=== PATIENT | female | born 1945 | race Caucasian/White ===

== ENCOUNTER → 2017-01-11 | Outpatient (CLI) | payer BC ==
[~2017-01-11] MED LIST: ACET-1138 PO; ALBUAER2 INH; ASCO500C43 PO; ASPEC81 PO; ATOR-54 PO; ATV/1 PO; CALCTAB5 PO; CHOL1000 PO; CINN1CAP2 PO; CLB200 PO; COEN50CA PO; DTRSR4 PO; FLV400 PO; FRS/40 PO; GARLIC PARSLEY PO; GLUCTAB7 PO; LANS30CA12 PO; MISCCAP80 PO; MULT-506 PO; OXYSR10 PO; POTACAP PO; PRM625 PO; PROP20TA67 PO; RXC5 PO; VENL1CAP92 PO; VITAFUSION GUMMY PO
[2017-01-11 13:30] LABS: ALT/SGPT 26 U/L (12-78); AST/SGOT 16 U/L (15-37); BLOOD UREA NITROGEN 19 mg/dl (7-18); CALCIUM 9.2 mg/dl (8.5-10.1); CARBON DIOXIDE 31 mmol/L (21-32); CHLORIDE 104 mmol/L (98-107); CREATININE 0.91 mg/dl (0.60-1.20); GLUCOSE 177 mg/dl (70-99); POTASSIUM 3.8 mmol/L (3.5-5.1); SODIUM 143 mmol/L (136-145)
[2017-01-11 13:41] LABS: ALB/GLOB RATIO 0.8 (0.9-2); ALKALINE PHOSPHATASE 91 U/L (45-117); CHOLESTEROL 136 mg/dl (0-200); CHOLESTEROL/HDL RATIO 2.2; HDL CHOLESTEROL 61 mg/dl; LDL CHOLESTEROL CALCULATED 49 mg/dl; TRIGLYCERIDES 128 mg/dl (0-150); VERY LOW DENSITY LIPOPROT CALC 26 mg/dl
[2017-01-11 13:52] LABS: ESTIMATED AVERAGE GLUCOSE 128 mg/dl; HA1C FLAG Normal (Normal)
== END | disposition home or self-care (01) ==
LOC: C.LAB1850 11:39
PROVIDERS: ATTEND Internal Medicine
DX: E78.5 Hyperlipidemia, unspecified (principal); R73.01 Impaired fasting glucose

== ENCOUNTER → 2017-03-12 | Outpatient (CLI) | payer BC ==
[2017-03-12 15:40] LABS: BASO % 0.4 %; BASO ABS # 0.02 K/uL (0-0.2); COMPLETE YES; EOS % 2.7 %; HEMATOCRIT 40.7 % (37-47); IG% 0.2 %; LYMPH % 29.8 %; LYMPH ABS # 1.66 K/uL (1.2-3.4); MEAN CELL VOLUME 89.1 fL (80-100); MEAN CORPUSCULAR HEMOGLOBIN 28.9 pg (25-34); MEAN CORPUSCULAR HGB CONC 32.4 g/dl (32-36); MEAN PLATELET VOLUME 9.6 fL (7.4-10.4); MONO % 7.4 %; NEUT % 59.5 %; PLATELET COUNT 197 K/uL (130-400); RED BLOOD COUNT 4.57 M/uL (4.2-5.4); WHITE BLOOD COUNT 5.57 K/uL (4.8-10.8)
== END | disposition home or self-care (01) ==
LOC: C.LAB 14:58
DX: Z96.652 Presence of left artificial knee joint (principal)

== ENCOUNTER → 2017-03-25 | Outpatient (CLI) | payer BC | END | disposition home or self-care (01) | LOC: C.CPL 13:55 | DX: Z01.810 Encounter for preprocedural cardiovascular examination (principal); L91.0 Hypertrophic scar ==

== ENCOUNTER → 2017-07-09 | Outpatient (CLI) | payer BC ==
--- NOTE | 2017-07-09 14:54 | MAMMOGRAPHY REPORT ---
BILATERAL DIGITAL SCREENING MAMMOGRAM WITH CAD: 07/09/2017 CLINICAL HISTORY: Routine screening. Patient has no complaints. TECHNIQUE: Current study was also evaluated with a Computer Aided Detection (CAD) system. Bilateral CC and MLO views were obtained. COMPARISON: Comparison is made to exams dated: 07/08/2016 mammogram, 05/01/2015 mammogram, 01/24/2014 m ammogram, 09/13/2012 mammogram, 03/21/2012 mammogram, and 09/17/2011 mammogram - [facility] enter. BREAST COMPOSITION: There are scattered areas of fibroglandular density in both breasts. FINDINGS: No suspicious masses, calcifications, or areas of architectural distortion are noted in ei ther breast. There has been no significant interval change compared to prior exams. IMPRESSION: ACR BI-RADS CATEGORY 1: NEGATIVE There is no mammographic evidence of malignancy. A 1 year screening mammogram is recommended. The pa tient will receive written notification of the results. Approximately 10% of breast cancers are not detected with mammography. A negative mammographic report should not delay biopsy if a clinically suggestive mass is present. Nyla Yin M.D. /:07/09/2017 13:57:00 Physical Optics Teacher: Stephania FONTANEZ(Andrew)(Home)([place]), [facility] letter sent: Normal 1/2 BI-RADS Code: ACR BI-RADS Category 1: Negative
== END | disposition home or self-care (01) ==
LOC: C.MAMM 13:03
PROVIDERS: ATTEND Internal Medicine
DX: Z12.31 Encounter for screening mammogram for malignant neoplasm of breast (principal)

== ENCOUNTER → 2017-07-21 | Outpatient (CLI) | payer BC ==
[2017-07-21 17:26] LABS: HEMATOCRIT 41.1 % (37-47); MEAN CELL VOLUME 92.2 fL (80-100); MEAN CORPUSCULAR HEMOGLOBIN 29.8 pg (25-34); MEAN CORPUSCULAR HGB CONC 32.4 g/dl (32-36); MEAN PLATELET VOLUME 10.4 fL (7.4-10.4); PLATELET COUNT 201 K/uL (130-400); RED BLOOD COUNT 4.46 M/uL (4.2-5.4); WHITE BLOOD COUNT 5.66 K/uL (4.8-10.8)
[2017-07-21 17:54] LABS: ALT/SGPT 31 U/L (12-78); AST/SGOT 22 U/L (15-37); BLOOD UREA NITROGEN 26 mg/dl (7-18); BUN/CREATININE RATIO 25.7 (10-20); CALCIUM 9.4 mg/dl (8.5-10.1); CARBON DIOXIDE 31 mmol/L (21-32); CHLORIDE 103 mmol/L (98-107); GLUCOSE 109 mg/dl (70-99); POTASSIUM 3.9 mmol/L (3.5-5.1); SODIUM 141 mmol/L (136-145)
[2017-07-21 17:55] LABS: ALKALINE PHOSPHATASE 80 U/L (45-117); CHOLESTEROL 146 mg/dl (0-200); CHOLESTEROL/HDL RATIO 2.3; HDL CHOLESTEROL 64 mg/dl; LDL CHOLESTEROL CALCULATED 53 mg/dl; TRIGLYCERIDES 145 mg/dl (0-150); VERY LOW DENSITY LIPOPROT CALC 29 mg/dl
[2017-07-22 13:09] LABS: ESTIMATED AVERAGE GLUCOSE 117 mg/dl; HA1C FLAG Normal (Normal)
== END | disposition home or self-care (01) ==
LOC: C.LABBFT 11:23
PROVIDERS: ATTEND Internal Medicine
DX: E78.5 Hyperlipidemia, unspecified (principal); R73.01 Impaired fasting glucose

== ENCOUNTER 2017-11-02 14:21 | Inpatient (IN) | payer BC, OTHER ==
[~2017-11-02] VITALS: Ht 154.9 cm; Wt 87.2 kg
[2017-11-02] VITALS (7 sets, daily range): BP systolic 145–181; BP diastolic 95–125; PULSE 96–131; TEMP 36.9–37.1; O2SAT 93–97; BMI 41.9
[2017-11-02] MEDS ORDERED: ONDANSETRON INJ 2 MG/ML 2 ML VIAL ONE (14:27)
[2017-11-02] MEDS ORDERED: MoRPHine SULFATE 10 MG/ML CARP/VIAL ONE (14:27)
[2017-11-02] MEDS ORDERED: MoRPHine SULFATE 4 MG/ML 1 ML CARP\\VIAL IV STA (14:36)
[2017-11-02] MEDS ORDERED: ONDANSETRON INJ 2 MG/ML 2 ML VIAL IV STA (14:36)
[2017-11-02] MEDS ORDERED: OPTIRAY 320 IV PRN (14:45)
--- NOTE | 2017-11-02 14:59 | EMERGENCY ROOM VISIT NOTE ---
History Report prepared by Juan: Nila Sadler Under the Supervision of: Dr. Colin Bryant M.D. 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 The patient has been constipated for the past 3 days which she states is unusual for her. She has not had a BM for 3 days. She has used stool softeners and suppositories without any relief. She has not been passing gas. She rates her pain as a 5/10 in severity. Positive nausea and vomiting. Negative chest pain, shortness of breath, recent travel, and recent trauma or injury. She was recently taking an antibiotic for "chest congestion." Pt takes daily aspirin. 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 Review of Systems See HPI for pertinent positives and negatives. A total of ten systems were reviewed and were otherwise negative. Past Medical & Surgical Medical Problems: (1) Arthritis of left knee Family History Non-pertinent due to advanced age. Social History Smoking Status: Never Smoker Marital Status: Housing Status: lives with significant other Occupation Status: unemployed Current/Historical Medications Scheduled Ascorbic Acid (Vitamin C 500 mg), 500 MG PO BID Aspirin (Aspirin EC Low Dose), 81 MG PO BID Atorvastatin (Lipitor), 20 MG PO QPM Calcium Carbonate-Vitamin D W/ (Caltrate 600 Plus), 600 MG PO DAILY Cholecalciferol (Vitamin D3), 1,000 UNITS PO QAM Cinnamon (Cinnamon), 1,000 MG PO QAM Flurbiprofen (Ansaid), 100 MG PO BIDM Furosemide (Lasix), 40 MG PO QAM Cudalpnhbuh-Hkpcuogzcoa-Pzd C- (Glucosamine Chondroitin), 1 TAB PO BID Levofloxacin (Levaquin), 500 MG PO DAILY Multiple Vitamins W/ Minerals (Womens Daily Formula), 1 TAB PO DAILY Potassium Gluconate (K-99), 595 MG PO QAM Propranolol Hcl (Propranolol Hcl), 40 MG PO BID Tolterodine Tartrate (Detrol LA), 4 MG PO QPM Venlafaxine Hcl (Effexor Xr), 37.5 MG PO BID Scheduled PRN Albuterol Sulfate (Proventil Hfa), 2 PUFFS INH QID PRN for SOB/Wheezing Lorazepam (Ativan), 1 MG PO BID PRN for Anxiety Ondansetron Hcl (Zofran), 4 MG PO Q6 PRN for Nausea Tramadol (Ultram), 50 MG PO Q8H PRN for Pain Allergies Coded Allergies: No Known Allergies (Verified , 11/02/17) Physical Exam Vital Signs Date Time Temp Pulse Resp B/P (MAP) Pulse Ox O2 Delivery O2 Flow Rate FiO2 11/02/17 17:30 97 Room Air 11/02/17 16:12 164/82 11/02/17 16:08 37.4 108 18 183/106 97 Room Air 11/02/17 15:14 113 11/02/17 14:39 36.6 110 24 132/101 93 Room Air 11/02/17 14:31 36.9 20 132/101 94 Room Air Physical Exam GENERAL: Awake, alert, well-appearing, NAD HENT: Normocephalic, atraumatic. Edentulous. EYES: Normal conjunctiva. Sclera non-icteric. NECK: Supple. No nuchal rigidity. FROM. Horizontal incisional scar over anterior neck. RESPIRATORY: CTAB, no rhonchi, wheezing, crackles CARDIAC: RRR, no MRG ABDOMEN: Soft, diffuse abdominal TTP the least in the RUQ, BS+ MSK: No chest wall TTP, no LE edema NEURO: GCS 15, CN 2-12 intact, moves all 4s on command SKIN: No rash or jaundice noted. Medical Decision & Procedures ER Provider Diagnostic Interpretation: Radiology results as stated below per my review and radiologist interpretation: CHEST ONE VIEW PORTABLE CLINICAL HISTORY: ABDOMINAL PAIN/GI pain COMPARISON STUDY: 03/03/2016 FINDINGS: Lungs are considered clear. Minimal interstitial change left base possibly atelectatic. No well-defined focal or consolidative infiltrative change. Stable postoperative changes of the cervical and low thoracic region. IMPRESSION: Chronic and postoperative change. Slight nonspecific interstitial prominence left lung base. The above report was generated using voice recognition software. It may contain grammatical, syntax or spelling errors. Electronically signed by: Champ Oswald M.D. 11/02/2017 3:02 PM Dictated Date/Time: 11/02/2017 3:01 PM ABD/PELVIS IV CONTRAST ONLY CT DOSE: 953.87 mGycm HISTORY: Pain severe ab TTP, almost peritonitic, no BM x 3 days, ?obstipation TECHNIQUE: Multiaxial CT images of the abdomen and pelvis were performed following the use of intravenous contrast. A dose lowering technique was utilized adhering to the principles of ALARA. COMPARISON STUDY: None. FINDINGS: Lung bases are clear. Liver is uniform throughout. Mild gallbladder distention. Trace perihepatic ascites. Mild atrophy of the kidneys. No evidence for renal hydronephrosis. Normal small bowel pattern. Distention of the cecum a sending and proximal to mid transverse colon. Decompressed descending colon. Mobile cecum which is located in the left lateral abdominal region. Normal appendix. IMPRESSION: 1. Generalized colonic distention specifically related to the cecum, a sending colon, as well as transverse colon. 2. No evidence for well-defined obstructing lesion with the descending colon unremarkable in overall caliber. 3. Mobile cecum with the cecum identified in the left lateral abdomen. The appendix is normal. 3. Trace ascites within the right and to a lesser extent left paracolic gutter regions. 4. The appearance suggests a general colonic ileus versus adynamic ileus rather than a true obstructive process. 5. No evidence for pneumatosis. The above report was generated using voice recognition software. It may contain grammatical, syntax or spelling errors. Electronically signed by: Champ Oswald M.D. 11/02/2017 4:09 PM Dictated Date/Time: 11/02/2017 4:03 PM Laboratory Results 11/02/17 15:03 Red Blood Count 4.58, Mean Corpuscular Volume 88.6, Mean Corpuscular Hemoglobin 30.1, Mean Corpuscular Hemoglobin Concent 34.0, Mean Platelet Volume 9.2, Neutrophils (%) (Auto) 90.7, Lymphocytes (%) (Auto) 3.8, Monocytes (%) (Auto) 5.0, Eosinophils (%) (Auto) 0.2, Basophils (%) (Auto) 0.0, Neutrophils # (Auto) 11.54, Lymphocytes # (Auto) 0.49, Monocytes # (Auto) 0.64, Eosinophils # (Auto) 0.02, Basophils # (Auto) 0.00 11/02/17 15:03 Test 11/02/17 15:03 11/02/17 15:07 11/02/17 15:08 11/02/17 15:11 White Blood Count 12.73 K/uL (4.8-10.8) Red Blood Count 4.58 M/uL (4.2-5.4) Hemoglobin 13.8 g/dL (12.0-16.0) Hematocrit 40.6 % (37-47) Mean Corpuscular Volume 88.6 fL (80-100) Mean Corpuscular Hemoglobin 30.1 pg (25-34) Mean Corpuscular Hemoglobin Concent 34.0 g/dl (32-36) Platelet Count 178 K/uL (130-400) Mean Platelet Volume 9.2 fL (7.4-10.4) Neutrophils (%) (Auto) 90.7 % Lymphocytes (%) (Auto) 3.8 % Monocytes (%) (Auto) 5.0 % Eosinophils (%) (Auto) 0.2 % Basophils (%) (Auto) 0.0 % Neutrophils # (Auto) 11.54 K/uL (1.4-6.5) Lymphocytes # (Auto) 0.49 K/uL (1.2-3.4) Monocytes # (Auto) 0.64 K/uL (0.11-0.59) Eosinophils # (Auto) 0.02 K/uL (0-0.5) Basophils # (Auto) 0.00 K/uL (0-0.2) RDW Standard Deviation 48.2 fL (36.4-46.3) RDW Coefficient of Variation 15.1 % (11.5-14.5) Immature Granulocyte % (Auto) 0.3 % Immature Granulocyte # (Auto) 0.04 K/uL (0.00-0.02) Activated Partial Thromboplast Time 23.1 SECONDS (21.0-31.0) Partial Thromboplastin Ratio 0.9 Est Creatinine Clear Calc Drug Dose 55.6 ml/min Estimated GFR () 66.3 Estimated GFR (Non- 57.2 BUN/Creatinine Ratio 25.4 (10-20) Calcium Level 10.6 mg/dl (8.5-10.1) Total Bilirubin 1.2 mg/dl (0.2-1) Direct Bilirubin 0.2 mg/dl (0-0.2) Aspartate Amino Transf (AST/SGOT) 21 U/L (15-37) Alanine Aminotransferase (ALT/SGPT) 25 U/L (12-78) Alkaline Phosphatase 91 U/L (45-117) Total Protein 7.3 gm/dl (6.4-8.2) Albumin 3.6 gm/dl (3.4-5.0) Lipase 88 U/L (73-393) Bedside Lactic Acid Venous 1.46 mmol/L (0.90-1.70) Venous Blood pH 7.39 (7.36-7.41) Venous Blood Partial Pressure CO2 54 mmHg (38.0-50.0) Venous Blood Partial Pressure O2 26 mmHg Venous Blood HCO3 31 mmol/L Venous Blood Oxygen Saturation < 60.0 % Venous Blood Base Excess 5.1 mEq/L Bedside Hemoglobin 13.9 g/dl (12.0-16.0) Bedside Hematocrit 41 % (37-47) Bedside Sodium 138 mEq/L (135-144) Bedside Potassium 3.4 mEq/L (3.3-5.0) Bedside Chloride 96 mEq/L (101-112) Bedside Total CO2 30 mEq/l (24-31) Anion Gap 16.0 mmol/L (16-25) Bedside Blood Urea Nitrogen 25 mg/dl (7-18) Bedside Creatinine 1.0 mg/dl (0.6-1.3) Bedside Glucose (other) 184 mg/dl (70-99) Bedside Ionized Calcium ([place]) 1.26 mmol/l (1.12-1.32) Laboratory results reviewed by me. Medications Administered Medications (Trade) Dose Ordered Sig/Rachel Route Start Time Stop Time Status Last Admin Dose Admin Ondansetron HCl (Zofran Inj) 4 mg NOW STAT IV 11/02/17 14:36 11/02/17 14:40 DC 11/02/17 15:08 4 MG Morphine Sulfate (MoRPHine SULFATE INJ) 4 mg NOW STAT IV 11/02/17 14:36 11/02/17 14:40 DC 11/02/17 15:09 4 MG Hydromorphone HCl (Dilaudid Inj) 0.5 mg NOW STAT IV 11/02/17 16:39 11/02/17 16:40 DC 11/02/17 17:26 0.5 MG Hydromorphone HCl (Dilaudid Inj) 1 mg Q4H PRN IV 11/02/17 18:00 11/16/17 17:59 11/02/17 19:48 1 MG Morphine Sulfate (MoRPHine SULFATE INJ) 2 mg Q4H PRN IV 11/02/17 18:00 2 17:59 11/02/17 21:30 2 MG ECG Indication: abdominal pain Rate (beats per minute): 110 Rhythm: sinus tachycardia Findings: T-wave inversion (Lateral), other (normal intervals; normal axis; motion artifact) Change: ECG interpreted by myself. ED Course 1421: The patient was evaluated in room A9A. A complete history and physical exam was performed. 1636: I reassessed the patient at this time. She is still having symptoms. I discussed the results and treatment plan with the patient. I answered all pertaining questions that she had. She expressed understanding and verbalized agreement. 1642: I spoke with Dr. Mackey. We discussed the patient's case. The patient will be evaluated by the [facility] for further management. Medical Decision Differential diagnosis: Etiologies such as appendicitis, diverticulitis, PUD, biliary pathology, UTI, pancreatitis, obstruction, mesenteric ischemia, aortic pathology, infections, inflammatory bowel disease, renal colic, as well as others were entertained. 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 Patient was seen and evaluated the bedside. Patient was complaining of some diffuse abdominal pain beginning around 7:30 this morning. Patient states that developed after waking up. Patient has had some nausea with some vomiting as well. On exam the patient per and complains just of a dominant pain. Per review the EMR the patient has had a prior hysterectomy. No other abdominal surgeries noted. Patient did have blood work completed along with EKG, troponin , chest x-ray and CT the abdomen pelvis. A VBG and lactic acid were also drawn. Patient's VBG did show mild hypercarbia but pH is normal. Lactic acid is normal. Patient's white blood cell count of 12,000. Patient did have mild hyperglycemia. Patient's CT the head and pelvis did show an ileus without obvious transition point. I did reassess the patient the patient still fairly symptomatic. Given the patient's diffuse pain she was given additional pain medication I did admit the patient to the medicine service. Medication Reconcilliation Current Medication List: was personally reviewed by me Blood Pressure Screening Patient's blood pressure: Elevated blood pressure Blood pressure disposition: Elevated BP felt to be situational Consults Time Called: 1639 Consulting Physician: Dr. Makcey Returned Call: [address] Mackey. We discussed the patient's case. The patient will be evaluated by the [facility] for further management. Impression Primary Impression: Ileus Additional Impressions: Abdominal pain, diffuse Nausea & vomiting Scribe Attestation The scribe's documentation has been prepared under my direction and personally reviewed by me in its entirety. I confirm that the note above accurately reflects all work, treatment, procedures, and medical decision making performed by me. Departure Information Dispostion Being Evaluated By Hospitalist Referrals Aryan Jack M.D. (PCP) Patient Instructions My [facility] Health Problem Qualifiers Additional Impressions: Nausea & vomiting Vomiting type: unspecified Vomiting Intractability: non-intractable Qualified Codes: R11.2 - Nausea with vomiting, unspecified
--- NOTE | 2017-11-02 15:03 | DIAGNOSTIC IMAGING REPORT ---
CHEST ONE VIEW PORTABLE CLINICAL HISTORY: ABDOMINAL PAIN/GI pain COMPARISON STUDY: 03/03/2016 FINDINGS: Lungs are considered clear. Minimal interstitial change left base possibly atelectatic. No well-defined focal or consolidative infiltrative change. Stable postoperative changes of the cervical and low thoracic region. IMPRESSION: Chronic and postoperative change. Slight nonspecific interstitial prominence left lung base. The above report was generated using voice recognition software. It may contain grammatical, syntax or spelling errors. Electronically signed by: Champ Oswald M.D. 11/02/2017 3:02 PM Dictated Date/Time: 11/02/2017 3:01 PM
[2017-11-02 15:15] LABS: EOS % 0.2 %; EOS ABS # 0.02 K/uL (0-0.5); HEMATOCRIT 40.6 % (37-47); HEMOGLOBIN 13.8 g/dL (12.0-16.0); IG# 0.04 K/uL (0.00-0.02); LYMPH % 3.8 %; LYMPH ABS # 0.49 K/uL (1.2-3.4); MEAN CELL VOLUME 88.6 fL (80-100); MEAN CORPUSCULAR HEMOGLOBIN 30.1 pg (25-34); MEAN PLATELET VOLUME 9.2 fL (7.4-10.4); MONO ABS # 0.64 K/uL (0.11-0.59); NEUT % 90.7 %; NEUT ABS # 11.54 K/uL (1.4-6.5); PLATELET COUNT 178 K/uL (130-400); RED CELL DISTRIBUTION WIDTH CV 15.1 % (11.5-14.5); RED CELL DISTRIBUTION WIDTH SD 48.2 fL (36.4-46.3); WHITE BLOOD COUNT 12.73 K/uL (4.8-10.8)
[2017-11-02] MEDS: PROPRANOLOL HCL 80 MG TAB PO SCH (15:15)
[2017-11-02] MEDS: VENLAFAXINE HCL XR 37.5 MG CAPXR PO SCH (15:15)
[2017-11-02 15:24] LABS: ISTAT IONIZED CALCIUM 1.26 mmol/l (1.12-1.32); ISTAT POTASSIUM 3.4 mEq/L (3.3-5.0)
[2017-11-02 15:25] LABS: PTT PATIENT 23.1 SECONDS (21.0-31.0)
[2017-11-02 15:31] LABS: ALBUMIN 3.6 gm/dl (3.4-5.0); CALCIUM 10.6 mg/dl (8.5-10.1); CREATININE 0.98 mg/dl (0.60-1.20); POTASSIUM 3.5 mmol/L (3.5-5.1)
[2017-11-02 15:34] LABS: TOTAL PROTEIN 7.3 gm/dl (6.4-8.2)
--- NOTE | 2017-11-02 16:10 | DIAGNOSTIC IMAGING REPORT ---
ABD/PELVIS IV CONTRAST ONLY CT DOSE: 953.87 mGycm HISTORY: Pain severe ab TTP, almost peritonitic, no BM x 3 days, ?obstipation TECHNIQUE: Multiaxial CT images of the abdomen and pelvis were performed following the use of intravenous contrast. A dose lowering technique was utilized adhering to the principles of ALARA. COMPARISON STUDY: None. FINDINGS: Lung bases are clear. Liver is uniform throughout. Mild gallbladder distention. Trace perihepatic ascites. Mild atrophy of the kidneys. No evidence for renal hydronephrosis. Normal small bowel pattern. Distention of the cecum a sending and proximal to mid transverse colon. Decompressed descending colon. Mobile cecum which is located in the left lateral abdominal region. Normal appendix. IMPRESSION: 1. Generalized colonic distention specifically related to the cecum, a sending colon, as well as transverse colon. 2. No evidence for well-defined obstructing lesion with the descending colon unremarkable in overall caliber. 3. Mobile cecum with the cecum identified in the left lateral abdomen. The appendix is normal. 3. Trace ascites within the right and to a lesser extent left paracolic gutter regions. 4. The appearance suggests a general colonic ileus versus adynamic ileus rather than a true obstructive process. 5. No evidence for pneumatosis. The above report was generated using voice recognition software. It may contain grammatical, syntax or spelling errors. Electronically signed by: Champ Oswald M.D. 11/02/2017 4:09 PM Dictated Date/Time: 11/02/2017 4:03 PM
[2017-11-02] MEDS ORDERED: HYDROmorphone INJ 0.5 MG/0.5 ML SYR IV STA (16:39)
[2017-11-02] MEDS ORDERED: TRAM-10 PO (16:52)
[2017-11-02] MEDS ORDERED: MULT1TAB79 PO (16:52)
[2017-11-02] MEDS ORDERED: ALBUAER INH (16:52)
[2017-11-02] MEDS ORDERED: LEVO500T19 PO (16:52)
[2017-11-02] MEDS ORDERED: ONDA4TAB46 PO (16:52)
[2017-11-02] MEDS ORDERED: FLUR100T PO (16:52)
[2017-11-02] MEDS ORDERED: CALCTAB7 PO (16:52)
[2017-11-02] MEDS ORDERED: PROP40TA5 PO (16:54)
[2017-11-02] MEDS ORDERED: ACETAMINOPHEN 325 MG TAB PO PRN (18:00)
[2017-11-02] MEDS ORDERED: LORAZEPAM 1 MG TAB PO PRN (18:00)
[2017-11-02] MEDS ORDERED: ALBUTEROL HFA 8 GM INHALER INH PRN (18:00)
[2017-11-02] MEDS ORDERED: ONDANSETRON 4 MG TAB PO PRN (18:00)
[2017-11-02] MEDS ORDERED: SODIUM CHLORIDE 0.9% 1000ML 1,000 ML IV SCH (18:15)
--- NOTE | 2017-11-02 18:25 | History and Physical ---
History & Physical Date & Time of Service: Nov 02, 2017 at 17:41 Chief Complaint: Abdominal Pain Primary Care Physician: Aryan Jack M.D. History of Present Illness Source: patient Ms. Kaminski presented to the ED today for belly pain is currently experiencing a pain level of 10/10 with little relief from pain medications given, pain started at 7:30 this morning. She has been nauseas and vomiting. She has never had a bowel blockage before. She has a history of hysterectomy but no other abdominal surgeries. She has not had a bowel movement for 3 days which is unusual for her. She had no relief from mineral oil or suppositories. She has had some gas and burping. No fever, some chills this morning. She has been sick since the middle of September with sinus infection and cough. She started on abx a week ago. She was unable to take her last dose today. ROS Constitutional: no chills, aches, sweats or fever Respiratory: no sob,cough, sputum, or wheezing Cardiac: no chest pain, palpitations, edema, orthopnea or lightheadedness GI: see HPI : no dysuria or hesitancy Extremities: no joint pain or weakness Skin: no rash All other systems reviewed and negative Pmhx: htn, anxiety, knee, back, shoulder, neck surgeries as well as partial thyroidectomy. Social History Smoking Status: Never Smoker Alcohol Use: none Marital Status: Housing status: lives with significant other Occupational Status: unemployed Immunizations History of Influenza Vaccine: No History of Tetanus Vaccine?: Yes History of Pneumococcal: No History of Hepatitis B Vaccine: No Multi-Drug Resistant Organisms History of MDRO: No Allergies Coded Allergies: No Known Allergies (Verified , 11/02/17) Home Medications Scheduled Ascorbic Acid (Vitamin C 500 mg), 500 MG PO BID Aspirin (Aspirin EC Low Dose), 81 MG PO BID Atorvastatin (Lipitor), 20 MG PO QPM Calcium Carbonate-Vitamin D W/ (Caltrate 600 Plus), 600 MG PO DAILY Cholecalciferol (Vitamin D3), 1,000 UNITS PO QAM Cinnamon (Cinnamon), 1,000 MG PO QAM Flurbiprofen (Ansaid), 100 MG PO BIDM Furosemide (Lasix), 40 MG PO QAM Tgrcjngbweq-Wfmwnxijcuw-Lxu C- (Glucosamine Chondroitin), 1 TAB PO BID Levofloxacin (Levaquin), 500 MG PO DAILY Multiple Vitamins W/ Minerals (Womens Daily Formula), 1 TAB PO DAILY Potassium Gluconate (K-99), 595 MG PO QAM Propranolol Hcl (Propranolol Hcl), 40 MG PO BID Tolterodine Tartrate (Detrol LA), 4 MG PO QPM Venlafaxine Hcl (Effexor Xr), 37.5 MG PO BID Scheduled PRN Albuterol Sulfate (Proventil Hfa), 2 PUFFS INH QID PRN for SOB/Wheezing Lorazepam (Ativan), 1 MG PO BID PRN for Anxiety Ondansetron Hcl (Zofran), 4 MG PO Q6 PRN for Nausea Tramadol (Ultram), 50 MG PO Q8H PRN for Pain Physical Exam Vital Signs Date Time Temp Pulse Resp B/P (MAP) Pulse Ox O2 Delivery O2 Flow Rate FiO2 11/02/17 17:30 97 Room Air 11/02/17 16:12 164/82 11/02/17 16:08 37.4 108 18 183/106 97 Room Air 11/02/17 15:14 113 11/02/17 14:39 36.6 110 24 132/101 93 Room Air 11/02/17 14:31 36.9 20 132/101 94 Room Air General: no distress Eyes: normal inspection, PERLL Respiratory: chest non tender, clear to auscultation, normal breath sounds, no respiratory distress, no accessory muscle use Cardiac: regular rate and rhythm, no rub or gallop, no murmur, no edema, no jvd GI/: active bowel sounds, abdomen firm and distended, diffusely tender to palpatient Extremities: normal range of motion, normal strength, non tender Neuro/Psych: alert and oriented x 3, normal mood and affect Skin: normal color, dry Diagnostics Laboratory Results Results Past 24 Hours Test 11/02/17 15:03 11/02/17 15:07 11/02/17 15:08 11/02/17 15:11 Range/Units White Blood Count 12.73 4.8-10.8 K/uL Red Blood Count 4.58 4.2-5.4 M/uL Hemoglobin 13.8 12.0-16.0 g/dL Hematocrit 40.6 37-47 % Mean Corpuscular Volume 88.6 80-100 fL Mean Corpuscular Hemoglobin 30.1 25-34 pg Mean Corpuscular Hemoglobin Concent 34.0 32-36 g/dl Platelet Count 178 130-400 K/uL Mean Platelet Volume 9.2 7.4-10.4 fL Neutrophils (%) (Auto) 90.7 % Lymphocytes (%) (Auto) 3.8 % Monocytes (%) (Auto) 5.0 % Eosinophils (%) (Auto) 0.2 % Basophils (%) (Auto) 0.0 % Neutrophils # (Auto) 11.54 1.4-6.5 K/uL Lymphocytes # (Auto) 0.49 1.2-3.4 K/uL Monocytes # (Auto) 0.64 0.11-0.59 K/uL Eosinophils # (Auto) 0.02 0-0.5 K/uL Basophils # (Auto) 0.00 0-0.2 K/uL RDW Standard Deviation 48.2 36.4-46.3 fL RDW Coefficient of Variation 15.1 11.5-14.5 % Immature Granulocyte % (Auto) 0.3 % Immature Granulocyte # (Auto) 0.04 0.00-0.02 K/uL Prothrombin Time 10.7 9.0-12.0 SECONDS Prothromb Time International Ratio 1.0 0.9-1.1 Activated Partial Thromboplast Time 23.1 21.0-31.0 SECONDS Partial Thromboplastin Ratio 0.9 Sodium Level 136 136-145 mmol/L Potassium Level 3.5 3.5-5.1 mmol/L Chloride Level 98 98-107 mmol/L Carbon Dioxide Level 29 21-32 mmol/L Anion Gap 9.0 16.0 16-25 mmol/L Blood Urea Nitrogen 25 7-18 mg/dl Creatinine 0.98 0.60-1.20 mg/dl Est Creatinine Clear Calc Drug Dose 55.6 ml/min Estimated GFR () 66.3 Estimated GFR (Non- 57.2 BUN/Creatinine Ratio 25.4 10-20 Random Glucose 181 70-99 mg/dl Calcium Level 10.6 8.5-10.1 mg/dl Total Bilirubin 1.2 0.2-1 mg/dl Direct Bilirubin 0.2 0-0.2 mg/dl Aspartate Amino Transf (AST/SGOT) 21 15-37 U/L Alanine Aminotransferase (ALT/SGPT) 25 12-78 U/L Alkaline Phosphatase 91 45-117 U/L Total Protein 7.3 6.4-8.2 gm/dl Albumin 3.6 3.4-5.0 gm/dl Lipase 88 73-393 U/L Bedside Lactic Acid Venous 1.46 0.90-1.70 mmol/L Venous Blood pH 7.39 7.36-7.41 Venous Blood Partial Pressure CO2 54 38.0-50.0 mmHg Venous Blood Partial Pressure O2 26 mmHg Venous Blood HCO3 31 mmol/L Venous Blood Oxygen Saturation < 60.0 % Venous Blood Base Excess 5.1 mEq/L Bedside Hemoglobin 13.9 12.0-16.0 g/dl Bedside Hematocrit 41 37-47 % Bedside Sodium 138 135-144 mEq/L Bedside Potassium 3.4 3.3-5.0 mEq/L Bedside Chloride 96 101-112 mEq/L Bedside Total CO2 30 24-31 mEq/l Bedside Blood Urea Nitrogen 25 7-18 mg/dl Bedside Creatinine 1.0 0.6-1.3 mg/dl Bedside Glucose (other) 184 70-99 mg/dl Bedside Ionized Calcium (Dayami) 1.26 1.12-1.32 mmol/l Diagnostic Radiology ABD/PELVIS IV CONTRAST ONLY CT DOSE: 953.87 mGycm HISTORY: Pain severe ab TTP, almost peritonitic, no BM x 3 days, ?obstipation TECHNIQUE: Multiaxial CT images of the abdomen and pelvis were performed following the use of intravenous contrast. A dose lowering technique was utilized adhering to the principles of ALARA. COMPARISON STUDY: None. FINDINGS: Lung bases are clear. Liver is uniform throughout. Mild gallbladder distention. Trace perihepatic ascites. Mild atrophy of the kidneys. No evidence for renal hydronephrosis. Normal small bowel pattern. Distention of the cecum a sending and proximal to mid transverse colon. Decompressed descending colon. Mobile cecum which is located in the left lateral abdominal region. Normal appendix. IMPRESSION: 1. Generalized colonic distention specifically related to the cecum, a sending colon, as well as transverse colon. 2. No evidence for well-defined obstructing lesion with the descending colon unremarkable in overall caliber. 3. Mobile cecum with the cecum identified in the left lateral abdomen. The appendix is normal. 3. Trace ascites within the right and to a lesser extent left paracolic gutter regions. 4. The appearance suggests a general colonic ileus versus adynamic ileus rather than a true obstructive process. 5. No evidence for pneumatosis. CHEST ONE VIEW PORTABLE CLINICAL HISTORY: ABDOMINAL PAIN/GI pain COMPARISON STUDY: 03/03/2016 FINDINGS: Lungs are considered clear. Minimal interstitial change left base possibly atelectatic. No well-defined focal or consolidative infiltrative change. Stable postoperative changes of the cervical and low thoracic region. IMPRESSION: Chronic and postoperative change. Slight nonspecific interstitial prominence left lung base. EKG Poor data quality, interpretation may be adversely affected Sinus tachycardia Nonspecific T wave abnormality Abnormal ECG When compared with ECG of 25-MAR-2017 14:11, Vent. rate has increased BY 41 BPM Nonspecific T wave abnormality now evident in Inferior leads Impression Assessment and Plan Ms. Kaminski is a 72 year old woman here for colonic ileus Colonic ileus - admit med surg - may need NG tube, pain control, IVF, NPO - CT showed colonic ileus without evidence for obstructing lesion - consult gen surg Hypokalemia - NSS 20K @ 100 ml/hr HTN - bp elevated - likely due to pain - continue home lasix, propranolol when taking po. Asthma - continue home inhalers HLD - continue statin when taking po Anxiety - continue lorazepam bid Depression - continue effexor DVT proph - heparin subq - hold until seen by surgery DNR Resident Physician Supervision Note: Pt evaluated independently. I discussed the case with the [employer] and agree with the findings and plan as documented in the note. Any exceptions or clarifications are listed here: 72 y/o F Hx HTN, HPL, asthma - history of hysterectomy - presenting with abd pain/distention, N/V. OE AAO x 3 S1,2 +M CTAB distended abdomen - pain to palpation - hypoactive BS No CCE No deficits P: CT read as ileus - no history of or Hx of DM - distant abd surgery Due to clinical exam we will request a surgery consult She may need an NGT IVF - NPO - hold daily lasix due to dehydration and hypoK Documented By: Yinka Mackey Advanced Directives Existing Living Will: No Existing Power of Foreign Language Professor: No Resuscitation Status DO NOT RESUSCITATE
[2017-11-02] MEDS: ONDANSETRON INJ 2 MG/ML 2 ML VIAL IV PRN (19:47)
[2017-11-02] MEDS: HYDROmorphone INJ 1 MG/ML SYR IV PRN (19:48)
[2017-11-02] MEDS ORDERED: ASPIRIN 81 MG ECTAB PO SCH (21:00)
--- NOTE | 2017-11-02 21:12 | Surgery Consultation ---
Consultation Date of Consultation: Nov 02, 2017. Attending Physician: Yinka Mackey M.D. Reason for Consultation: Ileus History of Present Illness Patient is a 72F who presented to the ED this evening due to generalized abdominal pain, nausea and vomiting which started around 0730 this morning. Described her pain as a 10/10 in the ED. Denies hematemesis. She has continued to have bouts of nausea and vomiting in the ED and during her transfer up to med /surg floor. Reports she last ate yogurt the night before without issues. Last BM 3 days ago. Denies blood in stool. She has been urinating without trouble and it sounds like she has had some urinary incontinence during this visit as well. She also states she had some chills today but denies fever. She was recent put on antibiotics about a week ago for a sinus infection and cough that she has had since September. She was not able to take her last dose of the antibiotics today due to her pain. PSHx significant for hysterectomy and states they left her ovaries. Denies any other abdominal surgeries in the past. She has never had symptoms or episodes like this in the past. She does currently take aspirin 81mg BID but denies use of other blood thinning or anticoagulant medications. At this time she rates her pain 7/10. She received a dose of 1 mg dilaudid at 1948. She was having a NGT placed when I stepped into the room. WBC 12.73, T bili 1.[address] abd/pelvis shows findings suggesting a generalized colonic ileus versus adynamic ileus. Of note, her cecum was also found to be mobile and in her left lateral abdomen. Past Medical/Surgical History Medical Problems: (1) Abdominal pain, diffuse Status: Acute (2) Ileus Status: Acute (3) Nausea & vomiting Status: Acute Social History Smoking Status: Never Smoker Alcohol Use: none Marital Status: Housing Status: lives with significant other Occupation Status: unemployed Allergies Coded Allergies: No Known Allergies (Verified , 11/02/17) Home Medications Scheduled Ascorbic Acid (Vitamin C 500 mg), 500 MG PO BID Aspirin (Aspirin EC Low Dose), 81 MG PO BID Atorvastatin (Lipitor), 20 MG PO QPM Calcium Carbonate-Vitamin D W/ (Caltrate 600 Plus), 600 MG PO DAILY Cholecalciferol (Vitamin D3), 1,000 UNITS PO QAM Cinnamon (Cinnamon), 1,000 MG PO QAM Flurbiprofen (Ansaid), 100 MG PO BIDM Furosemide (Lasix), 40 MG PO QAM Wofbulvjfgm-Jphinxcdmdr-Dfg C- (Glucosamine Chondroitin), 1 TAB PO BID Levofloxacin (Levaquin), 500 MG PO DAILY Multiple Vitamins W/ Minerals (Womens Daily Formula), 1 TAB PO DAILY Potassium Gluconate (K-99), 595 MG PO QAM Propranolol Hcl (Propranolol Hcl), 40 MG PO BID Tolterodine Tartrate (Detrol LA), 4 MG PO QPM Venlafaxine Hcl (Effexor Xr), 37.5 MG PO BID Scheduled PRN Albuterol Sulfate (Proventil Hfa), 2 PUFFS INH QID PRN for SOB/Wheezing Lorazepam (Ativan), 1 MG PO BID PRN for Anxiety Ondansetron Hcl (Zofran), 4 MG PO Q6 PRN for Nausea Tramadol (Ultram), 50 MG PO Q8H PRN for Pain Current Inpatient Medications Current Inpatient Medications Medications (Trade) Dose Ordered Sig/Rachel Route Start Time Stop Time Status Last Admin Dose Admin Ioversol (Optiray 320) 100 ml UD PRN IV 11/02/17 14:45 11/06/17 14:44 Acetaminophen (Tylenol Tab) 650 mg Q4H PRN PO 11/02/17 18:00 12/02/17 17:59 Hydromorphone HCl (Dilaudid Inj) 1 mg Q4H PRN IV 11/02/17 18:00 11/16/17 17:59 11/02/17 19:48 1 MG Morphine Sulfate (MoRPHine SULFATE INJ) 2 mg Q4H PRN IV 11/02/17 18:00 11/16/17 17:59 Albuterol (Ventolin Hfa Inhaler) 2 puffs QID PRN INH 11/02/17 18:00 12/02/17 17:59 Aspirin (Ecotrin Tab) 81 mg BID PO 11/02/17 21:00 12/02/17 20:59 UNV Atorvastatin Calcium (Lipitor Tab) 20 mg QPM PO 11/02/17 21:00 12/02/17 20:59 UNV Calcium/Vitamin D (Caltrate Plus Tab) 1 tab DAILY PO 11/03/17 09:00 12/03/17 08:59 UNV Cholecalciferol (Vitamin D Tab) 1,000 inter.unit QAM PO 11/03/17 09:00 12/03/17 08:59 UNV Lorazepam (Ativan Tab) 1 mg BID PRN PO 11/02/17 18:00 12/02/17 17:59 Multivitamins/ Minerals (Multivitamin W/ Minerals Tab) 1 tab DAILY PO 11/03/17 09:00 12/03/17 08:59 UNV Ondansetron HCl (Zofran Tab) 4 mg Q6H PRN PO 11/02/17 18:00 12/02/17 17:59 Tolterodine Tartrate (Detrol LA Cap) 4 mg QPM PO 11/02/17 21:00 12/02/17 20:59 UNV Tramadol HCl (Ultram Tab) 50 mg Q8H PRN PO 11/02/17 18:00 12/02/17 17:59 Venlafaxine HCl (effeXOR EXTENDED REL CAP) 37.5 mg BID PO 11/02/17 21:00 12/02/17 20:59 UNV Propranolol HCl (Inderal Tab) 40 mg BID PO 11/02/17 21:00 12/02/17 20:59 Ondansetron HCl (Zofran Inj) 4 mg Q4H PRN IV 11/02/17 18:15 12/02/17 18:14 11/02/17 19:47 4 MG Potassium Chloride/Sodium Chloride 1,000 ml @ 100 mls/hr Q10H IV 11/02/17 18:45 12/02/17 18:44 UNV Review of Systems Constitutional: + chills, No fever Respiratory: No cough, No sputum Abdomen: + pain (generalized), + nausea, + vomiting, + constipation, No diarrhea Genitourinary - Female: + urinary incontinence, No dysuria, No hematuria Hematologic / Lymphatic: No abnormal bleeding/bruising, No clotting problems Integumentary: No color change Physical Exam Date Time Temp Pulse Resp B/P (MAP) Pulse Ox O2 Delivery O2 Flow Rate FiO2 11/02/17 17:30 97 Room Air 11/02/17 16:12 164/82 11/02/17 16:08 37.4 108 18 183/106 97 Room Air 11/02/17 15:14 113 11/02/17 14:39 36.6 110 24 132/101 93 Room Air 11/02/17 14:31 36.9 20 132/101 94 Room Air Patient laying in bed, nursing staff in progress of inserting NGT when I entered the room. NGT was successfully placed. General Appearance: WD/WN, no apparent distress Head: normocephalic, atraumatic ENT: hearing grossly normal Neck: trachea midline Respiratory/Chest: no respiratory distress, no accessory muscle use Abdomen/GI: normal bowel sounds (mildly hypoactive), no organomegaly, no pulsatile mass, + tenderness (generalized, moderate), + distended (moderate) Neurologic/Psych: alert, normal mood/affect, oriented x 3 Laboratory Results Last 24 Hours Test 11/02/17 15:03 11/02/17 15:07 11/02/17 15:08 11/02/17 15:11 White Blood Count 12.73 K/uL Red Blood Count 4.58 M/uL Hemoglobin 13.8 g/dL Hematocrit 40.6 % Mean Corpuscular Volume 88.6 fL Mean Corpuscular Hemoglobin 30.1 pg Mean Corpuscular Hemoglobin Concent 34.0 g/dl Platelet Count 178 K/uL Mean Platelet Volume 9.2 fL Neutrophils (%) (Auto) 90.7 % Lymphocytes (%) (Auto) 3.8 % Monocytes (%) (Auto) 5.0 % Eosinophils (%) (Auto) 0.2 % Basophils (%) (Auto) 0.0 % Neutrophils # (Auto) 11.54 K/uL Lymphocytes # (Auto) 0.49 K/uL Monocytes # (Auto) 0.64 K/uL Eosinophils # (Auto) 0.02 K/uL Basophils # (Auto) 0.00 K/uL RDW Standard Deviation 48.2 fL RDW Coefficient of Variation 15.1 % Immature Granulocyte % (Auto) 0.3 % Immature Granulocyte # (Auto) 0.04 K/uL Prothrombin Time 10.7 SECONDS Prothromb Time International Ratio 1.0 Activated Partial Thromboplast Time 23.1 SECONDS Partial Thromboplastin Ratio 0.9 Sodium Level 136 mmol/L Potassium Level 3.5 mmol/L Chloride Level 98 mmol/L Carbon Dioxide Level 29 mmol/L Anion Gap 9.0 mmol/L 16.0 mmol/L Blood Urea Nitrogen 25 mg/dl Creatinine 0.98 mg/dl Est Creatinine Clear Calc Drug Dose 55.6 ml/min Estimated GFR () 66.3 Estimated GFR (Non- 57.2 BUN/Creatinine Ratio 25.4 Random Glucose 181 mg/dl Calcium Level 10.6 mg/dl Total Bilirubin 1.2 mg/dl Direct Bilirubin 0.2 mg/dl Aspartate Amino Transf (AST/SGOT) 21 U/L Alanine Aminotransferase (ALT/SGPT) 25 U/L Alkaline Phosphatase 91 U/L Total Protein 7.3 gm/dl Albumin 3.6 gm/dl Lipase 88 U/L Bedside Lactic Acid Venous 1.46 mmol/L Venous Blood pH 7.39 Venous Blood Partial Pressure CO2 54 mmHg Venous Blood Partial Pressure O2 26 mmHg Venous Blood HCO3 31 mmol/L Venous Blood Oxygen Saturation < 60.0 % Venous Blood Base Excess 5.1 mEq/L Bedside Hemoglobin 13.9 g/dl Bedside Hematocrit 41 % Bedside Sodium 138 mEq/L Bedside Potassium 3.4 mEq/L Bedside Chloride 96 mEq/L Bedside Total CO2 30 mEq/l Bedside Blood Urea Nitrogen 25 mg/dl Bedside Creatinine 1.0 mg/dl Bedside Glucose (other) 184 mg/dl Bedside Ionized Calcium (Dayami) 1.26 mmol/l Assessment & Plan Abdominal pain, nausea, vomiting and CT findings suggesting generalized colonic ileus vs. adynamic ileus. Pain level decreased, abdomen still mild-mod distended, patient is resting at this time. NGT placed - no N/V since then however minimal output. D/C NGT Continue conservative management - NPO, IV Fluids, IV pain medication PRN, IV Zofran PRN for nausea, SCDs. Repeat labs in AM, Continue medical management, GI consult in AM for evaluation and possible colonoscopic decompression Dr. Coles in to see and examine patient. Please contact with questions/concerns.
[2017-11-02] MEDS: MoRPHine SULFATE 2 MG/ML CARP IV PRN (21:30)
[2017-11-02] MEDS ORDERED: HEPARIN SOD 5000 UNIT/0.5 ML CARP SQ SCH (22:00)
[2017-11-02] MEDS: NSS + 20MEQ KCL 1000ML 1,000 ML IV SCH (22:05)
[2017-11-02 22:22] LABS: INR 1.1 (0.9-1.1)
--- NOTE | 2017-11-02 22:56 | DIAGNOSTIC IMAGING REPORT ---
[facility] CLINICAL HISTORY: Ileus. Nasogastric tube placement. COMPARISON STUDY: CT of the abdomen and pelvis November 02, 2017 at 4:00 PM. FINDINGS: Tip of nasogastric tube projects over the gastric fundus. Contrast within the bladder and collecting systems is from recent contrast-enhanced CT. There are postoperative findings within the spine as well as the right hip arthroplasty. A moderate to large amount of stool within the colon is noted. There is persistent moderate colonic distention. No small bowel dilatation is present. IMPRESSION: 1. Tip of nasogastric tube projects over the gastric fundus. 2. Persistent moderate colonic dilatation which could reflect an ileus or colonic obstruction. 3. Moderate to large amount of stool within the colon. Electronically signed by: Mikael Lord M.D. 11/02/2017 10:55 PM Dictated Date/Time: 11/02/2017 10:48 PM
[2017-11-03 00:17] VITALS: BP 170/90; PULSE 133; TEMP 38.2; O2SAT 91
[2017-11-03] MEDS: ONDANSETRON INJ 2 MG/ML 2 ML VIAL IV PRN ×4 (00:19→22:07)
[2017-11-03] MEDS: HYDROmorphone INJ 1 MG/ML SYR IV PRN ×5 (00:19→22:07)
[2017-11-03] MEDS: ACETAMINOPHEN IV 650 MG in EMPTY BAG 0 ML IV PRN ×2 (01:09→19:42)
--- NOTE | 2017-11-03 02:22 | Progress Note ---
Progress Note Date of Service Nov 03, 2017. Progress Note maintained HR> 130, sinus tach; repeat ekg now reveals T wave inversions in the inf leads - transferred to tele and troponin negative - on reassess fever noted and was given IV tylenol, started on Zosyn; lactate, repeat troponin, NSS with 20 KCL@ 100cc/h cont'd with 500 cc bolus of NSS additional
[2017-11-03] MEDS ORDERED: SODIUM CHLORIDE 0.9% 1000ML 1,000 ML IV SCH (02:30)
[2017-11-03] MEDS ORDERED: PIPERACILL/TAZOBAC CONSULT ACTIVE PRN (02:30)
[2017-11-03] MEDS ORDERED: SODIUM CHLORIDE 0.9% 500ML 500 ML IV ONE (02:30)
[2017-11-03] MEDS ORDERED: PIPERACILL/TAZOBAC IV 4.5 GM in DEXTROSE 5% 100ML IV ONE (02:30)
[2017-11-03 02:40] LABS: HEMATOCRIT 40.7 % (37-47); HEMOGLOBIN 14.2 g/dL (12.0-16.0); MEAN CELL VOLUME 87.9 fL (80-100); MEAN CORPUSCULAR HEMOGLOBIN 30.7 pg (25-34); MEAN CORPUSCULAR HGB CONC 34.9 g/dl (32-36); MEAN PLATELET VOLUME 9.5 fL (7.4-10.4); PLATELET COUNT 231 K/uL (130-400); RED CELL DISTRIBUTION WIDTH CV 15.6 % (11.5-14.5); RED CELL DISTRIBUTION WIDTH SD 49.9 fL (36.4-46.3); WHITE BLOOD COUNT 18.24 K/uL (4.8-10.8)
[2017-11-03 03:05] LABS: CALCIUM 8.9 mg/dl (8.5-10.1); CREATININE 1.05 mg/dl (0.60-1.20); POTASSIUM 3.4 mmol/L (3.5-5.1)
[2017-11-03 03:10] LABS: TOTAL PROTEIN 6.5 gm/dl (6.4-8.2)
[2017-11-03 03:31] VITALS: BP 133/79; PULSE 123; TEMP 37; O2SAT 91
[2017-11-03] MEDS ORDERED: PIPERACILL/TAZOBAC IV 3.375 GM in DEXTROSE 5% 100ML 100 ML IV SCH (06:00)
[2017-11-03 07:24] VITALS: BP 136/83; PULSE 120; TEMP 36.9; O2SAT 91
--- NOTE | 2017-11-03 07:38 | SURGERY PROGRESS NOTE ---
DATE: 11/03/2017 The patient was transferred to telemetry due to her sinus tachycardia. She had a slight temperature elevation last night at 38.2 this morning. Her last vitals showed a temperature of 36.9, pulse 120, respirations 19, blood pressure 136/83, O2 sats 91 on room air. Subjectively, she feels better. The belly according to her is a little bit better than it was. On examination, is still moderately distended, may be a bit less tender than it was. We did give her a small enema last night and she said she had some relief. I would obtain an acute abdominal series to follow up on ileus and I spoke personally to Dr. Marcio Escobar regarding her case and he will see her as soon as he finishes another case.
--- NOTE | 2017-11-03 08:10 | DIAGNOSTIC IMAGING REPORT ---
ABDOMEN 2VIEW W/PA CHEST RTN CLINICAL HISTORY: follow up ileus COMPARISON STUDY: 11/02/2017 FINDINGS: Mild increase in distention of several loops of small bowel. Air and/or fecal filled colon is present. Postoperative changes involving the spine as well as right hip Noted. IMPRESSION: Findings of increasing components of a partial small bowel obstruction. The above report was generated using voice recognition software. It may contain grammatical, syntax or spelling errors. Electronically signed by: Champ Oswald M.D. 11/03/2017 8:09 AM Dictated Date/Time: 11/03/2017 8:03 AM
[2017-11-03] MEDS ORDERED: SOD PHOSPHATE/SOD BIPHOSPHATE ENEMA 132 ML BTL PR STA (08:21)
[2017-11-03] MEDS: FLUTICASONE PROPIONATE NA SPR 16 GM BTL SCH ×2 (09:00→20:48)
[2017-11-03] MEDS ORDERED: MULTIVITAMINS W/MINERALS LIQUID NG SCH (09:00)
[2017-11-03] MEDS: CALCIUM 600MG + VIT D 400 IU TAB PO SCH (09:00)
[2017-11-03] MEDS: CHOLECALCIFEROL 1000 INTER.UNIT TAB PO SCH (09:00)
[2017-11-03] MEDS ORDERED: FUROSEMIDE 40 MG TAB PO SCH (09:00)
[2017-11-03] MEDS ORDERED: CEROVITE ADV FORMULA TAB PO SCH (09:00)
[2017-11-03] MEDS ORDERED: SOAP SUDS ENEMA PR PRN (09:00)
--- NOTE | 2017-11-03 09:06 | Gastrointestinal Consultation ---
Gastrointestinal Consultation Date of Consultation: Nov 03, 2017 Attending Physician: Yinka Consulting Physician: Gordy Reason for Consultation: ileus History of Present Illness Patient is a 72 year old female w/ history of anxiety who presented through the ED for evaluation of abrupt onset abdominal pain associated w/ nausea and inability to pass a BM. Pt was seen and evaluated, chart reviewed. Pt is very uncomfortable in bed. She notes constant, severe abd pain that started yesterday. She has never had pain like this before. She notes her last BM was 4 days ago, which is not common. She has been using stool softeners and suppositories without any relief. She notes she has not been able to pass and gas or stool. She continues to be nauseated w/ dry heaves. No fever, chills, CP , SOB. She is normotensive, tachycardic. KUB 11/03/17: Findings of increasing components of a partial small bowel obstruction. KUB 11/02/17: Tip of nasogastric tube projects over the gastric fundus. . Persistent moderate colonic dilatation which could reflect an ileus or colonic obstruction. Moderate to large amount of stool within the colon. CT ABD/Pelvis 11/02/17: Generalized colonic distention specifically related to the cecum, a sending colon, as well as transverse colon. No evidence for well- defined obstructing lesion with the descending colon unremarkable in overall caliber. Mobile cecum with the cecum identified in the left lateral abdomen. The appendix is normal. Trace ascites within the right and to a lesser extent left paracolic gutterregions.The appearance suggests a general colonic ileus versus adynamic ileus rather than a true obstructive process. No evidence for pneumatosis. Past Medical/Surgical History Medical Problems: (1) Abdominal pain, diffuse Status: Acute (2) Ileus Status: Acute (3) Nausea & vomiting Status: Acute Past Medical History: HTN, anxiety Past Surgical History: partial thyroidectomy, back surgery shoulder surgery neck surgery Social History Smoking Status: Never Smoker Marital Status: Housing Status: lives with significant other Occupation Status: unemployed Allergies Coded Allergies: No Known Allergies (Verified , 11/02/17) Current Medications Home Meds and Scripts Medications Dose Route/Sig Max Daily Dose Days Date Category Dose Instructions Propranolol Hcl 40 Mg Tab 40 Mg PO BID 11/02/17 Reported Womens Daily Formula (Multiple Vitamins W/ Minerals) 1 Tab Tab 1 Tab PO DAILY 11/02/17 Reported Ultram (Tramadol HCl) 50 Mg Tab 50 Mg PO Q8H PRN 11/02/17 Reported Proventil Hfa (Albuterol Sulfate) 108 Mcg/Act Aer 2 Puffs INH QID PRN 11/02/17 Reported Zofran (Ondansetron HCl) 4 Mg Tab 4 Mg PO Q6 PRN 11/02/17 Reported Levaquin (Levofloxacin) 500 Mg Tab 500 Mg PO DAILY 11/02/17 Reported 7 DAY COURSE- STARTED 10/27/17 Ansaid (Flurbiprofen) 100 Mg Tab 100 Mg PO BIDM 11/02/17 Reported Caltrate 600 Plus (Calcium Carbonate-Vitamin D W/) 1 Tab Tab 600 Mg PO DAILY 11/02/17 Reported Aspirin EC Low Dose (Aspirin) 81 Mg Ectab 81 Mg PO BID 30 03/28/16 Rx Vitamin D3 (Cholecalciferol) 1,000 Unit Tab 1,000 Units PO QAM 90 03/03/16 Reported Ativan (Lorazepam) 1 Mg Tab 1 Mg PO BID PRN 03/03/16 Reported Detrol LA (Tolterodine Tartrate) 4 Mg Capcr 4 Mg PO QPM 03/03/16 Reported Cinnamon 500 Mg Cap 1,000 Mg PO QAM 05/29/15 Reported Glucosamine Chondroitin (Gczsbpuuoua-Ljvdudvmpvi-Fbr C-) 1 Tab Tab 1 Tab PO BID 05/23/15 Reported Vitamin C 500 mg (Ascorbic Acid) 1 Chw Chw 500 Mg PO BID 05/23/15 Reported Lipitor (Atorvastatin) 20 Mg Tab 20 Mg PO QPM 05/23/15 Reported Effexor Xr (Venlafaxine Hcl) 37.5 Mg Cap 37.5 Mg PO BID 30 05/23/15 Reported K-99 (Potassium Gluconate) 595 Mg Cap 595 Mg PO QAM 07/04/13 Reported Lasix (Furosemide) 40 Mg Tab 40 Mg PO QAM 05/13/09 Reported Review of Systems Constitutional: No fever Respiratory: No cough, No shortness of breath Cardiac: No chest pain Abdomen: + pain, + nausea, + vomiting, + constipation, No diarrhea Physical Exam Date Time Temp Pulse Resp B/P (MAP) Pulse Ox O2 Delivery O2 Flow Rate FiO2 11/03/17 07:24 36.9 120 19 136/83 (100) 91 Room Air 11/03/17 04:00 Nasal Cannula 2.0 11/03/17 03:31 37.0 123 20 133/79 (97) 91 Room Air 11/03/17 00:17 38.2 133 23 170/90 (116) 91 Room Air 11/02/17 22:51 36.9 130 145/97 (113) 11/02/17 22:45 130 20 145/97 (113) 96 Nasal Cannula 2.0 11/02/17 21:42 36.9 11/02/17 21:27 131 20 167/111 (129) 97 Nasal Cannula 2.0 11/02/17 21:27 131 20 167/111 (129) 97 Nasal Cannula 2.0 11/02/17 20:16 36.9 96 20 158/95 (116) 93 Nasal Cannula 2.0 11/02/17 19:45 37.1 130 20 181/125 (143) 94 Nasal Cannula 2.0 11/02/17 19:30 Nasal Cannula 2.0 11/02/17 17:30 97 Room Air 11/02/17 16:12 164/82 11/02/17 16:08 37.4 108 18 183/106 97 Room Air 11/02/17 15:14 113 11/02/17 14:39 36.6 110 24 132/101 93 Room Air 11/02/17 14:31 36.9 20 132/101 94 Room Air General Appearance: + mild distress Eyes: PERRL Cardiovascular: no JVD, no murmur, + tachycardia Abdomen: no pulsatile mass, + distended, + tenderness Neurologic/Psych: alert Skin: normal color Laboratory Results Last 24 Hours Test 11/02/17 15:03 11/02/17 15:07 11/02/17 15:08 11/02/17 15:11 White Blood Count 12.73 K/uL Red Blood Count 4.58 M/uL Hemoglobin 13.8 g/dL Hematocrit 40.6 % Mean Corpuscular Volume 88.6 fL Mean Corpuscular Hemoglobin 30.1 pg Mean Corpuscular Hemoglobin Concent 34.0 g/dl Platelet Count 178 K/uL Mean Platelet Volume 9.2 fL Neutrophils (%) (Auto) 90.7 % Lymphocytes (%) (Auto) 3.8 % Monocytes (%) (Auto) 5.0 % Eosinophils (%) (Auto) 0.2 % Basophils (%) (Auto) 0.0 % Neutrophils # (Auto) 11.54 K/uL Lymphocytes # (Auto) 0.49 K/uL Monocytes # (Auto) 0.64 K/uL Eosinophils # (Auto) 0.02 K/uL Basophils # (Auto) 0.00 K/uL RDW Standard Deviation 48.2 fL RDW Coefficient of Variation 15.1 % Immature Granulocyte % (Auto) 0.3 % Immature Granulocyte # (Auto) 0.04 K/uL Prothrombin Time 10.7 SECONDS Prothromb Time International Ratio 1.0 Activated Partial Thromboplast Time 23.1 SECONDS Partial Thromboplastin Ratio 0.9 Sodium Level 136 mmol/L Potassium Level 3.5 mmol/L Chloride Level 98 mmol/L Carbon Dioxide Level 29 mmol/L Anion Gap 9.0 mmol/L 16.0 mmol/L Blood Urea Nitrogen 25 mg/dl Creatinine 0.98 mg/dl Est Creatinine Clear Calc Drug Dose 55.6 ml/min Estimated GFR () 66.3 Estimated GFR (Non- 57.2 BUN/Creatinine Ratio 25.4 Random Glucose 181 mg/dl Calcium Level 10.6 mg/dl Total Bilirubin 1.2 mg/dl Direct Bilirubin 0.2 mg/dl Aspartate Amino Transf (AST/SGOT) 21 U/L Alanine Aminotransferase (ALT/SGPT) 25 U/L Alkaline Phosphatase 91 U/L Total Protein 7.3 gm/dl Albumin 3.6 gm/dl Lipase 88 U/L Bedside Lactic Acid Venous 1.46 mmol/L Venous Blood pH 7.39 Venous Blood Partial Pressure CO2 54 mmHg Venous Blood Partial Pressure O2 26 mmHg Venous Blood HCO3 31 mmol/L Venous Blood Oxygen Saturation < 60.0 % Venous Blood Base Excess 5.1 mEq/L Bedside Hemoglobin 13.9 g/dl Bedside Hematocrit 41 % Bedside Sodium 138 mEq/L Bedside Potassium 3.4 mEq/L Bedside Chloride 96 mEq/L Bedside Total CO2 30 mEq/l Bedside Blood Urea Nitrogen 25 mg/dl Bedside Creatinine 1.0 mg/dl Bedside Glucose (other) 184 mg/dl Bedside Ionized Calcium ([place]) 1.26 mmol/l Test 11/02/17 21:52 11/02/17 23:14 11/03/17 02:33 11/03/17 06:32 Prothrombin Time 11.1 SECONDS Prothromb Time International Ratio 1.1 Troponin I < 0.015 ng/ml 0.031 ng/ml White Blood Count 18.24 K/uL Red Blood Count 4.63 M/uL Hemoglobin 14.2 g/dL Hematocrit 40.7 % Mean Corpuscular Volume 87.9 fL Mean Corpuscular Hemoglobin 30.7 pg Mean Corpuscular Hemoglobin Concent 34.9 g/dl RDW Standard Deviation 49.9 fL RDW Coefficient of Variation 15.6 % Platelet Count 231 K/uL Mean Platelet Volume 9.5 fL Sodium Level 137 mmol/L Potassium Level 3.4 mmol/L Chloride Level 101 mmol/L Carbon Dioxide Level 29 mmol/L Anion Gap 7.0 mmol/L Blood Urea Nitrogen 28 mg/dl Creatinine 1.05 mg/dl Est Creatinine Clear Calc Drug Dose 51.9 ml/min Estimated GFR () 61.0 Estimated GFR (Non- 52.6 BUN/Creatinine Ratio 26.3 Random Glucose 189 mg/dl Lactic Acid Level 1.6 mmol/L Calcium Level 8.9 mg/dl Magnesium Level 2.4 mg/dl Total Bilirubin 1.2 mg/dl Aspartate Amino Transf (AST/SGOT) 19 U/L Alanine Aminotransferase (ALT/SGPT) 25 U/L Alkaline Phosphatase 78 U/L Total Protein 6.5 gm/dl Albumin 3.0 gm/dl Globulin 3.5 gm/dl Albumin/Globulin Ratio 0.9 Test 11/03/17 06:49 11/03/17 08:41 Impression Patient is a 72 year old female w/ abrupt onset abdominal pain, nausea, vomiting who presented through the ED w/ CT findings suggesting generalized colonic ileus. She was evaluated by surgery who is following as well. She is quite uncomfortable on exam w/ abd distention, nausea, dry heaving and generalized abdominal pain. Will plan for colonic decompression. Plan NPO for colonic decompression Additional recommendations to follow. Please call with any questions, concerns or acute changes. I saw and evaluated the patient. She presented last evening with abdominal discomfort nausea and vomiting. CT shows marketed distention of the colon with a large amount of stool and air. We are consulted for evaluation and potential colonic decompression. Physical examination Mild distress noted Marked abdominal distention noted discomfort to palpation no rebound or peritoneal signs Impression: Patient presenting with significant dilation of her colon likely related to either ileus or perhaps colonic pseudoobstruction. Given her discomfort we will proceed with urgent colonic decompression this morning after she is been given several fleets enemas the patient will then need a decompression tube for several days in addition to a bowel regimen which will be started afterwards. I discussed the risks of the procedure at length with the patient to include bleeding, infection, perforation, pain and need for follow-up studies. Recommendations Nothing by mouth Avoid narcotics Test for C. difficile Colonic decompression today Daily KUB
[2017-11-03] MEDS: PIPERACILL/TAZOBAC IV 4.5 GM in DEXTROSE 5% 100ML IV SCH ×2 (09:16→17:04)
[2017-11-03] MEDS: MoRPHine SULFATE 2 MG/ML CARP IV PRN ×2 (09:23→17:04)
[2017-11-03 09:53] LABS: CALCIUM 8.9 mg/dl (8.5-10.1); CREATININE 0.98 mg/dl (0.60-1.20); POTASSIUM 3.2 mmol/L (3.5-5.1)
[2017-11-03] MEDS ORDERED: MINERAL OIL 30 ML UDC ONE (10:59)
[2017-11-03] MEDS ORDERED: LIDOCAINE HCL 2% 2 ML VIAL (20MG/ML) ONE (12:13)
[2017-11-03] MEDS ORDERED: PROPOFOL IV EMULSION 10 MG/ML 20 ML VIAL IV ONE (12:13)
[2017-11-03] MEDS ORDERED: ONDANSETRON INJ 2 MG/ML 2 ML VIAL ONE (12:14)
--- NOTE | 2017-11-03 12:18 | GI REPORT ---
Procedure Date: 11/03/2017 11:31 AM Procedure: Colonoscopy Indications: For therapy of colonic obstruction Medicines: Monitored Anesthesia Care Complications: No immediate complications. Estimated blood loss: Minimal. Estimated Blood Loss: Estimated blood loss was minimal. Procedure: Pre-Anesthesia Assessment: - Prior to the procedure, a History and Physical was performed, and patient medications, allergies and sensitivities were reviewed. The patient's tolerance of previous anesthesia was reviewed. - The risks and benefits of the procedure and the sedation options and risks were discussed with the patient. All questions were answered and informed consent was obtained. - Patient identification and proposed procedure were verified prior to the procedure by the physician, the nurse and the design supervisor. The procedure was verified in the procedure room. - Pre-procedure physical examination revealed no contraindications to sedation. - ASA Grade Assessment: III - A patient with severe systemic disease. - After reviewing the risks and benefits, the patient was deemed in satisfactory condition to undergo the procedure. - The anesthesia plan was to use monitored anesthesia care (MAC). - Immediately prior to administration of medications, the patient was re-assessed for adequacy to receive sedatives. - The heart rate, respiratory rate, oxygen saturations, blood pressure, adequacy of pulmonary ventilation, and response to care were monitored throughout the procedure. - The physical status of the patient was re-assessed after the procedure. After I obtained informed consent, the scope was passed under direct vision. Throughout the procedure, the patient's blood pressure, pulse, and oxygen saturations were monitored continuously. The scope was introduced through the anus and advanced to the sigmoid colon for evaluation. This was the intended extent. The On-site loaner was introduced through the anus and advanced to the sigmoid colon for evaluation. This was the intended extent. The colonoscopy was performed with moderate difficulty. Successful completion of the procedure was aided by performing the maneuvers documented (below) in this report. Findings: The perianal and digital rectal examinations were normal. Pertinent negatives include normal sphincter tone. A large amount of solid stool was found in the sigmoid colon at the junction of the descending colon (30 to 35 cm), precluding visualization or passage of the endoscope. The stool appeared to be impacted and we could not pass an endoscope beyond this despite transition to an upper endoscope. The area was irrigated with a large amount of water. A specimen was collected to screen for C diff infection. We also attempted to break up the stool impaction with a snare and a rat-tooth forceps (40 minutes spent attempting to disimpact the patient). A colonic decompression tube was placed at the fecal impaction.. Impression: - Stool impaction in the sigmoid colon causing obstruction. - specimen collected for C diff Recommendation: - [facility]. - NPO. - Perform a flat plate abdominal x-ray today. - Irrigated rectal tube with fleets every 6 hours alternating with 200 mL of Colyte - If no improvement patient may require surgical intervention Marcio Escobar D.O. Marcio Escobar, 11/03/2017 12:18:14 PM This report has been signed electronically. Note Initiated On: 11/03/2017 11:31 AM I attest to the content of the Intraoperative Record and orders documented therein, exceptions below
--- NOTE | 2017-11-03 12:23 | Progress Note ---
Progress Note Date of Service Nov 03, 2017. Progress Note The patient underwent an attempt at colonic decompression this afternoon. She was found to have a large impacted stool at approximately 30 cm. Despite multiple attempts and alteration of endoscope we could not pass beyond the impaction. We did try to break up the stool impaction with both a snare and a rat-tooth forceps without much success. A rectal tube was placed into the area at the level of the fecal impaction. Recommendations KUB this afternoon and then every morning 1 fleets enema through the rectal tube alternating with 200 mL of Colyte every 6 hours If no improvement the patient will likely need surgical intervention for this impaction (I'm not certain that there is another endoscopic intervention to offer this patient)
--- NOTE | 2017-11-03 12:44 | Anesthesiology Progress Note ---
Anesthesia Post Op Note Date & Time Nov 03, 2017 at 12:43 Vital Signs Pain Intensity: 9.0 Vital Signs Past 12 Hours Date Time Temp Pulse Resp B/P (MAP) Pulse Ox O2 Delivery O2 Flow Rate FiO2 11/03/17 12:21 98 16 145/53 (83) 99 Room Air 11/03/17 10:57 37.5 115 20 125/70 (88) 92 Room Air 11/03/17 08:00 Nasal Cannula 2.0 11/03/17 07:24 36.9 120 19 136/83 (100) 91 Room Air 11/03/17 04:00 Nasal Cannula 2.0 11/03/17 03:31 37.0 123 20 133/79 (97) 91 Room Air Notes Mental Status: alert / awake / arousable, participated in evaluation Pt Amnestic to Procedure: Yes Nausea / Vomiting: adequately controlled Pain: adequately controlled Airway Patency, RR, SpO2: stable & adequate BP & HR: stable & adequate Hydration State: stable & adequate Anesthetic Complications: no major complications apparent
--- NOTE | 2017-11-03 13:38 | Progress Note ---
Subjective Date of Service: Nov 03, 2017. Subjective Pt evaluation today including: conversation w/ patient, physical exam, review of studies, review of inpatient medication list 72 y/o F Hx HTN, HPPL, anxiety - presented 11/02 with severe abdominal pain and distention. This was initially attributed to ileus. She was evaluated by surgery and then GI was consulted on suggestion of colonoscopic decompression. She underwent a coonoscopy 11/03 AM which revealed fecal impaction in the sigmoid colon. Mechanical disimpaction was not possible. A rectal tube was left in place. Q6H fleet enemas were ordered. Per review of GI note, she may require surgery if this is ineffective. Repeat labs on 10/24 show a marginal troponin elevation. Problem List Medical Problems: (1) Abdominal pain, diffuse Status: Acute (2) Ileus Status: Acute (3) Nausea & vomiting Status: Acute Review of Systems Constitutional: No fever, No chills Eyes: No eye pain ENT: No unusual epistaxis Respiratory: No sputum, No wheezing, No shortness of breath, No dyspnea on exertion Cardiac: No chest pain, No orthopnea Breast: No breast lump Abdomen: + pain, + nausea, + constipation, No vomiting, No diarrhea, No GI bleeding Musculoskeletal: No joint pain Female : No dysuria Neurologic: No memory loss, No paralysis Psychiatric: No depression symptoms, No anhedonism Heme: No abnormal bleeding/bruising Endo: No fatigue Skin: No rash Objective Vital Signs Date Time Temp Pulse Resp B/P (MAP) Pulse Ox O2 Delivery O2 Flow Rate FiO2 11/03/17 12:35 87 18 149/76 (100) 93 Room Air 11/03/17 12:21 98 16 145/53 (83) 99 Room Air 11/03/17 10:57 37.5 115 20 125/70 (88) 92 Room Air 11/03/17 08:00 Nasal Cannula 2.0 11/03/17 07:24 36.9 120 19 136/83 (100) 91 Room Air 11/03/17 04:00 Nasal Cannula 2.0 11/03/17 03:31 37.0 123 20 133/79 (97) 91 Room Air 11/03/17 00:17 38.2 133 23 170/90 (116) 91 Room Air 11/02/17 22:51 36.9 130 145/97 (113) 11/02/17 22:45 130 20 145/97 (113) 96 Nasal Cannula 2.0 11/02/17 21:42 36.9 11/02/17 21:27 131 20 167/111 (129) 97 Nasal Cannula 2.0 11/02/17 21:27 131 20 167/111 (129) 97 Nasal Cannula 2.0 11/02/17 20:16 36.9 96 20 158/95 (116) 93 Nasal Cannula 2.0 11/02/17 19:45 37.1 130 20 181/125 (143) 94 Nasal Cannula 2.0 11/02/17 19:30 Nasal Cannula 2.0 11/02/17 17:30 97 Room Air 11/02/17 16:12 164/82 11/02/17 16:08 37.4 108 18 183/106 97 Room Air 11/02/17 15:14 113 11/02/17 14:39 36.6 110 24 132/101 93 Room Air 11/02/17 14:31 36.9 20 132/101 94 Room Air Physical Exam General Appearance: WD/WN, + pertinent finding (UNcomfortable eldelry female - no distress) Eyes: normal inspection, EOMI ENT: normal ENT inspection, pharynx normal Neck: supple, no JVD Respiratory/Chest: chest non-tender, lungs clear, normal breath sounds Cardiovascular: regular rate, rhythm, no edema, no gallop Abdomen: + pertinent finding (Distended, genrally tender abd - hypoactive BS) Extremities: normal range of motion Neurologic/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: 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, no motor/sensory deficits, alert, oriented x 3 Skin: normal color Laboratory Results Last 24 Hours Test 11/02/17 15:03 11/02/17 15:07 11/02/17 15:08 11/02/17 15:11 White Blood Count 12.73 K/uL Red Blood Count 4.58 M/uL Hemoglobin 13.8 g/dL Hematocrit 40.6 % Mean Corpuscular Volume 88.6 fL Mean Corpuscular Hemoglobin 30.1 pg Mean Corpuscular Hemoglobin Concent 34.0 g/dl Platelet Count 178 K/uL Mean Platelet Volume 9.2 fL Neutrophils (%) (Auto) 90.7 % Lymphocytes (%) (Auto) 3.8 % Monocytes (%) (Auto) 5.0 % Eosinophils (%) (Auto) 0.2 % Basophils (%) (Auto) 0.0 % Neutrophils # (Auto) 11.54 K/uL Lymphocytes # (Auto) 0.49 K/uL Monocytes # (Auto) 0.64 K/uL Eosinophils # (Auto) 0.02 K/uL Basophils # (Auto) 0.00 K/uL RDW Standard Deviation 48.2 fL RDW Coefficient of Variation 15.1 % Immature Granulocyte % (Auto) 0.3 % Immature Granulocyte # (Auto) 0.04 K/uL Prothrombin Time 10.7 SECONDS Prothromb Time International Ratio 1.0 Activated Partial Thromboplast Time 23.1 SECONDS Partial Thromboplastin Ratio 0.9 Sodium Level 136 mmol/L Potassium Level 3.5 mmol/L Chloride Level 98 mmol/L Carbon Dioxide Level 29 mmol/L Anion Gap 9.0 mmol/L 16.0 mmol/L Blood Urea Nitrogen 25 mg/dl Creatinine 0.98 mg/dl Est Creatinine Clear Calc Drug Dose 55.6 ml/min Estimated GFR () 66.3 Estimated GFR (Non- 57.2 BUN/Creatinine Ratio 25.4 Random Glucose 181 mg/dl Calcium Level 10.6 mg/dl Total Bilirubin 1.2 mg/dl Direct Bilirubin 0.2 mg/dl Aspartate Amino Transf (AST/SGOT) 21 U/L Alanine Aminotransferase (ALT/SGPT) 25 U/L Alkaline Phosphatase 91 U/L Total Protein 7.3 gm/dl Albumin 3.6 gm/dl Lipase 88 U/L Bedside Lactic Acid Venous 1.46 mmol/L Venous Blood pH 7.39 Venous Blood Partial Pressure CO2 54 mmHg Venous Blood Partial Pressure O2 26 mmHg Venous Blood HCO3 31 mmol/L Venous Blood Oxygen Saturation < 60.0 % Venous Blood Base Excess 5.1 mEq/L Bedside Hemoglobin 13.9 g/dl Bedside Hematocrit 41 % Bedside Sodium 138 mEq/L Bedside Potassium 3.4 mEq/L Bedside Chloride 96 mEq/L Bedside Total CO2 30 mEq/l Bedside Blood Urea Nitrogen 25 mg/dl Bedside Creatinine 1.0 mg/dl Bedside Glucose (other) 184 mg/dl Bedside Ionized Calcium ([place]) 1.26 mmol/l Test 11/02/17 21:52 11/02/17 23:14 11/03/17 02:33 11/03/17 06:32 Prothrombin Time 11.1 SECONDS Prothromb Time International Ratio 1.1 Troponin I < 0.015 ng/ml 0.031 ng/ml White Blood Count 18.24 K/uL Red Blood Count 4.63 M/uL Hemoglobin 14.2 g/dL Hematocrit 40.7 % Mean Corpuscular Volume 87.9 fL Mean Corpuscular Hemoglobin 30.7 pg Mean Corpuscular Hemoglobin Concent 34.9 g/dl RDW Standard Deviation 49.9 fL RDW Coefficient of Variation 15.6 % Platelet Count 231 K/uL Mean Platelet Volume 9.5 fL Sodium Level 137 mmol/L Potassium Level 3.4 mmol/L Chloride Level 101 mmol/L Carbon Dioxide Level 29 mmol/L Anion Gap 7.0 mmol/L Blood Urea Nitrogen 28 mg/dl Creatinine 1.05 mg/dl Est Creatinine Clear Calc Drug Dose 51.9 ml/min Estimated GFR () 61.0 Estimated GFR (Non- 52.6 BUN/Creatinine Ratio 26.3 Random Glucose 189 mg/dl Lactic Acid Level 1.6 mmol/L Calcium Level 8.9 mg/dl Magnesium Level 2.4 mg/dl Total Bilirubin 1.2 mg/dl Aspartate Amino Transf (AST/SGOT) 19 U/L Alanine Aminotransferase (ALT/SGPT) 25 U/L Alkaline Phosphatase 78 U/L Total Protein 6.5 gm/dl Albumin 3.0 gm/dl Globulin 3.5 gm/dl Albumin/Globulin Ratio 0.9 Test 11/03/17 06:49 11/03/17 09:16 Sodium Level 137 mmol/L Potassium Level 3.2 mmol/L Chloride Level 102 mmol/L Carbon Dioxide Level 28 mmol/L Anion Gap 7.0 mmol/L Blood Urea Nitrogen 29 mg/dl Creatinine 0.98 mg/dl Est Creatinine Clear Calc Drug Dose 52.6 ml/min Estimated GFR () 66.3 Estimated GFR (Non- 57.2 BUN/Creatinine Ratio 29.2 Random Glucose 201 mg/dl Calcium Level 8.9 mg/dl Troponin I 0.072 ng/ml Assessment and Plan 72 y/o F Hx HPL, HTN, anxiety - presented 11/02 with severe abdominal pain and distention. This was initially attributed to ileus. She was evaluated by surgery and then GI was consulted on suggestion of colonoscopic decompression. She underwent a colonoscopy 11/03 AM which revealed fecal impaction in the sigmoid colon. Repeat labs on 10/24 show a marginal troponin elevation. 1) Fecal impaction in the sigmoid colon. Mechanical disimpaction was not possible. A rectal tube was left in place. Q6H fleet enemas were ordered. Per review of GI note, she may require surgery if this is ineffective. 2) Hypokalemia Will replace and provide Mg 3) HTN Lasix , propranolol held - IV Bblocker can be provided PRN 4) Asthma Continue home inhalers 5) HLD Continue statin when taking po 6) Anxiety Continue lorazepam bid - IV 7) Trop elevation - cause not clear - will obtain repeat EKG, repeat trop and ordered echo as part of potential pre-op eval - will move to telemetry overnight DVT proph - heparin subq on hold as she may require surgery
--- NOTE | 2017-11-03 13:39 | DIAGNOSTIC IMAGING REPORT ---
KUB CLINICAL HISTORY: rectal tube placed COMPARISON STUDY: Abdominal series November 03 2017. FINDINGS: Incidental note is made of a spinal fusion, right hip arthroplasty and interval placement of a rectal tube. The rectal tube is coiled back upon itself with the tip projecting over the distal rectum. Mild small bowel dilatation and moderate colonic distention has improved since exam of November 03, 2017. IMPRESSION: 1. Interval placement of a rectal tube which is coiled back upon itself with tip projecting over the distal rectum. 2. Moderate colonic distention and mild small bowel distention slightly improved since prior exam. Electronically signed by: Mikael Lord M.D. 11/03/2017 1:37 PM Dictated Date/Time: 11/03/2017 1:33 PM
[2017-11-03] MEDS: POTASSIUM CHLR 10 MEQ / WTR 10 MEQ in PREMIXED WATER 100 ML IV SCH ×3 (13:57→17:52)
[2017-11-03] MEDS ORDERED: POTASSIUM CHLR 10 MEQ / WTR 10 MEQ in PREMIXED WATER 100 ML IV SCH (14:00)
[2017-11-03 15:12] VITALS: BP 145/71; PULSE 121; TEMP 36.8; O2SAT 92
[2017-11-03] MEDS: TOLTERODINE TARTRATE LA 4 MG CAPCR PO SCH ×2 (15:14→20:48)
[2017-11-03] MEDS: ATORVASTATIN 20 MG TAB PO SCH ×2 (15:16→20:48)
[2017-11-03] MEDS: D5NSS + 20MEQ KCL 1,000 ML IV SCH (15:46)
[2017-11-03] MEDS: NSS + 20MEQ KCL 1000ML 1,000 ML IV SCH ×2 (16:14→16:45)
[2017-11-03] MEDS: PROPRANOLOL HCL 80 MG TAB PO SCH ×2 (16:15→20:48)
[2017-11-03] MEDS: VENLAFAXINE HCL XR 37.5 MG CAPXR PO SCH ×2 (16:15→20:48)
--- NOTE | 2017-11-03 17:20 | ECHOCARDIOGRAM REPORT ---
*NOTICE TO RECEIVING DEMOCRAT AGENCY This information is strictly Confidential and protected under [place] law. [place] law prohibits you from making any further disclosure of this information unless further disclosure is expressly permitted by the written consent of the person to whom it pertains or is authorized by law. A general authorization for the release of medical or other information is not sufficient for this purpose. Hospital accepts no responsibility if the information is made available to any other person, INCLUDING THE PATIENT. Interpretation Summary * Name: CHARLI DUMONT Study Date: 11/03/2017 08:43 AM BP: 136/83 mmHg * Patient Location: C.2T\S\S240\S\1 HR: 120 * : 1945 (M/d/yy) Gender: Female Height: 61 in * Age: 72 yrs Ethnicity: [place] Weight: 221 lb * Ordering Physician: Sangita Barker * Referring Physician: Self, Referred * Performed By: Yasmin Rhodes RDCS * * Reason For Study: Abnormal EKG * BSA: 2.0 m2 * -- Conclusions -- * 1. Normal left ventricular size with hyperdynamic systolic function. EF 65-70%. No regional wall motion abnormalities. No left ventricular hypertrophy. Type 1 diastolic dysfunction. * 2. Aortic valve sclerosis mild, without significant aortic valvular stenosis. Trace aortic regurgitation. * 3. Minimally dilated ascending aorta. * 4. IVC is small in diameter. * 5. Technically difficult study, enhanced with IV Definity. * 6. Normal estimated right ventricular systolic pressure; 31mmHg. * 7. Compared to prior study on 09/21/2011, LV systolic function is now hyperdynamic and there is now tachycardia. Procedure Details * A complete two-dimensional transthoracic echocardiogram was performed (2D, M-mode, Doppler and color flow Doppler). * A contrast injection of Definity was performed to improve assessment of LV function. * Contrast was injected into an intravenous site in the left arm. * One vial of Definity ultrasound contrast was diluted in normal saline to a total volume of 10 ml. A total of '2' ml of solution was administered during imaging. * Lot # [id number] of Definity utilized for procedure. * Expiration date OCT 29. * The attending nurse who injected the contrast agent was Edenilson Perez RN. Left Ventricle * Normal left ventricular size with hyperdynamic systolic function. EF 65-70%. No regional wall motion abnormalities. No left ventricular hypertrophy. Type 1 diastolic dysfunction. Right Ventricle * The right ventricle is normal in size and function. * The right ventricular systolic function is normal as assessed by tricuspid annular plane systolic excursion (TAPSE) (normal >1.5 cm). Atria * The left atrium is borderline dilated. * Right atrial size is normal. * There is no evidence of atrial septal defect, but resolution does not allow assessment for a patent foramen ovale. Mitral Valve * The mitral valve is grossly normal. * There is no mitral valve stenosis. * There is trace mitral regurgitation. Tricuspid Valve * The tricuspid valve is not well visualized, but is grossly normal. * There is no tricuspid stenosis. * There is mild tricuspid regurgitation. Aortic Valve * Aortic valve sclerosis mild, without significant aortic valvular stenosis. * No hemodynamically significant valvular aortic stenosis. * Trace aortic regurgitation. Pulmonic Valve * The pulmonary valve is inadequately visualized, but the Doppler data is adequate for interpretation. * There is no pulmonic valvular stenosis. * There is no significant pulmonary regurgitation. Great Vessels * The aortic root is normal size. * Minimally dilated ascending aorta. * Normal pulmonary venous flow pattern. Pericardium/Pleural * There is no pericardial effusion. Great Vessels * IVC is small in diameter. MMode 2D Measurements and Calculations IVSd 0.69 cm LVIDd 4.5 cm LVIDs 2.7 cm LVPWd 0.76 cm IVS/LVPW 0.91 FS 38.6 % EDV(Teich) 91.2 ml ESV(Teich) 28.2 ml EF(Teich) 69.1 % EDV(cubed) 89.6 ml ESV(cubed) 20.7 ml EF(cubed) 76.9 % LV mass(C)d 98.6 grams LV mass(C)dI 50.0 grams/m\S\2 SV(Teich) 63.0 ml SI(Teich) 32.0 ml/m\S\2 SV(cubed) 68.8 ml SI(cubed) 34.9 ml/m\S\2 Ao root diam 3.3 cm Ao root area 8.6 cm\S\2 ACS 1.4 cm LA dimension 3.0 cm asc Aorta Diam 3.7 cm LA/Ao 0.90 LVOT diam 2.0 cm LVOT area 3.2 cm\S\2 LVAd ap4 26.5 cm\S\2 LVLd ap4 7.3 cm EDV(MOD-sp4) 76.6 ml EDV(sp4-el) 81.3 ml LVAs ap4 14.3 cm\S\2 LVLs ap4 5.9 cm ESV(MOD-sp4) 28.1 ml ESV(sp4-el) 29.1 ml EF(MOD-sp4) 63.2 % EF(sp4-el) 64.3 % SV(MOD-sp4) 48.4 ml SI(MOD-sp4) 24.6 ml/m\S\2 SV(sp4-el) 52.3 ml SI(sp4-el) 26.5 ml/m\S\2 Doppler Measurements and Calculations MV E max lisa 56.3 cm/sec MV A max lisa 92.6 cm/sec MV E/A 0.61 Ao V2 max 162.9 cm/sec Ao max PG 10.6 mmHg Ao max PG (full) 6.2 mmHg CAROLE(V,A) 2.1 cm\S\2 CAROLE(V,D) 2.1 cm\S\2 LV V1 max PG 4.4 mmHg LV V1 max 104.8 cm/sec PA acc slope 821.6 cm/sec\S\2 PA acc time 0.10 sec TR max lisa 264.3 cm/sec RVSP(TR) 31.0 mmHg RAP systole 3.0 mmHg PA pr(Accel) 34.6 mmHg
[2017-11-03] MEDS: SOD PHOSPHATE/SOD BIPHOSPHATE ENEMA 132 ML BTL PR SCH (17:51)
[2017-11-03 18:02] LABS: INFLUENZA B ANTIGEN Neg for Influ B (NEG)
[2017-11-03 19:07] VITALS: BP 122/67; PULSE 120; TEMP 38.4; O2SAT 90
[2017-11-03] MEDS ORDERED: LAVAGE SOLN 240ML BOTTLE PO SCH (21:00)
[2017-11-03] MEDS: LAVAGE SOLUTION 4000ML PR SCH (21:31)
[2017-11-03] MEDS ORDERED: METOPROLOL TARTRATE 1 MG/ML VIAL IV STA (21:44)
[2017-11-03 23:59] VITALS: BP 134/73; PULSE 105; TEMP 37.5; O2SAT 93
[2017-11-04] VITALS (7 sets, daily range): BP systolic 136–187; BP diastolic 69–96; PULSE 71–121; TEMP 36.7–37.7; O2SAT 92–97
[2017-11-04] MEDS: MoRPHine SULFATE 2 MG/ML CARP IV PRN (00:33)
[2017-11-04] MEDS: PIPERACILL/TAZOBAC IV 4.5 GM in DEXTROSE 5% 100ML IV SCH ×3 (00:33→16:02)
[2017-11-04 00:46] LABS: CALCIUM 7.9 mg/dl (8.5-10.1); CREATININE 0.87 mg/dl (0.60-1.20); POTASSIUM 3.4 mmol/L (3.5-5.1)
[2017-11-04] MEDS: HYDROmorphone INJ 1 MG/ML SYR IV PRN ×2 (03:54→16:01)
[2017-11-04] MEDS: D5NSS + 20MEQ KCL 1,000 ML IV SCH (04:54)
[2017-11-04] MEDS: SOD PHOSPHATE/SOD BIPHOSPHATE ENEMA 132 ML BTL PR SCH ×2 (06:00→18:00)
[2017-11-04 07:12] LABS: HEMATOCRIT 36.5 % (37-47); HEMOGLOBIN 11.8 g/dL (12.0-16.0); MEAN CELL VOLUME 91.5 fL (80-100); MEAN CORPUSCULAR HEMOGLOBIN 29.6 pg (25-34); MEAN CORPUSCULAR HGB CONC 32.3 g/dl (32-36); MEAN PLATELET VOLUME 9.2 fL (7.4-10.4); PLATELET COUNT 210 K/uL (130-400); RED CELL DISTRIBUTION WIDTH CV 16.6 % (11.5-14.5)
[2017-11-04 07:44] LABS: CALCIUM 8.3 mg/dl (8.5-10.1); CREATININE 0.94 mg/dl (0.60-1.20); POTASSIUM 3.8 mmol/L (3.5-5.1)
--- NOTE | 2017-11-04 07:47 | DIAGNOSTIC IMAGING REPORT ---
[facility] CLINICAL HISTORY: f/u colonic dilatation distention COMPARISON STUDY: 11/03/2017 FINDINGS: Interval removal of the rectal tube. The colonic distention previous described is somewhat variable in appearance. There is a moderate generalized small bowel ileus. There is increased fecal load within the a sending colon. There is no fecal impaction within the rectosigmoid. IMPRESSION: Mixed findings with the current study remarkable for a mild generalized nonobstructive ileus as well as increased fecal load within the a sending colon. Interval removal of the rectal tube. The above report was generated using voice recognition software. It may contain grammatical, syntax or spelling errors. Electronically signed by: Champ Oswald M.D. 11/04/2017 7:46 AM Dictated Date/Time: 11/04/2017 7:44 AM
[2017-11-04] MEDS: CHOLECALCIFEROL 1000 INTER.UNIT TAB PO SCH (09:00)
[2017-11-04] MEDS: FLUTICASONE PROPIONATE NA SPR 16 GM BTL SCH ×2 (09:00→20:12)
[2017-11-04] MEDS: LAVAGE SOLUTION 4000ML PR SCH (09:00)
[2017-11-04] MEDS: PROPRANOLOL HCL 80 MG TAB PO SCH ×2 (09:00→20:14)
[2017-11-04] MEDS: VENLAFAXINE HCL XR 37.5 MG CAPXR PO SCH ×2 (09:00→20:13)
[2017-11-04] MEDS: CALCIUM 600MG + VIT D 400 IU TAB PO SCH (09:00)
--- NOTE | 2017-11-04 09:39 | Gastroenterology Progress Note ---
Progress Note Date of Service: Nov 04, 2017 Subjective Pt evaluation today including: conversation w/ patient, physical exam, chart review, lab review Pt was seen and evaluated, chart reviewed. Colonoscopy yesterday as an attempt for decompression, rectal tube in place. Per nursing staff, pt passed a large amount of stool and tube last evening. Notes she is no longer having constant abdominal pain, but is present in waves. Can be both upper and lower. Pressure and cramping. Continues to be nauseated w/ dry heaves. No CP, SOB KUB 11/04/17: Mixed findings with the current study remarkable for a mild generalized nonobstructive ileus as well as increased fecal load within the a sending colon. Interval removal of the rectal tube. Stool for c.diff 11/03/17: Negative Colonoscopy 11/03/17: Stool impaction in the sigmoid colon causing obstruction. specimen collected for C diff Review of Systems Constitutional: No fever, No chills Respiratory: No cough, No shortness of breath Cardiac: No chest pain, No edema Abdomen: + pain, + nausea, No vomiting, No diarrhea, No constipation Medications Current Inpatient Medications Medications (Trade) Dose Ordered Sig/Rachel Route Start Time Stop Time Status Last Admin Dose Admin Ioversol (Optiray 320) 100 ml UD PRN IV 11/02/17 14:45 11/06/17 14:44 Hydromorphone HCl (Dilaudid Inj) 1 mg Q4H PRN IV 11/02/17 18:00 11/16/17 17:59 11/04/17 03:54 1 MG Morphine Sulfate (MoRPHine SULFATE INJ) 2 mg Q4H PRN IV 11/02/17 18:00 11/16/17 17:59 11/04/17 00:33 2 MG Albuterol (Ventolin Hfa Inhaler) 2 puffs QID PRN INH 11/02/17 18:00 12/02/17 17:59 Aspirin (Ecotrin Tab) 81 mg BID PO 11/02/17 21:00 12/02/17 20:59 Future Hold Atorvastatin Calcium (Lipitor Tab) 20 mg QPM PO 11/02/17 21:00 12/02/17 20:59 Calcium/Vitamin D (Caltrate Plus Tab) 1 tab DAILY PO 11/03/17 09:00 12/03/17 08:59 Cholecalciferol (Vitamin D Tab) 1,000 inter.unit QAM PO 11/03/17 09:00 12/03/17 08:59 Lorazepam (Ativan Tab) 1 mg BID PRN PO 11/02/17 18:00 12/02/17 17:59 Ondansetron HCl (Zofran Tab) 4 mg Q6H PRN PO 11/02/17 18:00 12/02/17 17:59 Tolterodine Tartrate (Detrol LA Cap) 4 mg QPM PO 11/02/17 21:00 12/02/17 20:59 Tramadol HCl (Ultram Tab) 50 mg Q8H PRN PO 11/02/17 18:00 12/02/17 17:59 Venlafaxine HCl (effeXOR EXTENDED REL CAP) 37.5 mg BID PO 11/02/17 21:00 12/02/17 20:59 Propranolol HCl (Inderal Tab) 40 mg BID PO 11/02/17 21:00 12/02/17 20:59 Ondansetron HCl (Zofran Inj) 4 mg Q4H PRN IV 11/02/17 18:15 12/02/17 18:14 11/03/17 22:07 4 MG Potassium Chloride/Sodium Chloride 1,000 ml @ 100 mls/hr Q10H IV 11/02/17 20:45 12/02/17 20:44 11/02/17 22:05 100 MLS/HR Acetaminophen 650 mg/Empty Bag 65 ml @ 260 mls/hr Q6H PRN IV 11/02/17 21:15 12/02/17 21:14 11/03/17 19:42 260 MLS/HR Fluticasone Propionate (Flonase Nasal [place]) 2 sprays BID NA 11/03/17 09:00 12/03/17 08:59 Miscellaneous Information (Consult) 1 ea UD PRN N/A 11/03/17 02:30 12/03/17 02:29 Piperacillin Sod/ Tazobactam Sod 4.5 gm/Dextrose 120 ml @ 30 mls/hr Q8H IV 11/03/17 08:00 11/05/17 07:59 11/04/17 08:22 30 MLS/HR Miscellaneous (Soap Suds Enema) 1 ea NOW PRN MI 11/03/17 09:00 12/03/17 08:59 Sodium Biphosphate/ Sodium Phosphate (Fleet Enema) 132 ml BID@0600,1800 MI 11/03/17 18:00 12/03/17 17:59 11/03/17 17:51 132 ML Potassium Chloride/Dextrose/ Sod Cl 1,000 ml @ 80 mls/hr [id number] IV 11/03/17 16:00 11/04/17 10:44 11/04/17 04:54 80 MLS/HR Polyethylene Glycol/ Electrolytes (Golytely Soln) 0.8 dose BID MI 11/03/17 21:00 12/03/17 20:59 Objective Vital Signs Date Time Temp Pulse Resp B/P (MAP) Pulse Ox O2 Delivery O2 Flow Rate FiO2 11/04/17 08:07 36.9 76 18 187/75 (112) 92 11/04/17 08:00 Nasal Cannula 2.0 11/04/17 04:00 Nasal Cannula 2.0 11/04/17 03:50 37.2 113 16 136/79 (98) 93 Room Air 11/03/17 23:59 Nasal Cannula 2.0 11/03/17 23:59 37.5 105 18 134/73 (93) 93 Room Air 11/03/17 22:07 120 122/67 11/03/17 20:00 Room Air 11/03/17 19:07 38.4 120 20 122/67 (85) 90 Room Air 11/03/17 16:00 Room Air 11/03/17 15:12 36.8 121 20 145/71 (95) 92 Room Air 11/03/17 14:00 Nasal Cannula 2.0 11/03/17 12:35 87 18 149/76 (100) 93 Room Air 11/03/17 12:21 98 16 145/53 (83) 99 Room Air 11/03/17 10:57 37.5 115 20 125/70 (88) 92 Room Air Physical Exam General Appearance: + mild distress Eyes: PERRL ENT: hearing grossly normal Neck: supple Respiratory/Chest: lungs clear Cardiovascular: regular rate, rhythm Abdomen: normal bowel sounds, soft, no organomegaly, + tenderness Neurologic/Psych: alert, normal mood/affect, oriented x 3 Skin: normal color Laboratory Results Last 24 Hours Test 11/03/17 14:45 11/03/17 23:51 11/04/17 06:50 11/04/17 06:52 Troponin I 0.090 ng/ml 0.069 ng/ml Sodium Level 140 mmol/L 141 mmol/L Potassium Level 3.4 mmol/L 3.8 mmol/L Chloride Level 106 mmol/L 107 mmol/L Carbon Dioxide Level 34 mmol/L 33 mmol/L Anion Gap 0.0 mmol/L 1.0 mmol/L Blood Urea Nitrogen 21 mg/dl 19 mg/dl Creatinine 0.87 mg/dl 0.94 mg/dl Est Creatinine Clear Calc Drug Dose 59.2 ml/min 54.9 ml/min Estimated GFR () 76.6 69.8 Estimated GFR (Non- 66.1 60.2 BUN/Creatinine Ratio 24.6 20.1 Random Glucose 160 mg/dl 170 mg/dl Calcium Level 7.9 mg/dl 8.3 mg/dl Urine Color DK YELLOW Urine Appearance CLEAR Urine pH 5.5 Urine Specific [place] 1.038 Urine Protein TRACE Urine Glucose (UA) NEG Urine Ketones TRACE Urine Occult Blood NEG Urine Nitrite NEG Urine Bilirubin NEG Urine Urobilinogen NEG Urine Leukocyte Esterase NEG Urine WBC (Auto) 1-5 /hpf Urine RBC (Auto) 0-4 /hpf Urine Hyaline Casts (Auto) 0 /lpf Urine Epithelial Cells (Auto) >30 /lpf Urine Bacteria (Auto) NEG White Blood Count 14.80 K/uL Red Blood Count 3.99 M/uL Hemoglobin 11.8 g/dL Hematocrit 36.5 % Mean Corpuscular Volume 91.5 fL Mean Corpuscular Hemoglobin 29.6 pg Mean Corpuscular Hemoglobin Concent 32.3 g/dl RDW Standard Deviation 55.0 fL RDW Coefficient of Variation 16.6 % Platelet Count 210 K/uL Mean Platelet Volume 9.2 fL Magnesium Level 2.6 mg/dl Assessment and Plan Patient is a 72 year old female w/ abrupt onset abdominal pain, nausea, vomiting who presented through the ED w/ CT findings suggesting generalized colonic ileus. She was evaluated by surgery who is following as well. She is quite uncomfortable on exam w/ abd distention, nausea, dry heaving and generalized abdominal pain. She is s/p colonoscopy w/ decompression w/ rectal tube placed. Was getting co-lytely and fleets via tube w/ relief of large BM. Will defer to surgery for additional interventions as needed Daily KUB Continue Fleets enema q6h Can have golytely from above if tolerated PO GI will follow. Please call with any questions or concerns. I saw and evaluated the patient. She notes that she does feel improved today although she does continue to have nausea. She has had several large bowel movements over the last 24 hours. Recommendations Continue Fleet Enema every 12 hours for another day We'll likely start on MiraLAX tomorrow Please consider discontinuing narcotics as these are likely contributing to her present symptoms and problems Dr. Marcio Escobar
--- NOTE | 2017-11-04 10:18 | Clinical Documentation Query ---
CLINICAL DOCUMENTATION QUERY 72 yo female admitted with acute abdominal pain, nausea and vomiting. She was found to have a fecal impaction and became tachycardic. SIRS is defined as 2 or more of the following variables: * Fever of more than 38*C (100.4*F) or less than 36*C (96.8*F) * Heart rate of more than 90 beats per minute * Respiratory rate of more than 20 breaths per minute or arterial carbon dioxide tension (PaCO2) of less than 32mm Hg * Abnormal white blood cell count (>12,000/uL or < 4,000/uL or >10% immature [band] forms) In your clinical opinion is this patient being managed for: ( x ) Sepsis ( ) Not Agree ( ) Other explanation of clinical findings (Please Explain) ( ) Unable to determine (Please Define) ( ) Need to Discuss The medical record reflects the following clinical findings, treatment, and risk factors. Clinical Indicators: Temp spikes to 38.2 and 38.4, HR 120s to 130s, WBC 12.73 trending up to 14.80 Treatment: Piperacillin IV, IV hydration, telemetry, blood cultures Risk Factors: Age, bowel obstruction Please clarify and document your clinical opinion in the progress notes and discharge summary. Terms such as "probable", "suspected", "likely", "questionable", "possible", or "still to be ruled out" are acceptable. IF IN AGREEMENT, YOU MUST DOCUMENT ABOVE DIAGNOSTIC STATEMENT IN DAILY PROGRESS NOTES AND DISCHARGE SUMMARY. This document is not part of the patient's record. Thank You, Cindy Metzger RN [phone]
[2017-11-04] MEDS ORDERED: POLYETHYLENE (MIRALAX) 17 GM PACK PO ONE (12:30)
--- NOTE | 2017-11-04 12:42 | Hospitalist Progress Note ---
Hospitalist Progress Note Date of Service Nov 04, 2017. Subjective Pt evaluation today including: conversation w/ patient Had multiple BMs last night and another one this AM, abd pain is improved, belching a lot. Rectal tube came out last night with BM. KUB improved today but still with evidence of fecal load in ascending colon with sm bowel distention. Denies CP or SOB Constitutional: + fever All Other Systems: Reviewed and Negative Objective Vital Signs Date Time Temp Pulse Resp B/P (MAP) Pulse Ox O2 Delivery O2 Flow Rate FiO2 11/04/17 12:00 Nasal Cannula 2.0 11/04/17 11:44 36.7 71 16 168/69 (102) 95 11/04/17 08:07 36.9 76 18 187/75 (112) 92 11/04/17 08:00 Nasal Cannula 2.0 11/04/17 04:00 Nasal Cannula 2.0 11/04/17 03:50 37.2 113 16 136/79 (98) 93 Room Air 11/03/17 23:59 Nasal Cannula 2.0 11/03/17 23:59 37.5 105 18 134/73 (93) 93 Room Air 11/03/17 22:07 120 122/67 11/03/17 20:00 Room Air 11/03/17 19:07 38.4 120 20 122/67 (85) 90 Room Air 11/03/17 16:00 Room Air 11/03/17 15:12 36.8 121 20 145/71 (95) 92 Room Air 11/03/17 14:00 Nasal Cannula 2.0 11/03/17 12:35 87 18 149/76 (100) 93 Room Air Physical Exam General Appearance: WD/WN, no apparent distress, + obese Eyes: normal inspection, sclerae normal ENT: hearing grossly normal Neck: trachea midline Respiratory/Chest: lungs clear, normal breath sounds, no respiratory distress, no accessory muscle use Cardiovascular: no edema, no gallop, no murmur, + tachycardia (regular) Abdomen: normal bowel sounds, soft, + tenderness (mild, in mid abdomen, without guarding or rebound tenderness) Extremities: non-tender, normal inspection, no pedal edema, no calf tenderness Neurologic/Psychiatric: alert, normal mood/affect, oriented x 3 Skin: normal color, warm/dry, no rash Laboratory Results Last 24 Hours Test 11/03/17 14:45 11/03/17 23:51 11/04/17 06:50 11/04/17 06:52 Troponin I 0.090 ng/ml 0.069 ng/ml Sodium Level 140 mmol/L 141 mmol/L Potassium Level 3.4 mmol/L 3.8 mmol/L Chloride Level 106 mmol/L 107 mmol/L Carbon Dioxide Level 34 mmol/L 33 mmol/L Anion Gap 0.0 mmol/L 1.0 mmol/L Blood Urea Nitrogen 21 mg/dl 19 mg/dl Creatinine 0.87 mg/dl 0.94 mg/dl Est Creatinine Clear Calc Drug Dose 59.2 ml/min 54.9 ml/min Estimated GFR () 76.6 69.8 Estimated GFR (Non- 66.1 60.2 BUN/Creatinine Ratio 24.6 20.1 Random Glucose 160 mg/dl 170 mg/dl Calcium Level 7.9 mg/dl 8.3 mg/dl Urine Color DK YELLOW Urine Appearance CLEAR Urine pH 5.5 Urine Specific [place] 1.038 Urine Protein TRACE Urine Glucose (UA) NEG Urine Ketones TRACE Urine Occult Blood NEG Urine Nitrite NEG Urine Bilirubin NEG Urine Urobilinogen NEG Urine Leukocyte Esterase NEG Urine WBC (Auto) 1-5 /hpf Urine RBC (Auto) 0-4 /hpf Urine Hyaline Casts (Auto) 0 /lpf Urine Epithelial Cells (Auto) >30 /lpf Urine Bacteria (Auto) NEG White Blood Count 14.80 K/uL Red Blood Count 3.99 M/uL Hemoglobin 11.8 g/dL Hematocrit 36.5 % Mean Corpuscular Volume 91.5 fL Mean Corpuscular Hemoglobin 29.6 pg Mean Corpuscular Hemoglobin Concent 32.3 g/dl RDW Standard Deviation 55.0 fL RDW Coefficient of Variation 16.6 % Platelet Count 210 K/uL Mean Platelet Volume 9.2 fL Magnesium Level 2.6 mg/dl Assessment and Plan Pt is a 72 y/o F h/o HPL, HTN, anxiety - presented 11/02 with severe abdominal pain and distention. This was initially attributed to ileus. She was evaluated by surgery and then GI was consulted on suggestion of colonoscopic decompression. She underwent a colonoscopy 11/03 AM which revealed fecal impaction in the sigmoid colon which could not be removed. Rectal tube placed for administration of Colytely and enemas,decompression. Repeat labs on 11/03 show a marginal troponin elevation. 1) Fecal impaction in the sigmoid colon/ascending colon-colonic ileus-GI thinks this occurred over long period of time. Mechanical disimpaction was not possible. A rectal tube was left in place but then came out with large BMs. KUB improving today. Pain is less. -adv diet to clears as tolerated -continue FLeets enemas bid -add po Miralax daily if can fabian -Appreciate GI and Gen Surgery consultations 2) Hypokalemia-resolved after replacement -follow PRP and continue IVFs with KCl until taking adequate po 3) HTN/Sinus tachycardia/Elevated troponin/Chronic diastolic CHF-BPs elevated and with ST secondary to pain and inability to take home propranolol. Elevated trop likely demand ischemia due to abd pain, ST. ECHO with grade 1 diastolic CHF , normal EF, no WMAs. Lasix , propranolol held for NPO status -now that is tolerating po, can take propranolol -IV lopressor ordered if cannot tolerate propranolol later 4) Asthma-stable Continue home inhalers 5) HLD-stable Continue statin when taking po 6) Anxiety-stable Continue lorazepam bid - IV and then change to po when fabian po DVT proph - heparin subq on hold as she may require surgery Dispo- remain on tele
--- NOTE | 2017-11-04 12:46 | Surgery Progress Note ---
Surgery Progress Note Date of Service Nov 04, 2017. Subjective has had several BM, little nausea but hungry, no pain Objective Vital Signs: Date Time Temp Pulse Resp B/P (MAP) Pulse Ox O2 Delivery O2 Flow Rate FiO2 11/04/17 12:00 Nasal Cannula 2.0 11/04/17 11:44 36.7 71 16 168/69 (102) 95 11/04/17 08:07 36.9 76 18 187/75 (112) 92 11/04/17 08:00 Nasal Cannula 2.0 11/04/17 04:00 Nasal Cannula 2.0 11/04/17 03:50 37.2 113 16 136/79 (98) 93 Room Air 11/03/17 23:59 Nasal Cannula 2.0 11/03/17 23:59 37.5 105 18 134/73 (93) 93 Room Air 11/03/17 22:07 120 122/67 11/03/17 20:00 Room Air 11/03/17 19:07 38.4 120 20 122/67 (85) 90 Room Air 11/03/17 16:00 Room Air 11/03/17 15:12 36.8 121 20 145/71 (95) 92 Room Air 11/03/17 14:00 Nasal Cannula 2.0 Abdomen: soft, + distended (slightly), + tenderness (minimal lower midline) Laboratory Results: Results Past 24 Hours Test 11/03/17 14:45 11/03/17 23:51 11/04/17 06:50 11/04/17 06:52 Range/Units Troponin I 0.090 0.069 0-0.045 ng/ml Sodium Level 140 141 136-145 mmol/L Potassium Level 3.4 3.8 3.5-5.1 mmol/L Chloride Level 106 107 98-107 mmol/L Carbon Dioxide Level 34 33 21-32 mmol/L Anion Gap 0.0 1.0 3-11 mmol/L Blood Urea Nitrogen 21 19 7-18 mg/dl Creatinine 0.87 0.94 0.60-1.20 mg/dl Est Creatinine Clear Calc Drug Dose 59.2 54.9 ml/min Estimated GFR () 76.6 69.8 Estimated GFR (Non- 66.1 60.2 BUN/Creatinine Ratio 24.6 20.1 10-20 Random Glucose 160 170 70-99 mg/dl Calcium Level 7.9 8.3 8.5-10.1 mg/dl Urine Color DK YELLOW Urine Appearance CLEAR CLEAR Urine pH 5.5 4.5-7.5 Urine Specific [place] 1.038 1.000-1.030 Urine Protein TRACE NEG Urine Glucose (UA) NEG NEG Urine Ketones TRACE NEG Urine Occult Blood NEG NEG Urine Nitrite NEG NEG Urine Bilirubin NEG NEG Urine Urobilinogen NEG NEG Urine Leukocyte Esterase NEG NEG Urine WBC (Auto) 1-5 0-5 /hpf Urine RBC (Auto) 0-4 0-4 /hpf Urine Hyaline Casts (Auto) 0 0-5 /lpf Urine Epithelial Cells (Auto) >30 0-5 /lpf Urine Bacteria (Auto) NEG NEG White Blood Count 14.80 4.8-10.8 K/uL Red Blood Count 3.99 4.2-5.4 M/uL Hemoglobin 11.8 12.0-16.0 g/dL Hematocrit 36.5 37-47 % Mean Corpuscular Volume 91.5 80-100 fL Mean Corpuscular Hemoglobin 29.6 25-34 pg Mean Corpuscular Hemoglobin Concent 32.3 32-36 g/dl RDW Standard Deviation 55.0 36.4-46.3 fL RDW Coefficient of Variation 16.6 11.5-14.5 % Platelet Count 210 130-400 K/uL Mean Platelet Volume 9.2 7.4-10.4 fL Magnesium Level 2.6 1.8-2.4 mg/dl Microbiology Results 11/04/17 Urine Culture, Received Pending Assessment & Plan obstipation s/p colonoscopy bowels are moving continue enemas, started on miralax can have clears
[2017-11-04] MEDS: ONDANSETRON INJ 2 MG/ML 2 ML VIAL IV PRN ×2 (16:01→21:14)
[2017-11-04] MEDS: NSS + 20MEQ KCL 1000ML 1,000 ML IV SCH (16:01)
[2017-11-04] MEDS: ATORVASTATIN 20 MG TAB PO SCH (20:13)
[2017-11-04] MEDS: TOLTERODINE TARTRATE LA 4 MG CAPCR PO SCH (20:13)
[2017-11-04] MEDS: ACETAMINOPHEN IV 650 MG in EMPTY BAG 0 ML IV PRN (22:43)
[2017-11-05] VITALS (9 sets, daily range): BP systolic 120–181; BP diastolic 68–108; PULSE 66–118; TEMP 36.4–37.2; O2SAT 93–96
[2017-11-05] MEDS: PIPERACILL/TAZOBAC IV 4.5 GM in DEXTROSE 5% 100ML IV SCH ×3 (00:20→16:06)
[2017-11-05] MEDS: NSS + 20MEQ KCL 1000ML 1,000 ML IV SCH ×3 (02:47→23:50)
[2017-11-05] MEDS: METOPROLOL TARTRATE 1 MG/ML VIAL IV PRN ×2 (04:53→20:31)
[2017-11-05] MEDS: ONDANSETRON INJ 2 MG/ML 2 ML VIAL IV PRN (04:56)
[2017-11-05 06:02] LABS: BASO % 0.1 %; BASO ABS # 0.01 K/uL (0-0.2); EOS % 1.2 %; EOS ABS # 0.12 K/uL (0-0.5); HEMATOCRIT 34.3 % (37-47); HEMOGLOBIN 11.1 g/dL (12.0-16.0); IG# 0.02 K/uL (0.00-0.02); LYMPH % 10.6 %; LYMPH ABS # 1.03 K/uL (1.2-3.4); MEAN CORPUSCULAR HEMOGLOBIN 29.4 pg (25-34); MEAN CORPUSCULAR HGB CONC 32.4 g/dl (32-36); MEAN PLATELET VOLUME 9.1 fL (7.4-10.4); MONO % 8.9 %; MONO ABS # 0.86 K/uL (0.11-0.59); NEUT ABS # 7.64 K/uL (1.4-6.5); PLATELET COUNT 210 K/uL (130-400); RED CELL DISTRIBUTION WIDTH CV 16.1 % (11.5-14.5); RED CELL DISTRIBUTION WIDTH SD 53.3 fL (36.4-46.3); WHITE BLOOD COUNT 9.68 K/uL (4.8-10.8)
[2017-11-05] MEDS: SOD PHOSPHATE/SOD BIPHOSPHATE ENEMA 132 ML BTL PR SCH ×2 (06:23→18:07)
--- NOTE | 2017-11-05 06:40 | SURGERY PROGRESS NOTE ---
DATE: 11/05/2017 Armand is complaining of some abdominal discomfort. She said last evening she basically had explosive diarrhea. She ate well last night with no vomiting though she is nauseated this morning. Her last vitals showed a temperature of 37.2, pulse 108, blood pressure 166/108. The abdomen is softly distended. She has some positive guarding in the upper quadrants. Laboratory studies this morning is pending. At this point we will repeat a KUB of the abdomen today to see if there is any bowel distention yesterday's radiographically she had some stool in the colon and she had some small bowel distention, but not significant. She was checked for C. diff on the and was negative. Hopefully, we can continue managing nonoperatively at this time, but I suspect the problem that she came in with generalized ileus, had a partial small-bowel obstruction secondary to a significant fecal load.
[2017-11-05 06:52] LABS: ALBUMIN 2.3 gm/dl (3.4-5.0); CALCIUM 8.4 mg/dl (8.5-10.1); CREATININE 0.63 mg/dl (0.60-1.20); POTASSIUM 3.4 mmol/L (3.5-5.1)
[2017-11-05 07:06] LABS: PHOSPHORUS 1.4 mg/dl (2.5-4.9); TOTAL PROTEIN 5.9 gm/dl (6.4-8.2)
[2017-11-05] MEDS ORDERED: NURSING VERBAL MED ORDER ONE (07:30)
[2017-11-05] MEDS ORDERED: POTASSIUM PHOS 3 MMOL/1 ML INFUSION IV STA (07:46)
[2017-11-05] MEDS ORDERED: POTASSIUM PHOSPHATE INJ 21 MMOL in SODIUM CHLORIDE 0.9% 500ML 500 ML IV ONE (08:00)
[2017-11-05] MEDS: CHOLECALCIFEROL 1000 INTER.UNIT TAB PO SCH (08:46)
[2017-11-05] MEDS: CALCIUM 600MG + VIT D 400 IU TAB PO SCH (08:46)
[2017-11-05] MEDS: FLUTICASONE PROPIONATE NA SPR 16 GM BTL SCH ×2 (08:46→20:27)
--- NOTE | 2017-11-05 08:52 | DIAGNOSTIC IMAGING REPORT ---
ABDOMEN 2 VIEWS CLINICAL HISTORY: follow up bowel obstruction COMPARISON STUDY: 11/04/2017 FINDINGS: mildly progressive small bowel distention compared to the prior study. Unchanging moderate fecal material within the a sending colon. No significant colonic distention. Stable postoperative changes to the lumbar spine and right hip. IMPRESSION: Mildly progressive small bowel distention compared to the prior study. 2. Maximum small bowel diameter is 4.6 cm currently. 3. The appearance suggests developing/or mildly progressive small bowel obstructive change. The above report was generated using voice recognition software. It may contain grammatical, syntax or spelling errors. Electronically signed by: Champ Oswald M.D. 11/05/2017 8:50 AM Dictated Date/Time: 11/05/2017 8:49 AM
[2017-11-05] MEDS: POLYETHYLENE (MIRALAX) 17 GM PACK PO SCH (09:34)
[2017-11-05] MEDS: PROPRANOLOL HCL 80 MG TAB PO SCH ×2 (09:34→21:00)
[2017-11-05] MEDS: VENLAFAXINE HCL XR 37.5 MG CAPXR PO SCH ×2 (09:35→21:00)
--- NOTE | 2017-11-05 09:43 | SURGERY PROGRESS NOTE ---
DATE: 11/05/2017 SUBJECTIVE: I reviewed the most recent abdominal x-ray that she had approximately an hour ago when it showed significant small bowel distention. She does have colonic gas also. At this point, we will go ahead and insert an NG tube and keep her n.p.o. Hopefully, this will all resolve once she continues to have more bowel movements. She basically had an incomplete colonoscopy yesterday due to significant colonic fecal load. Therefore, she still requires a complete colonoscopy in the future. Hopefully, we will be able to avoid surgery at this time.
--- NOTE | 2017-11-05 09:45 | Gastroenterology Progress Note ---
Progress Note Date of Service: Nov 05, 2017 Subjective Pt evaluation today including: conversation w/ patient, physical exam, chart review, lab review Pt was seen and examined, chart reviewed. Just returned from XRAY. She continues to pass large amount of stool. No black or bloody stool. Imaging this AM was actually concerning for progressing SBO w/ dilation up to 4.6 CM. General surgery is following and aware as they have ordered NG. Pt has mild nausea, no vomiting or dry heaving. Was on clear liquids yesterday. No fever, chills, CP, SOB KUB 11/05/17: Mildly progressive small bowel distention compared to the prior study. Maximum small bowel diameter is 4.6 cm currently. The appearance suggests developing/or mildly progressive small bowel obstructive change. KUB 11/04/17: Mixed findings with the current study remarkable for a mild generalized nonobstructive ileus as well as increased fecal load within the a sending colon. Interval removal of the rectal tube. Stool for c.diff 11/03/17: Negative Colonoscopy 11/03/17: Stool impaction in the sigmoid colon causing obstruction. specimen collected for C diff KUB 11/03/17: Findings of increasing components of a partial small bowel obstruction. KUB 11/02/17: Tip of nasogastric tube projects over the gastric fundus. . Persistent moderate colonic dilatation which could reflect an ileus or colonic obstruction. Moderate to large amount of stool within the colon. CT ABD/Pelvis 11/02/17: Generalized colonic distention specifically related to the cecum, a sending colon, as well as transverse colon. No evidence for well- defined obstructing lesion with the descending colon unremarkable in overall caliber. Mobile cecum with the cecum identified in the left lateral abdomen. The appendix is normal. Trace ascites within the right and to a lesser extent left paracolic gutterregions.The appearance suggests a general colonic ileus versus adynamic ileus rather than a true obstructive process. No evidence for pneumatosis. Review of Systems Constitutional: No fever, No chills Respiratory: No cough Cardiac: No chest pain Abdomen: + nausea, No pain, No vomiting, No diarrhea Medications Current Inpatient Medications Medications (Trade) Dose Ordered Sig/Rachel Route Start Time Stop Time Status Last Admin Dose Admin Ioversol (Optiray 320) 100 ml UD PRN IV 11/02/17 14:45 11/06/17 14:44 Hydromorphone HCl (Dilaudid Inj) 1 mg Q4H PRN IV 11/02/17 18:00 11/16/17 17:59 11/04/17 16:01 1 MG Morphine Sulfate (MoRPHine SULFATE INJ) 2 mg Q4H PRN IV 11/02/17 18:00 11/16/17 17:59 11/04/17 00:33 2 MG Albuterol (Ventolin Hfa Inhaler) 2 puffs QID PRN INH 11/02/17 18:00 12/02/17 17:59 Aspirin (Ecotrin Tab) 81 mg BID PO 11/02/17 21:00 12/02/17 20:59 Future Hold Atorvastatin Calcium (Lipitor Tab) 20 mg QPM PO 11/02/17 21:00 12/02/17 20:59 11/04/17 20:13 20 MG Calcium/Vitamin D (Caltrate Plus Tab) 1 tab DAILY PO 11/03/17 09:00 12/03/17 08:59 Cholecalciferol (Vitamin D Tab) 1,000 inter.unit QAM PO 11/03/17 09:00 12/03/17 08:59 Lorazepam (Ativan Tab) 1 mg BID PRN PO 11/02/17 18:00 12/02/17 17:59 Ondansetron HCl (Zofran Tab) 4 mg Q6H PRN PO 11/02/17 18:00 12/02/17 17:59 Tolterodine Tartrate (Detrol LA Cap) 4 mg QPM PO 11/02/17 21:00 12/02/17 20:59 11/04/17 20:13 4 MG Tramadol HCl (Ultram Tab) 50 mg Q8H PRN PO 11/02/17 18:00 12/02/17 17:59 Venlafaxine HCl (effeXOR EXTENDED REL CAP) 37.5 mg BID PO 11/02/17 21:00 12/02/17 20:59 11/04/17 20:13 37.5 MG Propranolol HCl (Inderal Tab) 40 mg BID PO 11/02/17 21:00 12/02/17 20:59 11/04/17 20:14 40 MG Ondansetron HCl (Zofran Inj) 4 mg Q4H PRN IV 11/02/17 18:15 12/02/17 18:14 11/05/17 04:56 4 MG Potassium Chloride/Sodium Chloride 1,000 ml @ 100 mls/hr Q10H IV 11/02/17 20:45 12/02/17 20:44 11/05/17 02:47 75 MLS/HR Acetaminophen 650 mg/Empty Bag 65 ml @ 260 mls/hr Q6H PRN IV 11/02/17 21:15 12/02/17 21:14 11/04/17 22:43 260 MLS/HR Fluticasone Propionate (Flonase Nasal [place]) 2 sprays BID NA 11/03/17 09:00 12/03/17 08:59 Miscellaneous Information (Consult) 1 ea UD PRN N/A 11/03/17 02:30 12/03/17 02:29 Piperacillin Sod/ Tazobactam Sod 4.5 gm/Dextrose 120 ml @ 30 mls/hr Q8H IV 11/03/17 08:00 11/05/17 23:59 11/05/17 08:46 30 MLS/HR Miscellaneous (Soap Suds Enema) 1 ea NOW PRN [place] 11/03/17 09:00 12/03/17 08:59 Sodium Biphosphate/ Sodium Phosphate (Fleet Enema) 132 ml BID@0600,1800 [place] 11/03/17 18:00 12/03/17 17:59 11/05/17 06:23 132 ML Polyethylene (Miralax Powder Packet) 17 gm DAILY PO 11/05/17 09:00 12/05/17 08:59 Metoprolol Tartrate (Lopressor Iv) 5 mg Q6 PRN IV 11/04/17 12:45 12/04/17 12:44 11/05/17 04:53 5 MG Potassium Phosphate 21 mmol/ Sodium Chloride 507 ml @ 134.602 mls/hr 0800 ONCE IV 11/05/17 08:00 11/05/17 11:45 11/05/17 08:01 134.602 MLS/HR Objective Vital Signs Date Time Temp Pulse Resp B/P (MAP) Pulse Ox O2 Delivery O2 Flow Rate FiO2 11/05/17 08:00 Room Air 11/05/17 07:52 36.5 102 18 120/79 (93) 96 11/05/17 06:05 90 177/87 (117) 11/05/17 04:53 Room Air 11/05/17 04:53 108 11/05/17 04:27 118 166/108 (127) 11/05/17 04:25 37.2 114 16 167/101 (123) 94 Room Air 11/05/17 00:26 Room Air 11/04/17 23:30 37.1 88 20 156/81 (106) 95 Room Air 11/04/17 20:13 Room Air 11/04/17 19:27 155/78 (103) 11/04/17 19:26 37.7 121 20 162/80 (107) 93 Room Air 11/04/17 16:00 Nasal Cannula 2.0 11/04/17 15:14 36.7 116 18 168/96 (120) 97 Room Air 11/04/17 12:00 Nasal Cannula 2.0 11/04/17 11:44 36.7 71 16 168/69 (102) 95 Physical Exam General Appearance: no apparent distress Eyes: PERRL ENT: hearing grossly normal Neck: supple Respiratory/Chest: lungs clear Cardiovascular: regular rate, rhythm Abdomen: normal bowel sounds, non tender, soft, no pulsatile mass, + distended (mild distention) Neurologic/Psych: alert, normal mood/affect, oriented x 3 Skin: normal color Laboratory Results Last 24 Hours Test 11/05/17 05:40 11/05/17 06:49 White Blood Count 9.68 K/uL Red Blood Count 3.77 M/uL Hemoglobin 11.1 g/dL Hematocrit 34.3 % Mean Corpuscular Volume 91.0 fL Mean Corpuscular Hemoglobin 29.4 pg Mean Corpuscular Hemoglobin Concent 32.4 g/dl Platelet Count 210 K/uL Mean Platelet Volume 9.1 fL Neutrophils (%) (Auto) 79.0 % Lymphocytes (%) (Auto) 10.6 % Monocytes (%) (Auto) 8.9 % Eosinophils (%) (Auto) 1.2 % Basophils (%) (Auto) 0.1 % Neutrophils # (Auto) 7.64 K/uL Lymphocytes # (Auto) 1.03 K/uL Monocytes # (Auto) 0.86 K/uL Eosinophils # (Auto) 0.12 K/uL Basophils # (Auto) 0.01 K/uL RDW Standard Deviation 53.3 fL RDW Coefficient of Variation 16.1 % Immature Granulocyte % (Auto) 0.2 % Immature Granulocyte # (Auto) 0.02 K/uL Sodium Level 142 mmol/L Potassium Level 3.4 mmol/L Chloride Level 110 mmol/L Carbon Dioxide Level 29 mmol/L Anion Gap 3.0 mmol/L Blood Urea Nitrogen 15 mg/dl Creatinine 0.63 mg/dl Est Creatinine Clear Calc Drug Dose 82.1 ml/min Estimated GFR () 103.1 Estimated GFR (Non- 89.0 BUN/Creatinine Ratio 23.0 Random Glucose 144 mg/dl Calcium Level 8.4 mg/dl Phosphorus Level 1.4 mg/dl Magnesium Level 2.6 mg/dl Total Bilirubin 1.0 mg/dl Direct Bilirubin 0.2 mg/dl Aspartate Amino Transf (AST/SGOT) 30 U/L Alanine Aminotransferase (ALT/SGPT) 20 U/L Alkaline Phosphatase 55 U/L Total Protein 5.9 gm/dl Albumin 2.3 gm/dl Bedside Glucose 155 mg/dl Assessment and Plan Patient is a 72 year old female w/ abrupt onset abdominal pain, nausea, vomiting who presented through the ED w/ CT findings suggesting generalized colonic ileus. She was evaluated by surgery who is following as well. She is quite uncomfortable on exam w/ abd distention, nausea, dry heaving and generalized abdominal pain. She is s/p colonoscopy w/ decompression w/ rectal tube placed. Was getting co-lytely and fleets via tube w/ relief of large BM. Will defer to surgery for additional interventions as needed - NPO - Daily KUB - IVF hydration - Antiemetics PRN - Avoid narcotic analgesia Continue Fleets enema BID today Can have golytely from above if tolerated PO and cleared by general surgery Will need outpatient colonoscopy GI to sign off. Will defer to general surgery for management of SBO. Please call with any acute changes, questions or concerns. I saw and evaluated the patient with Ms. Valdovinos. The patient had an NG tube placed again due to recurrent small bowel obstruction. It appears that she is having small bowel movements based on nursing notes. Recommendations: once taking by mouth would allow MiraLAX 17 g twice daily Avoid narcotics if possible Outpatient colonoscopy to be arranged Dr. Marcio Escobar
--- NOTE | 2017-11-05 12:19 | Hospitalist Progress Note ---
Hospitalist Progress Note Date of Service Nov 05, 2017. Subjective Pt evaluation today including: conversation w/ patient, conversation w/ family , physical exam, chart review, lab review, review of studies PO Intake: NPO Voiding: no voiding problems The patient was seen and examined this morning. Pt reports feeling like the tubing in her throat is curled up, and is making her gag. She notes that this initially was making it very difficult for her to talk. Repeat KUB portable at this point in time. He ordered the patient Chloraseptic spray to help with posterior throat irritation. Patient notes her abdomen feeling much better, she is not as distended/bloated, however she is not passing gas and has not had a bowel movement. She denies any fevers, sweats, chills. ROS: Constitutional: No fever, sweats or chills Eyes: No diplopia, no worsening or blurred vision ENT: normal hearing, + difficulty swallowing, due to NG tube placement Respiratory: No cough, sputum, dyspnea at rest or on exertion Cardiovascular: No chest pain, tightness or palpitations Abdomen: No pain, nausea, vomiting, patient is not passing gas nor had bowel movement yet Musculoskeletal: No joint pain, calf pain, swelling Neurologic: No weakness, numbness/tingling, or balance problems Psychiatric: No anxiety or depression Skin: No rash or itch Objective Vital Signs Date Time Temp Pulse Resp B/P (MAP) Pulse Ox O2 Delivery O2 Flow Rate FiO2 11/05/17 12:00 Room Air 11/05/17 11:44 36.4 66 16 122/68 (86) 95 11/05/17 08:00 Room Air 11/05/17 07:52 36.5 102 18 120/79 (93) 96 11/05/17 06:05 90 177/87 (117) 11/05/17 04:53 Room Air 11/05/17 04:53 108 11/05/17 04:27 118 166/108 (127) 11/05/17 04:25 37.2 114 16 167/101 (123) 94 Room Air 11/05/17 00:26 Room Air 11/04/17 23:30 37.1 88 20 156/81 (106) 95 Room Air 11/04/17 20:13 Room Air 11/04/17 19:27 155/78 (103) 11/04/17 19:26 37.7 121 20 162/80 (107) 93 Room Air 11/04/17 16:00 Nasal Cannula 2.0 11/04/17 15:14 36.7 116 18 168/96 (120) 97 Room Air Physical Exam Notes: General: awake, alert, no apparent distress, obese Head: Normocephalic, atraumatic ENT: PERRL, EOMI, no pharyngeal exudate, mucous membranes dry, + NGT visualized in posterior pharynx and appears to be straight Chest: Clear to auscultation, on room air, no adventitious breath sounds Cardiac: Tachycardic HR= 90, no murmur, no JVD, normal peripheral pulses, good capillary refill Abdominal: NABS x 4 quadrants, soft, nontender to palpation, nondistended, no rebound, guarding or tenderness Extremities: Normal inspection, no peripheral edema or erythema, calfs nontender to palpation Psych: Normal mood and affect Neuro: AAO x 3, speech is clear, no peripheral sensory deficits Laboratory Results Last 24 Hours Test 11/05/17 05:40 11/05/17 06:49 White Blood Count 9.68 K/uL Red Blood Count 3.77 M/uL Hemoglobin 11.1 g/dL Hematocrit 34.3 % Mean Corpuscular Volume 91.0 fL Mean Corpuscular Hemoglobin 29.4 pg Mean Corpuscular Hemoglobin Concent 32.4 g/dl Platelet Count 210 K/uL Mean Platelet Volume 9.1 fL Neutrophils (%) (Auto) 79.0 % Lymphocytes (%) (Auto) 10.6 % Monocytes (%) (Auto) 8.9 % Eosinophils (%) (Auto) 1.2 % Basophils (%) (Auto) 0.1 % Neutrophils # (Auto) 7.64 K/uL Lymphocytes # (Auto) 1.03 K/uL Monocytes # (Auto) 0.86 K/uL Eosinophils # (Auto) 0.12 K/uL Basophils # (Auto) 0.01 K/uL RDW Standard Deviation 53.3 fL RDW Coefficient of Variation 16.1 % Immature Granulocyte % (Auto) 0.2 % Immature Granulocyte # (Auto) 0.02 K/uL Sodium Level 142 mmol/L Potassium Level 3.4 mmol/L Chloride Level 110 mmol/L Carbon Dioxide Level 29 mmol/L Anion Gap 3.0 mmol/L Blood Urea Nitrogen 15 mg/dl Creatinine 0.63 mg/dl Est Creatinine Clear Calc Drug Dose 82.1 ml/min Estimated GFR () 103.1 Estimated GFR (Non- 89.0 BUN/Creatinine Ratio 23.0 Random Glucose 144 mg/dl Calcium Level 8.4 mg/dl Phosphorus Level 1.4 mg/dl Magnesium Level 2.6 mg/dl Total Bilirubin 1.0 mg/dl Direct Bilirubin 0.2 mg/dl Aspartate Amino Transf (AST/SGOT) 30 U/L Alanine Aminotransferase (ALT/SGPT) 20 U/L Alkaline Phosphatase 55 U/L Total Protein 5.9 gm/dl Albumin 2.3 gm/dl Bedside Glucose 155 mg/dl Assessment and Plan Pt is a 72 y/o F h/o HPL, HTN, anxiety - presented 11/02 with severe abdominal pain and distention. This was initially attributed to ileus. She was evaluated by surgery and then GI was consulted on suggestion of colonoscopic decompression. She underwent a colonoscopy 11/03 AM which revealed fecal impaction in the sigmoid colon which could not be removed. Rectal tube placed for administration of Colytely and enemas,decompression. Repeat labs on 11/03 show a marginal troponin elevation. Fecal impaction in the sigmoid colon/ascending colon-colonic ileus-GI thinks this occurred over long period of time. Mechanical disimpaction was not possible. A rectal tube was left in place but then came out with large BMs. KUB improving today. Pain resolved. -Patient made nothing by mouth for NG tube placement this morning as developing ileus on imaging. -continue FLeets enemas bid -add po Miralax daily if can tolerate - resume later today and can be administered via NG tube, holding intermittent suction for at least 30 minutes. - GI and Gen Surgery on board-appreciate recs Hypophosphatemia Hypomagnesemia - Replaced this morning, follow PRP Hypokalemia-resolved after replacement -follow PRP and continue IVFs with KCl until taking adequate po HTN Sinus tachycardia Elevated troponin Chronic diastolic CHF -BPs elevated and with ST secondary to pain and inability to take home propranolol. Elevated trop likely demand ischemia due to abd pain, ST. ECHO with grade 1 diastolic CHF, normal EF, no WMAs. - Lasix , propranolol as can tolerate meds, use IV Lopressor in the meantime Asthma-stable -Continue home inhalers HLD -stable-Continue statin when taking po Anxiety-stable - Continue lorazepam bid - IV and then change to po when fabian po DVT proph - heparin subq on hold as she may require surgery Dispo- remain on tele Discussion was held with her at bedside, all his questions and concerns were addressed.
--- NOTE | 2017-11-05 13:16 | DIAGNOSTIC IMAGING REPORT ---
KUB HISTORY: Status post enteric tube placement. assess ngt placement COMPARISON: Abdominal radiographs 11/05/2017 FINDINGS: There is persistent gas-filled dilation of the small bowel measuring up to approximately 4.2 cm, previously measuring 4.6 cm. No definite pneumatosis or pneumoperitoneum identified. Status post placement of an enteric tube with distal tip in the central upper abdomen within the region of the mid gastric lumen. Surgical clips overlie the lower mid abdomen. Posterior fusion lonny and screw hardware involves the thoracolumbar spine. Right hip arthroplasty partially imaged. No definite urolith or organomegaly. No fracture. IMPRESSION: 1. Status post placement of an enteric tube with distal tip overlying the central abdomen within the region of the mid gastric lumen. 2. Persistent dilated air-filled loops of small bowel suggest ongoing small bowel obstruction. Electronically signed by: Victor Hugo Rothman M.D. 11/05/2017 1:15 PM Dictated Date/Time: 11/05/2017 1:11 PM
[2017-11-05] MEDS: CHLORASEPTIC 1.4% SOLN 180 ML BTL MT PRN ×2 (13:17→20:28)
[2017-11-05] MEDS: TOLTERODINE TARTRATE LA 4 MG CAPCR PO SCH (21:00)
[2017-11-05] MEDS: ATORVASTATIN 20 MG TAB PO SCH (21:00)
[2017-11-06] VITALS (10 sets, daily range): BP systolic 113–194; BP diastolic 75–122; PULSE 77–108; TEMP 36.8–37; O2SAT 93–96; Ht 154.9 cm; Wt 87.2 kg
[2017-11-06] MEDS: SOD PHOSPHATE/SOD BIPHOSPHATE ENEMA 132 ML BTL PR SCH ×2 (06:00→18:18)
[2017-11-06] MEDS: CALCIUM 600MG + VIT D 400 IU TAB PO SCH (07:40)
[2017-11-06] MEDS: FLUTICASONE PROPIONATE NA SPR 16 GM BTL SCH ×2 (07:40→20:50)
[2017-11-06] MEDS: POLYETHYLENE (MIRALAX) 17 GM PACK PO SCH (07:41)
[2017-11-06] MEDS: CHOLECALCIFEROL 1000 INTER.UNIT TAB PO SCH (07:41)
[2017-11-06] MEDS: VENLAFAXINE HCL XR 37.5 MG CAPXR PO SCH ×2 (07:41→20:52)
[2017-11-06] MEDS: PROPRANOLOL HCL 80 MG TAB PO SCH ×2 (07:42→20:56)
--- NOTE | 2017-11-06 07:51 | DIAGNOSTIC IMAGING REPORT ---
KUB CLINICAL HISTORY: f/u colonic dilatation COMPARISON STUDY: KUB November 05, 2017 at 12:48 PM. FINDINGS: Incidental note is made of a right hip arthroplasty and a spinal fusion. Tip of nasogastric tube projects over the proximal body of the stomach. Small bowel dilatation has significantly improved. There is mild residual small bowel dilatation. The colon and rectum are relatively gasless. IMPRESSION: Significant interval improvement in small bowel dilatation. Single loop of mildly dilated small bowel. Nasogastric tube in place. Electronically signed by: Mikael Lord M.D. 11/06/2017 7:49 AM Dictated Date/Time: 11/06/2017 7:48 AM
[2017-11-06] MEDS: NSS + 20MEQ KCL 1000ML 1,000 ML IV SCH ×2 (08:08→18:25)
[2017-11-06] MEDS: CHLORASEPTIC 1.4% SOLN 180 ML BTL MT PRN (08:50)
--- NOTE | 2017-11-06 11:52 | Surgery Progress Note ---
Surgery Progress Note Date of Service Nov 06, 2017. Subjective + feeling well, + bowel movement (multiple), + flatus, No nausea, No vomiting Hungry Objective Vital Signs: Date Time Temp Pulse Resp B/P (MAP) Pulse Ox O2 Delivery O2 Flow Rate FiO2 11/06/17 11:48 36.9 79 20 180/96 (124) 95 Room Air 11/06/17 08:51 160/90 (113) 11/06/17 08:00 Room Air 11/06/17 07:46 37.0 108 18 194/122 (146) 94 Room Air 181/105 (130) 11/06/17 04:02 36.8 94 19 173/89 (117) 95 Room Air 11/06/17 04:00 Room Air 11/05/17 23:59 Room Air 11/05/17 23:45 94 172/89 (116) 11/05/17 23:09 36.8 93 20 175/85 (115) 93 Room Air 11/05/17 20:31 103 11/05/17 20:00 Room Air 11/05/17 19:04 36.8 99 18 174/90 (118) 95 Room Air 11/05/17 16:19 Room Air 11/05/17 15:11 36.8 99 19 181/99 (126) 94 Room Air 11/05/17 12:00 Room Air Physical Exam: nasogastric drainage (300 cc last shift) Abdomen: normal bowel sounds, non distended, soft, + tenderness (mild diffuse) Diagnostic Interpretation: KUB CLINICAL HISTORY: f/u colonic dilatation COMPARISON STUDY: KUB November 05, 2017 at 12:48 PM. FINDINGS: Incidental note is made of a right hip arthroplasty and a spinal fusion. Tip of nasogastric tube projects over the proximal body of the stomach. Small bowel dilatation has significantly improved. There is mild residual small bowel dilatation. The colon and rectum are relatively gasless. IMPRESSION: Significant interval improvement in small bowel dilatation. Single loop of mildly dilated small bowel. Nasogastric tube in place. Assessment & Plan Chronic constipation with impaction Now moving bowels well No peritonitis Would continue NGT for now
[2017-11-06] MEDS ORDERED: METOPROLOL TARTRATE 1 MG/ML VIAL ONE (12:39)
[2017-11-06] MEDS: METOPROLOL TARTRATE 1 MG/ML VIAL IV. SCH ×2 (12:43→18:20)
[2017-11-06] MEDS ORDERED: HydrALAZINE HCL 20 MG/ML VIAL ONE (14:11)
[2017-11-06] MEDS ORDERED: NURSING VERBAL MED ORDER ONE (14:15)
--- NOTE | 2017-11-06 15:05 | Progress Note ---
Subjective Date of Service: Nov 06, 2017. Subjective Pt evaluation today including: conversation w/ patient, conversation w/ family , physical exam, lab review, review of studies, conversation w/ advisor consultant, review of inpatient medication list Pain: no pain PO Intake: NPO Voiding: no voiding problems no new issues, patient denies chest pain, dyspnea still with NGT, 300cc out a shift, dark colored appreciate surgery recommendations labs reviewed from yesterday, will repeat tomorrow Problem List Medical Problems: (1) Abdominal pain, diffuse Status: Acute (2) Ileus Status: Acute (3) Nausea & vomiting Status: Acute Review of Systems Abdomen: + constipation All Other Systems: Reviewed and Negative Medications Current Inpatient Medications Medications (Trade) Dose Ordered Sig/Rachel Route Start Time Stop Time Status Last Admin Dose Admin Hydromorphone HCl (Dilaudid Inj) 1 mg Q4H PRN IV 11/02/17 18:00 11/16/17 17:59 11/04/17 16:01 1 MG Morphine Sulfate (MoRPHine SULFATE INJ) 2 mg Q4H PRN IV 11/02/17 18:00 11/16/17 17:59 11/04/17 00:33 2 MG Albuterol (Ventolin Hfa Inhaler) 2 puffs QID PRN INH 11/02/17 18:00 12/02/17 17:59 Aspirin (Ecotrin Tab) 81 mg BID PO 11/02/17 21:00 12/02/17 20:59 Future Hold Atorvastatin Calcium (Lipitor Tab) 20 mg QPM PO 11/02/17 21:00 12/02/17 20:59 11/04/17 20:13 20 MG Calcium/Vitamin D (Caltrate Plus Tab) 1 tab DAILY PO 11/03/17 09:00 12/03/17 08:59 Cholecalciferol (Vitamin D Tab) 1,000 inter.unit QAM PO 11/03/17 09:00 12/03/17 08:59 Lorazepam (Ativan Tab) 1 mg BID PRN PO 11/02/17 18:00 12/02/17 17:59 Ondansetron HCl (Zofran Tab) 4 mg Q6H PRN PO 11/02/17 18:00 12/02/17 17:59 Tolterodine Tartrate (Detrol LA Cap) 4 mg QPM PO 11/02/17 21:00 12/02/17 20:59 11/04/17 20:13 4 MG Tramadol HCl (Ultram Tab) 50 mg Q8H PRN PO 11/02/17 18:00 12/02/17 17:59 Venlafaxine HCl (effeXOR EXTENDED REL CAP) 37.5 mg BID PO 11/02/17 21:00 12/02/17 20:59 11/04/17 20:13 37.5 MG Propranolol HCl (Inderal Tab) 40 mg BID PO 11/02/17 21:00 12/02/17 20:59 11/06/17 07:42 40 MG Ondansetron HCl (Zofran Inj) 4 mg Q4H PRN IV 11/02/17 18:15 12/02/17 18:14 11/05/17 04:56 4 MG Potassium Chloride/Sodium Chloride 1,000 ml @ 100 mls/hr Q10H IV 11/02/17 20:45 12/02/17 20:44 11/06/17 08:08 100 MLS/HR Acetaminophen 650 mg/Empty Bag 65 ml @ 260 mls/hr Q6H PRN IV 11/02/17 21:15 12/02/17 21:14 11/04/17 22:43 260 MLS/HR Fluticasone Propionate (Flonase Nasal [place]) 2 sprays BID NA 11/03/17 09:00 12/03/17 08:59 11/05/17 20:27 2 SPRAYS Miscellaneous (Soap Suds Enema) 1 ea NOW PRN [place] 11/03/17 09:00 12/03/17 08:59 Sodium Biphosphate/ Sodium Phosphate (Fleet Enema) 132 ml BID@0600,1800 [place] 11/03/17 18:00 12/03/17 17:59 11/06/17 06:00 132 ML Polyethylene (Miralax Powder Packet) 17 gm DAILY PO 11/05/17 09:00 12/05/17 08:59 Phenol (Chloraseptic 1.4% [place]) 2 sprays Q1HWA PRN [place] 11/05/17 12:30 12/05/17 12:29 11/06/17 08:50 2 SPRAYS Metoprolol Tartrate (Lopressor Iv) 5 mg Q6 IV. 11/06/17 12:30 12/04/17 12:44 11/06/17 12:43 5 MG Hydralazine HCl (HydrALAZINE INJ) 10 mg Q6H PRN IV. 11/06/17 14:15 12/06/17 14:14 Objective Vital Signs Date Time Temp Pulse Resp B/P (MAP) Pulse Ox O2 Delivery O2 Flow Rate FiO2 11/06/17 13:36 79 178/93 (121) 11/06/17 13:36 80 189/101 (130) 11/06/17 12:43 82 183/91 11/06/17 12:00 Room Air 11/06/17 11:48 36.9 79 20 180/96 (124) 95 Room Air 11/06/17 08:51 160/90 (113) 11/06/17 08:00 Room Air 11/06/17 07:46 37.0 108 18 194/122 (146) 94 Room Air 181/105 (130) 11/06/17 04:02 36.8 94 19 173/89 (117) 95 Room Air 11/06/17 04:00 Room Air 11/05/17 23:59 Room Air 11/05/17 23:45 94 172/89 (116) 11/05/17 23:09 36.8 93 20 175/85 (115) 93 Room Air 11/05/17 20:31 103 11/05/17 20:00 Room Air 11/05/17 19:04 36.8 99 18 174/90 (118) 95 Room Air 11/05/17 16:19 Room Air 11/05/17 15:11 36.8 99 19 181/99 (126) 94 Room Air Physical Exam General Appearance: WD/WN, no apparent distress Eyes: normal inspection, EOMI, sclerae normal ENT: normal ENT inspection, hearing grossly normal, pharynx normal Neck: supple, no adenopathy, no JVD, trachea midline Respiratory/Chest: chest non-tender, lungs clear, normal breath sounds, no respiratory distress, no accessory muscle use Cardiovascular: regular rate, rhythm, no edema, no gallop, no JVD, no murmur Abdomen: non tender, soft, no organomegaly, + abnormal bowel sounds Extremities: normal range of motion, non-tender, normal inspection, no pedal edema, no calf tenderness Neurologic/Psychiatric: 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 This was initially attributed to ileus. She was evaluated by surgery and then GI was consulted on suggestion of colonoscopic decompression. She underwent a colonoscopy 11/03 AM which revealed fecal impaction in the sigmoid colon which could not be removed. Rectal tube placed for administration of Colytely and enemas,decompression. Repeat labs on 11/03 show a marginal troponin elevation. Fecal impaction in the sigmoid colon/ascending colon-colonic ileus-GI thinks this occurred over long period of time. Mechanical disimpaction was not possible. A rectal tube was left in place but then came out with large BMs -Patient made nothing by mouth for NG tube placement this morning as developing ileus on imaging on 11/05 -continue FLeets enemas bid -add po Miralax daily if can tolerate - resume later today and can be administered via NG tube, holding intermittent suction for at least 30 minutes. - GI and Gen Surgery on board-appreciate recs - no BM today, plan to d/c the NGT tomorrow per surgery Hypophosphatemia Hypomagnesemia - Replaced 11/05, repeat labs tomorrow Hypokalemia-resolved after replacement -follow PRP and continue IVFs with KCl until taking adequate po HTN Sinus tachycardia Elevated troponin Chronic diastolic CHF -BP still elevated, add Lopressor 5mg IV q6 scheduled with Hydralazine PRN for BP > 170 systolic Asthma-stable -Continue home inhalers HLD -stable-Continue statin when taking po Anxiety-stable - Continue lorazepam bid - IV and then change to po when fabian po DVT proph - heparin subq on hold as she may require surgery Dispo- remain on tele due to need for IV lopressor and blood pressure control
[2017-11-06] MEDS: ACETAMINOPHEN IV 650 MG in EMPTY BAG 0 ML IV PRN (20:44)
[2017-11-06] MEDS: TOLTERODINE TARTRATE LA 4 MG CAPCR PO SCH (20:51)
[2017-11-06] MEDS: ATORVASTATIN 20 MG TAB PO SCH (20:56)
[2017-11-07] VITALS (13 sets, daily range): BP systolic 152–182; BP diastolic 79–104; PULSE 79–107; TEMP 36.9–37.2; O2SAT 93–99
[2017-11-07] MEDS: METOPROLOL TARTRATE 1 MG/ML VIAL IV. SCH ×2 (00:26→06:09)
[2017-11-07] MEDS: HydrALAZINE HCL 20 MG/ML VIAL IV. PRN ×3 (02:11→23:49)
[2017-11-07] MEDS: MoRPHine SULFATE 2 MG/ML CARP IV PRN (04:39)
[2017-11-07] MEDS: NSS + 20MEQ KCL 1000ML 1,000 ML IV SCH ×2 (05:18→16:25)
[2017-11-07] MEDS: SOD PHOSPHATE/SOD BIPHOSPHATE ENEMA 132 ML BTL PR SCH ×2 (06:00→17:30)
[2017-11-07 06:31] LABS: BASO % 0.2 %; BASO ABS # 0.02 K/uL (0-0.2); EOS % 2.1 %; EOS ABS # 0.21 K/uL (0-0.5); HEMATOCRIT 36.5 % (37-47); HEMOGLOBIN 12.1 g/dL (12.0-16.0); IG# 0.06 K/uL (0.00-0.02); LYMPH % 11.2 %; MEAN CELL VOLUME 90.6 fL (80-100); MEAN CORPUSCULAR HGB CONC 33.2 g/dl (32-36); MEAN PLATELET VOLUME 9.2 fL (7.4-10.4); MONO % 12.1 %; MONO ABS # 1.19 K/uL (0.11-0.59); NEUT % 73.8 %; NEUT ABS # 7.23 K/uL (1.4-6.5); PLATELET COUNT 245 K/uL (130-400); RED CELL DISTRIBUTION WIDTH CV 16.3 % (11.5-14.5); WHITE BLOOD COUNT 9.81 K/uL (4.8-10.8)
[2017-11-07 07:00] LABS: CALCIUM 8.5 mg/dl (8.5-10.1); CREATININE 0.55 mg/dl (0.60-1.20); POTASSIUM 3.4 mmol/L (3.5-5.1)
[2017-11-07 07:24] LABS: PHOSPHORUS 2.4 mg/dl (2.5-4.9)
[2017-11-07] MEDS: CHOLECALCIFEROL 1000 INTER.UNIT TAB PO SCH (08:20)
[2017-11-07] MEDS: CALCIUM 600MG + VIT D 400 IU TAB PO SCH (08:20)
[2017-11-07] MEDS: VENLAFAXINE HCL XR 37.5 MG CAPXR PO SCH ×2 (08:21→21:51)
[2017-11-07] MEDS: PROPRANOLOL HCL 80 MG TAB PO SCH ×2 (08:21→21:50)
[2017-11-07] MEDS: POLYETHYLENE (MIRALAX) 17 GM PACK PO SCH (08:21)
[2017-11-07] MEDS: FLUTICASONE PROPIONATE NA SPR 16 GM BTL SCH ×2 (08:22→21:50)
[2017-11-07] MEDS ORDERED: POTASSIUM PHOS 3 MMOL/1 ML INFUSION IV STA (08:46)
[2017-11-07] MEDS ORDERED: POTASSIUM PHOSPHATE INJ 21 MMOL in SODIUM CHLORIDE 0.9% 500ML 500 ML IV ONE (09:15)
[2017-11-07] MEDS: HYDROmorphone INJ 1 MG/ML SYR IV PRN (10:15)
--- NOTE | 2017-11-07 14:16 | Surgery Progress Note ---
Surgery Progress Note Date of Service Nov 07, 2017. Subjective + bowel movement (Had large movement this AM), + diet (tolerated diet), No nausea, No vomiting Objective Vital Signs: Date Time Temp Pulse Resp B/P (MAP) Pulse Ox O2 Delivery O2 Flow Rate FiO2 11/07/17 12:00 Room Air 11/07/17 08:00 99 Room Air 11/07/17 07:17 37.1 93 18 166/92 (116) 95 Room Air 11/07/17 06:09 96 186/101 11/07/17 04:00 95 Room Air 11/07/17 03:09 36.9 107 20 152/81 (104) 95 Room Air 11/07/17 02:30 168/93 (118) 11/07/17 02:08 173/96 (121) 11/07/17 00:26 83 170/85 11/07/17 00:01 93 Room Air 11/06/17 23:31 36.8 87 21 171/81 (111) 93 Room Air 11/06/17 20:00 96 Room Air 11/06/17 19:15 36.8 94 22 143/86 (105) 96 Room Air 11/06/17 18:20 97 163/93 11/06/17 16:00 94 Room Air 11/06/17 15:07 37.0 107 20 137/85 (102) 94 Room Air Abdomen: normal bowel sounds, non tender, non distended, soft Laboratory Results: Results Past 24 Hours Test 11/07/17 06:07 Range/Units White Blood Count 9.81 4.8-10.8 K/uL Red Blood Count 4.03 4.2-5.4 M/uL Hemoglobin 12.1 12.0-16.0 g/dL Hematocrit 36.5 37-47 % Mean Corpuscular Volume 90.6 80-100 fL Mean Corpuscular Hemoglobin 30.0 25-34 pg Mean Corpuscular Hemoglobin Concent 33.2 32-36 g/dl Platelet Count 245 130-400 K/uL Mean Platelet Volume 9.2 7.4-10.4 fL Neutrophils (%) (Auto) 73.8 % Lymphocytes (%) (Auto) 11.2 % Monocytes (%) (Auto) 12.1 % Eosinophils (%) (Auto) 2.1 % Basophils (%) (Auto) 0.2 % Neutrophils # (Auto) 7.23 1.4-6.5 K/uL Lymphocytes # (Auto) 1.10 1.2-3.4 K/uL Monocytes # (Auto) 1.19 0.11-0.59 K/uL Eosinophils # (Auto) 0.21 0-0.5 K/uL Basophils # (Auto) 0.02 0-0.2 K/uL RDW Standard Deviation 53.0 36.4-46.3 fL RDW Coefficient of Variation 16.3 11.5-14.5 % Immature Granulocyte % (Auto) 0.6 % Immature Granulocyte # (Auto) 0.06 0.00-0.02 K/uL Sodium Level 142 136-145 mmol/L Potassium Level 3.4 3.5-5.1 mmol/L Chloride Level 107 98-107 mmol/L Carbon Dioxide Level 27 21-32 mmol/L Anion Gap 8.0 3-11 mmol/L Blood Urea Nitrogen 12 7-18 mg/dl Creatinine 0.55 0.60-1.20 mg/dl Est Creatinine Clear Calc Drug Dose 91.4 ml/min Estimated GFR () 107.8 Estimated GFR (Non- 93.1 BUN/Creatinine Ratio 21.9 10-20 Random Glucose 98 70-99 mg/dl Calcium Level 8.5 8.5-10.1 mg/dl Phosphorus Level 2.4 2.5-4.9 mg/dl Magnesium Level 2.5 1.8-2.4 mg/dl Assessment & Plan Chronic constipation with impaction Now moving bowels well No peritonitis Remove NGT
--- NOTE | 2017-11-07 14:51 | Progress Note ---
Subjective Date of Service: Nov 07, 2017. Subjective Pt evaluation today including: conversation w/ patient, conversation w/ family , physical exam, lab review, conversation w/ data governance consultant, review of inpatient medication list Pain: no pain PO Intake: advance to clears Voiding: no voiding problems patient had a large BM today NGT removed per surgery no pain in abdomen breathing well reviewed labs, K is 3.4 and Phos is 2.4 Problem List Medical Problems: (1) Abdominal pain, diffuse Status: Acute (2) Ileus Status: Acute (3) Nausea & vomiting Status: Acute Review of Systems Constitutional: + weakness, + fatigue All Other Systems: Reviewed and Negative Medications Current Inpatient Medications Medications (Trade) Dose Ordered Sig/Rachel Route Start Time Stop Time Status Last Admin Dose Admin Hydromorphone HCl (Dilaudid Inj) 1 mg Q4H PRN IV 11/02/17 18:00 11/16/17 17:59 11/07/17 10:15 1 MG Morphine Sulfate (MoRPHine SULFATE INJ) 2 mg Q4H PRN IV 11/02/17 18:00 11/16/17 17:59 11/07/17 04:39 2 MG Albuterol (Ventolin Hfa Inhaler) 2 puffs QID PRN INH 11/02/17 18:00 12/02/17 17:59 Aspirin (Ecotrin Tab) 81 mg BID PO 11/02/17 21:00 12/02/17 20:59 Future Hold Atorvastatin Calcium (Lipitor Tab) 20 mg QPM PO 11/02/17 21:00 12/02/17 20:59 11/06/17 20:56 20 MG Calcium/Vitamin D (Caltrate Plus Tab) 1 tab DAILY PO 11/03/17 09:00 12/03/17 08:59 11/07/17 08:20 1 TAB Cholecalciferol (Vitamin D Tab) 1,000 inter.unit QAM PO 11/03/17 09:00 12/03/17 08:59 11/07/17 08:20 1,000 INTER.UNIT Lorazepam (Ativan Tab) 1 mg BID PRN PO 11/02/17 18:00 12/02/17 17:59 Ondansetron HCl (Zofran Tab) 4 mg Q6H PRN PO 11/02/17 18:00 12/02/17 17:59 Tolterodine Tartrate (Detrol LA Cap) 4 mg QPM PO 11/02/17 21:00 12/02/17 20:59 11/04/17 20:13 4 MG Tramadol HCl (Ultram Tab) 50 mg Q8H PRN PO 11/02/17 18:00 12/02/17 17:59 Venlafaxine HCl (effeXOR EXTENDED REL CAP) 37.5 mg BID PO 11/02/17 21:00 12/02/17 20:59 11/07/17 08:21 37.5 MG Propranolol HCl (Inderal Tab) 40 mg BID PO 11/02/17 21:00 12/02/17 20:59 11/07/17 08:21 40 MG Ondansetron HCl (Zofran Inj) 4 mg Q4H PRN IV 11/02/17 18:15 12/02/17 18:14 11/05/17 04:56 4 MG Potassium Chloride/Sodium Chloride 1,000 ml @ 75 mls/hr [id number] IV 11/02/17 20:45 12/02/17 20:44 11/07/17 05:18 100 MLS/HR Acetaminophen 650 mg/Empty Bag 65 ml @ 260 mls/hr Q6H PRN IV 11/02/17 21:15 12/02/17 21:14 11/06/17 20:44 260 MLS/HR Fluticasone Propionate (Flonase Nasal [place]) 2 sprays BID NA 11/03/17 09:00 12/03/17 08:59 11/07/17 08:22 2 SPRAYS Miscellaneous (Soap Suds Enema) 1 ea NOW PRN [place] 11/03/17 09:00 12/03/17 08:59 Sodium Biphosphate/ Sodium Phosphate (Fleet Enema) 132 ml BID@0600,1800 [place] 11/03/17 18:00 12/03/17 17:59 11/06/17 18:18 132 ML Polyethylene (Miralax Powder Packet) 17 gm DAILY PO 11/05/17 09:00 12/05/17 08:59 11/07/17 08:21 17 GM Phenol (Chloraseptic 1.4% [place]) 2 sprays Q1HWA PRN [place] 11/05/17 12:30 12/05/17 12:29 11/06/17 08:50 2 SPRAYS Hydralazine HCl (HydrALAZINE INJ) 10 mg Q6H PRN IV. 11/06/17 14:15 12/06/17 14:14 11/07/17 02:11 10 MG Objective Vital Signs Date Time Temp Pulse Resp B/P (MAP) Pulse Ox O2 Delivery O2 Flow Rate FiO2 11/07/17 14:40 179/94 (122) 11/07/17 12:00 Room Air 11/07/17 11:00 37.0 79 18 177/92 (120) 94 Room Air 11/07/17 08:00 99 Room Air 11/07/17 07:17 37.1 93 18 166/92 (116) 95 Room Air 11/07/17 06:09 96 186/101 11/07/17 04:00 95 Room Air 11/07/17 03:09 36.9 107 20 152/81 (104) 95 Room Air 11/07/17 02:30 168/93 (118) 11/07/17 02:08 173/96 (121) 11/07/17 00:26 83 170/85 11/07/17 00:01 93 Room Air 11/06/17 23:31 36.8 87 21 171/81 (111) 93 Room Air 11/06/17 20:00 96 Room Air 11/06/17 19:15 36.8 94 22 143/86 (105) 96 Room Air 11/06/17 18:20 97 163/93 11/06/17 16:00 94 Room Air 11/06/17 15:07 37.0 107 20 137/85 (102) 94 Room Air Physical Exam General Appearance: WD/WN, no apparent distress Eyes: normal inspection, EOMI, sclerae normal ENT: normal ENT inspection, hearing grossly normal, pharynx normal Neck: supple, no adenopathy, no JVD, trachea midline Respiratory/Chest: chest non-tender, lungs clear, normal breath sounds, no respiratory distress, no accessory muscle use Cardiovascular: regular rate, rhythm, no edema, no gallop, no JVD, no murmur Abdomen: normal bowel sounds (more bowel sounds than yesterday), non tender, soft, no organomegaly Extremities: normal range of motion, non-tender, normal inspection, no pedal edema, no calf tenderness, pelvis stable Neurologic/Psychiatric: 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, no motor/sensory deficits, alert, normal mood/affect, oriented x 3 Skin: normal color, warm/dry, no rash Laboratory Results Last 24 Hours Test 11/07/17 06:07 White Blood Count 9.81 K/uL Red Blood Count 4.03 M/uL Hemoglobin 12.1 g/dL Hematocrit 36.5 % Mean Corpuscular Volume 90.6 fL Mean Corpuscular Hemoglobin 30.0 pg Mean Corpuscular Hemoglobin Concent 33.2 g/dl Platelet Count 245 K/uL Mean Platelet Volume 9.2 fL Neutrophils (%) (Auto) 73.8 % Lymphocytes (%) (Auto) 11.2 % Monocytes (%) (Auto) 12.1 % Eosinophils (%) (Auto) 2.1 % Basophils (%) (Auto) 0.2 % Neutrophils # (Auto) 7.23 K/uL Lymphocytes # (Auto) 1.10 K/uL Monocytes # (Auto) 1.19 K/uL Eosinophils # (Auto) 0.21 K/uL Basophils # (Auto) 0.02 K/uL RDW Standard Deviation 53.0 fL RDW Coefficient of Variation 16.3 % Immature Granulocyte % (Auto) 0.6 % Immature Granulocyte # (Auto) 0.06 K/uL Sodium Level 142 mmol/L Potassium Level 3.4 mmol/L Chloride Level 107 mmol/L Carbon Dioxide Level 27 mmol/L Anion Gap 8.0 mmol/L Blood Urea Nitrogen 12 mg/dl Creatinine 0.55 mg/dl Est Creatinine Clear Calc Drug Dose 91.4 ml/min Estimated GFR () 107.8 Estimated GFR (Non- 93.1 BUN/Creatinine Ratio 21.9 Random Glucose 98 mg/dl Calcium Level 8.5 mg/dl Phosphorus Level 2.4 mg/dl Magnesium Level 2.5 mg/dl Assessment and Plan Pt is a 72 y/o F h/o HPL, HTN, anxiety - presented 11/02 with severe abdominal pain and distention. This was initially attributed to ileus. She was evaluated by surgery and then GI was consulted on suggestion of colonoscopic decompression. She underwent a colonoscopy 11/03 AM which revealed fecal impaction in the sigmoid colon which could not be removed. Rectal tube placed for administration of Colytely and enemas,decompression. Repeat labs on 11/03 show a marginal troponin elevation. Fecal impaction in the sigmoid colon/ascending colon-colonic ileus-GI thinks this occurred over long period of time. Mechanical disimpaction was not possible. A rectal tube was left in place but then came out with large BMs - patient had recurrence of the small bowel obstruction, NGT placed on 11/05, draining 300cc a shift of bilious fluid - clamped tube intermittently for Miralax - BM on 11/07, surgery ordered NGT removed, will advance diet to clears - encouraged to ambulate Hypophosphatemia: 2.4 today, will give K Phos 21mmol Hypokalemia: 3.4 today, will be replaced in the K Phos HTN: better controlled today, resume the Propranolol 40mg BID, Hydralazine PRN IV Asthma-stable -Continue home inhalers - lungs clear, no wheezing HLD -stable-Continue statin when taking po Anxiety-stable - Continue lorazepam bid - IV and then change to po when fabian po DVT proph - heparin subq on hold as she may require surgery Dispo- transfer to surgical floor, repeat labs tomorrow
[2017-11-07] MEDS: ACETAMINOPHEN IV 650 MG in EMPTY BAG 0 ML IV PRN (16:40)
[2017-11-07] MEDS: TOLTERODINE TARTRATE LA 4 MG CAPCR PO SCH (21:50)
[2017-11-07] MEDS: ATORVASTATIN 20 MG TAB PO SCH (22:25)
[2017-11-08] MEDS: ACETAMINOPHEN IV 650 MG in EMPTY BAG 0 ML IV PRN ×2 (00:23→08:21)
[2017-11-08 00:57] VITALS: BP 151/84
[2017-11-08] MEDS: ONDANSETRON INJ 2 MG/ML 2 ML VIAL IV PRN (03:05)
[2017-11-08] MEDS: TRAMADOL HCL 50 MG TAB PO PRN ×2 (04:03→12:39)
[2017-11-08] MEDS: NSS + 20MEQ KCL 1000ML 1,000 ML IV SCH ×2 (05:59→20:15)
[2017-11-08] MEDS: SOD PHOSPHATE/SOD BIPHOSPHATE ENEMA 132 ML BTL PR SCH ×2 (06:00→17:00)
[2017-11-08 06:31] LABS: BASO % 0.1 %; BASO ABS # 0.01 K/uL (0-0.2); EOS % 2.8 %; EOS ABS # 0.28 K/uL (0-0.5); HEMATOCRIT 34.5 % (37-47); HEMOGLOBIN 11.2 g/dL (12.0-16.0); IG# 0.06 K/uL (0.00-0.02); LYMPH % 12.5 %; LYMPH ABS # 1.25 K/uL (1.2-3.4); MEAN CELL VOLUME 90.3 fL (80-100); MEAN CORPUSCULAR HEMOGLOBIN 29.3 pg (25-34); MEAN CORPUSCULAR HGB CONC 32.5 g/dl (32-36); MEAN PLATELET VOLUME 9.2 fL (7.4-10.4); NEUT ABS # 7.48 K/uL (1.4-6.5); PLATELET COUNT 283 K/uL (130-400); RED CELL DISTRIBUTION WIDTH CV 16.4 % (11.5-14.5); RED CELL DISTRIBUTION WIDTH SD 53.9 fL (36.4-46.3); WHITE BLOOD COUNT 9.98 K/uL (4.8-10.8)
--- NOTE | 2017-11-08 06:48 | Clinical Documentation Query ---
CLINICAL DOCUMENTATION QUERY 72 yo female admitted with acute abdominal pain, nausea and vomiting. She was found to have a fecal impaction and became tachycardic. SIRS is defined as 2 or more of the following variables: * Fever of more than 38*C (100.4*F) or less than 36*C (96.8*F) * Heart rate of more than 90 beats per minute * Respiratory rate of more than 20 breaths per minute or arterial carbon dioxide tension (PaCO2) of less than 32mm Hg * Abnormal white blood cell count (>12,000/uL or < 4,000/uL or >10% immature [band] forms) In your clinical opinion is this patient being managed for: (x ) Sepsis, resolved ( ) Not Agree ( ) Other explanation of clinical findings (Please Explain) ( ) Unable to determine (Please Define) ( ) Need to Discuss The medical record reflects the following clinical findings, treatment, and risk factors. Clinical Indicators: Temp spikes to 38.2 and 38.4, HR 120s to 130s, WBC 12.73 trending up to 14.80 Treatment: Piperacillin IV, IV hydration, telemetry, blood cultures Risk Factors: Age, bowel obstruction Please clarify and document your clinical opinion in the progress notes and discharge summary. Terms such as "probable", "suspected", "likely", "questionable", "possible", or "still to be ruled out" are acceptable. IF IN AGREEMENT, YOU MUST DOCUMENT ABOVE DIAGNOSTIC STATEMENT IN DAILY PROGRESS NOTES AND DISCHARGE SUMMARY. This document is not part of the patient's record. Thank You, Cindy Metzger RN [phone]
[2017-11-08 06:59] LABS: CALCIUM 8.4 mg/dl (8.5-10.1); CREATININE 0.53 mg/dl (0.60-1.20); POTASSIUM 3.2 mmol/L (3.5-5.1)
[2017-11-08 07:00] LABS: PHOSPHORUS 2.1 mg/dl (2.5-4.9)
[2017-11-08 07:10] VITALS: BP 172/98; PULSE 90; TEMP 36.9; O2SAT 96
[2017-11-08] MEDS: HydrALAZINE HCL 20 MG/ML VIAL IV. PRN (08:18)
[2017-11-08] MEDS: FLUTICASONE PROPIONATE NA SPR 16 GM BTL SCH ×2 (08:21→20:16)
[2017-11-08] MEDS: VENLAFAXINE HCL XR 37.5 MG CAPXR PO SCH ×2 (08:21→20:16)
[2017-11-08] MEDS: POLYETHYLENE (MIRALAX) 17 GM PACK PO SCH (08:22)
--- NOTE | 2017-11-08 08:27 | Surgery Progress Note ---
Surgery Progress Note Date of Service Nov 08, 2017. Subjective + feeling well, + complaints (neck pain, chronic), + bowel movement (multiple after given Miralax yesterday), + diet (clears), No nausea Objective Vital Signs: Date Time Temp Pulse Resp B/P (MAP) Pulse Ox O2 Delivery O2 Flow Rate FiO2 11/08/17 07:45 Room Air 11/08/17 07:10 36.9 90 18 172/98 (122) 96 Room Air 11/08/17 00:57 151/84 (106) 11/07/17 23:49 81 177/99 (125) 11/07/17 23:45 Room Air 11/07/17 23:28 36.9 81 16 182/104 (130) 96 Room Air 11/07/17 15:15 Room Air 11/07/17 15:09 37.2 92 18 172/79 (110) 96 Room Air 11/07/17 14:46 36.9 84 18 93 Room Air 11/07/17 14:40 179/94 (122) 11/07/17 12:00 Room Air 11/07/17 11:00 37.0 79 18 177/92 (120) 94 Room Air Abdomen: non tender, non distended, soft Laboratory Results: Results Past 24 Hours Test 11/08/17 05:32 Range/Units White Blood Count 9.98 4.8-10.8 K/uL Red Blood Count 3.82 4.2-5.4 M/uL Hemoglobin 11.2 12.0-16.0 g/dL Hematocrit 34.5 37-47 % Mean Corpuscular Volume 90.3 80-100 fL Mean Corpuscular Hemoglobin 29.3 25-34 pg Mean Corpuscular Hemoglobin Concent 32.5 32-36 g/dl Platelet Count 283 130-400 K/uL Mean Platelet Volume 9.2 7.4-10.4 fL Neutrophils (%) (Auto) 75.0 % Lymphocytes (%) (Auto) 12.5 % Monocytes (%) (Auto) 9.0 % Eosinophils (%) (Auto) 2.8 % Basophils (%) (Auto) 0.1 % Neutrophils # (Auto) 7.48 1.4-6.5 K/uL Lymphocytes # (Auto) 1.25 1.2-3.4 K/uL Monocytes # (Auto) 0.90 0.11-0.59 K/uL Eosinophils # (Auto) 0.28 0-0.5 K/uL Basophils # (Auto) 0.01 0-0.2 K/uL RDW Standard Deviation 53.9 36.4-46.3 fL RDW Coefficient of Variation 16.4 11.5-14.5 % Immature Granulocyte % (Auto) 0.6 % Immature Granulocyte # (Auto) 0.06 0.00-0.02 K/uL Sodium Level 138 136-145 mmol/L Potassium Level 3.2 3.5-5.1 mmol/L Chloride Level 104 98-107 mmol/L Carbon Dioxide Level 26 21-32 mmol/L Anion Gap 8.0 3-11 mmol/L Blood Urea Nitrogen 11 7-18 mg/dl Creatinine 0.53 0.60-1.20 mg/dl Est Creatinine Clear Calc Drug Dose 94.8 ml/min Estimated GFR () 109.2 Estimated GFR (Non- 94.2 BUN/Creatinine Ratio 19.8 10-20 Random Glucose 123 70-99 mg/dl Calcium Level 8.4 8.5-10.1 mg/dl Phosphorus Level 2.1 2.5-4.9 mg/dl Magnesium Level 2.3 1.8-2.4 mg/dl Microbiology Results 11/08/17 C.difficile Toxin B Gene (PCR) - Final, Complete No C. difficile toxin B gene detected Assessment & Plan obstipation, improving continue bowel regimen advance to full liquids
[2017-11-08] MEDS ORDERED: POTASSIUM CHLORIDE 10 MEQ TABCR PO ONE (09:00)
[2017-11-08] MEDS: POT PHOSPHATE MONOBASIC W/ SOD TAB PO SCH ×4 (09:33→20:18)
[2017-11-08] MEDS: CALCIUM 600MG + VIT D 400 IU TAB PO SCH (09:34)
[2017-11-08] MEDS: CHOLECALCIFEROL 1000 INTER.UNIT TAB PO SCH (09:34)
[2017-11-08] MEDS: PROPRANOLOL HCL 80 MG TAB PO SCH ×2 (09:35→20:15)
[2017-11-08] MEDS: LISINOPRIL 10 MG TAB PO SCH (09:39)
[2017-11-08 11:09] VITALS: BP 155/81; PULSE 85; TEMP 36.5; O2SAT 95
--- NOTE | 2017-11-08 12:38 | Hospitalist Progress Note ---
Hospitalist Progress Note Date of Service Nov 08, 2017. Subjective Pt evaluation today including: conversation w/ patient, physical exam, chart review, lab review, review of inpatient medication list Voiding: no voiding problems Ms. Kaminski denies further abdominal pain. She is feeling much better. ROS Constitutional: no chills, aches, sweats or fever Respiratory: no sob,cough, sputum, or wheezing Cardiac: no chest pain, palpitations, edema, orthopnea or lightheadedness GI: no abdominal pain, nausea, vomiting, diarrhea or constipation : no dysuria or hesitancy Extremities: no joint pain or weakness Skin: no rash All other systems reviewed and negative Medications Medications (Trade) Dose Ordered Sig/Rachel Route Start Time Stop Time Status Last Admin Dose Admin Potassium/ Phosphorus/Sodium (Phospha 250 Neutral [id number] Mg) 1 tab QID PO 11/08/17 09:00 12/08/17 08:59 11/08/17 09:33 1 TAB Potassium Chloride (Klor-Con M10) 40 meq NOW ONCE PO 11/08/17 09:00 11/08/17 09:01 DC 11/08/17 09:34 40 MEQ Lisinopril (Zestril Tab) 10 mg QAM PO 11/08/17 09:00 12/08/17 08:59 11/08/17 09:39 10 MG Objective Vital Signs Date Time Temp Pulse Resp B/P (MAP) Pulse Ox O2 Delivery O2 Flow Rate FiO2 11/08/17 11:09 36.5 85 18 155/81 (105) 95 Room Air 11/08/17 07:45 Room Air 11/08/17 07:10 36.9 90 18 172/98 (122) 96 Room Air 11/08/17 00:57 151/84 (106) 11/07/17 23:49 81 177/99 (125) 11/07/17 23:45 Room Air 11/07/17 23:28 36.9 81 16 182/104 (130) 96 Room Air 11/07/17 15:15 Room Air 11/07/17 15:09 37.2 92 18 172/79 (110) 96 Room Air 11/07/17 14:46 36.9 84 18 93 Room Air 11/07/17 14:40 179/94 (122) Physical Exam Notes: General: no distress Eyes: normal inspection, PERLL Respiratory: chest non tender, clear to auscultation, normal breath sounds, no respiratory distress, no accessory muscle use Cardiac: regular rate and rhythm, no rub or gallop, no murmur, no edema, no jvd GI/: active bowel sounds, no abd pain or tenderness, soft, non distended Extremities: normal range of motion, normal strength, non tender Neuro/Psych: alert and oriented x 3, normal mood and affect Skin: normal color, dry Laboratory Results Last 24 Hours Test 11/08/17 05:32 White Blood Count 9.98 K/uL Red Blood Count 3.82 M/uL Hemoglobin 11.2 g/dL Hematocrit 34.5 % Mean Corpuscular Volume 90.3 fL Mean Corpuscular Hemoglobin 29.3 pg Mean Corpuscular Hemoglobin Concent 32.5 g/dl Platelet Count 283 K/uL Mean Platelet Volume 9.2 fL Neutrophils (%) (Auto) 75.0 % Lymphocytes (%) (Auto) 12.5 % Monocytes (%) (Auto) 9.0 % Eosinophils (%) (Auto) 2.8 % Basophils (%) (Auto) 0.1 % Neutrophils # (Auto) 7.48 K/uL Lymphocytes # (Auto) 1.25 K/uL Monocytes # (Auto) 0.90 K/uL Eosinophils # (Auto) 0.28 K/uL Basophils # (Auto) 0.01 K/uL RDW Standard Deviation 53.9 fL RDW Coefficient of Variation 16.4 % Immature Granulocyte % (Auto) 0.6 % Immature Granulocyte # (Auto) 0.06 K/uL Sodium Level 138 mmol/L Potassium Level 3.2 mmol/L Chloride Level 104 mmol/L Carbon Dioxide Level 26 mmol/L Anion Gap 8.0 mmol/L Blood Urea Nitrogen 11 mg/dl Creatinine 0.53 mg/dl Est Creatinine Clear Calc Drug Dose 94.8 ml/min Estimated GFR () 109.2 Estimated GFR (Non- 94.2 BUN/Creatinine Ratio 19.8 Random Glucose 123 mg/dl Calcium Level 8.4 mg/dl Phosphorus Level 2.1 mg/dl Magnesium Level 2.3 mg/dl Assessment and Plan Ms. Kaminski is a 72 year old woman here for fecal impaction Pt is a 72 y/o F h/o HPL, HTN, anxiety - presented 11/02 with severe abdominal pain and distention. This was initially attributed to ileus. She was evaluated by surgery and then GI was consulted on suggestion of colonoscopic decompression. She underwent a colonoscopy 11/03 AM which revealed fecal impaction in the sigmoid colon which could not be removed. Rectal tube placed for administration of Golytely and enemas, decompression. Repeat labs on 11/03 show a marginal troponin elevation. Fecal impaction in the sigmoid colon/ascending colon-colonic ileus-GI thinks this occurred over long period of time. Mechanical disimpaction was not possible. A rectal tube was left in place but then came out with large BMs - patient had recurrence of the small bowel obstruction, NGT placed on 11/05, draining 300cc a shift of bilious fluid - clamped tube intermittently for Miralax - BM on 11/07, surgery ordered NGT removed and patient was advanced to clears - encouraged to ambulate - PT/OT ordered as patient has not been ambulating Hypokalemia - persistent, replaced today for K 3.2 - continue to hold lasix Hypophosphatemia - K phos po QID HTN - bp elevated - propranolol restarted over the weekend and pressures are persistently elevated, prn hydralazine given a number of times even though pain is now well controlled - initiate lisinopril today - patient is pre-diabetic and it is probably a good idea for her to have an HARMONY on board anyway for renal health - continue to hold lasix for now Hyperglycemia - A1c in July was 5.7 - follow up outpatient Asthma - continue home inhalers HLD - continue statin Anxiety - continue lorazepam bid Depression - continue effexor DVT proph - scds DNR Dispo: if tolerating po and PT/OT feel she is safe, likely can dc to home tomorrow.
[2017-11-08] MEDS: CHLORASEPTIC 1.4% SOLN 180 ML BTL MT PRN (15:21)
[2017-11-08 15:25] VITALS: BP 155/82; PULSE 92; TEMP 37.1; O2SAT 93
[2017-11-08] MEDS: TOLTERODINE TARTRATE LA 4 MG CAPCR PO SCH (20:15)
[2017-11-08] MEDS: ATORVASTATIN 20 MG TAB PO SCH (20:15)
[2017-11-08] MEDS: DOCUSATE SODIUM 100 MG CAP PO SCH (20:16)
[2017-11-08 22:50] VITALS: BP 161/85; PULSE 80; TEMP 37.2; O2SAT 94
[2017-11-09 00:35] VITALS: O2SAT 94
[2017-11-09] MEDS: TRAMADOL HCL 50 MG TAB PO PRN (02:53)
[2017-11-09] MEDS ORDERED: NURSING DECISION MEDICATION ORDER SCH (04:45)
[2017-11-09] MEDS: SOD PHOSPHATE/SOD BIPHOSPHATE ENEMA 132 ML BTL PR SCH (05:41)
--- NOTE | 2017-11-09 05:41 | Clinical Documentation Query ---
CLINICAL DOCUMENTATION QUERY 72 yo female admitted with acute abdominal pain, nausea and vomiting. She was found to have a fecal impaction and became tachycardic. SIRS is defined as 2 or more of the following variables: * Fever of more than 38*C (100.4*F) or less than 36*C (96.8*F) * Heart rate of more than 90 beats per minute * Respiratory rate of more than 20 breaths per minute or arterial carbon dioxide tension (PaCO2) of less than 32mm Hg * Abnormal white blood cell count (>12,000/uL or < 4,000/uL or >10% immature [band] forms) In your clinical opinion is this patient being managed for: (x ) possible mild Sepsis with SIRS >2 , resolved ( ) Not Agree ( ) Other explanation of clinical findings (Please Explain) ( ) Unable to determine (Please Define) ( ) Need to Discuss The medical record reflects the following clinical findings, treatment, and risk factors. Clinical Indicators: Temp spikes to 38.2 and 38.4, HR 120s to 130s, WBC 12.73 trending up to 14.80 Treatment: Piperacillin IV, IV hydration, telemetry, blood cultures Risk Factors: Age, bowel obstruction Please clarify and document your clinical opinion in the progress notes and discharge summary. Terms such as "probable", "suspected", "likely", "questionable", "possible", or "still to be ruled out" are acceptable. IF IN AGREEMENT, YOU MUST DOCUMENT ABOVE DIAGNOSTIC STATEMENT IN DAILY PROGRESS NOTES AND DISCHARGE SUMMARY. This document is not part of the patient's record. Thank You, Cindy Metzger RN [phone]
[2017-11-09] MEDS ORDERED: COUGH DROP (SUGAR FREE) LOZ 24 LOZ/1 BOX LOZ PRN (05:45)
--- NOTE | 2017-11-09 07:59 | Surgery Progress Note ---
Surgery Progress Note Date of Service Nov 09, 2017. Subjective + feeling well, + bowel movement, + diet (full liquids), No nausea Objective Vital Signs: Date Time Temp Pulse Resp B/P (MAP) Pulse Ox O2 Delivery O2 Flow Rate FiO2 11/09/17 00:35 94 Room Air 11/08/17 22:50 37.2 80 18 161/85 (110) 94 Room Air 11/08/17 15:25 37.1 92 18 155/82 (106) 93 Room Air 11/08/17 15:10 Room Air 11/08/17 11:09 36.5 85 18 155/81 (105) 95 Room Air Abdomen: non tender, non distended, soft Assessment & Plan obstipation, resolving advance to regular diet would increase home bowel regimen (was taking one Colace) will sign off
[2017-11-09 08:05] VITALS: BP 158/78; PULSE 103; TEMP 36.8; O2SAT 96
[2017-11-09] MEDS: DOCUSATE SODIUM 100 MG CAP PO SCH (09:00)
[2017-11-09] MEDS: POLYETHYLENE (MIRALAX) 17 GM PACK PO SCH (09:00)
[2017-11-09] MEDS: FLUTICASONE PROPIONATE NA SPR 16 GM BTL SCH (09:30)
[2017-11-09] MEDS: CALCIUM 600MG + VIT D 400 IU TAB PO SCH (09:30)
[2017-11-09] MEDS: POT PHOSPHATE MONOBASIC W/ SOD TAB PO SCH ×2 (09:30→13:42)
[2017-11-09] MEDS: PROPRANOLOL HCL 80 MG TAB PO SCH (09:30)
[2017-11-09] MEDS: CHOLECALCIFEROL 1000 INTER.UNIT TAB PO SCH (09:30)
[2017-11-09] MEDS: VENLAFAXINE HCL XR 37.5 MG CAPXR PO SCH (09:30)
[2017-11-09] MEDS: LISINOPRIL 10 MG TAB PO SCH (09:31)
[2017-11-09 10:23] LABS: BASO % 0.2 %; BASO ABS # 0.02 K/uL (0-0.2); EOS % 2.7 %; EOS ABS # 0.23 K/uL (0-0.5); HEMATOCRIT 36.9 % (37-47); HEMOGLOBIN 12.2 g/dL (12.0-16.0); IG# 0.06 K/uL (0.00-0.02); LYMPH % 13.8 %; LYMPH ABS # 1.18 K/uL (1.2-3.4); MEAN CELL VOLUME 90.9 fL (80-100); MEAN PLATELET VOLUME 9.1 fL (7.4-10.4); MONO % 7.4 %; MONO ABS # 0.63 K/uL (0.11-0.59); NEUT % 75.2 %; NEUT ABS # 6.44 K/uL (1.4-6.5); PLATELET COUNT 346 K/uL (130-400); RED CELL DISTRIBUTION WIDTH CV 16.3 % (11.5-14.5); RED CELL DISTRIBUTION WIDTH SD 54.1 fL (36.4-46.3); WHITE BLOOD COUNT 8.56 K/uL (4.8-10.8)
[2017-11-09 10:34] LABS: MEAN CORPUSCULAR HGB CONC 33.1 g/dl (32-36)
[2017-11-09 10:49] LABS: CALCIUM 8.7 mg/dl (8.5-10.1); CREATININE 0.82 mg/dl (0.60-1.20); POTASSIUM 3.7 mmol/L (3.5-5.1)
[2017-11-09] MEDS ORDERED: CLC100 PO (10:54)
[2017-11-09] MEDS ORDERED: MRLP17 PO (10:54)
[2017-11-09] MEDS ORDERED: POTTAB2 PO (10:54)
[2017-11-09] MEDS ORDERED: LSN5 PO (10:54)
--- NOTE | 2017-11-09 11:02 | Discharge Instructions ---
Discharge Instructions Date of Service Nov 09, 2017. Admission Reason for Admission: ILEUS Discharge Discharge Diagnosis / Problem: Fecal impaction Discharge Goals Goal(s): Improve disease control Activity Recommendations Activity Limitations: resume your previous activity . Instructions / Follow-Up Instructions / Follow-Up Please follow up with Dr. Cristobal Escobar's office (Gastroenterology) in 1-2 weeks. Please follow up with your primary care provider in about a week. Please have your blood work drawn tomorrow or the next day, results will go to your primary care provider I have given you a prescription for daily Miralax and stool softeners. I would continue these at least until you see GI for follow up. You should take these medications with the aim of 1 bowel movement a day. If you are having more than this, or you are experiencing diarrhea, you can cut the miralax in half . I have also started you on a new hypertension medication called lisinopril at a low dose. Please take your blood pressure at home daily and keep a log to bring with you to your primary care provider's office at your next appointment. Please call your primary care provider if you are getting lightheaded or dizzy or your blood pressure is consistently running below 100/60. If you do not own a blood pressure cuff, you can purchase one at most drug stores. Current Hospital Diet Patient's current hospital diet: Regular Diet Discharge Diet Recommended Diet: Regular Diet Procedures Procedures Performed: COLON WITH DECOMPRESSION Pending Studies Studies pending at discharge: no List of pending studies: Abdominal Xrays x7 Chest Xray Abd/Pelvis CT Medical Emergencies . Who to Call and When: Medical Emergencies: If at any time you feel your situation is an emergency, please call 911 immediately. . Non-Emergent Contact Non-Emergency issues call your: Primary Care Provider Call Non-Emergent contact if: you have a fever, your pain is not controlled . . "Provider Documentation" section prepared by Alla Krishnan. . VTE Core Measure Inpt VTE Proph given/why not?: SCD's
--- NOTE | 2017-11-09 11:06 | Discharge Summary ---
Discharge Summary Date of Service Nov 09, 2017. Discharge Summary Admission Date: Nov 02, 2017 at 18:03 Discharge Date: Nov 09, 2017 Discharge Disposition: Home with services Principal Diagnosis: Fecal impaction Problems/Secondary Diagnoses: Hypokalemia, Hypophosphatemia, HTN, Hyperglycemia, Asthma, HLD, Anxiety, Depression Immunizations: Have You Had Influenza Vaccine: No History of Tetanus Vaccine?: Yes History of Pneumococcal: No History of Hepatitis B Vaccine: No Procedures: CHEST ONE VIEW PORTABLE CLINICAL HISTORY: ABDOMINAL PAIN/GI pain COMPARISON STUDY: 03/03/2016 FINDINGS: Lungs are considered clear. Minimal interstitial change left base possibly atelectatic. No well-defined focal or consolidative infiltrative change. Stable postoperative changes of the cervical and low thoracic region. IMPRESSION: Chronic and postoperative change. Slight nonspecific interstitial prominence left lung base. ABD/PELVIS IV CONTRAST ONLY CT DOSE: 953.87 mGycm HISTORY: Pain severe ab TTP, almost peritonitic, no BM x 3 days, ?obstipation TECHNIQUE: Multiaxial CT images of the abdomen and pelvis were performed following the use of intravenous contrast. A dose lowering technique was utilized adhering to the principles of ALARA. COMPARISON STUDY: None. FINDINGS: Lung bases are clear. Liver is uniform throughout. Mild gallbladder distention. Trace perihepatic ascites. Mild atrophy of the kidneys. No evidence for renal hydronephrosis. Normal small bowel pattern. Distention of the cecum a sending and proximal to mid transverse colon. Decompressed descending colon. Mobile cecum which is located in the left lateral abdominal region. Normal appendix. IMPRESSION: 1. Generalized colonic distention specifically related to the cecum, a sending colon, as well as transverse colon. 2. No evidence for well-defined obstructing lesion with the descending colon unremarkable in overall caliber. 3. Mobile cecum with the cecum identified in the left lateral abdomen. The appendix is normal. 3. Trace ascites within the right and to a lesser extent left paracolic gutter regions. 4. The appearance suggests a general colonic ileus versus adynamic ileus rather than a true obstructive process. 5. No evidence for pneumatosis. KUB CLINICAL HISTORY: Ileus. Nasogastric tube placement. COMPARISON STUDY: CT of the abdomen and pelvis November 02, 2017 at 4:00 PM. FINDINGS: Tip of nasogastric tube projects over the gastric fundus. Contrast within the bladder and collecting systems is from recent contrast-enhanced CT. There are postoperative findings within the spine as well as the right hip arthroplasty. A moderate to large amount of stool within the colon is noted. There is persistent moderate colonic distention. No small bowel dilatation is present. IMPRESSION: 1. Tip of nasogastric tube projects over the gastric fundus. 2. Persistent moderate colonic dilatation which could reflect an ileus or colonic obstruction. 3. Moderate to large amount of stool within the colon. Colonoscopy 11/03/17 KUB CLINICAL HISTORY: f/u colonic dilatation COMPARISON STUDY: KUB November 05, 2017 at 12:48 PM. FINDINGS: Incidental note is made of a right hip arthroplasty and a spinal fusion. Tip of nasogastric tube projects over the proximal body of the stomach. Small bowel dilatation has significantly improved. There is mild residual small bowel dilatation. The colon and rectum are relatively gasless. IMPRESSION: Significant interval improvement in small bowel dilatation. Single loop of mildly dilated small bowel. Nasogastric tube in place. Consultations: Dr. Woods and Dr. Coles from general surgery Dr. Escobar from GI Medication Reconciliation New Medications: Docusate Sodium (Docusate Sodium) 100 Mg Cap 100 MG PO BID for 60 Days, #120 CAP Lisinopril (Lisinopril) 5 Mg Tab 5 MG PO DAILY for 30 Days, #30 DOSE Polyethylene (Miralax) 17 Gm Pow 17 GM PO DAILY for 30 Days, #30 DOSE Pot Phosphate Monobasic W/ Sod (Phospha 250 Neutral) 1 Tab Tab 1 TAB PO QID for 14 Days, #56 TAB Continued Medications: Albuterol Sulfate (Proventil Hfa) 108 Mcg/Act Aer 2 PUFFS INH QID PRN for SOB/Wheezing Ascorbic Acid (Vitamin C 500 mg) 1 Chw Chw 500 MG PO BID Aspirin (Aspirin EC Low Dose) 81 Mg Ectab 81 MG PO BID for 30 Days Atorvastatin (Lipitor) 20 Mg Tab 20 MG PO QPM, TAB Calcium Carbonate-Vitamin D W/ (Caltrate 600 Plus) 1 Tab Tab 600 MG PO DAILY, TAB Cholecalciferol (Vitamin D3) 1,000 Unit Tab 1000 UNITS PO QAM for 90 Days, TAB 3 Refills Cinnamon (Cinnamon) 500 Mg Cap 1000 MG PO QAM Furosemide (Lasix) 40 Mg Tab 40 MG PO QAM, 0 Refills Ywnmpgezdkt-Bhkwmrrotfa-Qdr C- (Glucosamine Chondroitin) 1 Tab Tab 1 TAB PO BID Lorazepam (Ativan) 1 Mg Tab 1 MG PO BID PRN for Anxiety, TAB Multiple Vitamins W/ Minerals (Womens Daily Formula) 1 Tab Tab 1 TAB PO DAILY Ondansetron Hcl (Zofran) 4 Mg Tab 4 MG PO Q6 PRN for Nausea, TAB Potassium Gluconate (K-99) 595 Mg Cap 595 MG PO QAM Propranolol Hcl (Propranolol Hcl) 40 Mg Tab 40 MG PO BID, TAB Tolterodine Tartrate (Detrol LA) 4 Mg Capcr 4 MG PO QPM, CAP 3 Refills Tramadol (Ultram) 50 Mg Tab 50 MG PO Q8H PRN for Pain, TAB Venlafaxine Hcl (Effexor Xr) 37.5 Mg Cap 37.5 MG PO BID for 30 Days, #30 CAP Discontinued Medications: Flurbiprofen (Ansaid) 100 Mg Tab 100 MG PO BIDM, TAB Levofloxacin (Levaquin) 500 Mg Tab 500 MG PO DAILY, TAB 7 DAY COURSE- STARTED 10/27/17 Discharge Exam ROS Constitutional: no chills, aches, sweats or fever Respiratory: no sob,cough, sputum, or wheezing Cardiac: no chest pain, palpitations, edema, orthopnea or lightheadedness GI: no abdominal pain, nausea, vomiting, diarrhea or constipation : no dysuria or hesitancy Extremities: no joint pain or weakness Skin: no rash All other systems reviewed and negative PE General: no distress Eyes: normal inspection, PERLL Respiratory: chest non tender, clear to auscultation, normal breath sounds, no respiratory distress, no accessory muscle use Cardiac: regular rate and rhythm, no rub or gallop, no murmur, no edema, no jvd GI/: active bowel sounds, no abd pain or tenderness, soft, non distended Extremities: normal range of motion, normal strength, non tender Neuro/Psych: alert and oriented x 3, normal mood and affect Skin: normal color, dry Hospital Course Ms. Kaminski is a 72 year old woman here for fecal impaction Pt is a 72 y/o F h/o HPL, HTN, anxiety - presented 11/02 with severe abdominal pain and distention. This was initially attributed to ileus. She was evaluated by surgery and then GI was consulted on suggestion of colonoscopic decompression. She underwent a colonoscopy 11/03 AM which revealed fecal impaction in the sigmoid colon which could not be removed. Rectal tube placed for administration of Golytely and enemas, decompression. Repeat labs on 11/03 show a marginal troponin elevation. Fecal impaction in the sigmoid colon/ascending colon-colonic ileus-GI thinks this occurred over long period of time. Mechanical disimpaction was not possible. A rectal tube was left in place but then came out with large BMs - patient had recurrence of the small bowel obstruction, NGT placed on 11/05, draining 300cc a shift of bilious fluid - clamped tube intermittently for Miralax - BM on 11/07, surgery ordered NGT removed and patient was advanced to clears - encouraged to ambulate - PT/OT ordered as patient has not been ambulating - OT felt she was at baseline and plan is for home with home health Hypokalemia - persistent, 3.7 today - lasix held while here but restarted for home Hypophosphatemia - K phos po QID - continue for two weeks outpatient HTN - bp elevated - propranolol restarted over the weekend and pressures are persistently elevated, prn hydralazine given a number of times even though pain was well controlled - initiated lisinopril 11/08 - patient is diabetic and it is probably a good idea for her to have an HARMONY on board anyway for renal health - lasix restarted for home - patient given discharge instructions to check and record bp until seen by pcp Hyperglycemia - A1c in July was 5.7 - blood sugars running 120s-170s but as high as 200 - follow up outpatient Asthma - continue home inhalers HLD - continue statin Anxiety - continue lorazepam bid Depression - continue effexor Total Time Spent: Greater than 30 minutes This includes examination of the patient, discharge planning, medication reconciliation, and communication with other providers. Discharge Instructions Please refer to the electronic Patient Visit Report (Discharge Instructions) for additional information. Follow-Up GI in 1-2 weeks PCP in 1 week PRP tomorrow or the next day Additional Copies To Marcio Escobar DO; Aryan Jack M.D.
[2017-11-09] MEDS ORDERED: MCRK20 PO (11:22)
[2017-11-09 12:21] VITALS: BP 158/78; PULSE 103; TEMP 36.8; O2SAT 96
--- NOTE | 2017-11-12 07:12 | EDITING REQUIRED CODING QUERY ---
PRESENT ON ADMISSION QUERY To promote full compliance with coding requirements relating to pateint care, physician participation is requested in all cases of physicians and surgeons uncertainty. Please assist us with the question(s) below: Please place an X within the parenthesis (x). The following diagnosis(es) listed in this patient's medical record require physician assistance to determine if they were present on admission (POA) or not. Please advise for each diagnosis whether it was present on admission, not present on admission, or if it was clinically undetermined. 1. Possible mild Sepsis - documented on the Addendum on the 11/08/17 Progress Note. (x ) Present On Admission ( ) Not Present On Admission - this occurred after admission ( ) Clinically Undetermined if present on admission or occurring after admission ( ) No Sepsis at any time during this visit - it was ruled out Thank you Minoo Ackerman *Definition of the present on admission (POA)-Present on admission is defined as present at the time the order for inpatient admission occurs. Conditions that develop during an outpatient encounter prior to a written order for inpatient admission (including emergency department, observation, or outpatient surgery) are considered present on admission.
--- NOTE | 2017-11-12 09:54 | EDITING REQUIRED CODING QUERY ---
CODING QUERY To promote full compliance with coding requirements relating to patient care, provider participation is requested in all cases of collection analyst uncertainty. Please assist us with the question(s) below: Coding Question(s): This query is to clarify between documentation from the previous query and an addendum that was added onto the Discharge Summary regarding possible Sepsis. The previous query showed possible Sepsis present on admission and the addendum on the Discharge Summary shows possible Sepsis present on admission, which was rule out. Please clarify below, in your clinical opinion. (x ) No Sepsis during this admission ( ) Possible Sepsis present on admission that later resolved Physician's Response(s): Thank you Minoo Ackerman Principal Diagnosis: "_that condition established after study, to be chiefly responsible for occasioning the admission of the patient to the hospital for care." Co-Existing Principal Diagnosis: "_when two or more diagnoses equally meet the criteria for principal diagnosis as determined by the circumstances of admission, diagnostic work up, and/or therapy provided, and the Alphabetic Index, Tabular List, or another coding guideline does not provide sequencing direction, any one of the diagnoses may be sequenced first." "When the physician has documented what appears to be a current diagnosis in the body of the record, but has not included the diagnosis in the final diagnostic statement, the physician should be asked whether the diagnosis should be added." (Source Coding [facility] 2 QTR90. p3-4)
== END 2017-11-09 14:00 | disposition home health service (06) | DRG 389 ==
LOC: EDBD 14:21 → C.EDA 14:24 → C.MSN 18:03 → ENRESERV 18:33 → C.2T 11-03 00:14 → ENRESERV 11-07 12:11 → CANRESERV 11-07 12:11 → ENRESERV 11-07 13:39 → C.MSN 11-07 14:44
PROVIDERS: ADMIT Internal Medicine; ATTEND Hospitalist
PROC: 0DCN8ZZ Extirpation of Matter from Sigmoid Colon, Via Natural or Artificial Opening Endoscopic (ICD-10-PCS; principal; 2017-11-03 10:41)
PROC: 0DNN8ZZ Release Sigmoid Colon, Via Natural or Artificial Opening Endoscopic (ICD-10-PCS; principal; 2017-11-03 10:41)
PROC: 3E0H8GC Introduction of Other Therapeutic Substance into Lower GI, Via Natural or Artificial Opening Endoscopic (ICD-10-PCS; principal; 2017-11-03 10:41)
PROC: 0D9N80Z Drainage of Sigmoid Colon with Drainage Device, Via Natural or Artificial Opening Endoscopic (ICD-10-PCS; principal; 2017-11-03 10:41)
DX: K56.41 Fecal impaction (principal); K56.7 Ileus, unspecified; I50.32 Chronic diastolic (congestive) heart failure; E87.6 Hypokalemia; E83.39 Other disorders of phosphorus metabolism; E83.42 Hypomagnesemia; R73.9 Hyperglycemia, unspecified; R78.89 Finding of other specified substances, not normally found in blood; I11.0 Hypertensive heart disease with heart failure; J45.909 Unspecified asthma, uncomplicated; F32.9 Major depressive disorder, single episode, unspecified; F41.9 Anxiety disorder, unspecified; E78.5 Hyperlipidemia, unspecified; Z79.899 Other long term (current) drug therapy; Z79.82 Long term (current) use of aspirin; Z79.1 Long term (current) use of non-steroidal anti-inflammatories (NSAID); Z66 Do not resuscitate

== ENCOUNTER → 2017-11-16 | Outpatient (CLI) | payer BC, OTHER ==
[~2017-11-16] MED LIST changes: -ACET-1138 PO; +ALBUAER INH; -ALBUAER2 INH; -CALCTAB5 PO; +CALCTAB7 PO; -CLB200 PO; +CLC100 PO; -COEN50CA PO; -FLV400 PO; -GARLIC PARSLEY PO; -LANS30CA12 PO; +LSN5 PO; +MCRK20 PO; -MISCCAP80 PO; +MRLP17 PO; -MULT-506 PO; +MULT1TAB79 PO; +ONDA4TAB46 PO; -OXYSR10 PO; -POTACAP PO; +POTTAB2 PO; -PRM625 PO; -PROP20TA67 PO; +PROP40TA5 PO; -RXC5 PO; +TRAM-10 PO; -VITAFUSION GUMMY PO
[2017-11-16 18:29] LABS: BLOOD UREA NITROGEN 16 mg/dl (7-18); CALCIUM 9.7 mg/dl (8.5-10.1); CARBON DIOXIDE 34 mmol/L (21-32); CREATININE 1.05 mg/dl (0.60-1.20); GLUCOSE 106 mg/dl (70-99); PHOSPHORUS 3.8 mg/dl (2.5-4.9); POTASSIUM 3.8 mmol/L (3.5-5.1); SODIUM 137 mmol/L (136-145)
== END | disposition home or self-care (01) ==
LOC: C.LABBFT 15:46
PROVIDERS: ATTEND Physician Assistant Medical
DX: K56.600 Partial intestinal obstruction, unspecified as to cause (principal)

== ENCOUNTER → 2017-12-21 | Day surgery (SDC) | payer BC ==
[2017-12-14 13:09] VITALS: BMI 36.0
[~2017-12-21] VITALS: Ht 154.9 cm; Wt 87.3 kg
[~2017-12-21] MED LIST changes: -ASPEC81 PO; +ASPI81TA28 PO; -CHOL1000 PO; +CHOL1TAB76 PO; -CINN1CAP2 PO; -CLC100 PO; +DOCU1TAB6 PO; +FOLI800T PO; +LIDOCAINE HCL 2% 2 ML VIAL (20MG/ML) ONE; +LISI-729 PO; -LSN5 PO; -MCRK20 PO; +MIDAZOLAM HCL 1 MG/ML 2ML VIAL ONE; -MRLP17 PO; -ONDA4TAB46 PO; +ONDANSETRON INJ 2 MG/ML 2 ML VIAL IV PRN; -POTTAB2 PO; +PROPOFOL IV EMULSION 10 MG/ML 20 ML VIAL IV ONE
[2017-12-21 11:27] VITALS: Ht 154.9 cm; Wt 87.3 kg
--- NOTE | 2017-12-21 11:36 | Endo History and Physical ---
History & Physical Date of Service: Dec 21, 2017. Chief Complaint: screening Referring Physician: Mishel Mcdonald History of Present Illness Patient presenting for colorectal cancer screening after recent admission for abdominal pain related to fecal impaction. She reports doing well since on a bowel regimen. Past Medical History Arthritis, Anxiety, Reflux, High Cholesterol, Heart Disease, Depression Past Surgical History Hx Cardiac Surgery: No Hx Internal Defibrillator: No Hx Pacemaker: No Hx Abdominal Surgery: Yes (PARTIAL HYSTER, REMOVAL FALLOPIAN TUBES) Hx of Implantable Prosthesis: No Hx Post-Op Nausea and Vomiting: No Hx Cancer Surgery: No Hx Thoracic Surgery: No Hx Orthopedic: Yes (BACK SURGERY X3, JOELLE KNEE REPAIRS,JOELLE CTR,RT SHOULDER REPAIR) Hx Urinary Tract Surgery: Yes (BLADDER TACKING (AP REPAIR)) Family History None Social History Smoking Status: Never Smoker Hx Substance Use: No Hx Alcohol Use: No Allergies Coded Allergies: Homatropine (Verified Adverse Reaction, Unknown, HYDROCODONE/HOMATROPINE COUGH SYRP-INSOMNIA/NAUSEA, 12/21/17) Current Medications Reported Home Medications Medications Dose Route/Sig Max Daily Dose Days Date Category Docusate Sodium 100 Mg Tab 100 Mg PO HS 12/14/17 Reported Aspirin Ec (Aspirin) 81 Mg Tab 81 Mg PO QAM 12/14/17 Reported Folic Acid 800 Mcg Tab 800 Mcg PO QAM 12/14/17 Reported Prinivil (Lisinopril) 5 Mg Tab 5 Mg PO QAM 12/14/17 Reported D 2000 (Cholecalciferol) 2,000 Unit Tab 2,000 Units PO QAM 12/14/17 Reported Propranolol Hcl 40 Mg Tab 40 Mg PO BID 11/02/17 Reported Womens Daily Formula (Multiple Vitamins W/ Minerals) 1 Tab Tab 1 Tab PO NOON 11/02/17 Reported Ultram (Tramadol HCl) 50 Mg Tab 50 Mg PO Q8H PRN 11/02/17 Reported Proventil Hfa (Albuterol Sulfate) 108 Mcg/Act Aer 2 Puffs INH QID PRN 11/02/17 Reported Caltrate 600 Plus (Calcium Carbonate-Vitamin D W/) 1 Tab Tab 600 Mg PO BID 11/02/17 Reported Ativan (Lorazepam) 1 Mg Tab 1 Mg PO BID PRN 03/03/16 Reported Detrol LA (Tolterodine Tartrate) 4 Mg Capcr 4 Mg PO QPM 03/03/16 Reported Glucosamine Chondroitin (Amolpckscsj-Ztndunncney-Zxj C-) 1 Tab Tab 1 Tab PO BID 05/23/15 Reported Vitamin C 500 mg (Ascorbic Acid) 1 Chw Chw 500 Mg PO BID 05/23/15 Reported Lipitor (Atorvastatin) 20 Mg Tab 20 Mg PO HS 05/23/15 Reported Effexor Xr (Venlafaxine Hcl) 37.5 Mg Cap 37.5 Mg PO BID 05/23/15 Reported Lasix (Furosemide) 40 Mg Tab 40 Mg PO QAM 05/13/09 Reported Vital Signs Weight (Kilograms): 87.27 Height (Feet): 5 Height (Inches): 1 Physical Exam General Appearance: no apparent distress Respiratory/Chest: Auscultation: breath sounds normal Cardiovascular: Heart Auscultation: RRR Assessment and Plan Patient for colonoscopy today to evaluate for colorectal polyps. We have discussed the risks to include bleeding, infection, perforation and missed colonic polyps.
--- NOTE | 2017-12-21 12:26 | Discharge Instructions ---
Endoscopy Patient Instructions Date / Procedure(s) Performed Dec 21, 2017. Colonoscopy Allergy Information Coded Allergies: Homatropine (Verified Adverse Reaction, Unknown, HYDROCODONE/HOMATROPINE COUGH SYRP-INSOMNIA/NAUSEA, 12/21/17) Discharge Date / Findings Dec 21, 2017. Hemorrhoids Medication Instructions Reported Home Medications Medications Dose Route/Sig Max Daily Dose Days Date Category Docusate Sodium 100 Mg Tab 100 Mg PO HS 12/14/17 Reported Aspirin Ec (Aspirin) 81 Mg Tab 81 Mg PO QAM 12/14/17 Reported Folic Acid 800 Mcg Tab 800 Mcg PO QAM 12/14/17 Reported Prinivil (Lisinopril) 5 Mg Tab 5 Mg PO QAM 12/14/17 Reported D 2000 (Cholecalciferol) 2,000 Unit Tab 2,000 Units PO QAM 12/14/17 Reported Propranolol Hcl 40 Mg Tab 40 Mg PO BID 11/02/17 Reported Womens Daily Formula (Multiple Vitamins W/ Minerals) 1 Tab Tab 1 Tab PO NOON 11/02/17 Reported Ultram (Tramadol HCl) 50 Mg Tab 50 Mg PO Q8H PRN 11/02/17 Reported Proventil Hfa (Albuterol Sulfate) 108 Mcg/Act Aer 2 Puffs INH QID PRN 11/02/17 Reported Caltrate 600 Plus (Calcium Carbonate-Vitamin D W/) 1 Tab Tab 600 Mg PO BID 11/02/17 Reported Ativan (Lorazepam) 1 Mg Tab 1 Mg PO BID PRN 03/03/16 Reported Detrol LA (Tolterodine Tartrate) 4 Mg Capcr 4 Mg PO QPM 03/03/16 Reported Glucosamine Chondroitin (Iozceebvtmx-Sfiffibsrml-Moe C-) 1 Tab Tab 1 Tab PO BID 05/23/15 Reported Vitamin C 500 mg (Ascorbic Acid) 1 Chw Chw 500 Mg PO BID 05/23/15 Reported Lipitor (Atorvastatin) 20 Mg Tab 20 Mg PO HS 05/23/15 Reported Effexor Xr (Venlafaxine Hcl) 37.5 Mg Cap 37.5 Mg PO BID 05/23/15 Reported Lasix (Furosemide) 40 Mg Tab 40 Mg PO QAM 05/13/09 Reported Provider Instructions Activity Restrictions - No exercising or heavy lifting for 24 hours. - Do not drink alcohol the day of the procedure. - Do not drive a car or operate machinery until the day after the procedure. - Do not make any important decisions or sign important papers in 24 hours after the procedure. Following Day: - Return to full activity which may include returning to work/school. Diet Start your diet with liquids and light foods (jello, soup, juice, toast). Then eat your usual diet if not nauseated. Treatment For Common After Affects For mild abdominal pain, bloating, or excessive gas: - Rest - Eat lightly - Lie on right side Follow-Up Information Follow-up with Ms. Mcdonald Continue Colace daily Follow-up with Gastroenterology as needed No need for a follow-up colonoscopy at this time. Anesthesia Information What You Should Know You have had a procedure that required some medicine to reduce anxiety and discomfort. This treatment is called moderate sedation. After receiving the treatment, you may be sleepy, but you will be able to breathe on your own. The effects of the treatment may last for several hours. Follow these instructions along with Activity/Diet recommendations noted above: * Do NOT do anything where dizziness or clumsiness would be dangerous. * Rest quietly at home today, then you can be up and about tomorrow. * Have a responsible person stay with you the rest of today. * You may have had an I.V. today. If so, you may take the dressing off later today. Recommendations Call your doctor if: * Trouble breathing * Continuous vomiting for more than 24 hours * Temperature above 101 degrees * Severe abdominal pain or bloating * Pain not relieved by pain medicine ordered * There is increased drainage or redness from any incision * A large amount of rectal bleeding greater than 2-3 tablespoons. (If you had a polyp/s removed or have hemorrhoids, a small amount of blood - from the rectum is to be expected.) * You have any unanswered questions or concerns. IN THE EVENT OF A SERIOUS EMERGENCY, GO TO THE NEAREST EMERGENCY ROOM Your discharge instructions were prepared by provider Marcio Escobar. Patient Instructions Signature Page Armand Kaminski Patient (or Guardian) Signature/Date: I have read and understand the instructions given to me by my caregivers. Caregiver/RN/Doctor Signature/Date: The above-named patient and/or guardian has received patient instructions on this date. + Original Patient Signature Page (only) stays with chart. Please make copy for patient.
--- NOTE | 2017-12-21 12:31 | GI REPORT ---
Procedure Date: 12/21/2017 11:39 AM Procedure: Colonoscopy Indications: Screening for colorectal malignant neoplasm Medicines: Monitored Anesthesia Care Complications: No immediate complications. Estimated blood loss: Minimal. Estimated Blood Loss: Estimated blood loss was minimal. Procedure: Pre-Anesthesia Assessment: - Prior to the procedure, a History and Physical was performed, and patient medications, allergies and sensitivities were reviewed. The patient's tolerance of previous anesthesia was reviewed. - The risks and benefits of the procedure and the sedation options and risks were discussed with the patient. All questions were answered and informed consent was obtained. - Patient identification and proposed procedure were verified prior to the procedure by the physician, the nurse and the cylinder press feeder. The procedure was verified in the procedure room. - Pre-procedure physical examination revealed no contraindications to sedation. - ASA Grade Assessment: III - A patient with severe systemic disease. - After reviewing the risks and benefits, the patient was deemed in satisfactory condition to undergo the procedure. - The anesthesia plan was to use monitored anesthesia care (MAC). - Immediately prior to administration of medications, the patient was re-assessed for adequacy to receive sedatives. - The heart rate, respiratory rate, oxygen saturations, blood pressure, adequacy of pulmonary ventilation, and response to care were monitored throughout the procedure. - The physical status of the patient was re-assessed after the procedure. After I obtained informed consent, the scope was passed under direct vision. Throughout the procedure, the patient's blood pressure, pulse, and oxygen saturations were monitored continuously. The scope was introduced through the anus and advanced to the sigmoid colon. The scope was introduced through the anus and advanced to the terminal ileum. The colonoscopy was performed without difficulty. The quality of the bowel preparation was good. The colonoscopy was somewhat difficult due to restricted mobility of the colon. Successful completion of the procedure was aided by withdrawing the scope and replacing with the pediatric colonoscope and applying abdominal pressure. Findings: The digital rectal exam findings include non-thrombosed external hemorrhoids. Pertinent negatives include normal sphincter tone. The terminal ileum appeared normal. Internal hemorrhoids were found during retroflexion. The hemorrhoids were moderate. The exam was otherwise without abnormality. Impression: - Non-thrombosed external hemorrhoids found on digital rectal exam. - The examined portion of the ileum was normal. - Internal hemorrhoids. - The examination was otherwise normal. - No specimens collected. Recommendation: - Discharge patient to home (ambulatory). - Advance diet as tolerated today. - Repeat colonoscopy is not recommended for screening purposes. - Use fiber, for example Citrucel, Fibercon, Konsyl or Metamucil. - Colace capsule(s) orally 200 mg daily. - Return to GI office PRN. Marcio Escobar D.O. Marcio Escobar, 12/21/2017 12:30:38 PM This report has been signed electronically. Note Initiated On: 12/21/2017 11:39 AM I attest to the content of the Intraoperative Record and orders documented therein, exceptions below
[2017-12-21 13:02] VITALS: BP 157/98; PULSE 69; O2SAT 98
--- NOTE | 2017-12-21 13:03 | Anesthesiology Progress Note ---
Anesthesia Post Op Note Date & Time Dec 21, 2017 at 13:03 Vital Signs Pain Intensity: 0 Vital Signs Past 12 Hours Date Time Temp Pulse Resp B/P (MAP) Pulse Ox O2 Delivery O2 Flow Rate FiO2 12/21/17 13:02 69 18 157/98 (117) 98 Room Air 12/21/17 12:49 78 18 153/103 (120) 99 Room Air 12/21/17 12:29 36.0 82 17 110/93 (99) 96 Room Air 12/21/17 11:35 36.9 102 18 167/106 (126) 98 Room Air Notes Mental Status: alert / awake / arousable, participated in evaluation Pt Amnestic to Procedure: Yes Nausea / Vomiting: adequately controlled Pain: adequately controlled Airway Patency, RR, SpO2: stable & adequate BP & HR: stable & adequate Hydration State: stable & adequate Anesthetic Complications: no major complications apparent
== END | disposition home or self-care (01) ==
LOC: C.GI 10:47
PROVIDERS: ATTEND Internal Medicine Gastroenterology
DX: Z12.11 Encounter for screening for malignant neoplasm of colon (principal); K64.4 Residual hemorrhoidal skin tags; K64.8 Other hemorrhoids; M19.90 Unspecified osteoarthritis, unspecified site; F41.9 Anxiety disorder, unspecified; K21.9 Gastro-esophageal reflux disease without esophagitis; E78.00 Pure hypercholesterolemia, unspecified; E03.9 Hypothyroidism, unspecified; E78.5 Hyperlipidemia, unspecified; E66.9 Obesity, unspecified; F32.9 Major depressive disorder, single episode, unspecified; Z90.711 Acquired absence of uterus with remaining cervical stump; Z98.41 Cataract extraction status, right eye; Z98.42 Cataract extraction status, left eye; Z88.8 Allergy status to other drugs, medicaments and biological substances; Z79.82 Long term (current) use of aspirin; Z96.641 Presence of right artificial hip joint

== ENCOUNTER → 2018-01-18 | Outpatient (CLI) | payer BC ==
[~2018-01-18] MED LIST changes: -LIDOCAINE HCL 2% 2 ML VIAL (20MG/ML) ONE; -MIDAZOLAM HCL 1 MG/ML 2ML VIAL ONE; -ONDANSETRON INJ 2 MG/ML 2 ML VIAL IV PRN; -PROPOFOL IV EMULSION 10 MG/ML 20 ML VIAL IV ONE
[2018-01-18 17:04] LABS: ALBUMIN 3.6 gm/dl (3.4-5.0); ALKALINE PHOSPHATASE 76 U/L (45-117); ALT/SGPT 30 U/L (12-78); AST/SGOT 25 U/L (15-37); BLOOD UREA NITROGEN 21 mg/dl (7-18); CALCIUM 9.1 mg/dl (8.5-10.1); CARBON DIOXIDE 30 mmol/L (21-32); CREATININE 1.01 mg/dl (0.60-1.20); GLUCOSE 92 mg/dl (70-99); POTASSIUM 4.2 mmol/L (3.5-5.1); SODIUM 137 mmol/L (136-145)
[2018-01-18 17:17] LABS: CHOLESTEROL 163 mg/dl (0-200); LDL CHOLESTEROL CALCULATED 65 mg/dl; TOTAL PROTEIN 7.4 gm/dl (6.4-8.2)
[2018-01-19 05:46] LABS: HEMOGLOBIN A1C 5.8 % (4.5-5.6)
== END | disposition home or self-care (01) ==
LOC: C.LABBFT 11:26
PROVIDERS: ATTEND Internal Medicine
DX: E78.5 Hyperlipidemia, unspecified (principal); R73.01 Impaired fasting glucose

== ENCOUNTER 2018-02-23 10:39 | Day surgery (SDC) | payer BC ==
[2018-02-04 10:04] VITALS: BMI 38.0
[2018-02-04 11:22] LABS: BASO % 0.4 %; BASO ABS # 0.02 K/uL (0-0.2); EOS % 5.7 %; HEMATOCRIT 35.4 % (37-47); LYMPH % 29.1 %; LYMPH ABS # 1.53 K/uL (1.2-3.4); MEAN CELL VOLUME 90.3 fL (80-100); MEAN CORPUSCULAR HEMOGLOBIN 30.6 pg (25-34); MEAN CORPUSCULAR HGB CONC 33.9 g/dl (32-36); MEAN PLATELET VOLUME 9.3 fL (7.4-10.4); MONO ABS # 0.42 K/uL (0.11-0.59); NEUT % 56.8 %; NEUT ABS # 2.99 K/uL (1.4-6.5); PLATELET COUNT 167 K/uL (130-400); RED CELL DISTRIBUTION WIDTH CV 13.8 % (11.5-14.5); RED CELL DISTRIBUTION WIDTH SD 45.3 fL (36.4-46.3); WHITE BLOOD COUNT 5.26 K/uL (4.8-10.8)
--- NOTE | 2018-02-04 11:39 | DIAGNOSTIC IMAGING REPORT ---
CHEST 2 VIEWS ROUTINE CLINICAL HISTORY: Preoperative evaluation. COMPARISON STUDY: Chest radiograph November 03, 2017. FINDINGS: Postoperative findings within the cervical spine and thoracolumbar spine are partially imaged. No pneumothorax or pleural effusion is noted. There is no evidence for pulmonary edema or pneumonia. Cardiac size is at the upper limits of normal. IMPRESSION: No acute cardiopulmonary findings. Electronically signed by: Mikael Lord M.D. 02/04/2018 11:38 AM Dictated Date/Time: 02/04/2018 11:37 AM
[2018-02-04 11:51] LABS: CALCIUM 9.4 mg/dl (8.5-10.1); CREATININE 1.04 mg/dl (0.60-1.20); POTASSIUM 4.5 mmol/L (3.5-5.1)
[~2018-02-23] VITALS: Ht 154.9 cm; Wt 91.5 kg
[~2018-02-23 10:39] MED LIST changes: +ACETAMINOPHEN 500 MG TAB PO SCH; +ATROPINE SULFATE 0.1 MG/ML 5ML SYR IV PRN; +CEFAZOLIN 2000MG IV PUSH 15 ML IV SCH; +CeleBREX 200 MG CAP PO SCH; +EpHEDrine SULFATE INJ 50 MG/ML AMP IV PRN; +FENTANYL CITRATE INJ 50 MCG/1 ML 2 ML VIAL IV PRN; +GABAPENTIN 300 MG CAP PO SCH; +HYDROmorphone INJ 0.5 MG/0.5 ML SYR IV PRN; +LABETALOL HCL IV 5 MG/ML 20ML IV PRN; +LACTATED RINGER'S 1000ML 1,000 ML IV SCH; +MEPERIDINE HCL 25 MG/ML CARP IV PRN; +ONDANSETRON INJ 2 MG/ML 2 ML VIAL IV PRN
[2018-02-23 11:06] VITALS: BP 177/130; PULSE 94; TEMP 36.9; O2SAT 95; Ht 154.9 cm; Wt 91.5 kg
[2018-02-23] MEDS ORDERED: FENTANYL CITRATE INJ 50 MCG/1 ML 2 ML VIAL ONE ×3 (12:01→14:12)
[2018-02-23] MEDS ORDERED: MIDAZOLAM HCL 1 MG/ML 2ML VIAL ONE (12:01)
--- NOTE | 2018-02-23 12:13 | History & Physical Bridge Note ---
H&P Re-Evaluation Bridge Note: I have examined the patient, reviewed the History & Physical and in the interval since the performance of the History & Physical I have noted the following changes of clinical significance: No changes noted
--- NOTE | 2018-02-23 12:15 | History and Physical ---
History & Physical Date February 23, 2018. Chief Complaint Left SI joint pain History of Present Illness The patient is a 72 year old female with complaints of chronic persistent left SI joint pain Past Medical/Surgical History Medical Problems: (1) Arthritis of left knee (2) Constipation (3) HTN (hypertension) (4) Hypokalemia (5) Hypophosphatemia Additional History Hepatic Disease: No Endocrine Disorder: No Kidney Disease: No Hypertension: Yes Heart Disease: No Bleeding Tendencies: No Infectious Diseases: No Allergies Coded Allergies: Homatropine (Verified Adverse Reaction, Unknown, HYDROCODONE/HOMATROPINE COUGH SYRP-INSOMNIA/NAUSEA, 02/23/18) Home Medications Scheduled Ascorbic Acid (Vitamin C 500 mg), 500 MG PO BID Aspirin (Aspirin Ec), 81 MG PO QAM Atorvastatin (Lipitor), 20 MG PO HS Calcium Carbonate-Vitamin D W/ (Caltrate 600 Plus), 600 MG PO BID Cholecalciferol (D 2000), 2,000 UNITS PO QAM Docusate Sodium (Docusate Sodium), 100 MG PO HS Folic Acid (Folic Acid), 800 MCG PO QAM Furosemide (Lasix), 40 MG PO QAM Adrrbeljrfi-Xhkxzaswxlx-Tqo C- (Glucosamine Chondroitin), 1 TAB PO BID Lisinopril (Prinivil), 5 MG PO QAM Multiple Vitamins W/ Minerals (Womens Daily Formula), 1 TAB PO NOON Propranolol Hcl (Propranolol Hcl), 40 MG PO BID Tolterodine Tartrate (Detrol LA), 4 MG PO QPM Venlafaxine Hcl (Effexor Xr), 37.5 MG PO BID Scheduled PRN Albuterol Sulfate (Proventil Hfa), 2 PUFFS INH QID PRN for SOB/Wheezing Lorazepam (Ativan), 1 MG PO BID PRN for Anxiety Tramadol (Ultram), 50 MG PO Q8H PRN for Pain Physical Examination Skin: warm/dry, no rash Eyes: normal inspection, EOMI, sclerae normal ENT: normal ENT inspection, pharynx normal Head: normocephalic, atraumatic Neck: supple, no adenopathy, trachea midline Respiratory/Chest: lungs clear, normal breath sounds, no respiratory distress Cardiovascular: regular rate, rhythm, no edema, no murmur Abdomen / GI: normal bowel sounds, non tender Back: normal inspection Extremities: normal inspection, normal range of motion Neurologic/Psych: no motor/sensory deficits, alert, normal reflexes, oriented x 3 Diagnosis Sacroiliitis Plan of Treatment Left SI joint fusion
[2018-02-23] MEDS ORDERED: EpINEphrine INJ 1MG/ML AMP 1 MG/ML AMP ONE (12:26)
[2018-02-23] MEDS ORDERED: BACITRACIN 50000 UNIT VIAL ONE (12:26)
[2018-02-23] MEDS ORDERED: BUPIVACAINE 0.5 % 5 MG/1 ML MPF 30ML VIAL ONE (12:26)
[2018-02-23] MEDS ORDERED: HYDROmorphone INJ 2 MG/ML SYR/VIAL ONE (13:01)
[2018-02-23] MEDS ORDERED: ONDANSETRON INJ 2 MG/ML 2 ML VIAL ONE ×2 (13:05→13:46)
[2018-02-23] MEDS ORDERED: DEXAMETHASONE SOD INJ 4 MG/ML VIAL ONE (13:05)
[2018-02-23] MEDS ORDERED: ROCURONIUM BROMIDE 10 MG/ML 5 ML VIAL ONE (13:05)
[2018-02-23] MEDS ORDERED: LIDOCAINE HCL 2% 2 ML VIAL (20MG/ML) ONE (13:05)
[2018-02-23] MEDS ORDERED: PROPOFOL IV EMULSION 10 MG/ML 20 ML VIAL ONE (13:05)
[2018-02-23] MEDS ORDERED: KETOROLAC TROMETHAMINE 30 MG/ML VIAL ONE (13:24)
[2018-02-23] MEDS ORDERED: NEOSTIGMINE METHYLSULFATE 1 MG/ML 10ML VIAL ONE (13:24)
[2018-02-23] MEDS ORDERED: GLYCOPYRROLATE INJ 0.2 MG/ML VIAL ONE (13:24)
--- NOTE | 2018-02-23 13:24 | [facility] Operative Report ---
Operative Report Operative Date February 23, 2018. Pre-Operative Diagnosis Sacroiliitis Post-Operative Diagnosis Sacroiliitis Procedure(s) Performed Left Sacroiliac Joint Fusion Surgeon Dr. Guerrero Historic Preservationist Surgeon(s) Meg Rivera PA-C Estimated Blood Loss 25 ml Specimens none per surgeon Anesthesia Type General Description of Procedure Patient was met with preoperatively case discussed all questions addressed. After informed consent obtained patient was taken to the operative suit underwent intubation and placed in a prone position the Eliezer table with chest pad and hip bolsters. All bony prominences were well-padded eyes inspected to ensure no external pressure placed upon them. This point the left upper buttock was prepped and draped in normal sterile fashion. With the assistance of fluoroscopy in AP and lateral planes identified the left SI joint and approximately 3 cm incision was placed along the left upper buttock. A K wire was then placed along the proximal aspect of the left SI joint with fluoroscopic visualization. Cannulas were placed to dilate to a 10 mm size and a drill was placed across the SI joint over the guidewire. I measured a 50 mm screw. This was filled with local autograft and DBM. An WALSH-coated 50 mm screw was then placed across the S SI joint on the left. It demonstrated excellent lock and fit. Using the outrigger guide I placed a distal K wire again with fluoroscopic visualization. Again using the drill across the SI joint at this point placing a 45 mm WALSH-coated slotted screw. Third distal screw was also placed in the same technique. It was measured to be 40 mm in length. Again it was filled with locally harvested autograft and DBM. All 3 screws demonstrated excellent bite. Incision was then copious irrigated closed with subcutaneous Vicryl 4 Monocryl fashion closure. Steri-Strips sterile dressings placed. Patient will continue to PACU in stable condition. Please note Meg Mcarthur was present throughout the entire procedure involved the patient positioning complex portions of the surgery and fashion closure. I attest to the content of the Intraoperative Record and any orders documented therein. Any exceptions are noted below.
--- NOTE | 2018-02-23 13:27 | Discharge Instructions ---
Discharge Instructions Date of Service February 23, 2018. Admission Reason for Admission: Si Joint Dysfunction Discharge Discharge Diagnosis / Problem: L sacralilitis Discharge Goals Goal(s): Decrease discomfort Activity Recommendations Activity Limitations: as noted below Lifting Limitations: no more than 5 pounds Shower/Bathe: may shower/bathe in 3 days Weightbearing Status: Left toe touch . Instructions / Follow-Up Instructions / Follow-Up F/U in two weeks as scheduled Current Hospital Diet Patient's current hospital diet: Discharge Diet Recommended Diet: Regular Diet Procedures Procedures Performed: Left Sacroiliac Joint Fusion Pending Studies Studies pending at discharge: no Laboratory Results Hemoglobin A1c Test 01/18/18 11:28 Range/Units Estimated Average Glucose 120 mg/dl Hemoglobin A1c 5.8 H 4.5-5.6 % Lipid Panel Test 01/18/18 11:28 Range/Units Triglycerides Level 231 H 0-150 mg/dl Cholesterol Level 163 0-200 mg/dl HDL Cholesterol 52 mg/dl Cholesterol/HDL Ratio 3.1 LDL Cholesterol, Calculated 65 mg/dl Medical Emergencies . Who to Call and When: Medical Emergencies: If at any time you feel your situation is an emergency, please call 911 immediately. . Non-Emergent Contact Non-Emergency issues call your: Primary Care Provider . "Provider Documentation" section prepared by Tobias Guerrero. .
[2018-02-23] MEDS ORDERED: ACETAMINOPHEN 325 MG TAB PO PRN (13:30)
[2018-02-23] MEDS ORDERED: ACETAMINOPHEN 650 MG SUPP PR PRN (13:30)
[2018-02-23] MEDS ORDERED: HYDROmorphone INJ 0.5 MG/0.5 ML SYR IV PRN (13:30)
[2018-02-23] MEDS ORDERED: KETOROLAC TROMETHAMINE 15 MG/ML VIAL IV. PRN (13:30)
--- NOTE | 2018-02-23 13:36 | DIAGNOSTIC IMAGING REPORT ---
INTRAOPERATIVE SACRUM 3 VIEWS CLINICAL HISTORY: Left sacral-like joint effusion COMPARISON STUDY: No previous studies for comparison. FINDINGS: 92 seconds of fluoroscopic time was utilized. 2 intraoperative fluoroscopic spot images are provided for interpretation. 3 cannulated left SI joint horizontally oriented cannulated bolts are visualized. IMPRESSION: 3 cannulated left SI joint bolts are visualized. Electronically signed by: Jaciel Almeida M.D. 02/23/2018 1:34 PM Dictated Date/Time: 02/23/2018 1:33 PM
--- NOTE | 2018-02-23 14:33 | Anesthesiology Progress Note ---
Anesthesia Post Op Note Date & Time February 23, 2018 at 14:32 Vital Signs Pain Intensity: 4.0 Vital Signs Past 12 Hours Date Time Temp Pulse Resp B/P (MAP) Pulse Ox O2 Delivery O2 Flow Rate FiO2 02/23/18 14:20 61 12 136/72 100 Room Air 02/23/18 14:10 63 17 165/85 98 Room Air 02/23/18 14:00 61 10 165/79 100 Oxymask 10 02/23/18 13:50 72 12 164/90 100 Oxymask 10 02/23/18 13:41 36.5 81 14 165/100 94 Oxymask 10 02/23/18 11:06 36.9 94 20 177/130 (146) 95 Room Air Notes Mental Status: alert / awake / arousable, participated in evaluation Pt Amnestic to Procedure: Yes Nausea / Vomiting: adequately controlled Pain: adequately controlled Airway Patency, RR, SpO2: stable & adequate BP & HR: stable & adequate Hydration State: stable & adequate Anesthetic Complications: no major complications apparent
[2018-02-23 15:50] VITALS: BP 162/75; PULSE 77; TEMP 36.9; O2SAT 95
== END 2018-02-23 16:20 | disposition home or self-care (01) ==
LOC: C.ACU 10:39
PROVIDERS: ATTEND Orthopaedic Surgery Orthopaedic Surgery of the Spine
DX: M46.1 Sacroiliitis, not elsewhere classified (principal); M17.12 Unilateral primary osteoarthritis, left knee; E78.5 Hyperlipidemia, unspecified; K21.9 Gastro-esophageal reflux disease without esophagitis; E66.9 Obesity, unspecified; E03.9 Hypothyroidism, unspecified; J45.909 Unspecified asthma, uncomplicated; M19.90 Unspecified osteoarthritis, unspecified site; I10 Essential (primary) hypertension; Z79.82 Long term (current) use of aspirin

== ENCOUNTER 2020-06-13 07:40 | Inpatient (IN) ==
--- NOTE | 2020-05-13 15:42 | PAT Medication Instructions ---
Medication Instructions Date of Service May 13, 2020 Home Medications Medication Instructions Recorded venlafaxine 37.5 mg 37.5 mg PO BID #180 cap 08/29/19 capsule,extended release 24 hr lisinopril 5 mg tablet 5 mg PO QAM #90 tab 10/23/19 tolterodine 4 mg capsule,extended 4 mg PO PM #90 cap 12/07/19 release 24 hr atorvastatin 20 mg tablet 20 mg PO QPM #90 tab 01/26/20 flurbiprofen 100 mg tablet 100 mg PO BID #180 tab 01/26/20 propranolol 40 mg tablet 40 mg PO BID #180 tab 03/19/20 albuterol sulfate 90 mcg/actuation 2 puffs INH Q6H PRN #8.5 gm 03/25/20 aerosol inhaler lorazepam 1 mg tablet 1 mg PO BID #60 tab 04/16/20 ascorbic acid (vitamin C) 500 mg capsule 500 mg PO BID cholecalciferol (vitamin D3) 50 mcg (2,000 unit) tablet 2,000 units PO QAM folic acid 800 mcg tablet 0.8 mg PO QAM glucosamine sulfate 500 mg tablet 500 mg PO BID iseajsrc-icq-hget-FA-Ca carb-vit K 18 mg iron-400 mcg-500 mg tablet 1 tab PO QAM aspirin 81 mg tablet,delayed release 81 mg PO QAM venlafaxine 37.5 mg capsule,extended release 24 hr 37.5 mg PO BID calcium carbonate [Calcium 600] 600 mg PO BID docusate sodium [Colace] 100 mg PO BID lisinopril 5 mg tablet 5 mg PO QAM tolterodine 4 mg capsule,extended release 24 hr 4 mg PO PM atorvastatin 20 mg tablet 20 mg PO QPM flurbiprofen 100 mg tablet 100 mg PO BID propranolol 40 mg tablet 40 mg PO BID albuterol sulfate 90 mcg/actuation aerosol inhaler 2 puffs INH Q6H PRN lorazepam 1 mg tablet 1 mg PO BID acetaminophen [Tylenol Extra Strength] 1,000 mg PO BID PRN furosemide 40 mg PO QAM tramadol 100 mg PO BID PRN ASK your surgeon for instructions flurbiprofen 100 mg tablet 100 mg PO BID STOP taking 2 weeks before surgery glucosamine sulfate 500 mg tablet 500 mg PO BID DO NOT take the morning of surgery furosemide 40 mg PO QAM calcium carbonate [Calcium 600] 600 mg PO BID docusate sodium [Colace] 100 mg PO BID lisinopril 5 mg tablet 5 mg PO QAM fdkqxwnx-zqu-dkpq-FA-Ca carb-vit K 18 mg iron-400 mcg-500 mg tablet 1 tab PO QAM ascorbic acid (vitamin C) 500 mg capsule 500 mg PO BID cholecalciferol (vitamin D3) 50 mcg (2,000 unit) tablet 2,000 units PO QAM folic acid 800 mcg tablet 0.8 mg PO QAM Take morning of surgery With a small sip of water, OTHERWISE NOTHING TO EAT OR DRINK AFTER MIDNIGHT: propranolol 40 mg tablet 40 mg PO BID albuterol sulfate 90 mcg/actuation aerosol inhaler 2 puffs INH Q6H PRN (use if needed; please bring with you to hospital day of surgery if possible) lorazepam 1 mg tablet 1 mg PO BID acetaminophen [Tylenol Extra Strength] 1,000 mg PO BID PRN (okay to take up to 4 hours prior to surgery if needed) tramadol 100 mg PO BID PRN (okay to take up to 4 hours prior to surgery if needed) aspirin 81 mg tablet,delayed release 81 mg PO QAM venlafaxine 37.5 mg capsule,extended release 24 hr 37.5 mg PO BID Take evening before surgery ascorbic acid (vitamin C) 500 mg capsule 500 mg PO BID venlafaxine 37.5 mg capsule,extended release 24 hr 37.5 mg PO BID calcium carbonate [Calcium 600] 600 mg PO BID docusate sodium [Colace] 100 mg PO BID tolterodine 4 mg capsule,extended release 24 hr 4 mg PO PM atorvastatin 20 mg tablet 20 mg PO QPM propranolol 40 mg tablet 40 mg PO BID albuterol sulfate 90 mcg/actuation aerosol inhaler 2 puffs INH Q6H PRN (if needed) lorazepam 1 mg tablet 1 mg PO BID acetaminophen [Tylenol Extra Strength] 1,000 mg PO BID PRN (if needed) tramadol 100 mg PO BID PRN (if needed) Other Notes If you have any questions please call us at [phone] or [phone] or [phone] or [phone]
--- NOTE | 2020-05-15 14:09 | Anesthesiology Consultation ---
Date of Service May 15, 2020 Assessment & Plan (1) Encounter for pre-operative examination: COVID Status: As of 05/15 assessment, patient denies travel to endemic area, known exposure/sick contacts, or symptoms of COVID19. Patient instructed that they and their household members must follow strict social distancing guidelines, wear a mask in public and avoid travel for 14 days prior to surgery. Preoperative COVID19 testing to be completed prior to surgery per surgeon's arrangements. Patient made aware to self-isolate as much as possible between COVID testing and surgery. Chart Review Chart Review: Acceptable Risk for Surgery (pending surgeon-ordered PCP clearance) and Patient seen in Pre Admission Testing Teaching & Discussion Instructed NPO after midnight before surgery, except medications with 15 cc of water. Medication instructions provided according to the PAT guidelines. History Surgery Operation Date: 06/13/20 09:35 Proposed Procedures p Right Reverse Total Shoulder Arthroplasty - Celestine Prieto M.D. Height/Weight Height: 5 ft 1 in Weight: 90.9 kg Allergies Allergy/AdvReac Type Severity Reaction Status Date / Time hydrocodone Allergy NAUSEA/INSOMINIA-COUGH Verified 05/09/20 10:28 SYRUP homatropine AdvReac Unknown HYDROCODONE/HOMATROPINE Verified 05/09/20 10:27 COUGH SYRP-INSOMNIA/NAUSEA Medications Home Medications Medication Instructions Recorded Confirmed Last Taken ascorbic acid (vitamin C) 500 mg 500 mg PO BID cap 04/26/19 05/09/20 09/12/19 capsule cholecalciferol (vitamin D3) 50 2,000 units PO QAM tab 04/26/19 05/09/20 09/12/19 mcg (2,000 unit) tablet folic acid 800 mcg tablet 0.8 mg PO QAM tab 04/26/19 05/09/20 09/12/19 glucosamine sulfate 500 mg tablet 500 mg PO BID 04/26/19 05/09/20 09/12/19 [id number]-[id number]-FA-Ca carb-vit K 1 tab PO QAM 04/26/19 05/09/20 09/12/19 18 mg iron-400 mcg-500 mg tablet aspirin 81 mg tablet,delayed 81 mg PO QAM tab 08/11/19 05/09/20 09/12/19 release venlafaxine 37.5 mg 37.5 mg PO BID #180 cap 08/29/19 05/09/20 09/12/19 capsule,extended release 24 hr calcium carbonate [Calcium 600] 600 mg PO BID 09/12/19 05/09/20 09/12/19 docusate sodium [Colace] 100 mg PO BID 09/12/19 05/09/20 09/11/19 lisinopril 5 mg tablet 5 mg PO QAM #90 tab 10/23/19 05/09/20 Unknown tolterodine 4 mg capsule,extended 4 mg PO PM #90 cap 12/07/19 05/09/20 Unknown release 24 hr atorvastatin 20 mg tablet 20 mg PO QPM #90 tab 01/26/20 05/09/20 Unknown flurbiprofen 100 mg tablet 100 mg PO BID #180 tab 01/26/20 05/09/20 Unknown propranolol 40 mg tablet 40 mg PO BID #180 tab 03/19/20 05/09/20 Unknown albuterol sulfate 90 mcg/actuation 2 puffs INH Q6H PRN #8.5 gm 03/25/20 05/09/20 Unknown aerosol inhaler lorazepam 1 mg tablet 1 mg PO BID #60 tab 04/16/20 05/09/20 Unknown acetaminophen [Tylenol Extra 1,000 mg PO BID PRN 05/09/20 05/09/20 Unknown Strength] furosemide 40 mg PO QAM 05/09/20 05/09/20 Unknown tramadol 100 mg PO BID PRN 05/09/20 05/09/20 Unknown Past Medical History Medical History (Updated 05/17/20 @ 09:49 by Eldon Davis) Aortic valve sclerosis Without stenosis per 2018 echo. Arthritis Excessive sweating History of abnormal electrocardiogram Hypercalcemia Resolved Hyperparathyroidism (Inactive) s/p parathyroidectomy Hypokalemia Resolved Hypophosphatemia Mitral valve prolapse Not noted on 2018 echo Obesity Partial small bowel obstruction (Inactive) Stress incontinence Trigger finger (acquired) Exercise / Class Metabolic Activity III < 4 Walking/Shop/Light housework (Uses walker for ambulation, denies any chest pain, occ GARCIA) Past Surgical History Surgical History Cervical vertebral fusion 10/2008- Dr. Guerrero H/O arthroscopy of knee LEFT H/O carpal tunnel repair R/L H/O colonoscopy H/O neck surgery neck exploration with excision of parathyroidadenoma and biopsy of upper parathyroid gland H/O parathyroidectomy History of gynecologic surgery anterior colporrhaphy, repair of cystocele and posterior colporrhaphy for pelvic relaxation History of total hip replacement RIGHT History of total knee arthroplasty LEFT S/P lumbar fusion 2005- Dr. Guerrero and repeat lumbar surgery 05/2009 S/P rotator cuff repair RIGHT S/P thyroid surgery parathyroid resection S/P vaginal hysterectomy Past Anesthesia History No Hx of Anesthesia Complications and No Family Hx of Anesthesia Complications History of PONV No Hx of PONV and Hx of Motion Sickness Social History Smoking Status: Never smoker Do You Dip or Chew Tobacco: No Hx Alcohol Use: No Hx Substance Use: No Review of Systems Pt denies any recent chest pain, shortness of breath, palpitations, cough, fever, URI. +occasional acid reflux, "tickle in my throat" Physical Exam Vital Signs BP: 126/72 P: 984bpm SPO2: 96% RA T: 98.6 F R: 18 ENMT Mouth: + dentures and + edentulous Thyromental Distance: > or= 3.5 Finger Breadths (4) Mallampati Class: I Neck normal visual inspection; neck extension not limited Respiratory normal respiratory effort Auscultation: lungs clear to auscultation bilaterally Cardiovascular Rate/Rhythm: regular rate (borderline tachy) and regular rhythm Heart Sounds: + murmur (II/ systolic) Vessels: no carotid bruit Extremities: no edema Testing Laboratory Results 05/15/20 14:38 05/15/20 14:38 PT 10.8 Seconds (9.0-12.0) 05/15/20 14:38 INR 1.0 (0.9-1.1) 05/15/20 14:38 APTT 26.5 Seconds (21.0-31.0) 05/15/20 14:38 Hemoglobin A1c 6.2 % (4.5-5.6) H 05/15/20 14:38 Urine Color Dark Yellow 05/15/20 14:38 Urine Appearance Clear (Clear) 05/15/20 14:38 Urine pH 5.0 (4.5-7.5) 05/15/20 14:38 Ur Specific [place] 1.037 (1.000-1.030) H 05/15/20 14:38 Urine Protein Negative (Negative) 05/15/20 14:38 Urine Glucose (UA) Negative (Negative) 05/15/20 14:38 Urine Ketones Negative (Negative) 05/15/20 14:38 Urine Nitrite Negative (Negative) 05/15/20 14:38 Ur Leukocyte Esterase Negative (Negative) 05/15/20 14:38 Blood Type O Positive 05/15/20 14:38 Antibody Screen NEGATIVE 05/15/20 14:38 05/15/20 14:38 Urine Culture - Final Urine,Clean Catch More than three types of organisms present, all low counts mixed probable skin zandra. No further identifications or sensitivities to follow. Electrocardiogram Date: 05/15/20 Sinus rhythm with first-degree AV block at 85 bpm. Moderate voltage criteria for LVH, may be normal variant. Compared with EKG of 07/20/2018, [place] interval has increased and nonspecific T wave abnormalities no longer evident in lateral leads. Chest X-Ray Date: 05/15/20 Findings: + NAD Echocardiogram Date: 11/03/17 EF: 65-70% RWMA: + none Other Findings: + diastolic dysfunction (type I); no LVH Aortic valve sclerosis mild, without significant aortic valvular stenosis. Minimally dilated a sending aorta. IVC is small in diameter. Normal estimated RVSP.
--- NOTE | 2020-05-15 15:05 | XRay Report ---
XR chest Pre-admission PA/Lat CLINICAL HISTORY: pat preoperative COMPARISON STUDY: 11/03/2017 FINDINGS: The lungs are clear. Diaphragms are smooth. Postoperative changes to the low cervical as we ll as thoracolumbar spine. IMPRESSION: No acute process. Chronic and postoperative change. ACT 112: Negative or not required by law. The above report was generated using voice recognition software. It may contain grammatical, syntax or spelling errors. Electronically signed by: Champ Oswald M.D. 05/15/2020 3:03 PM
[2020-05-15 15:41] LABS: Basophils # (auto) 0.01 K/uL (0-0.2); Basophils % (auto) 0.2 %; Eosinophils # (auto) 0.24 K/uL (0-0.5); Eosinophils % (auto) 5.3 %; Hematocrit (blood only) 36.7 % (37-47); Hemoglobin 12.2 g/dL (12.0-16.0); Lymphocytes # (auto) 1.57 K/uL (1.2-3.4); Lymphocytes % (auto) 34.7 %; Mean Corpuscular Hemoglobin 30.1 pg (25-34); Mean Corpuscular Hgb Conc 33.2 g/dL (32-36); Mean Corpuscular Volume 90.6 fL (80-100); Mean Platelet Volume 9.4 fL (7.4-10.4); Monocytes % (auto) 6.6 %; Neutrophils % (auto) 53.2 %; Platelet Count 215 K/uL (130-400); RDW Coefficient of Variation 14.3 % (11.5-14.5); RDW Standard Deviation 47.1 fL (36.4-46.3); Red Blood Count 4.05 M/uL (4.2-5.4); White Blood Count 4.52 K/uL (4.8-10.8)
[2020-05-15 16:04] LABS: Partial Thromboplastin Ratio 0.9; Partial Thromboplastin Time 26.5 Seconds (21.0-31.0); Prothrombin Time 10.8 Seconds (9.0-12.0)
[2020-05-15 16:08] LABS: Appearance Urine Clear (Clear); Bilirubin Urine Negative (Negative); Blood Urine Negative (Negative); Color Urine Dark Yellow; Glucose Urine UA Negative (Negative); Ketones Urine Negative (Negative); Leukocyte Esterase Urine Negative (Negative); Nitrite Urine Negative (Negative); Protein Urine Negative (Negative); Specific Gravity Urine 1.037 (1.000-1.030); Urobilinogen Urine Negative (Negative)
[2020-05-15 16:09] LABS: Albumin Level 3.7 gm/dl (3.4-5.0); BUN Creatinine Ratio 25.9 (10-20); Calcium 9.8 mg/dl (8.5-10.1); Creatinine Clr Calc Pharmacy 51.5 ml/min; Est GFR (African American) 66.2; Est GFR (Non-African American) 57.1; Potassium 4.3 mmol/L (3.5-5.1)
--- NOTE | 2020-05-15 17:16 | Electrocardiogram Report ---
Test Reason : Blood Pressure : / mmHG Vent. Rate : 085 BPM Atrial Rate : 085 BPM P-R Int : 238 ms QRS Dur : 084 ms QT Int : 366 ms P-R-T Axes : 069 078 071 degrees QTc Int : 435 ms Sinus rhythm with 1st degree A-V block Moderate voltage criteria for LVH, may be normal variant Borderline ECG When compared with ECG of 20-JUL-2018 12:32, LA interval has increased Nonspecific T wave abnormality no longer evident in Lateral leads Confirmed by Trung Hernandez ([id number]) on 05/15/2020 5:15:54 PM Referred By: Celestine Prieto Confirmed By:Sharan Hernandez
[2020-05-16 05:55] LABS: Estimated Average Glucose 131 mg/dl; Hemoglobin A1C 6.2 % (4.5-5.6)
--- NOTE | 2020-06-10 13:21 | History & Physical Report ---
Date of Service June 10, 2020 Assessment & Plan (1) Right rotator cuff tear arthropathy: She clearly has right shoulder rotator cuff tear arthropathy with a massive, irrepairable rotator cuff tear. I suspect she has a similar, but less severe problem on her left. Again, she has not had any shoulder injections since at least 2007, and I did recommend starting with these today. However, she repeatedly states that the weakness is much more problematic for her than any shoulder pain, and really feels like she would like to proceed with definitive surgical intervention. Since the weakness is the main complaint for her, I do think this is reasonable at this point. Her only viable surgical treatment option for that right shoulder is a reverse total shoulder arthroplasty, and this was explained in detail to her. Risks, benefits, and alternatives of surgery were explained in detail. The surgical procedure, as well as postoperative recovery and rehabilitation, was also explained in detail. Risks include bleeding; infection; damage to surrounding structures such as nerves, blood vessels, and tendons that run in the area; persistent pain or stiffness; hardware failure; dislocation; brachial plexus palsy; blood clots; or need for further surgery. The patient understands all of this and wishes to proceed with surgery. Preoperative workup was completed today, and informed consent was obtained. Present on Admission?: Yes Admission and Anticipated Discharge Date Admission Date: 06/13/20 Anticipated date of discharge: 06/14/20 History of Present Illness Chief Complaint: Right shoulder pain and weakness Primary Care Provider: Aryan Jack MD Ms. Kaminski comes in for follow-up, but is for a new problem today. She has bilateral shoulder pain and weakness, right much greater than left. She is right-hand dominant. This pain and weakness is been going on for about the past 6 to 7 months. She does have a previous history of a rotator cuff repaired by Dr. Bk guerrero in 2007. She has not had any injections since then. She feels like the weakness is much more problematic to her than the pain. She is no longer able to reach forward or overhead, and this is the most bothersome thing for her. She does have pain, but is mostly in the right side of her neck rather than in her shoulder. She is starting to get similar but less severe symptoms in her left shoulder since she is using that side a lot more as she is compensating for her weak right shoulder. Allergies Allergy/AdvReac Type Severity Reaction Status Date / Time hydrocodone Allergy NAUSEA/INSOMINIA-COUGH Verified 05/31/20 14:29 SYRUP homatropine AdvReac Unknown HYDROCODONE/HOMATROPINE Verified 05/31/20 14:29 COUGH SYRP-INSOMNIA/NAUSEA Home Medications Home Medications Medication Instructions Recorded Confirmed Type ascorbic acid (vitamin C) 500 mg 500 mg PO BID cap 04/26/19 05/31/20 History capsule cholecalciferol (vitamin D3) 50 2,000 units PO QAM tab 04/26/19 05/31/20 History mcg (2,000 unit) tablet folic acid 800 mcg tablet 0.8 mg PO QAM tab 04/26/19 05/31/20 History glucosamine sulfate 500 mg tablet 500 mg PO BID 04/26/19 05/31/20 History deblihzs-xjs-pvpz-FA-Ca carb-vit K 1 tab PO QAM 04/26/19 05/31/20 History 18 mg iron-400 mcg-500 mg tablet aspirin 81 mg tablet,delayed 81 mg PO QAM tab 08/11/19 05/31/20 History release venlafaxine 37.5 mg 37.5 mg PO BID #180 cap 08/29/19 05/31/20 Rx capsule,extended release 24 hr calcium carbonate [Calcium 600] 600 mg PO BID 09/12/19 05/31/20 History docusate sodium [Colace] 100 mg PO BID 09/12/19 05/31/20 History lisinopril 5 mg tablet 5 mg PO QAM #90 tab 10/23/19 05/31/20 Rx tolterodine 4 mg capsule,extended 4 mg PO PM #90 cap 12/07/19 05/31/20 Rx release 24 hr atorvastatin 20 mg tablet 20 mg PO QPM #90 tab 01/26/20 05/31/20 Rx flurbiprofen 100 mg tablet 100 mg PO BID #180 tab 01/26/20 05/31/20 Rx propranolol 40 mg tablet 40 mg PO BID #180 tab 03/19/20 05/31/20 Rx albuterol sulfate 90 mcg/actuation 2 puffs INH Q6H PRN #8.5 gm 03/25/20 05/31/20 Rx aerosol inhaler acetaminophen [Tylenol Extra 1,000 mg PO BID PRN 05/09/20 05/31/20 History Strength] furosemide 40 mg PO QAM 05/09/20 05/31/20 History tramadol 100 mg PO BID PRN 05/09/20 05/31/20 History lorazepam 1 mg tablet 1 mg PO BID #60 tab 05/21/20 05/31/20 Rx Past Med/Surg History Medical History (Updated 06/10/20 @ 13:21 by Celestine Prieto M.D.) Aortic valve sclerosis Without stenosis per 2018 echo. Arthritis Excessive sweating History of abnormal electrocardiogram Hypercalcemia Resolved Hyperparathyroidism s/p parathyroidectomy Hypokalemia Resolved Hypophosphatemia Mitral valve prolapse Not noted on 2018 echo Obesity Partial small bowel obstruction Stress incontinence Trigger finger (acquired) Surgical History Cervical vertebral fusion 10/2008- Dr. Guerrero H/O arthroscopy of knee LEFT H/O carpal tunnel repair R/L H/O colonoscopy H/O neck surgery neck exploration with excision of parathyroidadenoma and biopsy of upper parathyroid gland H/O parathyroidectomy History of gynecologic surgery anterior colporrhaphy, repair of cystocele and posterior colporrhaphy for pelvic relaxation History of total hip replacement RIGHT History of total knee arthroplasty LEFT S/P lumbar fusion 2005- Dr. Guerrero and repeat lumbar surgery 05/2009 S/P rotator cuff repair RIGHT S/P thyroid surgery parathyroid resection S/P vaginal hysterectomy Family History Mother Goiter Father Colon cancer Emphysema of lung Denies family history of Ovarian cancer Prostate cancer Myocardial infarction Breast cancer Social History Smoking Status: Never smoker Second Hand Exposure: Yes (SPOUSE USED TO SMOKE); Hx Alcohol Use: No Hx Substance Use: No Preferred Language: Bengali Communication Ability: Effective Entry Operator Required: No Beliefs That Will Affect Care: None marital status: Current Living Situation: Spouse Feels Safe at Home: Yes Physical Exam Physical Exam: General: The patient appears well developed and well nourished. Awake, alert, and oriented x 3. Appropriate mood and affect. Normal gait and station. Normal coordination and balance. Skin: The skin over bilateral shoulders shows no lesion or erythema. Inspection/Palpation: Visual inspection reveals no gross deformity of the shoulder. There is no palpable focal swelling. There is diffuse tenderness to palpation around the shoulders. Range of Motion: There is limitation in shoulder range of motion bilaterally due to pain, with palpable crepitus during motion. Stability: There is no gross ligamentous laxity. Strength: Rotator cuff strength is severely weak bilaterally. Sensation: The patient reports no numbness in the hand. Vascular: Hand is warm and well perfused. No diffuse edema. Results & Data ([facility]) Diagnostic Findings Previous x-rays of the right shoulder were reviewed. They show proximal migration of the humeral head, with advanced arthritic degeneration in the glenohumeral joint, consistent with rotator cuff tear arthropathy. Right shoulder MRI was reviewed. It shows nearly complete fatty atrophy of multiple rotator cuff muscle bellies, most significantly the supraspinatus and infraspinatus. The superior portion of the subscapularis also has significant fatty atrophy. There is superior migration of the humeral head with resultant severe articular cartilage wear in the superior aspect of the glenohumeral joint. The rotator cuff is massively torn and retracted to the level of the glenoid.
[~2020-06-13 07:40] MED LIST changes: -ALBUAER INH; -ASCO500C43 PO; -ASPI81TA28 PO; -ATOR-54 PO; -ATROPINE SULFATE 0.1 MG/ML 5ML SYR IV PRN; -ATV/1 PO; +BUPIVACAINE 0.5 % 5 MG/1 ML PF 10ML VIAL ONE; -CALCTAB7 PO; +CEFAZOLIN 2000MG 2,000 MG/15 ML SYR IV SCH; -CEFAZOLIN 2000MG IV PUSH 15 ML IV SCH; -CHOL1TAB76 PO; -DOCU1TAB6 PO; -DTRSR4 PO; -EpHEDrine SULFATE INJ 50 MG/ML AMP IV PRN; +FAMOTIDINE 20 MG TAB PO SCH; -FENTANYL CITRATE INJ 50 MCG/1 ML 2 ML VIAL IV PRN; -FOLI800T PO; -FRS/40 PO; -GLUCTAB7 PO; -HYDROmorphone INJ 0.5 MG/0.5 ML SYR IV PRN; -LABETALOL HCL IV 5 MG/ML 20ML IV PRN; -LACTATED RINGER'S 1000ML 1,000 ML IV SCH; -LISI-729 PO; +LR 15ML/HR IV SCH; -MEPERIDINE HCL 25 MG/ML CARP IV PRN; +METOCLOPRAMIDE HCL 10 MG TABLET PO SCH; -MULT1TAB79 PO; -ONDANSETRON INJ 2 MG/ML 2 ML VIAL IV PRN; -PROP40TA5 PO; -TRAM-10 PO; -VENL1CAP92 PO; +dexAMETHasone 4 MG TAB PO SCH
[2020-06-13] MEDS ORDERED: ATROPINE SULFATE 0.1 MG/ML 10ML SYR IV PRN (08:43)
[2020-06-13] MEDS ORDERED: ePHEDrine sulfate 50 MG/ML AMP IV PRN (08:43)
[2020-06-13] MEDS ORDERED: MEPERIDINE HCL 25 MG/ML CARP/VIAL IV PRN (08:44)
[2020-06-13] MEDS ORDERED: LABETALOL HCL IV 5 MG/ML 20ML IV PRN (08:44)
[2020-06-13] MEDS ORDERED: ONDANSETRON INJ 2 MG/ML 2 ML VIAL IV PRN ×2 (08:44→15:32)
[2020-06-13] MEDS ORDERED: PHENYLEPHRINE 100MCG/ML 5ML SYR IV PRN (08:44)
[2020-06-13] MEDS ORDERED: MIDAZOLAM HCL 1 MG/ML 2ML VIAL ONE (09:12)
[2020-06-13] MEDS ORDERED: ROCURONIUM BROMIDE 10 MG/ML 5 ML VIAL IV ONE (09:12)
[2020-06-13] MEDS ORDERED: PROPOFOL IV EMULSION 10 MG/ML 20 ML VIAL IV ONE (09:12)
[2020-06-13] MEDS ORDERED: LIDOCAINE HCL 2% 2 ML VIAL/AMP(20MG/ML) INFIL ONE (09:12)
[2020-06-13] MEDS ORDERED: ONDANSETRON INJ 2 MG/ML 2 ML VIAL ONE (09:12)
[2020-06-13] MEDS ORDERED: fentaNYL citrate 100 MCG/2 ML VIAL ONE (09:12)
--- NOTE | 2020-06-13 10:06 | History & Physical Bridge Note ---
Date of Service June 13, 2020 History & Physical Bridge Note I have examined the patient, reviewed the History & Physical and in the interval since the performance of the History & Physical I have noted the following changes of clinical significance: no changes noted
[2020-06-13] MEDS ORDERED: BACITRACIN INJ 50,000 UNIT VIAL ONE (10:32)
--- NOTE | 2020-06-13 14:09 | Post Operative Brief Note ---
Immediate Post Op Note v1 Date of Surgery June 13, 2020 Pre & Post Diagnosis Operation Date: 06/13/20 09:35 Pre-Op Diagnosis: Right rotator cuff tear arthropathy Post-Op Diagnosis: Right rotator cuff tear arthropathy I identified the patient and participated in the time-out.: Yes Procedure Operation Date: 06/13/20 09:35 Actual Procedures p Right Reverse Total Shoulder Arthroplasty(Right) - Celestine Prieto M.D. Surgeon Celestine Prieto Waiter/Waitress Formal None Estimated Blood Loss 100 Findings Consistent with Post-Op Diagnosis
--- NOTE | 2020-06-13 14:10 | Operative Report ---
Post Operative Report Pre & Post Diagnosis Operation Date: 06/13/20 09:35 Pre-Op Diagnosis: Right shoulder rotator cuff tear arthropathy Post-Op Diagnosis: Right shoulder rotator cuff tear arthropathy I identified the patient and participated in the time-out.: Yes Procedure Operation Date: 06/13/20 09:35 Actual Procedures Right reverse Total Shoulder Arthroplasty with subscapularis repair (95867) Open biceps tenodesis (59728) - Celestine Prieto M.D. Surgeon Celestine Prieto Laser Beam Cutter None Estimated Blood Loss 100 Findings Consistent with Post-Op Diagnosis Specimens None Drains None Anesthesia Type General Regional Complications none Disposition Disposition: Recovery Room Indications Ms. Kaminski is a 75-year-old female with severe right shoulder pain and weakness after previous failed rotator cuff repair. History, clinical exam, and imaging were consistent with the above diagnosis. Risks, benefits, and alternatives of surgery were explained in detail. The patient understood all this and wished to proceed. Description of Procedure Components Implanted: Tornier Reverse Total Shoulder implants Perform glenoid baseplate: 29mm, 15 degree full wedge with 6.5mm central screw and 5.0mm peripheral screws Glenosphere: 36mm, 2mm eccentric offset Ascend Flex humeral stem: 2B Standard length (70mm) Humeral tray: 1.5mm offset, +0mm thickness Polyethylene insert: 36mm, +6mm thickness Patient was identified in the preoperative holding area. Operative extremity was marked. Regional blockade was given by the Anesthesia Staff. Patient was then brought back to the operating room, and general anesthesia was induced without complication. Appropriate weight-based dose of Ancef was infused intravenously for antibiotic prophylaxis. The patient was then placed in the beachchair position. Right arm was then prepped and draped in a standard sterile fashion using Chlorhexidine prep. A standard deltopectoral incision was made through the skin and subcutaneous tissue. The cephalic vein was identified and retracted medially. Small branches to the deltoid were coagulated as necessary. The clavipectoral fascia was then incised and the subdeltoid space was opened. The rotator cuff was found to be deficient, and I therefore decided to perform a reverse total shoulder arthroplasty as planned preoperatively. The biceps tendon was identified within the bicipital groove and tenodesed at the superior border of the pectoralis tendon with #2 FiberWire suture. The biceps tendon was then divided proximal to the tenodesis site and the rotator interval was opened. The proximal portion of the biceps tendon was excised. The remaining subscapularis tendon was elevated subperiosteally off of the lesser tuberosity and tagged with a #0 Vicryl suture. The glenohumeral joint was then dislocated, and large osteophytes were debrided with a ronguer. The humeral head cut was then made in the appropriate inclination and version using the cutting guide. The intramedullary canal of the humerus was then opened with a canal finder. The humeral canal was then sequentially broached to the appropriate size. A pr otective cap was then placed on top of the humeral trial. I then turned my attention to the glenoid. The proximal stump of the biceps tendon was excised, along with the labrum circumferentially around the glenoid. The Blueprint drill guide was then positioned on the glenoid, and the guidepin was then inserted. The 15 degree angled reamer was then inserted over the guidepin and an reamed to an appropriate depth. The central screw hole was drilled, and appropriate length 6.5mm central screw was selected. The baseplate was then implanted into place according to our preoperative Blueprint plan by tightening down the central screw. A peripheral 5mm nonlocking screw was placed superiorly first for additional compression of the baseplate, and then additional locking 5 mm peripheral screws were placed to complete fixation of the baseplate. Glenosphere was then impacted and secured. A trial humeral tray and insert were placed on the trial humeral stem, and a trial reduction was carried out. Once I achieved acceptable joint stability and range of motion with the trial implants, the final humeral implants were assembled on the back table and then impacted into position. I then took the shoulder through full range of motion to ensure good stability and acceptable motion. Wound was then copiously irrigated with sterile saline. Subscapularis was repaired to the lesser tuberosity with #2 FiberWire sutures. Deep fascia was closed with 0 V-lock suture. Subcutaneous tissue was closed with 2-0 V-lock, and skin was closed with 3-0 V-lock. Skin was then sealed with Dermabond. S terile dressings were then applied with a waterproof silver-impregnated dressing, and the arm was placed into a sling. The patient was awakened from anesthesia and taken to the Post Anesthesia Care Unit in stable condition. There were no immediate complications from the procedure. I was present and scrubbed for the entire procedure. I attest to the content of the Intraoperative Record and any orders documented therein. Any exceptions are noted below.
[2020-06-13] MEDS: fentaNYL citrate 100 MCG/2 ML VIAL IV PRN ×2 (14:32→14:39)
--- NOTE | 2020-06-13 14:43 | XRay Report ---
XR shoulder RT min 2V routine CLINICAL HISTORY: Post shoulder surgery COMPARISON: None. DISCUSSION: There are postsurgical changes of a reverse total right shoulder arthroplasty. There are no acute fractures. There is no dislocation. There is gas present within the soft tissues consistent with recent surgery. There are postsurgical changes present within the cervical and thoracolumbar spi faustina. IMPRESSION: Postsurgical changes of a reverse total right shoulder arthroplasty ACT 112: Negative or not required by law. Electronically signed by: Jaciel Almeida M.D. 06/13/2020 2:42 PM
--- NOTE | 2020-06-13 15:05 | Anesthesiology Progress Note ---
Date of Service June 13, 2020 Anesthesia Post Procedure Vital Signs Vital Signs: Temp Pulse Pulse Resp BP Pulse Ox 06/13/20 15:00 82 16 155/91 H 98 06/13/20 14:50 36.6 C 72 18 151/67 H 95 06/13/20 14:40 75 12 157/79 H 95 06/13/20 14:30 73 14 149/89 H 100 06/13/20 14:20 74 18 157/90 H 100 06/13/20 14:10 36.0 C L 74 19 153/80 H 100 06/13/20 10:25 73 18 151/85 H 100 06/13/20 10:10 88 18 139/89 97 06/13/20 08:08 37.1 C 107 H 22 150/92 H 97 Pain Intensity Left Axilla: Pain Intensity: 4 Right Axilla: Pain Intensity: 3 Transfer of Care Handoff Completed per policy Notes Mental Status: alert / awake / arousable Patient Amnestic to Procedure: Yes Nausea / Vomiting: adequately controlled Pain: adequately controlled Airway Patency, RR, SpO2: stable & adequate BP & HR: stable & adequate Hydration State: stable & adequate Anesthetic Complications: no major complications apparent and Pt Satisfied with anesthetic care
[2020-06-13] MEDS ORDERED: MAGNESIUM HYDROXIDE SUSP 30 ML UDC PO PRN (15:32)
[2020-06-13] MEDS ORDERED: ALBUTEROL HFA 8 GM INHALER INH PRN (15:32)
[2020-06-13] MEDS ORDERED: bisacodyL 10 MG SUPP PR PRN (15:32)
[2020-06-13] MEDS ORDERED: METOCLOPRAMIDE HCL INJ 5 MG/ML 2 ML VIAL IV PRN (15:32)
[2020-06-13] MEDS ORDERED: NALOXONE HCL 0.4 MG/1 ML VIAL/CARP IV PRN (15:32)
[2020-06-13] MEDS: ACETAMINOPHEN 500 MG TAB PO SCH ×2 (16:58→21:06)
[2020-06-13] MEDS: SODIUM CHLORIDE 0.9% 1000ML 1,000 ML IV SCH (16:59)
[2020-06-13] MEDS ORDERED: COUGH DROP (SUGAR FREE) LOZ 24 LOZ/1 BOX BUCCAL STA (18:02)
[2020-06-13] MEDS ORDERED: COUGH DROP (SUGAR FREE) LOZ 24 LOZ/1 BOX BUCCAL ONE (18:04)
[2020-06-13] MEDS: CEFAZOLIN 2000MG 2,000 MG/15 ML SYR IV SCH (18:08)
[2020-06-13] MEDS: IBUPROFEN 600 MG TAB PO SCH (18:09)
[2020-06-13] MEDS ORDERED: SENNA 8.6 MG TAB PO SCH (21:00)
[2020-06-13] MEDS ORDERED: TOLTERODINE TARTRATE LA 4 MG CAPCR PO SCH (21:00)
[2020-06-13] MEDS ORDERED: DOCUSATE SODIUM 100 MG CAP PO SCH (21:00)
[2020-06-13] MEDS ORDERED: ATORVASTATIN 20 MG TAB PO SCH (21:00)
[2020-06-13] MEDS ORDERED: NON-FORMULARY MEDICATION (Glucosamine Sulfate [Glucosamine] 500 MG) PO SCH (21:00)
[2020-06-13] MEDS: PROPRANOLOL HCL 20 MG TAB PO SCH (21:04)
[2020-06-13] MEDS: VENLAFAXINE HCL XR 37.5 MG CAPXR PO SCH (21:04)
[2020-06-13] MEDS: LORazepam 1 MG TAB PO SCH (21:04)
[2020-06-13] MEDS: ASCORBIC ACID 500 MG TAB PO SCH (21:05)
[2020-06-13] MEDS: DOCUSATE SODIUM 100 MG CAP PO SCH (21:05)
[2020-06-13] MEDS: CALCIUM CARBONATE 1250MG TAB PO SCH (21:07)
[2020-06-14] MEDS: IBUPROFEN 600 MG TAB PO SCH ×3 (00:24→13:58)
[2020-06-14] MEDS: OXYCODONE HCL IR 5 MG TAB (IMMEDIATE RELEASE) PO PRN ×2 (01:46→08:37)
[2020-06-14] MEDS: SODIUM CHLORIDE 0.9% 1000ML 1,000 ML IV SCH (01:55)
[2020-06-14] MEDS: CEFAZOLIN 2000MG 2,000 MG/15 ML SYR IV SCH (03:25)
[2020-06-14] MEDS: ACETAMINOPHEN 500 MG TAB PO SCH ×2 (03:26→10:14)
[2020-06-14 06:39] LABS: Eosinophils # (auto) 0.01 K/uL (0-0.5); Eosinophils % (auto) 0.1 %; Hematocrit (blood only) 30.5 % (37-47); Hemoglobin 9.8 g/dL (12.0-16.0); Immature Granulocytes # (auto) 0.01 K/uL (0.00-0.02); Immature Granulocytes % (auto) 0.1 %; Lymphocytes # (auto) 0.87 K/uL (1.2-3.4); Lymphocytes % (auto) 10.5 %; Mean Corpuscular Hemoglobin 29.5 pg (25-34); Mean Corpuscular Hgb Conc 32.1 g/dL (32-36); Mean Corpuscular Volume 91.9 fL (80-100); Mean Platelet Volume 9.4 fL (7.4-10.4); Monocytes # (auto) 0.84 K/uL (0.11-0.59); Monocytes % (auto) 10.1 %; Neutrophils # (auto) 6.59 K/uL (1.4-6.5); Neutrophils % (auto) 79.2 %; Platelet Count 211 K/uL (130-400); RDW Coefficient of Variation 14.2 % (11.5-14.5); RDW Standard Deviation 48.2 fL (36.4-46.3); Red Blood Count 3.32 M/uL (4.2-5.4); White Blood Count 8.32 K/uL (4.8-10.8)
[2020-06-14 07:16] LABS: BUN Creatinine Ratio 24.6 (10-20); Calcium 9.5 mg/dl (8.5-10.1); Creatinine Clr Calc Pharmacy 48.3 ml/min; Est GFR (African American) 62.6; Potassium 3.5 mmol/L (3.5-5.1)
[2020-06-14] MEDS: VENLAFAXINE HCL XR 37.5 MG CAPXR PO SCH (08:23)
[2020-06-14] MEDS: ASCORBIC ACID 500 MG TAB PO SCH (08:23)
[2020-06-14] MEDS: PROPRANOLOL HCL 20 MG TAB PO SCH (08:24)
[2020-06-14] MEDS: DOCUSATE SODIUM 100 MG CAP PO SCH (08:24)
[2020-06-14] MEDS: CALCIUM CARBONATE 1250MG TAB PO SCH (08:25)
[2020-06-14] MEDS: LORazepam 1 MG TAB PO SCH (08:37)
[2020-06-14] MEDS ORDERED: MULTIVITAMIN TAB PO SCH (09:00)
[2020-06-14] MEDS ORDERED: FOLIC ACID 400 MCG TAB PO SCH (09:00)
[2020-06-14] MEDS ORDERED: lisinopriL 5 MG TAB PO SCH (09:00)
[2020-06-14] MEDS ORDERED: FUROSEMIDE 40 MG TAB PO SCH (09:00)
[2020-06-14] MEDS ORDERED: ASPIRIN 325 MG ECTAB PO SCH (09:00)
[2020-06-14] MEDS ORDERED: [UNRECOGNIZED DRUG - OTHER] PO SCH (09:00)
[2020-06-14] MEDS ORDERED: CHOLECALCIFEROL 1,000 UNITS 25 MCG TAB PO SCH (09:00)
--- NOTE | 2020-06-14 10:25 | Orthopedic Progress Note ---
Date of Service June 14, 2020 Assessment & Plan (1) Right rotator cuff tear arthropathy: Postop day 1 status post Right reverse Total Shoulder Arthroplasty with subscapularis repair (30480) Open biceps tenodesis (88769) PT/OT Pain controlas needed oxycodone, ibuprofen, Tylenol DVT prophylaxisaspirin 325 mg daily Discharge planningdischarge home today with home nursing. Admission and Anticipated Discharge Date Admission Date: June 13, 2020 Subjective Doing well. States the pain in the right shoulder is controlled. She has been wearing the sling without any troubles. Last night, she slept well when she got into a comfortable position. Denies chest pain, shortness of breath, lightheadedness. Physical Exam Constitutional: WD/WN, vitals as above Musculoskeletal: Shoulder: + surgical incision (Right shoulder incision dressed with Silverlon. Dressing is clean and dry.); shoulder normal to inspection, no skin erythema, no ecchymosis and no crepitation with shoulder ROM Skin: no rashes, warm and dry Neurologic: normal touch/pain/proprioception (Right upper extremity: All fingers mobile. Sensation intact distally.) Psychiatric: A+Ox3, euthymic affect Speech: normal rate/rhythm/volume of speech Results & Data ([facility]) Vital Signs (Past 12 Hours) Vital Signs Temp Pulse Resp BP Pulse Ox 06/14/20 08:02 37.0 C 98 H 16 158/96 H 93 06/14/20 03:25 134/83 06/14/20 03:21 36.6 C 79 16 173/94 H 94 06/14/20 00:30 36.5 C 83 20 170/92 H 96 Laboratory Results Laboratory Tests 06/14/20 05:02 Hgb 9.8 L Hct 30.5 L
--- NOTE | 2020-06-16 08:43 | Discharge Summary ---
Date of Service June 16, 2020 Admission HPI Per Admitting Provider Ms. Kaminski comes in for follow-up, but is for a new problem today. She has bilateral shoulder pain and weakness, right much greater than left. She is right-hand dominant. This pain and weakness is been going on for about the past 6 to 7 months. She does have a previous history of a rotator cuff repaired by Dr. Bk guerrero in 2007. She has not had any injections since then. She feels like the weakness is much more problematic to her than the pain. She is no longer able to reach forward or overhead, and this is the most bothersome thing for her. She does have pain, but is mostly in the right side of her neck rather than in her shoulder. She is starting to get similar but less severe symptoms in her left shoulder since she is using that side a lot more as she is compensating for her weak right shoulder. Principal Diagnosis Right shoulder rotator cuff tear arthropathy Discharge Data Allergies Allergy/AdvReac Type Severity Reaction Status Date / Time hydrocodone Allergy NAUSEA/INSOMINIA-COUGH Verified 06/13/20 08:00 SYRUP homatropine AdvReac Unknown HYDROCODONE/HOMATROPINE Verified 06/13/20 08:00 COUGH SYRP-INSOMNIA/NAUSEA Consultations 06/13/20 15:32 Consult Case Management - Discharge Planning Routine Procedures Performed Operation Date: 06/13/20 09:35 Actual Procedures p Right Reverse Total Shoulder Arthroplasty(Right) - Celestine Prieto M.D. Ordered Studies 06/13/20 05:00 US - OR guided needle placemen Routine Hospital Course (1) Right rotator cuff tear arthropathy: Patient underwent a right reverse total shoulder arthroplasty, and was admitted under the orthopedic surgery service postoperatively. Patient tolerated the procedure well and was transferred up to the orthopedic surgery floor in stable condition. Perioperative antibiotic coverage was initiated for 24 hours. DVT prophylaxis consisting of aspirin 325 mg daily was started the morning after surgery. On postoperative day 1, pain was well controlled with oral medications only. Patient was ambulating without assistance, tolerating a regular diet, and was therefore determined to be safe and ready for discharge to home. Total Time Total Time Spent Total Time Spent (In Minutes): 15 Discharge Plan Discharge Items Patient Disposition: Home - Home Health Services Reason For Visit: Right Shoulder Rotator Cuff Tear Arthropathy Discharge Diagnosis: Right shoulder rotator cuff tear arthropathy Activity: Per Instructions section Non-emergency contact: Surgeon Call non-emergency contact if: your pain is not controlled, your temperature is above 101.5, your wound has increased redness and your wound has increased drainage Follow-up/Referrals: Aryan Jack III, MD [Primary Care Provider] - Celestine Prieto M.D. [Physician] - Diet: Regular Addtl Attending Provider Instructions: Things to Watch Out For -Go to the Emergency Room if you have sudden onset of nausea, vomiting, chest pain, shortness of breath, or uncontrollable pain. -Call the clinic or go to the Emergency Room if you have a sudden increase in the amount of wound drainage or the drainage becomes thick, yellow or green, or foul-smelling. -For routine questions, call the clinic at [phone] during regular business hours (8am-5pm). For urgent issues after regular business hours, you may call the clinic to be connected to the on-call physician. Dressings -A special waterproof, silver-impregnated dressing was placed on your shoulder. Keep this dressing in place for 1 week after surgery. You may shower with the waterproof dressing in place, but do not soak the dressing in the bathtub or pool. -One week after surgery, you may remove the waterproof dressing. You may continue to shower, and let water run BRIEFLY over the incision, but do not soak the incision in the bathtub or pool for 2 weeks. You may also gently clean the incision with mild soap and water; pat the incision dry after cleaning-do not rub the incision. Apply a new dressing daily thereafter. Shoulder Exercises -Keep your operative shoulder in the sling for comfort, except as detailed below. -You should come out of the sling 4-5 times a day for passive pendulum exercises: lean over and swing your arm in a circular pattern. -You should also do active-assisted forward flexion exercises: use your opposite hand to lift your operative arm forward to 90 degrees. -Do not flex your elbow (curl motion) or supinate your forearm (rotating palm up) against resistance. -Do not use your arm to push yourself up out of bed or up from a seated position. -Subscapularis repair: Do not externally rotate your arm past neutral rotation (forearm pointed straight out from your body) or internally rotate your arm (pull your forearm towards your body) against resistance. Do not abduct your shoulder past 90 degrees (bring your arm out to the side past shoulder level). Ice Pack -You may use an ice pack for pain relief. You should use it 20-30 minutes at a time. Place a towel between the ice pack and your skin to prevent frostbite. -You should use the ice pack fairly regularly for the first 1-2 weeks after surgery to help reduce pain and inflammation. -About 2 weeks after your surgery, you should start using heat to loosen up your shoulder prior to doing your stretching exercises, then use the cooling sleeve after your exercises are complete to reduce swelling and pain. Pain Medicines -You have been prescribed an anti-inflammatory (Motrin/ibuprofen) and a non- narcotic pain medicine (Tylenol/acetaminophen). These are your primary pain medications. Take them each every 6 hours as instructed. It is recommended that you stagger these medicines every 3 hours (i.e. take ibuprofen at 8:00 am, then acetaminophen at 11:00 am, then ibuprofen at 2:00 pm, etc) -DO NOT take any additional anti-inflammatories (Advil, Aleve/naproxen, Mobic/meloxicam, Celebrex) or any additional Tylenol/acetaminophen products with these prescribed medications. -You have also been prescribed an additional narcotic pain medication (oxycodone). Take this medicine ONLY for breakthrough pain not controlled by the ibuprofen and acetaminophen. -Do not drive or operate heavy machinery while taking the narcotic medication. -Common side effects of narcotic pain medicines include itching, nausea, constipation, and feeling "loopy". However, if you develop a rash or hives, stop taking the medicine and call the clinic. If you develop swelling in your throat or difficulty breathing, go to the Emergency Room or call 911 IMMEDIATELY. -You may take over the counter stool softeners if needed for constipation. Aspirin -Take a full strength (325mg) aspirin every day for 4 weeks (28 days) to prevent blood clots. -If you were taking a baby aspirin (81mg) prior to surgery, you may resume taking this 81mg dose after you complete the 28-day course of the 325mg strength dose; do not take the 325mg dose in addition to your 81mg dose. -Be aware that you will bruise easier while taking Aspirin; this is normal. However, if you develop a significantly large area of swelling after an injury, or have a cut that will not stop bleeding, call the clinic or go to the Emergency Room immediately. Pending Studies at Discharge: No Stand-Alone Forms: My [facility], Opioid Pain Management, Work/School Release (Inpt), Smoking Cessation Medications and DC Order Prescriptions: New oxycodone-acetaminophen [Percocet] 5-325 mg tablet 1 tab PO Q4H PRN (Reason: pain) Qty: 18 RF: 0 aspirin 325 mg tablet 325 mg PO DAILY Qty: 30 RF: 0 ibuprofen 600 mg tablet 600 mg PO Q8H Qty: 30 RF: 0 Continued venlafaxine 37.5 mg capsule,extended release 24hr 37.5 mg PO BID Qty: 180 RF: 3 lisinopril 5 mg tablet 5 mg PO QAM Qty: 90 RF: 3 tolterodine 4 mg capsule,extended release 24hr 4 mg PO PM Qty: 90 RF: 3 atorvastatin 20 mg tablet 20 mg PO QPM Qty: 90 RF: 3 propranolol 40 mg tablet 40 mg PO BID Qty: 180 RF: 3 lorazepam 1 mg tablet 1 mg PO BID Qty: 60 RF: 0 glucosamine sulfate [Glucosamine] 500 mg tablet 500 mg PO BID RF: 0 Women's Multivitamin 18 mg iron-400 mcg-500 mg tablet 1 tab PO QAM RF: 0 folic acid 800 mcg tablet 0.8 mg PO QAM RF: 0 cholecalciferol (vitamin D3) 2,000 unit tablet 2,000 units PO QAM RF: 0 ascorbic acid (vitamin C) 500 mg capsule 500 mg PO BID RF: 0 albuterol sulfate 90 mcg/actuation HFA aerosol inhaler 2 puffs INH Q6H PRN (Reason: Shortness Of Breath Or Wheezing) Qty: 8.5 RF: 5 furosemide 40 mg tablet 40 mg PO QAM RF: 0 calcium carbonate [Calcium 600] 600 mg calcium (1,500 mg) Tablet 600 mg PO BID RF: 0 docusate sodium [Colace] 100 mg Capsule 100 mg PO BID RF: 0 Discontinued flurbiprofen 100 mg tablet 100 mg PO BID Qty: 180 RF: 3 aspirin 81 mg tablet,delayed release (DR/EC) 81 mg PO QAM RF: 0 tramadol 50 mg tablet 100 mg PO BID PRN (Reason: pain) RF: 0 acetaminophen [Tylenol Extra Strength] 500 mg Tablet 1,000 mg PO BID PRN (Reason: Pain) RF: 0 Discharge Orders: Discharge Order (Routine); Ordered 06/14/20 Ordered By: Anderson Saul/Other Patient Handouts: Prediabetes, Shoulder Replace After, Diabetes: Meal Planning, A1C Admission Data Admit Date/Time: 06/13/20 14:41 Attending Provider: Celestine Prieto Admit Provider: Celestine Prieto Primary Care Provider: Aryan Jack III Other Interventions: Discharge Summary Assessment (RN) Last Done: 06/14/20 13:34
== END 2020-06-14 14:40 | disposition home health service (06) | DRG 483 ==
LOC: ASU 07:40 → 3E 14:41

== ENCOUNTER 2021-12-12 09:39 | Observation (INO) ==
[2021-12-12] MEDS ORDERED: SODIUM CHLORIDE 0.9% 1000ML 1,000 ML IV ONE (10:33)
[2021-12-12 10:45] LABS: Eosinophils # (auto) 0.02 K/uL (0-0.5); Eosinophils % (auto) 0.4 %; Hematocrit (blood only) 39.8 % (37-47); Hemoglobin 12.7 g/dL (12.0-16.0); Immature Granulocytes # (auto) 0.01 K/uL (0.00-0.02); Immature Granulocytes % (auto) 0.2 %; Lymphocytes # (auto) 0.76 K/uL (1.2-3.4); Lymphocytes % (auto) 16.9 %; Mean Corpuscular Hemoglobin 29.1 pg (25-34); Mean Corpuscular Hgb Conc 31.9 g/dL (32-36); Mean Corpuscular Volume 91.1 fL (80-100); Mean Platelet Volume 9.8 fL (7.4-10.4); Monocytes # (auto) 0.48 K/uL (0.11-0.59); Monocytes % (auto) 10.7 %; Neutrophils # (auto) 3.22 K/uL (1.4-6.5); Neutrophils % (auto) 71.8 %; Platelet Count 236 K/uL (130-400); RDW Coefficient of Variation 14.2 % (11.5-14.5); RDW Standard Deviation 47.6 fL (36.4-46.3); Red Blood Count 4.37 M/uL (4.2-5.4); White Blood Count 4.49 K/uL (4.8-10.8)
[2021-12-12 10:57] LABS: Troponin I < 0.03 ng/ml (0-0.04)
[2021-12-12 10:59] LABS: Alanine Aminotransferase 15 U/L (7-52); Albumin Globulin Ratio 1.1 (0.9-2); Albumin Level 3.9 gm/dl (3.4-5.0); Alkaline Phosphatase 103 U/L (34-104); Anion Gap 11 (3-11); Aspartate Aminotransferase 21 U/L (13-39); BUN Creatinine Ratio 19.1 (10-20); Bilirubin,Total 0.7 mg/dl (0.2-1.0); Blood Urea Nitrogen 13 mg/dl (6-23); Calcium 9.9 mg/dl (8.5-10.1); Carbon Dioxide 29 mmol/L (21-32); Chloride 102 mmol/L (98-107); Creatinine Clr Calc Pharmacy 69.2 ml/min; Est GFR (African American) 97.8 ml/min; Est GFR (Non-African American) 84.4 ml/min; Globulin 3.6 gm/dl (2.5-4.0); Glucose 179 mg/dl (70-99(Fasting)); Lipase 13 U/L (11-82); Phosphorus 2.8 mg/dl (2.5-4.9); Potassium 3.5 mmol/L (3.5-5.1); Sodium 142 mmol/L (136-145); Total Protein 7.5 gm/dl (6.0-8.3)
--- NOTE | 2021-12-12 11:03 | XRay Report ---
XR chest 1V portable CLINICAL HISTORY: Atypical chest pain TECHNIQUE: Single frontal radiograph of the chest was obtained. Comparison: Comparison is made to chest one view 12/11/2021 FINDINGS: Status post right shoulder reverse arthroplasty and cervical fixation hardware is seen. The cardiomed iastinal silhouette is normal. The lungs are clear. No evidence of pleural effusion or pneumothorax. IMPRESSION: No acute chest disease. ACT 112: Negative or not required by law. Electronically signed by: Jair Kwon M.D. 12/12/2021 11:02 AM
[2021-12-12] MEDS ORDERED: ALBUTEROL HFA 8 GM INHALER INH ONE (11:52)
[2021-12-12] MEDS ORDERED: guaiFENesin 600 MG TABCR PO STA (11:52)
[2021-12-12] MEDS ORDERED: FAMOTIDINE 20MG IV PUSH 20 MG/5 ML SYR IV STA (11:52)
[2021-12-12] MEDS ORDERED: ACETAMINOPHEN 1,000 MG/100 ML VIAL IV STA (11:53)
[2021-12-12] MEDS: ONDANSETRON INJ 2 MG/ML 2 ML VIAL IV STA (12:11)
[2021-12-12 14:24] LABS: Appearance Urine Clear (Clear); Bilirubin Urine Negative (Negative); Blood Urine Negative (Negative); Color Urine Yellow; Glucose Urine UA Negative (Negative); Ketones Urine 1+ (Negative); Leukocyte Esterase Urine Negative (Negative); Nitrite Urine Negative (Negative); Protein Urine Negative (Negative); Specific Gravity Urine 1.011 (1.000-1.030); Urobilinogen Urine Negative (Negative)
--- NOTE | 2021-12-12 16:16 | Emergency Department Note ---
Impression & Plan COVID-19, Generalized weakness, Dehydration ED Provider Note NAME: CHARLI DUMONT AGE: 76 SEX: F ARRIVES VIA: Ambulance INFORMANT: Patient ED PROVIDER(S): Abhilash Maguire MD CHIEF COMPLAINT: Weakness, nausea, Covid-19 PLAN: Disposition: Admit MEDICAL DECISION MAKING: The patient is a pleasant 76-year-old woman who presents emergency department with continued generalized weakness, body aches, nausea and decreased oral intake in the setting of being seen in emergency department yesterday for similar symptoms where she was diagnosed with COVID-19. She was discharged with plan for outpatient follow-up. Of note, the patient reports her symptoms began off and congestion that began on 11/30/2021. She is not vaccinated for COVID- 19. She denies chest pain, abdominal pain, urinary symptoms. On arrival the patient is fatigued appearing but no acute distress, afebrile with heart rate in the 110s, blood pressure hypertensive and vital signs are otherwise stable. He appears clinically dry. Lungs are relatively clear. EKG without overt acute ischemia. CXR negative for acute cardiopulmonary process. WBC 4.4K. H/H and platelets within normal limits. Chemistry without metabolic acidosis. Electrolytes and LFTs without significant abnormality. Troponin negative/undetectable. Lipase is not elevated. UA with 1+ ketones consistent with patient's clinical dry appearance. There is no evidence of urinary infe ction. The patient did have a positive COVID-19 RNA, NAAT test yesterday. Upon reevaluation the patient denied any significant improvement after IV fluid hydration, APAP, Pepcid, Zofran, guaifenesin, albuterol MDI. She reports feeling severely weak and feels unsafe going home where she lives by herself and is felt unsteady. Given persistence of this elderly patient's symptoms in the setting of COVID-19 with repeat ED visit 2 days in a row will refer to hospital service for admission. Case was discussed with Dr. Zuniga, [facility] [place] hospitalist, who will evaluate the patient for admission. Triage Nursing notes reviewed and agree them. Prior medical records reviewed Vital Signs: reviewed and remarkable for tachycardia. Differential diagnosis: Infection, dehydration, metabolic abnormality, hypo/hyperglycemia, electrolyte disturbance, anemia, hypoxia, cardiac sources, intracerebral event, toxicologic, neurologic, as well as other pathologies. ER treatment provided: See below. Diagnostics interpreted by me: ECG: Sinus tachycardia, 113 bpm, no ectopy, LVH, no overt ST elevation or depression, QTC 636, QRS 80. Cardiac Monitoring: An order for continuous cardiac monitoring was placed and demonstrated tachycardia, 113 bpm, no ectopy Laboratory studies: See below Imaging studies: See below Consultation(s): Case was d/w Dr. Zuniga, [facility] [place] hospitalist who will evaluate the patient for admission. HPI: The patient is a pleasant 76-year-old woman who presents emergency department with continued generalized weakness, body aches, nausea and decreased oral intake in the setting of being seen in emergency department yesterday for similar symptoms where she was diagnosed with COVID-19. She was discharged with plan for outpatient follow-up. Of note, the patient reports her symptoms began off and congestion that began on 11/30/2021. She is not vaccinated for COVID- 19. She denies chest pain, abdominal pain, urinary symptoms. ROS: See above HPI for pertinent positives & negatives. A total of 10 systems reviewed and were otherwise negative. VITALS:See Below PHYSICAL EXAMINATION: GENERAL: Awake, alert, uncomfortable-appearing, in no distress, BMI 38.8. HENT: Normocephalic, atraumatic. Oropharynx with dry mucous membranes and otherwise unremarkable. EYES: Normal conjunctiva. Sclera non-icteric. NECK: Supple. No nuchal rigidity. FROM. No JVD. RESPIRATORY: Clear to auscultation. CARDIAC: Regular rate, normal rhythm. Extremities warm and well perfused. Pulses equal. ABDOMEN: Soft, non-distended. No tenderness to palpation. No rebound or guarding. No masses. RECTAL: Deferred. MUSCULOSKELETAL: Chest examination reveals no tenderness. The back is symmetrical on inspection without obvious abnormality. There is no CVA tenderness to palpation. No joint edema. LOWER EXTREMITIES: Calves are equal size bilaterally and non-tender. No edema. No discoloration. NEURO: No focal sensory or motor deficits noted. SKIN: No rash or jaundice noted. Abhilash Maguire MD Past Med/Surg History Medical History Aortic valve sclerosis Without stenosis per 2018 echo. Arthritis Depression Excessive sweating History of abnormal electrocardiogram HTN (hypertension) Hypercalcemia Resolved Hyperparathyroidism s/p parathyroidectomy Hypokalemia Resolved Hypophosphatemia Mitral valve prolapse Not noted on 2018 echo Obesity Partial small bowel obstruction Stress incontinence Trigger finger (acquired) Surgical History Cervical vertebral fusion 10/2008- Dr. Guerrero H/O arthroscopy of knee LEFT H/O carpal tunnel repair R/L H/O colonoscopy H/O neck surgery neck exploration with excision of parathyroidadenoma and biopsy of upper parathyroid gland H/O parathyroidectomy History of gynecologic surgery anterior colporrhaphy, repair of cystocele and posterior colporrhaphy for pelvic relaxation History of total hip replacement RIGHT History of total knee arthroplasty LEFT S/P lumbar fusion 2005- Dr. Guerrero and repeat lumbar surgery 05/2009 S/P rotator cuff repair RIGHT S/P thyroid surgery parathyroid resection S/P vaginal hysterectomy Family History Mother Goiter Father Colon cancer Emphysema of lung Denies family history of Ovarian cancer Prostate cancer Myocardial infarction Breast cancer Social History Smoking Status: Never smoker Second Hand Exposure: Yes (SPOUSE USED TO SMOKE); Hx Alcohol Use: No Hx Substance Use: No Preferred Language: German Communication Ability: Effective Executive Compensation Analyst Required: No Beliefs That Will Affect Care: None marital status: Current Living Situation: Spouse current occupational status: retired 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, 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 Feels Safe at Home: Yes Childhood Exposure to Second-Hand Smoke: Yes Dental Care, Regularly: No Physical Activity Frequency: Does not Exercise Seatbelt Use: always Sunscreen Use: No Assistive Devices: Denture - Upper Allergies Allergies Allergy/AdvReac Type Severity Reaction Status Date / Time hydrocodone Allergy NAUSEA/INSOMINIA-COUGH Verified 12/12/21 15:51 SYRUP homatropine AdvReac Unknown HYDROCODONE/HOMATROPINE Verified 12/12/21 15:51 COUGH SYRP-INSOMNIA/NAUSEA Home Meds Home Medications Medication Instructions Recorded Confirmed ascorbic acid (vitamin C) 500 mg 500 mg PO BID cap 04/26/19 12/12/21 capsule cholecalciferol (vitamin D3) 50 2,000 units PO QAM tab 04/26/19 12/12/21 mcg (2,000 unit) tablet folic acid 800 mcg tablet 0.8 mg PO QAM tab 04/26/19 12/12/21 glucosamine sulfate 500 mg tablet 500 mg PO BID 04/26/19 12/12/21 (Glucosamine) [id number] carb-vit K 1 tab PO QAM 04/26/19 12/12/21 18 mg iron-400 mcg-500 mg tablet (Women's Multivitamin) calcium carbonate 600 mg calcium 600 mg PO BID 09/12/19 12/12/21 (1,500 mg) tablet (Calcium) docusate sodium 100 mg capsule 100 mg PO BID 09/12/19 12/12/21 (Colace) Previous Rx's Medication Instructions Recorded albuterol sulfate 90 mcg/actuation 2 puffs INH Q6H PRN #8.5 gm 03/25/20 aerosol inhaler aspirin 325 mg tablet 325 mg PO DAILY #30 tab 06/14/20 ibuprofen 600 mg tablet 600 mg PO Q8H #30 tab 06/14/20 atorvastatin 20 mg tablet 20 mg PO QPM #90 tab 01/14/21 propranolol 40 mg tablet 40 mg PO BID #180 tab 02/26/21 furosemide 40 mg tablet 40 mg PO QAM #90 tab 05/08/21 venlafaxine 37.5 mg 37.5 mg PO BID #180 cap 07/29/21 capsule,extended release 24 hr lorazepam 1 mg tablet 1 mg PO BID #180 tab 08/05/21 lisinopril 5 mg tablet 5 mg PO QAM #90 tab 09/11/21 gabapentin 100 mg capsule 200 mg PO BID #360 cap 10/16/21 tramadol 50 mg tablet 100 mg PO BID #14 tab 10/16/21 flurbiprofen 100 mg tablet 100 mg PO BID #180 tab 11/13/21 tolterodine 4 mg capsule,extended 4 mg PO PM #90 cap 12/03/21 release 24 hr doxycycline hyclate 100 mg capsule 100 mg PO BID 7 Days #14 cap 12/05/21 Results & Data (ED) Vital Signs Vital Signs - 24 hr 12/12/21 09:56 12/12/21 11:56 12/12/21 14:53 Temperature 36.8 C Temperature Source Oral Pulse Rate 114 H Pulse Rate [Right] 110 H 116 H Pulse Rhythm [Right] Regular Regular Pulse Strength [Right] Normal Normal Respiratory Rate 18 20 20 Respiratory Effort / Characteristics Non-Labored Non-Labored Spontaneous Non-Labored Spontaneous Respiratory Depth Normal Shallow Normal Respiratory Pattern Regular Regular Blood Pressure 194/99 H Blood Pressure [Right Arm] 188/90 H 186/91 H Blood Pressure Mean 130 Blood Pressure Mean [Right Arm] 122 122 Blood Pressure Position Sitting Blood Pressure Position [Right Arm] Lying Pulse Oximetry 96 97 97 Oxygen Delivery Method Room Air Room Air Room Air Sepsis Recent Fever Within 48 Hours No Sepsis New/Unexplained Change in Mental Status No Sepsis Action Taken by Nursing No Action Required 12/12/21 16:45 Temperature 37.0 C Temperature Source Oral Pulse Rate Pulse Rate [Right] 114 H Pulse Rhythm [Right] Regular Pulse Strength [Right] Normal Respiratory Rate 20 Respiratory Effort / Characteristics Non-Labored Spontaneous Respiratory Depth Normal Respiratory Pattern Regular Blood Pressure Blood Pressure [Right Arm] 196/100 H Blood Pressure Mean Blood Pressure Mean [Right Arm] 132 Blood Pressure Position Blood Pressure Position [Right Arm] Lying Pulse Oximetry 96 Oxygen Delivery Method Room Air Sepsis Recent Fever Within 48 Hours Sepsis New/Unexplained Change in Mental Status Sepsis Action Taken by Nursing Laboratory Data Attestation: I reviewed the patient's lab results. Result diagrams: 12/12/21 09:55 12/12/21 09:55 Lab Results 12/12/21 12/12/21 12/12/21 Range/Units 09:55 09:55 14:00 WBC 4.49 L (4.8-10.8) K/uL RBC 4.37 (4.2-5.4) M/uL Hgb 12.7 (12.0-16.0) g/dL Hct 39.8 (37-47) % MCV 91.1 (80-100) fL MCH 29.1 (25-34) pg MCHC 31.9 L (32-36) g/dL RDW Std Deviation 47.6 H (36.4-46.3) fL RDW Coeff of Jh 14.2 (11.5-14.5) % Plt Count 236 (130-400) K/uL MPV 9.8 (7.4-10.4) fL Immature Gran % (Auto) 0.2 % Neut % (Auto) 71.8 % Lymph % (Auto) 16.9 % [place] % (Auto) 10.7 % Eos % (Auto) 0.4 % Baso % (Auto) 0.0 % Neut # (Auto) 3.22 (1.4-6.5) K/uL Lymph # (Auto) 0.76 L (1.2-3.4) K/uL [place] # (Auto) 0.48 (0.11-0.59) K/uL Eos # (Auto) 0.02 (0-0.5) K/uL Baso # (Auto) 0.00 (0-0.2) K/uL Immature Gran # (Auto) 0.01 (0.00-0.02) K/uL Sodium 142 (136-145) mmol/L Potassium 3.5 (3.5-5.1) mmol/L Chloride 102 (98-107) mmol/L Carbon Dioxide 29 (21-32) mmol/L Anion Gap 11 (3-11) BUN 13 (6-23) mg/dl Creatinine 0.68 (0.6-1.2) mg/dl Est Cr Clr Drug Dosing 69.2 ml/min Est GFR ( Amer) 97.8 ml/min Est GFR (Non-Af Amer) 84.4 ml/min BUN/Creatinine Ratio 19.1 (10-20) Glucose 179 H (70-99(Fasting)) mg/dl Calcium 9.9 (8.5-10.1) mg/dl Phosphorus 2.8 (2.5-4.9) mg/dl Magnesium 2.0 (1.7-2.4) mg/dl Total Bilirubin 0.7 (0.2-1.0) mg/dl AST 21 (13-39) U/L ALT 15 (7-52) U/L Alkaline Phosphatase 103 (34-104) U/L Troponin I < 0.03 (0-0.04) ng/ml Total Protein 7.5 (6.0-8.3) gm/dl Albumin 3.9 (3.4-5.0) gm/dl Globulin 3.6 (2.5-4.0) gm/dl Albumin/Globulin Ratio 1.1 (0.9-2) Lipase 13 (11-82) U/L Urine Color Yellow Urine Appearance Clear (Clear) Urine pH 8.0 H (4.5-7.5) Ur Specific [place] 1.011 (1.000-1.030) Urine Protein Negative (Negative) Urine Glucose (UA) Negative (Negative) Urine Ketones 1+ H (Negative) Urine Blood Negative (Negative) Urine Nitrite Negative (Negative) Urine Bilirubin Negative (Negative) Urine Urobilinogen Negative (Negative) Ur Leukocyte Esterase Negative (Negative) Administered Medications Discontinued Medications Albuterol (Albuterol Hfa 8 Gm Inhaler) 2 puffs INH NOW ONE Stop: 12/12/21 11:53 Last Admin: 12/12/21 12:13 Dose: 2 puffs Documented by: [id number] Guaifenesin (Guaifenesin 600 Mg Tabcr) 600 mg PO NOW STA Stop: 12/12/21 11:53 Last Admin: 12/12/21 12:13 Dose: 600 mg Documented by: [id number] Sodium Chloride (Nss 1000ml) 1,000 mls @ 999 mls/hr IV .Q1H1M ONE Stop: 12/12/21 11:33 Last Infusion: 12/12/21 13:23 Dose: 0 mls/hr Documented by: [id number] Admin: 12/12/21 10:53 Dose: 999 mls/hr Documented by: [id number] Famotidine (Pepcid 20mg Iv Push) 20 mg in 5 mls @ 2.5 mls/min IV NOW STA Stop: 12/12/21 11:53 Last Admin: 12/12/21 12:13 Dose: 2.5 mls/min Documented by: [id number] Acetaminophen (Ofirmev) 1,000 mg in 100 mls @ 400 mls/hr IV NOW STA Stop: 12/12/21 12:07 Last Infusion: 12/12/21 13:23 Dose: 0 mls/hr Documented by: [id number] Admin: 12/12/21 12:13 Dose: 400 mls/hr Documented by: [id number] Ondansetron HCl (Ondansetron Inj 2 Mg/Ml 2 Ml Vial) 4 mg IV NOW STA Stop: 12/12/21 11:53 Last Admin: 12/12/21 12:11 Dose: 4 mg Documented by: [id number] Admin: 12/12/21 12:11 Dose: 4 mg Documented by: [id number] Imaging Data Radiologist's Impression: Chest X-Ray 12/12/21 10:33 XR chest 1V portable CLINICAL HISTORY: Atypical chest pain TECHNIQUE: Single frontal radiograph of the chest was obtained. Comparison: Comparison is made to chest one view 12/11/2021 FINDINGS: Status post right shoulder reverse arthroplasty and cervical fixation hardware is seen. The cardiomediastinal silhouette is normal. The lungs are clear. No evidence of pleural effusion or pneumothorax. IMPRESSION: No acute chest disease. ACT 112: Negative or not required by law. Electronically signed by: Jair Kwon M.D. 12/12/2021 11:02 AM Discharge Plan Visit Data Chief Complaint: Illness Stated Complaint: WEAKNESS, NAUSEA, ILLNESS, COVID + Discharge Problem: COVID-19, Generalized weakness, Dehydration Forms Stand Alone Forms: [facility] Prescriptions Prescriptions: No Action atorvastatin 20 mg tablet 20 mg PO QPM Qty: 90 RF: 3 propranolol 40 mg tablet 40 mg PO BID Qty: 180 RF: 3 furosemide 40 mg tablet 40 mg PO QAM Qty: 90 RF: 3 venlafaxine 37.5 mg capsule,extended release 24hr 37.5 mg PO BID Qty: 180 RF: 3 lorazepam 1 mg tablet 1 mg PO BID Qty: 180 RF: 1 lisinopril 5 mg tablet 5 mg PO QAM Qty: 90 RF: 3 gabapentin 100 mg capsule 200 mg PO BID Qty: 360 RF: 3 tramadol 50 mg tablet 100 mg PO BID Qty: 14 RF: 0 flurbiprofen 100 mg tablet 100 mg PO BID Qty: 180 RF: 3 tolterodine 4 mg capsule,extended release 24hr 4 mg PO PM Qty: 90 RF: 3 doxycycline hyclate 100 mg capsule 100 mg PO BID 7 Days Qty: 14 RF: 0 glucosamine sulfate [Glucosamine] 500 mg tablet 500 mg PO BID RF: 0 Women's Multivitamin 18 mg iron-400 mcg-500 mg tablet 1 tab PO QAM RF: 0 folic acid 800 mcg tablet 0.8 mg PO QAM RF: 0 cholecalciferol (vitamin D3) 2,000 unit tablet 2,000 units PO QAM RF: 0 ascorbic acid (vitamin C) 500 mg capsule 500 mg PO BID RF: 0 albuterol sulfate 90 mcg/actuation HFA aerosol inhaler 2 puffs INH Q6H PRN (Reason: Shortness Of Breath Or Wheezing) Qty: 8.5 RF: 5 aspirin 325 mg tablet 325 mg PO DAILY Qty: 30 RF: 0 ibuprofen 600 mg tablet 600 mg PO Q8H Qty: 30 RF: 0 calcium carbonate [Calcium 600] 600 mg calcium (1,500 mg) Tablet 600 mg PO BID RF: 0 docusate sodium [Colace] 100 mg Capsule 100 mg PO BID RF: 0 Referrals Referrals: Aryan Jack III, MD [Primary Care Provider] -
[2021-12-12] MEDS ORDERED: hydrALAZINE HCL 20 MG/ML VIAL IV STA (18:11)
--- NOTE | 2021-12-12 18:30 | History & Physical Report ---
Date of Service December 12, 2021 Assessment & Plan (1) COVID-19: Plan: Patient has had symptoms of COVID-19 since approximately 12/01 with cough that is productive, nausea, and generalized weakness First test date that is positive is 33 She was treated with doxycycline x7 days as an outpatient for bronchitis and since starting treatment has had significant nausea and some vomiting She is unvaccinated She does not have pneumonia on chest x-ray and her pulse ox is 96% on room air. She does have some leukopenia on CBC There is no one to help care for her at home and she does not feel comfortable going home -Bring in on observation to medical/surgical unit on Covid-19 precautions -Cleared for clear liquids only as tolerated -Give 1 more liter of LR at 70 mL/h --Give IV Pepcid twice daily for nausea -Avoid Zofran for now given possible prolonged QT, but doubt that QT is being calculated correctly as her QT from the day before was normal -Give Compazine as needed for nausea -She does not meet any criteria for dexamethasone, and is outside of the window for Remdesivir -PT/OT consults for rehab evaluation -Monitor for worsening of pulse ox (2) Nausea & vomiting: Plan: As above, could be secondary to Covid-19, but also could be secondary to a side effect of doxycycline. She also has both ibuprofen and flurbiprofen and aspirin 325 mg listed on her home medication reconciliation No evidence of melena or hematemesis, hemoglobin stable, do not suspect GI bleeding -Hold all NSAIDs, but continue aspirin -Start Pepcid 20 mg IV twice daily -Discontinue doxycycline-regardless she has completed a 7-day course -IV Compazine as needed (3) Generalized weakness: Plan: As above, secondary to nausea and Covid-19 (4) HTN (hypertension): Plan: Blood pressures are markedly elevated at 200 systolic in the ER and she has not taken her blood pressure pills in at least 1 or 2 days Restart home lisinopril Give IV hydralazine 10 mg x 1 now and then as needed after that -Holding home furosemide for dehydration Avoid all NSAIDs (5) Asthma: Plan: Stable Continue albuterol as needed (6) Hyperlipidemia: Plan: Continue statin (7) Vitamin D deficiency: Plan: Hold home vitamin supplements until nausea improved (8) Urinary incontinence: Plan: Continue Detrol LA (9) Impaired fasting glucose: Plan: Hemoglobin A1c 5.9% in 01/2021 No need for Accu-Cheks (10) Depression: Plan: Continue home venlafaxine Plan: DVT prophylaxis-Lovenox, SCDs Disposition-bring in on observation to medical/surgical floor, however in discussing her care with her daughter on the phone, there will be no one to be able to help care for the patient till she is strong enough to take care of herself until at least next week when the patient's son arrives from out of town. PT/OT consults DNR/DNI as per discussion with patient History of Present Illness Chief Complaint: Nausea Primary Care Provider: Aryan Jack MD This patient is a 76-year-old female with a history of HTN, obesity, anxiety/depression, overactive bladder, chronic pain, arthritis, and partial small bowel obstruction who has now returned to the ER for the second time in 24 hours for nausea. She began having a productive cough with yellow sputum approximately 11 days ago and contacted her PCP who prescribed her doxycycline on 12/05 for bronchitis and encouraged her to go get a Covid-19 test. The patient did not feel she needed a Covid-19 test because she did not think it was possible for her to get Covid since she had not left the house. However, she does have groceries delivered and also has had family visiting. She came to the ER last night with cough and nausea and felt better after some treatment and her neighbor took her home. Her daughter was not able to get a hold of her by phone this morning and asked the neighbor to go back and check on her. They found her moaning and complaining of severe nausea. She reports that she has been vomiting but no blood in the vomit. No abdominal pain. She does have heartburn. Of note, she recently finished a 1 week course of doxycycline this morning, and takes aspirin every day as well as multiple NSAIDs for chronic pain. She has not had any diarrhea or blood in her stool that she knows of. No chest pain or shortness of breath, cough is improved. She does not feel well enough to go home. I did discuss her care with her daughter on the phone who also reported that there is no one that can help take care of the patient at home as her who is also severely debilitated is currently in the hospital for the last 3 weeks. In the ER, she was noted to be quite hypertensive but states that she did not t jhonny her blood pressure medicines today. She was afebrile, mildly tachycardic in a sinus rhythm, and had a pulse ox of 95-96% on room air. Chest x-ray was negative for pneumonia. She was treated with 1 L normal saline, IV Pepcid, IV Zofran and IV Tylenol, as well as albuterol and Mucinex. She will be admitted for COVID-19 with generalized weakness and nausea/vomiting possibly secondary to NSAID use and doxycycline use, but could also be related to Covid-19. Allergies Allergy/AdvReac Type Severity Reaction Status Date / Time hydrocodone Allergy NAUSEA/INSOMINIA-COUGH Verified 12/12/21 15:51 SYRUP homatropine AdvReac Unknown HYDROCODONE/HOMATROPINE Verified 12/12/21 15:51 COUGH SYRP-INSOMNIA/NAUSEA Home Medications Medication Instructions Recorded Confirmed Type ascorbic acid (vitamin C) 500 mg 500 mg PO BID cap 04/26/19 12/12/21 History capsule cholecalciferol (vitamin D3) 50 2,000 units PO QAM tab 04/26/19 12/12/21 History mcg (2,000 unit) tablet folic acid 800 mcg tablet 0.8 mg PO QAM tab 04/26/19 12/12/21 History glucosamine sulfate 500 mg tablet 500 mg PO BID 04/26/19 12/12/21 History (Glucosamine) [id number]-FA-Ca carb-vit K 1 tab PO QAM 04/26/19 12/12/21 History 18 mg iron-400 mcg-500 mg tablet (Women's Multivitamin) calcium carbonate 600 mg calcium 600 mg PO BID 09/12/19 12/12/21 History (1,500 mg) tablet (Calcium) docusate sodium 100 mg capsule 100 mg PO BID 09/12/19 12/12/21 History (Colace) albuterol sulfate 90 mcg/actuation 2 puffs INH Q6H PRN #8.5 gm 03/25/20 12/12/21 Rx aerosol inhaler aspirin 325 mg tablet 325 mg PO DAILY #30 tab 06/14/20 12/12/21 Rx ibuprofen 600 mg tablet 600 mg PO Q8H #30 tab 06/14/20 12/12/21 Rx atorvastatin 20 mg tablet 20 mg PO QPM #90 tab 01/14/21 12/12/21 Rx propranolol 40 mg tablet 40 mg PO BID #180 tab 02/26/21 12/12/21 Rx furosemide 40 mg tablet 40 mg PO QAM #90 tab 05/08/21 12/12/21 Rx venlafaxine 37.5 mg 37.5 mg PO BID #180 cap 07/29/21 12/12/21 Rx capsule,extended release 24 hr lorazepam 1 mg tablet 1 mg PO BID #180 tab 08/05/21 12/12/21 Rx lisinopril 5 mg tablet 5 mg PO QAM #90 tab 09/11/21 12/12/21 Rx gabapentin 100 mg capsule 200 mg PO BID #360 cap 10/16/21 12/12/21 Rx tramadol 50 mg tablet 100 mg PO BID #14 tab 10/16/21 12/12/21 Rx flurbiprofen 100 mg tablet 100 mg PO BID #180 tab 11/13/21 12/12/21 Rx tolterodine 4 mg capsule,extended 4 mg PO PM #90 cap 12/03/21 12/12/21 Rx release 24 hr doxycycline hyclate 100 mg capsule 100 mg PO BID 7 Days #14 cap 12/05/21 12/12/21 Rx Past Med/Surg History Medical History Aortic valve sclerosis Without stenosis per 2018 echo. Arthritis Depression Excessive sweating History of abnormal electrocardiogram HTN (hypertension) Hypercalcemia Resolved Hyperparathyroidism s/p parathyroidectomy Hypokalemia Resolved Hypophosphatemia Mitral valve prolapse Not noted on 2018 echo Obesity Partial small bowel obstruction Stress incontinence Trigger finger (acquired) Surgical History Cervical vertebral fusion 10/2008- Dr. Guerrero H/O arthroscopy of knee LEFT H/O carpal tunnel repair R/L H/O colonoscopy H/O neck surgery neck exploration with excision of parathyroidadenoma and biopsy of upper parathyroid gland H/O parathyroidectomy History of gynecologic surgery anterior colporrhaphy, repair of cystocele and posterior colporrhaphy for pelvic relaxation History of total hip replacement RIGHT History of total knee arthroplasty LEFT S/P lumbar fusion 2005- Dr. Guerrero and repeat lumbar surgery 05/2009 S/P rotator cuff repair RIGHT S/P thyroid surgery parathyroid resection S/P vaginal hysterectomy Family History Mother Goiter Father Colon cancer Emphysema of lung Denies family history of Ovarian cancer Prostate cancer Myocardial infarction Breast cancer Social History Smoking Status: Never smoker Second Hand Exposure: Yes (SPOUSE USED TO SMOKE); Hx Alcohol Use: No Hx Substance Use: No Preferred Language: Puerto Rican Communication Ability: Effective Siebel Consultant Required: No Beliefs That Will Affect Care: None marital status: Current Living Situation: Spouse current occupational status: retired 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, 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 Feels Safe at Home: Yes Childhood Exposure to Second-Hand Smoke: Yes Dental Care, Regularly: No Physical Activity Frequency: Does not Exercise Seatbelt Use: always Sunscreen Use: No Assistive Devices: Denture - Upper Review of Systems Review of Systems: All systems reviewed & are unremarkable except as noted in HPI & below Physical Exam Constitutional: WD/WN, vitals as above + obese Eyes: PERRL, conjunctivae normal, anicteric sclerae Neck: trachea midline, no thyromegaly Respiratory: normal respiratory effort, lungs clear to auscultation Cardiovascular: RRR, no murmur, no edema Chest (Breasts): Chest: normal inspection of chest Gastrointestinal (Abdomen): normal bowel sounds, soft, nontender, no hepatosplenomegaly Musculoskeletal: Extremities: extremities normal to inspection; no cyanosis and no clubbing Skin: no rashes, warm and dry Neurologic: moves all extremities and awake; no focal motor deficits Psychiatric: Orientation: alert, oriented x 3 (Although a bit forgetful at times) and cooperative Lymphatic: no lymphedema Results & Data Results & Data ([facility]) Vital Signs (Past 12 Hours) Vital Signs Temp Pulse Pulse Resp BP BP Pulse Ox 12/12/21 18:00 113 H 18 209/107 H 95 12/12/21 16:45 37.0 C 114 H 20 196/100 H 96 12/12/21 14:53 116 H 20 186/91 H 97 12/12/21 11:56 110 H 20 188/90 H 97 12/12/21 09:56 36.8 C 114 H 18 194/99 H 96 Laboratory Results 12/12/21 12/12/21 12/12/21 Range/Units 14:00 09:55 09:55 WBC 4.49 L (4.8-10.8) K/uL RBC 4.37 (4.2-5.4) M/uL Hgb 12.7 (12.0-16.0) g/dL Hct 39.8 (37-47) % MCV 91.1 (80-100) fL MCH 29.1 (25-34) pg MCHC 31.9 L (32-36) g/dL RDW Std Deviation 47.6 H (36.4-46.3) fL RDW Coeff of Jh 14.2 (11.5-14.5) % Plt Count 236 (130-400) K/uL MPV 9.8 (7.4-10.4) fL Immature Gran % (Auto) 0.2 % Neut % (Auto) 71.8 % Lymph % (Auto) 16.9 % [place] % (Auto) 10.7 % Eos % (Auto) 0.4 % Baso % (Auto) 0.0 % Neut # (Auto) 3.22 (1.4-6.5) K/uL Lymph # (Auto) 0.76 L (1.2-3.4) K/uL [place] # (Auto) 0.48 (0.11-0.59) K/uL Eos # (Auto) 0.02 (0-0.5) K/uL Baso # (Auto) 0.00 (0-0.2) K/uL Immature Gran # (Auto) 0.01 (0.00-0.02) K/uL Sodium 142 (136-145) mmol/L Potassium 3.5 (3.5-5.1) mmol/L Chloride 102 (98-107) mmol/L Carbon Dioxide 29 (21-32) mmol/L Anion Gap 11 (3-11) BUN 13 (6-23) mg/dl Creatinine 0.68 (0.6-1.2) mg/dl Est Cr Clr Drug Dosing 69.2 ml/min Est GFR ( Amer) 97.8 ml/min Est GFR (Non-Af Amer) 84.4 ml/min BUN/Creatinine Ratio 19.1 (10-20) Glucose 179 H (70-99(Fasting)) mg/dl Calcium 9.9 (8.5-10.1) mg/dl Phosphorus 2.8 (2.5-4.9) mg/dl Magnesium 2.0 (1.7-2.4) mg/dl Total Bilirubin 0.7 (0.2-1.0) mg/dl AST 21 (13-39) U/L ALT 15 (7-52) U/L Alkaline Phosphatase 103 (34-104) U/L Troponin I < 0.03 (0-0.04) ng/ml Total Protein 7.5 (6.0-8.3) gm/dl Albumin 3.9 (3.4-5.0) gm/dl Globulin 3.6 (2.5-4.0) gm/dl Albumin/Globulin Ratio 1.1 (0.9-2) Lipase 13 (11-82) U/L Urine Color Yellow Urine Appearance Clear (Clear) Urine pH 8.0 H (4.5-7.5) Ur Specific [place] 1.011 (1.000-1.030) Urine Protein Negative (Negative) Urine Glucose (UA) Negative (Negative) Urine Ketones 1+ H (Negative) Urine Blood Negative (Negative) Urine Nitrite Negative (Negative) Urine Bilirubin Negative (Negative) Urine Urobilinogen Negative (Negative) Ur Leukocyte Esterase Negative (Negative) Diagnostic Findings Chest X-Ray 12/12/21 10:33 XR chest 1V portable CLINICAL HISTORY: Atypical chest pain TECHNIQUE: Single frontal radiograph of the chest was obtained. Comparison: Comparison is made to chest one view 12/11/2021 FINDINGS: Status post right shoulder reverse arthroplasty and cervical fixation hardware is seen. The cardiomediastinal silhouette is normal. The lungs are clear. No evidence of pleural effusion or pneumothorax. IMPRESSION: No acute chest disease. ACT 112: Negative or not required by law. Electronically signed by: Jair Kwon M.D. 12/12/2021 11:02 AM ECG Additional Comments: ECG on 12/12/2021 at 9:46 AM with sinus tachycardia, rate 113, voltage criteria for LVH, prolonged QTc 636 although the QT does not really seem to be more than half the RR distance on ECG so this may be a faulty reading by the computer Code Status & VTE Plan Code Status DNR/DNI as per discussion with patient VTE Prophylaxis Plan VTE Prophylaxis will be ordered: Yes PG Care Time/CCT Total # of Minutes Spent Total Time Spent with Patient: Total time spent is greater than 50% in coordination of care (as documented) at patient's floor/unit and/or counseling patient: Coding Level of Care Code INT OBSERVATION CARE 70M LVL 3 Diagnoses COVID-19 U07.1 Generalized weakness R53.1 Depression F32.9 HTN (hypertension) I10 Asthma J45.909 Hyperlipidemia E78.5 Vitamin D deficiency E55.9 Urinary incontinence R32 Impaired fasting glucose R73.01 Nausea & vomiting R11.2
--- NOTE | 2021-12-12 19:05 | Electrocardiogram Report ---
Test Reason : Blood Pressure : / mmHG Vent. Rate : 113 BPM Atrial Rate : 113 BPM P-R Int : 112 ms QRS Dur : 080 ms QT Int : 464 ms P-R-T Axes : 000 064 068 degrees QTc Int : 636 ms Poor data quality, interpretation may be adversely affected Sinus tachycardia Minimal voltage criteria for LVH, may be normal variant Prolonged QT Abnormal ECG When compared with ECG of 10-DEC-2021 23:47, No significant change was found Confirmed by Trung Hernandez ([id number]) on 12/12/2021 7:04:57 PM Referred By: REFERRED SELF Confirmed By:Sharan Hernandez
[2021-12-12] MEDS ORDERED: hydrALAZINE HCL 20 MG/ML VIAL ONE (22:37)
[2021-12-13] MEDS ORDERED: PROCHLORPERAZINE 10 MG in SYRINGE 8 ML IV PRN (00:19)
[2021-12-13] MEDS ORDERED: ALBUTEROL HFA 8 GM INHALER INH PRN (00:19)
[2021-12-13] MEDS ORDERED: hydrALAZINE HCL 20 MG/ML VIAL IV PRN (00:19)
[2021-12-13] MEDS ORDERED: ALUMINUM/MAGNESIUM SUSP 30 ML UDC PO PRN (00:19)
[2021-12-13] MEDS ORDERED: LACTATED RINGER'S 1,000 ML IV SCH (00:19)
[2021-12-13] MEDS: ACETAMINOPHEN 325 MG TAB PO PRN ×2 (00:45→05:04)
[2021-12-13] MEDS: TOLTERODINE TARTRATE LA 4 MG CAPCR PO SCH ×2 (01:16→20:53)
[2021-12-13] MEDS: VENLAFAXINE HCL XR 37.5 MG CAPXR PO SCH ×3 (01:16→20:53)
[2021-12-13] MEDS: FAMOTIDINE 20 MG in SYRINGE 3 ML IV SCH ×2 (01:16→08:50)
[2021-12-13] MEDS: ATORVASTATIN 20 MG TAB PO SCH ×2 (01:17→20:52)
[2021-12-13] MEDS: PROPRANOLOL HCL 20 MG TAB PO SCH ×3 (01:17→20:55)
[2021-12-13] MEDS: GABAPENTIN 100 MG CAP PO SCH ×3 (01:17→20:55)
[2021-12-13] MEDS: ASCORBIC ACID 500 MG TAB PO SCH ×3 (01:18→20:54)
[2021-12-13] MEDS: lisinopril 5 MG TAB PO SCH ×2 (01:18→08:26)
[2021-12-13] MEDS: LORazepam 1 MG TAB PO SCH ×3 (01:19→20:55)
[2021-12-13] MEDS: traMADol HCL 50 MG TABLET PO SCH ×3 (01:19→20:52)
[2021-12-13] MEDS: DOCUSATE SODIUM 100 MG CAP PO SCH ×3 (01:19→20:53)
[2021-12-13 06:29] LABS: Basophils # (auto) 0.01 K/uL (0-0.2); Basophils % (auto) 0.1 %; Hematocrit (blood only) 35.6 % (37-47); Hemoglobin 11.6 g/dL (12.0-16.0); Immature Granulocytes # (auto) 0.01 K/uL (0.00-0.02); Immature Granulocytes % (auto) 0.1 %; Lymphocytes # (auto) 0.64 K/uL (1.2-3.4); Lymphocytes % (auto) 8.4 %; Mean Corpuscular Hemoglobin 29.2 pg (25-34); Mean Corpuscular Hgb Conc 32.6 g/dL (32-36); Mean Corpuscular Volume 89.7 fL (80-100); Mean Platelet Volume 9.2 fL (7.4-10.4); Monocytes # (auto) 0.69 K/uL (0.11-0.59); Monocytes % (auto) 9.1 %; Neutrophils # (auto) 6.26 K/uL (1.4-6.5); Neutrophils % (auto) 82.3 %; Platelet Count 265 K/uL (130-400); RDW Coefficient of Variation 14.5 % (11.5-14.5); Red Blood Count 3.97 M/uL (4.2-5.4); White Blood Count 7.61 K/uL (4.8-10.8)
[2021-12-13 06:48] LABS: BUN Creatinine Ratio 25.5 (10-20); Calcium 9.2 mg/dl (8.5-10.1); Creatinine Clr Calc Pharmacy 86.7 ml/min; Est GFR (African American) 104.9 ml/min; Est GFR (Non-African American) 90.5 ml/min; Magnesium 2.1 mg/dl (1.7-2.4); Potassium 3.3 mmol/L (3.5-5.1)
[2021-12-13] MEDS: ENOXAPARIN INJ 40 MG/0.4 ML SYR SQ SCH ×2 (08:27→20:51)
[2021-12-13] MEDS: ASPIRIN 325 MG ECTAB PO SCH (08:27)
[2021-12-13] MEDS: FOLIC ACID 400 MCG TAB PO SCH (08:27)
[2021-12-13] MEDS: CHOLECALCIFEROL 1,000 UNITS 25 MCG TAB PO SCH (08:27)
[2021-12-13] MEDS ORDERED: POTASSIUM CHLORIDE CRTAB 20 MEQ TABCR PO STA (11:11)
--- NOTE | 2021-12-13 16:33 | Hospitalist Progress Note ---
Date of Service December 13, 2021 Assessment & Plan (1) COVID-19: Plan: Patient has had symptoms of COVID-19 since approximately 12/01 with cough that is productive, nausea, and generalized weakness First test date that is positive is 12/11 She was treated with doxycycline x7 days as an outpatient for bronchitis and since starting treatment has had significant nausea and some vomiting She is unvaccinated She does not have pneumonia on chest x-ray and her pulse ox is 96% on room air. She does have some leukopenia on CBC There is no one to help care for her at home and she does not feel comfortable going home Nausea now completely resolved and feeling very well after 1 day in the hospital.SHe received IVFs and antiemetics Is eating reg food, no more cough, no SOB, still no O2 requirement. -continued stay while awaiting for caregivers to arrive to her house on Wednesday for 03/05 care-maintain Covid-19 precautions -adv to regular diet -continue Pepcid twice daily for nausea but change to po -Avoid Zofran for now given possible prolonged QT, but doubt that QT is being calculated correctly as her QT from the day before was normal -Give Compazine as needed for nausea -She does not meet any criteria for dexamethasone, and is outside of the window for Remdesivir -PT/OT consults for rehab evaluation, but doubtful now that she will need this -Monitor for worsening of pulse ox (2) Hypokalemia: Plan: K+ 3.3 today replace with po KCl follow bMP (3) Nausea & vomiting: Plan: As above, could be secondary to Covid-19, but also could be secondary to a side effect of doxycycline. She also has both ibuprofen and flurbiprofen and aspirin 325 mg listed on her home medication reconciliation No evidence of melena or hematemesis, hemoglobin stable, do not suspect GI bleeding Now completely resolved -continue to hold all NSAIDs, but continue aspirin -continue Pepcid 20 mg twice daily -Discontinued doxycycline-regardless she has completed a 7-day course -IV Compazine as needed (4) Generalized weakness: Plan: As above, secondary to nausea and Covid-19 Improved, ambulating independently in room but does feel a little lightheaded with this-reminded her to ask for nursing to assist her and use walker (5) HTN (hypertension): Plan: Blood pressures were markedly elevated at 200 systolic in the ER and she has not taken her blood pressure pills in at least 1 or 2 days Now improved with restarting home meds continue home lisinopril hydralazine as needed -Holding home furosemide for dehydration Avoid all NSAIDs (6) Asthma: Plan: Stable Continue albuterol as needed (7) Hyperlipidemia: Plan: Continue statin (8) Vitamin D deficiency: Plan: Hold home vitamin supplements until nausea improved (9) Urinary incontinence: Plan: Continue Detrol LA (10) Impaired fasting glucose: Plan: Hemoglobin A1c 5.9% in 01/2021 No need for Accu-Cheks (11) Depression: Plan: Continue home venlafaxine Plan: DVT prophylaxis-Lovenox, SCDs Disposition-continued stay on observation to medical/surgical floor, however in discussing her care with her daughter on the phone, there will be no one to be able to help care for the patient till she is strong enough to take care of herself until at least next week when the patient's son arrives from out of town. Hopeful for discharge to home on Wednesday unless she feels comfortable going home alone before that if deemed safe by PT PT/OT consults still pending DNR/DNI as per discussion with patient Admission and Anticipated Discharge Date Admission Date: December 12, 2021 Subjective Has no complaints except feels a little bit lightheaded when she walks around the orom by herself. Otherwise feels great. No further nausea, is eating regular food. Moved her bowels, making urine, no CP or SOB. Review of Systems Review of Systems: All systems reviewed & are unremarkable except as noted in HPI & below Physical Exam Constitutional: WD/WN, vitals as above + obese Eyes: + anicteric sclerae Neck: trachea midline, no thyromegaly Respiratory: normal respiratory effort, lungs clear to auscultation Cardiovascular: RRR, no murmur, no edema Chest (Breasts): Chest: normal inspection of chest Gastrointestinal (Abdomen): normal bowel sounds, soft, nontender, no hepatosplenomegaly Musculoskeletal: Extremities: extremities normal to inspection; no cyanosis and no clubbing Skin: no rashes, warm and dry Neurologic: moves all extremities and awake; no focal motor deficits Psychiatric: Orientation: alert, oriented x 3 and cooperative Lymphatic: no lymphedema Results & Data Results & Data ([facility]) Vital Signs (Past 12 Hours) Vital Signs Temp Pulse Resp BP Pulse Ox 12/13/21 15:00 36.8 C 112 H 20 150/94 H 93 12/13/21 10:59 162/94 H 12/13/21 08:00 97 H 16 187/107 H 96 Laboratory Results 12/13/21 12/13/21 Range/Units 05:25 05:25 WBC 7.61 (4.8-10.8) K/uL RBC 3.97 L (4.2-5.4) M/uL Hgb 11.6 L (12.0-16.0) g/dL Hct 35.6 L (37-47) % MCV 89.7 (80-100) fL MCH 29.2 (25-34) pg MCHC 32.6 (32-36) g/dL RDW Std Deviation 48.0 H (36.4-46.3) fL RDW Coeff of Jh 14.5 (11.5-14.5) % Plt Count 265 (130-400) K/uL MPV 9.2 (7.4-10.4) fL Immature Gran % (Auto) 0.1 % Neut % (Auto) 82.3 % Lymph % (Auto) 8.4 % [place] % (Auto) 9.1 % Eos % (Auto) 0.0 % Baso % (Auto) 0.1 % Neut # (Auto) 6.26 (1.4-6.5) K/uL Lymph # (Auto) 0.64 L (1.2-3.4) K/uL [place] # (Auto) 0.69 H (0.11-0.59) K/uL Eos # (Auto) 0.00 (0-0.5) K/uL Baso # (Auto) 0.01 (0-0.2) K/uL Immature Gran # (Auto) 0.01 (0.00-0.02) K/uL Sodium 141 (136-145) mmol/L Potassium 3.3 L (3.5-5.1) mmol/L Chloride 106 (98-107) mmol/L Carbon Dioxide 28 (21-32) mmol/L Anion Gap 7 (3-11) BUN 14 (6-23) mg/dl Creatinine 0.55 L (0.6-1.2) mg/dl Est Cr Clr Drug Dosing 86.7 ml/min Est GFR ( Amer) 104.9 ml/min Est GFR (Non-Af Amer) 90.5 ml/min BUN/Creatinine Ratio 25.5 H (10-20) Glucose 147 H (70-99(Fasting)) mg/dl Calcium 9.2 (8.5-10.1) mg/dl Magnesium 2.1 (1.7-2.4) mg/dl PG Care Time/CCT Total # of Minutes Spent Total Time Spent with Patient: Total time spent is greater than 50% in coordination of care (as documented) at patient's floor/unit and/or counseling patient: Coding Level of Care Code 15583 Subseq Hosp Care Lvl 2 Diagnoses COVID-19 U07.1 Nausea & vomiting R11.2 Generalized weakness R53.1 HTN (hypertension) I10 Asthma J45.909 Hyperlipidemia E78.5 Vitamin D deficiency E55.9 Urinary incontinence R32 Impaired fasting glucose R73.01 Depression F32.9 Hypokalemia E87.6
[2021-12-13] MEDS: FAMOTIDINE 20 MG TAB PO SCH (20:51)
[2021-12-14] MEDS: LORazepam 1 MG TAB PO SCH ×2 (08:24→20:10)
[2021-12-14] MEDS: traMADol HCL 50 MG TABLET PO SCH ×2 (08:24→20:09)
[2021-12-14] MEDS: FAMOTIDINE 20 MG TAB PO SCH ×2 (08:24→20:10)
[2021-12-14] MEDS: ENOXAPARIN INJ 40 MG/0.4 ML SYR SQ SCH ×2 (08:30→20:10)
[2021-12-14] MEDS: CHOLECALCIFEROL 1,000 UNITS 25 MCG TAB PO SCH (08:31)
[2021-12-14] MEDS: GABAPENTIN 100 MG CAP PO SCH ×2 (08:31→20:11)
[2021-12-14] MEDS: FOLIC ACID 400 MCG TAB PO SCH (08:31)
[2021-12-14] MEDS: ASCORBIC ACID 500 MG TAB PO SCH ×2 (08:32→20:09)
[2021-12-14] MEDS: VENLAFAXINE HCL XR 37.5 MG CAPXR PO SCH ×2 (08:32→20:09)
[2021-12-14] MEDS: ASPIRIN 325 MG ECTAB PO SCH (08:32)
[2021-12-14] MEDS: lisinopril 5 MG TAB PO SCH (08:32)
[2021-12-14] MEDS: PROPRANOLOL HCL 20 MG TAB PO SCH ×2 (08:32→20:11)
[2021-12-14] MEDS: DOCUSATE SODIUM 100 MG CAP PO SCH ×2 (08:32→20:12)
[2021-12-14 08:57] LABS: BUN Creatinine Ratio 31.5 (10-20); Calcium 8.2 mg/dl (8.5-10.1); Creatinine Clr Calc Pharmacy 65.3 ml/min; Est GFR (African American) 92.1 ml/min; Est GFR (Non-African American) 79.4 ml/min; Magnesium 2.1 mg/dl (1.7-2.4); Potassium 3.4 mmol/L (3.5-5.1)
[2021-12-14] MEDS: ATORVASTATIN 20 MG TAB PO SCH (20:11)
[2021-12-14] MEDS: TOLTERODINE TARTRATE LA 4 MG CAPCR PO SCH (20:12)
[2021-12-14] MEDS ORDERED: POTASSIUM CHLORIDE CRTAB 20 MEQ TABCR PO STA (21:37)
--- NOTE | 2021-12-14 21:39 | Hospitalist Progress Note ---
Date of Service December 14, 2021 Assessment & Plan (1) COVID-19: Plan: Patient has had symptoms of COVID-19 since approximately 12/01 with cough that is productive, nausea, and generalized weakness First test date that is positive is 12/11 She was treated with doxycycline x7 days as an outpatient for bronchitis and since starting treatment has had significant nausea and some vomiting She is unvaccinated She does not have pneumonia on chest x-ray and her pulse ox is 96% on room air. She does have some leukopenia on CBC There is no one to help care for her at home and she does not feel comfortable going home Nausea now completely resolved and feeling very well after 1 day in the hospital.SHe received IVFs and antiemetics Is eating reg food, no more cough, no SOB, still no O2 requirement. -continued stay while awaiting for caregivers to arrive to her house on Wednesday for 03/05 care-maintain Covid-19 precautions -adv to regular diet -continue Pepcid twice daily for nausea but change to po -Avoid Zofran for now given possible prolonged QT, but doubt that QT is being calculated correctly as her QT from the day before was normal -Give Compazine as needed for nausea -She does not meet any criteria for dexamethasone, and is outside of the window for Remdesivir -PT/OT consults for rehab evaluation, but doubtful now that she will need this -Monitor for worsening of pulse ox Possible discharge in AM. (2) Hypokalemia: Plan: K+ 3.4 today replace with po KCl follow bMP (3) Nausea & vomiting: Plan: As above, could be secondary to Covid-19, but also could be secondary to a side effect of doxycycline. She also has both ibuprofen and flurbiprofen and aspirin 325 mg listed on her home medication reconciliation No evidence of melena or hematemesis, hemoglobin stable, do not suspect GI bleeding Now completely resolved -continue to hold all NSAIDs, but continue aspirin -continue Pepcid 20 mg twice daily -Discontinued doxycycline-regardless she has completed a 7-day course -IV Compazine as needed (4) Generalized weakness: Plan: As above, secondary to nausea and Covid-19 Improved, ambulating independently in room but does feel a little lightheaded with this-reminded her to ask for nursing to assist her and use walker (5) HTN (hypertension): Plan: Blood pressures were markedly elevated at 200 systolic in the ER and she has not taken her blood pressure pills in at least 1 or 2 days Now improved with restarting home meds continue home lisinopril hydralazine as needed -Holding home furosemide for dehydration Avoid all NSAIDs (6) Asthma: Plan: Stable Continue albuterol as needed (7) Hyperlipidemia: Plan: Continue statin (8) Vitamin D deficiency: Plan: Hold home vitamin supplements until nausea improved (9) Urinary incontinence: Plan: Continue Detrol LA (10) Impaired fasting glucose: Plan: Hemoglobin A1c 5.9% in 01/2021 No need for Accu-Cheks (11) Depression: Plan: Continue home venlafaxine Plan: DVT prophylaxis-Lovenox, SCDs Disposition-continued stay on observation to medical/surgical floor, however in discussing her care with her daughter on the phone, there will be no one to be a ble to help care for the patient till she is strong enough to take care of herself until at least next week when the patient's son arrives from out of town. Hopeful for discharge to home on Wednesday unless she feels comfortable going home alone before that if deemed safe by PT PT/OT consults still pending DNR/DNI as per discussion with patient Admission and Anticipated Discharge Date Admission Date: December 12, 2021 Subjective Patient reports feeling well, has no new complaints. Review of Systems Review of Systems: All systems reviewed & are unremarkable except as noted in HPI & below Physical Exam Constitutional: WD/WN, vitals as above + obese Eyes: PERRL, conjunctivae normal, anicteric sclerae + anicteric sclerae Neck: trachea midline, no thyromegaly Respiratory: normal respiratory effort, lungs clear to auscultation Cardiovascular: RRR, no murmur, no edema Chest (Breasts): Chest: normal inspection of chest Gastrointestinal (Abdomen): normal bowel sounds, soft, nontender, no hepatosplenomegaly Musculoskeletal: Extremities: extremities normal to inspection; no cyanosis and no clubbing Skin: no rashes, warm and dry Neurologic: moves all extremities and awake; no focal motor deficits Psychiatric: Orientation: alert, oriented x 3 and cooperative Lymphatic: no lymphedema Results & Data Results & Data ([facility]) Vital Signs (Past 12 Hours) Vital Signs Pulse Resp BP Pulse Ox 12/14/21 20:05 101 H 158/92 H 12/14/21 17:28 106 H 18 132/83 94 PG Care Time/CCT Total # of Minutes Spent Total Time Spent with Patient: Total time spent is greater than 50% in coordination of care (as documented) at patient's floor/unit and/or counseling patient: Coding Level of Care Code 87743 Subseq Hosp Care Lvl 2 Diagnoses COVID-19 U07.1 Hypokalemia E87.6 Nausea & vomiting R11.2 Generalized weakness R53.1 HTN (hypertension) I10 Asthma J45.909 Hyperlipidemia E78.5 Vitamin D deficiency E55.9 Urinary incontinence R32 Impaired fasting glucose R73.01 Depression F32.9
[2021-12-15 07:47] LABS: Hematocrit (blood only) 32.8 % (37-47); Hemoglobin 10.8 g/dL (12.0-16.0); Mean Corpuscular Hemoglobin 29.7 pg (25-34); Mean Corpuscular Hgb Conc 32.9 g/dL (32-36); Mean Corpuscular Volume 90.1 fL (80-100); Platelet Count 254 K/uL (130-400); RDW Coefficient of Variation 14.2 % (11.5-14.5); RDW Standard Deviation 47.3 fL (36.4-46.3); Red Blood Count 3.64 M/uL (4.2-5.4); White Blood Count 5.06 K/uL (4.8-10.8)
[2021-12-15 08:08] LABS: BUN Creatinine Ratio 21.9 (10-20); Calcium 8.2 mg/dl (8.5-10.1); Creatinine Clr Calc Pharmacy 65.3 ml/min; Est GFR (African American) 92.1 ml/min; Est GFR (Non-African American) 79.4 ml/min; Potassium 3.8 mmol/L (3.5-5.1)
[2021-12-15] MEDS: ENOXAPARIN INJ 40 MG/0.4 ML SYR SQ SCH (09:57)
[2021-12-15] MEDS: LORazepam 1 MG TAB PO SCH (09:57)
[2021-12-15] MEDS: lisinopril 5 MG TAB PO SCH (09:57)
[2021-12-15] MEDS: traMADol HCL 50 MG TABLET PO SCH (09:57)
[2021-12-15] MEDS: PROPRANOLOL HCL 20 MG TAB PO SCH (09:57)
[2021-12-15] MEDS: VENLAFAXINE HCL XR 37.5 MG CAPXR PO SCH (09:57)
[2021-12-15] MEDS: FAMOTIDINE 20 MG TAB PO SCH (09:58)
[2021-12-15] MEDS: FOLIC ACID 400 MCG TAB PO SCH (09:58)
[2021-12-15] MEDS: ASCORBIC ACID 500 MG TAB PO SCH (09:58)
[2021-12-15] MEDS: CHOLECALCIFEROL 1,000 UNITS 25 MCG TAB PO SCH (09:58)
[2021-12-15] MEDS: DOCUSATE SODIUM 100 MG CAP PO SCH (09:58)
[2021-12-15] MEDS: ASPIRIN 325 MG ECTAB PO SCH (09:58)
[2021-12-15] MEDS: GABAPENTIN 100 MG CAP PO SCH (09:58)
--- NOTE | 2021-12-15 13:54 | Discharge Summary ---
Date of Service December 15, 2021 Admission HPI Per Admitting Provider This patient is a 76-year-old female with a history of HTN, obesity, anxiety/depression, overactive bladder, chronic pain, arthritis, and partial small bowel obstruction who has now returned to the ER for the second time in 24 hours for nausea. She began having a productive cough with yellow sputum approximately 11 days ago and contacted her PCP who prescribed her doxycycline on 12/05 for bronchitis and encouraged her to go get a Covid-19 test. The patient did not feel she needed a Covid-19 test because she did not think it was possible for her to get Covid since she had not left the house. However, she does have groceries delivered and also has had family visiting. She came to the ER last night with cough and nausea and felt better after some treatment and her neighbor took her home. Her daughter was not able to get a hold of her by phone this morning and asked the neighbor to go back and check on her. They found her moaning and complaining of severe nausea. She reports that she has been vomiting but no blood in the vomit. No abdominal pain. She does have heartburn. Of note, she recently finished a 1 week course of doxycycline this morning, and takes aspirin every day as well as multiple NSAIDs for chronic pain. She has not had any diarrhea or blood in her stool that she knows of. No chest pain or shortness of breath, cough is improved. She does not feel well enough to go home. I did discuss her care with her daughter on the phone who also reported that there is no one that can help take care of the patient at home as her who is also severely debilitated is currently in the hospital for the last 3 weeks. In the ER, she was noted to be quite hypertensive but states that she did not take her blood pressure medicines today. She was afebrile, mildly tachycardic in a sinus rhythm, and had a pulse ox of 95-96% on room air. Chest x-ray was negative for pneumonia. She was treated with 1 L normal saline, IV Pepcid, IV Zofran and IV Tylenol, as well as albuterol and Mucinex. She will be admitted for COVID-19 with generalized weakness and nausea/vomiting possibly secondary to NSAID use and doxycycline use, but could also be related to Covid-19. Principal Diagnosis COVID-19, Nausea/vomiting, Suspect doxycycline-indeuced gastritis Discharge Exam Constitutional WD/WN, vitals as above + obese Eyes + anicteric sclerae Neck trachea midline, no thyromegaly Respiratory normal respiratory effort, lungs clear to auscultation Cardiovascular RRR, no murmur, no edema Chest (Breasts) Chest: normal inspection of chest Gastrointestinal (Abdomen) normal bowel sounds, soft, nontender, no hepatosplenomegaly Musculoskeletal Extremities: extremities normal to inspection; no cyanosis and no clubbing Skin no rashes, warm and dry Neurologic moves all extremities and awake; no focal motor deficits Psychiatric Orientation: alert, oriented x 3 and cooperative Lymphatic no lymphedema Discharge Data Allergies Allergy/AdvReac Type Severity Reaction Status Date / Time hydrocodone Allergy NAUSEA/INSOMINIA-COUGH Verified 12/12/21 15:51 SYRUP homatropine AdvReac Unknown HYDROCODONE/HOMATROPINE Verified 12/12/21 15:51 COUGH SYRP-INSOMNIA/NAUSEA Consultations 12/12/21 16:10 ED Decision to Admit Stat Hospital Course (1) COVID-19: Patient has had symptoms of COVID-19 since approximately 12/01 with cough that is productive, nausea, and generalized weakness First test date that is positive is 12/11 She was treated with doxycycline x7 days as an outpatient for bronchitis and since starting treatment has had significant nausea and some vomiting She is unvaccinated She does not have pneumonia on chest x-ray and her pulse ox is 96% on room air. She does have some leukopenia on CBC There is no one to help care for her at home and she does not feel comfortable going home Nausea now completely resolved and feeling very well after 1 day in the hospital.SHe received IVFs and antiemetics, Pepcid Is eating reg food, no more cough, no SOB, still no O2 requirement. Suspect this was secondary to doxycycline use--> continue Protonix 40mg po once daily x 2 week course after discharge -She does not meet any criteria for dexamethasone, and is outside of the window for Remdesivir Stable with gait, independent in room with ambulation (2) Hypokalemia: replaced and normalized (3) Nausea & vomiting: As above, could be secondary to Covid-19, but also could be secondary to a side effect of doxycycline. She also has both ibuprofen and flurbiprofen and aspirin 325 mg listed on her home medication reconciliation No evidence of melena or hematemesis, hemoglobin stable, do not suspect GI bleeding Now completely resolved -continue Protonix as above x 2 week course -ok to continue ASA and can restart flurbiprofen, but advised to NOT take ibuprofen simultaneously -Discontinued doxycycline-regardless she has completed a 7-day course (4) Generalized weakness: As above, secondary to nausea and Covid-19 resolved (5) HTN (hypertension): Blood pressures were markedly elevated at 200 systolic in the ER and she has not taken her blood pressure pills in at least 1 or 2 days Now improved with restarting home meds continue home lisinopril resume lasix on discharge (6) Asthma: Stable Continue albuterol as needed (7) Hyperlipidemia: Continue statin (8) Vitamin D deficiency: restart home vitamin supplements now that nausea improved (9) Urinary incontinence: Continue Detrol LA (10) Impaired fasting glucose: Hemoglobin A1c 5.9% in 01/2021 No need for Accu-Cheks (11) Depression: Continue home venlafaxine DVT prophylaxis-Lovenox, SCDs Disposition-dc to home with home health DNR/DNI as per discussion with patient Home Health Attestation I certify that this patient is under my care and that I, or a physicians front end assistant working with me, had a face to-face encounter that meets the home health [id number] encounter requirements with this patient. The encounter with the patient was in whole, or in part, for the following medical condition, which is the primary reason for home health care (list medical condition): COVID I certify that, based on my findings, the following services are medically necessary home health services: My clinical findings support the need for the above services because: Home Safety Assessment PT Eval for Safety and Mobility PT Eval for Safety, Gait Training, Assistive Devices Skilled Nsg Assessment Skilled Nsg Assess Pt Illness, Disease and Sx Monitoring Further, I certify that my clinical findings support that this patient is homebound (i.e. absences from home require considerable and taxing effort and are for medical reasons or yazidi services or infrequently or of short duration when for other reasons) because: Poor Endurance; SOB Minimal Exertion Supportive Aid - Walker Transportation Assistance/Unable to Leave Home Unassisted Certification for Home Health Services: Based on the above findings, I certify that this patient is confined to the home and needs intermittent long term care, physical therapy and/or speech therapy or continues to need occupational therapy. The patient is under my care, and I have initiated the establishment of the plan of care. This patient will be followed by a physician who will periodically review the plan of care. Total Time Total Time Spent Total Time Spent (In Minutes): 35 min Discharge Plan Discharge Items Patient Disposition: Home - Home Health Services Reason For Visit: COVID-19, NAUSEA / VOMITING Discharge Diagnosis: COVID-19, Nausea/vomiting Condition on Discharge: Good Activity: Resume your previous activity Non-emergency contact: Primary Care Provider Call non-emergency contact if: you have any medication questions and your symptoms worsen Follow-up/Referrals: Aryan Jack III, MD [Primary Care Provider] - (Please follow up within 1- 2 weeks.) Diet: Regular Addtl Attending Provider Instructions: Please continue taking Protonix 40mg twice a day x 2 weeks to help with irritation of the stomach from the doxycycline. You are doing well otherwise and do not need any oxygen. You should not be taking multiple antiinflammatory medications. Please do not take ibuprofen on top of the flurbiprofen. Pending Studies at Discharge: No Stand-Alone Forms: My [facility] Medications and DC Order Prescriptions: New pantoprazole 40 mg tablet,delayed release (DR/EC) 40 mg PO DAILY Qty: 14 RF: 0 Continued atorvastatin 20 mg tablet 20 mg PO QPM Qty: 90 RF: 3 propranolol 40 mg tablet 40 mg PO BID Qty: 180 RF: 3 furosemide 40 mg tablet 40 mg PO QAM Qty: 90 RF: 3 venlafaxine 37.5 mg capsule,extended release 24hr 37.5 mg PO BID Qty: 180 RF: 3 lorazepam 1 mg tablet 1 mg PO BID Qty: 180 RF: 1 lisinopril 5 mg tablet 5 mg PO QAM Qty: 90 RF: 3 gabapentin 100 mg capsule 200 mg PO BID Qty: 360 RF: 3 tramadol 50 mg tablet 100 mg PO BID Qty: 14 RF: 0 flurbiprofen 100 mg tablet 100 mg PO BID Qty: 180 RF: 3 tolterodine 4 mg capsule,extended release 24hr 4 mg PO PM Qty: 90 RF: 3 glucosamine sulfate [Glucosamine] 500 mg tablet 500 mg PO BID RF: 0 Women's Multivitamin 18 mg iron-400 mcg-500 mg tablet 1 tab PO QAM RF: 0 folic acid 800 mcg tablet 0.8 mg PO QAM RF: 0 cholecalciferol (vitamin D3) 2,000 unit tablet 2,000 units PO QAM RF: 0 ascorbic acid (vitamin C) 500 mg capsule 500 mg PO BID RF: 0 albuterol sulfate 90 mcg/actuation HFA aerosol inhaler 2 puffs INH Q6H PRN (Reason: Shortness Of Breath Or Wheezing) Qty: 8.5 RF: 5 aspirin 325 mg tablet 325 mg PO DAILY Qty: 30 RF: 0 calcium carbonate [Calcium 600] 600 mg calcium (1,500 mg) Tablet 600 mg PO BID RF: 0 docusate sodium [Colace] 100 mg Capsule 100 mg PO BID RF: 0 Discontinued doxycycline hyclate 100 mg capsule 100 mg PO BID 7 Days Qty: 14 RF: 0 ibuprofen 600 mg tablet 600 mg PO Q8H Qty: 30 RF: 0 Discharge Orders: Discharge Order (Routine); Ordered 12/15/21 Ordered By: Terrie Zuniga Admission Data Admit Date/Time: 12/14/21 20:21 Attending Provider: Terrie Zuniga Admit Provider: Terrie Zuniga Primary Care Provider: Aryan Jack III Other Providers: Terrie Zuniga ; [facility] Coding Level of Care Code D/C DAY MANAGEMENT >30 MINS Diagnoses COVID-19 U07.1 Hypokalemia E87.6 Nausea & vomiting R11.2 Generalized weakness R53.1 HTN (hypertension) I10 Asthma J45.909 Hyperlipidemia E78.5 Vitamin D deficiency E55.9 Urinary incontinence R32 Impaired fasting glucose R73.01 Depression F32.9
== END 2021-12-15 16:30 | disposition home health service (06) ==
LOC: 3E 09:39 → ED 09:39 → SUATTDRO 18:02 → 3E 21:31

== ENCOUNTER 2023-01-27 01:51 | Observation (INO) ==
[2023-01-27] MEDS ORDERED: fentaNYL citrate PF 100 MCG/2 ML VIAL IV STA (03:16)
--- NOTE | 2023-01-27 03:20 | Emergency Department Note ---
History of Present Illness General Chief complaint: Neck Injury/Pain Stated complaint: HEADACHE/NECK PAIN Time Seen by Provider: 01/27/23 03:06 History of Present Illness Maximum Pain Intensity: 8 77-year-old female with a history of neck surgery by Dr. Guerrero presents with increasing neck pain. Patient states that she is not able to do any activities of daily living due to increased pain. Patient has been taking Tylenol oxycodone gabapentin. Patient had an outpatient MRI yesterday. Patient states she has pain with lifting her arms. Patient's not able to do anything at home. Patient was scheduled to see Dr. Guerrero on Wednesday. Patient denies bowel or bladder dysfunction. Patient denies fever. Patient denies recent trauma. Patient states the pain is moderate in nature its in the posterior neck there are no other mitigating or alleviating factors Home Medications Medication Instructions Recorded Confirmed Type ascorbic acid (vitamin C) 500 mg 500 mg PO BID 04/26/19 01/27/23 History capsule cholecalciferol (vitamin D3) 50 2,000 units PO QAM 04/26/19 01/27/23 History mcg (2,000 unit) tablet folic acid 800 mcg tablet 0.8 mg PO QAM 04/26/19 01/27/23 History glucosamine sulfate 500 mg tablet 500 mg PO BID 04/26/19 01/27/23 History (Glucosamine) calcium carbonate 600 mg calcium 600 mg PO BID 09/12/19 01/27/23 History (1,500 mg) tablet (Calcium) docusate sodium 100 mg capsule 100 mg PO BID 09/12/19 01/27/23 History (Colace) albuterol sulfate 90 mcg/actuation 2 puffs inhalation Q6H PRN 03/25/20 01/27/23 Rx aerosol inhaler Shortness Of Breath Or Wheezing #8.5 grams aspirin 81 mg tablet,delayed 81 mg PO DAILY 12/16/21 01/27/23 History release (Adult Aspirin Regimen) atorvastatin 20 mg tablet 20 mg PO QPM #90 tabs 02/02/22 01/27/23 Rx furosemide 40 mg tablet 40 mg PO QAM #90 tabs 02/27/22 01/27/23 Rx propranolol 40 mg tablet 40 mg PO BID #180 tabs 02/27/22 01/27/23 Rx duloxetine 30 mg capsule,delayed 30 mg PO DAILY #90 caps 04/21/22 01/27/23 Rx release baclofen 5 mg tablet 5 mg PO BID #180 tabs 06/29/22 01/27/23 Rx flurbiprofen 100 mg tablet 100 mg PO TID #270 tabs 09/17/22 01/27/23 Rx pantoprazole 40 mg tablet,delayed 40 mg PO DAILY #90 tabs 09/17/22 01/27/23 Rx release lorazepam 1 mg tablet 1 mg PO BID #20 tabs 10/21/22 01/27/23 Rx tramadol 50 mg tablet 100 mg PO BID pain #40 tabs 10/21/22 01/27/23 Rx lisinopril 5 mg tablet 5 mg PO QAM #10 tabs 11/09/22 01/27/23 Rx tolterodine 4 mg capsule,extended 4 mg PO PM #90 caps 11/30/22 01/27/23 Rx release 24 hr gabapentin 300 mg capsule 300 mg PO DAILY #30 caps 01/25/23 01/27/23 Rx oxycodone 10 mg tablet 10 mg PO Q8H PRN pain #21 tabs 01/25/23 01/27/23 Rx tfzewvik-[id number]-qhyg-FA-Ca carb-vit K 1 tab PO QAM 01/27/23 01/27/23 History 18 mg iron-400 mcg-500 mg tablet Allergies Allergy/AdvReac Type Severity Reaction Status Date / Time homatropine AdvReac Intermediate HYDROCODONE/HOMATROPINE Verified 01/27/23 02:25 COUGH SYRP-INSOMNIA/NAUSEA hydrocodone AdvReac Intermediate NAUSEA/INSOMINIA-COUGH Verified 01/27/23 02:25 SYRUP Past Med/Surg History Medical History Aortic valve sclerosis Without stenosis per 2018 echo. Arthritis COVID-19 Depression Encounter for pre-operative examination Excessive sweating History of abnormal electrocardiogram HTN (hypertension) Hypercalcemia Resolved Hyperparathyroidism s/p parathyroidectomy Hypokalemia Resolved Hypophosphatemia Mitral valve prolapse Not noted on 2018 echo Obesity Partial small bowel obstruction Right rotator cuff tear arthropathy Stress incontinence Trigger finger (acquired) Surgical History Cervical vertebral fusion 10/2008- Dr. Guerrero H/O arthroscopy of knee LEFT H/O carpal tunnel repair R/L H/O colonoscopy H/O neck surgery neck exploration with excision of parathyroidadenoma and biopsy of upper parathyroid gland H/O parathyroidectomy History of gynecologic surgery anterior colporrhaphy, repair of cystocele and posterior colporrhaphy for pelvic relaxation History of total hip replacement RIGHT History of total knee arthroplasty LEFT S/P lumbar fusion 2005- Dr. Guerrero and repeat lumbar surgery 05/2009 S/P rotator cuff repair RIGHT S/P thyroid surgery parathyroid resection S/P vaginal hysterectomy Family History Mother Goiter Father Colon cancer Emphysema of lung Denies family history of Ovarian cancer Prostate cancer Myocardial infarction Breast cancer Social History Smoking Status: Never smoker Second Hand Exposure: Yes (SPOUSE USED TO SMOKE); Hx Alcohol Use: No Hx Substance Use: No Preferred Language: Tajik Communication Ability: Effective Overhead Line Worker Required: No Beliefs That Will Affect Care: None marital status: Current Living Situation: Alone current occupational status: retired 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, 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 Feels Safe at Home: Yes Safety Concerns Comment: Concerns about falling, concerns about mobility Childhood Exposure to Second-Hand Smoke: Yes Dental Care, Regularly: No Physical Activity Frequency: Does not Exercise Seatbelt Use: always Sunscreen Use: No Assistive Devices: Walker Review of Systems A total of 10 systems reviewed and were otherwise negative Musculoskeletal: + neck pain Physical Exam Vital Signs Vital Signs - 24 hr 01/27/23 02:02 01/27/23 02:06 01/27/23 02:27 Temperature 36.8 C Temperature Source Oral Pulse Rate 79 82 Pulse Rate [Apical] 79 Respiratory Rate 18 18 Respiratory Effort / Characteristics Non-Labored Spontaneous Non-Labored Spontaneous Respiratory Depth Normal Normal Blood Pressure 165/95 H Blood Pressure [Right Arm] 165/95 H Blood Pressure Mean 118 Blood Pressure Mean [Right Arm] 118 Blood Pressure Position Sitting Blood Pressure Position [Right Arm] Sitting Pulse Oximetry 94 94 Oxygen Delivery Method Room Air Room Air Sepsis Recent Fever Within 48 Hours No Sepsis New/Unexplained Change in Mental Status No Sepsis Action Taken by Nursing No Action Required 01/27/23 03:53 01/27/23 03:54 Temperature Temperature Source Pulse Rate 77 Pulse Rate [Apical] 77 Respiratory Rate 18 18 Respiratory Effort / Characteristics Non-Labored Spontaneous Respiratory Depth Normal Blood Pressure Blood Pressure [Right Arm] 184/95 H Blood Pressure Mean Blood Pressure Mean [Right Arm] 124 Blood Pressure Position Blood Pressure Position [Right Arm] Sitting Pulse Oximetry 96 94 Oxygen Delivery Method Room Air Room Air Sepsis Recent Fever Within 48 Hours Sepsis New/Unexplained Change in Mental Status Sepsis Action Taken by Nursing GENERAL: Patient is awake alert in no acute distress patient is resting comfortably and showing no signs of anxiety EYES: The conjunctivae are clear. The pupils are round and reactive. EARS, NOSE, MOUTH AND THROAT: The nose is without any evidence of any deformity. Mucous membranes are moist. Tongue is midline. NECK: The neck is tender paraspinally there is a midline surgical scar present there is decreased range of motion due to pain RESPIRATORY: Normal respiratory effort is noted there is no evidence of wheezing rhonchi or rales CARDIOVASCULAR: Regular rate and rhythm noted there no murmurs rubs or gallops normal S1 normal S2. GASTROINTESTINAL: The abdomen is soft. Abdomen is nontender. BACK: No midline tenderness or or step-off noted range of motion in flexion extension as well as rotation no signs of muscle spasm noted MUSCULOSKELETAL/EXTREMITIES: There is no evidence of gross deformity full range of motion is noted in the hips and shoulders. SKIN: There is no obvious evidence of any rash. There are no petechiae, pallor or cyanosis noted. NEUROLOGIC: Patient is awake alert and oriented x3 strength is symmetric Course Reevaluation(s) Reevaluation #1: Patient was given IV fentanyl. Patient will be admitted for neck pain Time: 04:13 Consultations Consultation #1: Case was discussed with Dr. Jain for admission Time: 04:13 Administered Medications Discontinued Medications Fentanyl Citrate (Fentanyl Citrate Pf 100 Mcg/2 Ml Vial) 50 mcg IV NOW STA Stop: 01/27/23 03:17 Last Admin: 01/27/23 03:45 Dose: 50 mcg Documented By: CARIDAD Medical Decision Making Medical Records Attestation: I reviewed the patient's medical records. Home Medications Current Medication List: was personally reviewed by me Laboratory Data Attestation: I reviewed the patient's lab results. Lab work reviewed by me is unremarkable 01/27/23 03:43 01/27/23 03:43 Lab Results 01/27/23 01/27/23 Range/Units 03:43 03:43 WBC 5.27 (4.8-10.8) K/ul RBC 3.76 L (4.20-5.40) M/uL Hgb 10.9 L (12.0-16.0) g/dl Hct 33.6 L (37.0-47.0) % MCV 89.4 (80.0-100.0) fL MCH 29.0 (25.0-34.0) pg MCHC 32.4 (32.0-36.0) g/dL RDW Std Deviation 44.5 (36.4-46.3) fL RDW Coeff of Jh 13.6 (11.5-14.5) % Plt Count 185 (130-400) K/uL MPV 9.5 (9.4-12.4) fL Immature Gran % (Auto) 0.2 % Neut % (Auto) 60.7 % Lymph % (Auto) 25.8 % [place] % (Auto) 8.5 % Eos % (Auto) 4.2 % Baso % (Auto) 0.6 % Neut # (Auto) 3.20 (1.40-6.50) K/uL Lymph # (Auto) 1.36 (1.2-3.4) K/uL [place] # (Auto) 0.45 (0.11-0.59) K/uL Eos # (Auto) 0.22 (0-0.50) K/uL Baso # (Auto) 0.03 (0-0.2) K/uL Immature Gran # (Auto) 0.01 (0.01-0.20) K/uL SARS-CoV-2, RNA, NAAT NEGATIVE (NEGATIVE) MDM Narrative Medical decision making differential diagnosis includes neck sprain strain contusion cervical radiculopathy the neck mass chronic neck pain Plan is to give IV pain medicine, the patient has intractable pain, will admit I did review the MRI from yesterday Do not suspect the patient have an epidural abscess in the cervical spine Impression & Plan Neck pain Discharge Plan Visit Data Chief Complaint: Neck Injury/Pain Stated Complaint: HEADACHE/NECK PAIN ED Provider: Ten Morrison Discharge Problem: Neck pain Patient Disposition: Admitted As Inpatient Forms Stand Alone Forms: My [facility] Prescriptions Prescriptions: No Action aspirin [Adult Aspirin Regimen] 81 mg tablet,delayed release (DR/EC) 81 mg PO DAILY atorvastatin 20 mg tablet 20 mg PO QPM Qty: 90 3RF furosemide 40 mg tablet 40 mg PO QAM Qty: 90 3RF Rx Instructions: 40 mg PO daily, may take 2 tablets daily PRN ; propranolol 40 mg tablet 40 mg PO BID Qty: 180 3RF baclofen 5 mg tablet 5 mg PO BID Qty: 180 4RF tramadol 50 mg tablet 100 mg PO BID Qty: 40 0RF lorazepam 1 mg tablet 1 mg PO BID Qty: 20 0RF lisinopril 5 mg tablet 5 mg PO QAM Qty: 10 0RF tolterodine 4 mg capsule,extended release 24hr 4 mg PO PM Qty: 90 3RF glucosamine sulfate [Glucosamine] 500 mg tablet 500 mg PO BID folic acid 800 mcg tablet 0.8 mg PO QAM cholecalciferol (vitamin D3) 2,000 unit tablet 2,000 units PO QAM ascorbic acid (vitamin C) 500 mg capsule 500 mg PO BID albuterol sulfate 90 mcg/actuation HFA aerosol inhaler 2 puffs INH Q6H PRN (Reason: Shortness Of Breath Or Wheezing) Qty: 8.5 5RF gabapentin 300 mg capsule 300 mg PO DAILY Qty: 30 2RF oxycodone 10 mg tablet 10 mg PO Q8H PRN (Reason: pain) Qty: 21 0RF flurbiprofen 100 mg tablet 100 mg PO TID Qty: 270 3RF pantoprazole 40 mg tablet,delayed release (DR/EC) 40 mg PO DAILY Qty: 90 3RF duloxetine 30 mg capsule,delayed release(DR/EC) 30 mg PO DAILY Qty: 90 3RF calcium carbonate [Calcium 600] 600 mg calcium (1,500 mg) Tablet 600 mg PO BID docusate sodium [Colace] 100 mg Capsule 100 mg PO BID Women's Multivitamin 18 mg iron-400 mcg-500 mg Tablet 1 tab PO QAM Referrals Referrals: Cate Ford MD [Primary Care Provider] -
[2023-01-27 04:12] LABS: Basophils # (auto) 0.03 K/uL (0-0.2); Basophils % (auto) 0.6 %; Eosinophils # (auto) 0.22 K/uL (0-0.50); Eosinophils % (auto) 4.2 %; Hematocrit (blood only) 33.6 % (37.0-47.0); Hemoglobin 10.9 g/dl (12.0-16.0); Immature Granulocytes # (auto) 0.01 K/uL (0.01-0.20); Immature Granulocytes % (auto) 0.2 %; Lymphocytes # (auto) 1.36 K/uL (1.2-3.4); Lymphocytes % (auto) 25.8 %; Mean Corpuscular Hgb Conc 32.4 g/dL (32.0-36.0); Mean Corpuscular Volume 89.4 fL (80.0-100.0); Mean Platelet Volume 9.5 fL (9.4-12.4); Monocytes # (auto) 0.45 K/uL (0.11-0.59); Monocytes % (auto) 8.5 %; Neutrophils % (auto) 60.7 %; Platelet Count 185 K/uL (130-400); RDW Coefficient of Variation 13.6 % (11.5-14.5); RDW Standard Deviation 44.5 fL (36.4-46.3); Red Blood Count 3.76 M/uL (4.20-5.40); White Blood Count 5.27 K/ul (4.8-10.8)
[2023-01-27 04:18] LABS: Albumin Globulin Ratio 1.2 (0.9-2); Albumin Level 3.6 gm/dl (3.4-5.0); BUN Creatinine Ratio 28.2 (10-20); Bilirubin,Total 0.5 mg/dl (0.2-1.0); Calcium 9.3 mg/dl (8.6-10.3); Creatinine Clr Calc Pharmacy 57.3 ml/min; Est GFR (African American) 76.1 ml/min; Est GFR (Non-African American) 65.6 ml/min; Total Protein 6.6 gm/dl (6.0-8.3)
--- NOTE | 2023-01-27 04:18 | History & Physical Report ---
Date of Service January 27, 2023 Assessment & Plan (1) Neck pain: Plan: 77yo female with history of prior C3-C7 discectomy with anterior plate placement presenting with several weeks of progressive neck, shoulder and arm pain as well as bilateral arm weakness and difficulty performing her ADLs. Patient had an MRI of the cervical spine performed 01/26/23 outpatient which revealed "severe degeneration with chronic remodeling. 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 -Observation to medical service -Pain control with continued Tylenol, Gabapentin 300mg po daily, Baclofen 5mg po BID, Duloxetine 30mg po daily -Heat for comfort -Morphine PRN -Miralax and colace PRN constipation -Ortho-Spine consultation appreciated -Aspirin 81mg placed on hold in event of surgical intervention. Please resume if no surgical intervention is planned (2) HTN (hypertension): Plan: Chronic. Blood pressure elevated presently in setting of acute pain -Pain control with IV Morphine PRN -Continue Lisinopril -Continue Propranolol -Monitor (3) Hyperlipidemia: Plan: Chronic. Stable -Continue Atorvastatin 20mg po qPM (4) Depression: Plan: Chronic -Continue Cymbalta -Continue Ativan 1mg po BID for history of anxiety - caution with coadministration with Opiates/morphine (5) Asthma: Plan: Chronic. Well controlled. No cough, SOB or wheeze -Continue Albuterol PRN History of Present Illness Chief Complaint: severe neck pain, bilateral arm weakness Primary Care Provider: Cate Ford MD Armand Kaminski is a pleasant 77yo female with history of HTN, Anxiety/Depr ession presenting with severe neck pain and bilateral UE weakness. co She has a history of cervical fusion performed by Dr. Guerrero in October 2008. She has overall been doing well. She was seen by her PCP on 01/01/23 with complaint of neck pain, bilateral shoulder pain and pain between her shoulder blades. She was having difficulty lifting her arms >90 degrees as well a some difficulty with fine motor skills secondary to hand numbness. She had a cervical and thoracic spine x-rays performed on 01/04/23 which revealed no acute fracture or subluxation. Degenerative and postoperative changes present with no evidence of hardware complication. She had an ESR performed which was mildly elevated at 35 and a CRP which was normal. She was seen by her PCP again on 01/25/23 for evaluation of progressive neck pain and bilateral hand weakness. Mild hand weakness noted predominantly on the right hand during that visit - inability to resist finger adduction and thumb flexion on right. She had some adjustments in her medications to include increase in Gabapentin from 200mg po TID to 300mg po TID, initiation of scheduled Tylenol 1000mg po TID and Oxycodone 10mg PRN. She had an MRI performed on 01/26/23 (results below). Patient was scheduled to followup with Ortho-Spine later this week. She presents this evening with complaint of severe neck pain and progressive bilateral UE weakness. She states she is unable to lift her arms, comb her hair or get dressed at home. She has taken 5 Oxycodone tablets with minimal improvement in pain. The pain is across her shoulders bilaterally and into her arms, neck and head. She denies falls or trauma but does report that she has been doing some more activity in the last several weeks. She is preparing to move in with her daughter and has been doing some light packing which is an increased level of activity from her baseline. No additional complaints at this time. Specifically patient denies chest pain, cough, SOB, fever. In the ER she is afebrile, hypertensive, otherwise HD stable. Administered Fentanyl 50mcg po x 1 with some improvement in pain ER Course: Fentanyl 50mcg IV Allergies Allergy/AdvReac Type Severity Reaction Status Date / Time homatropine AdvReac Intermediate HYDROCODONE/HOMATROPINE Verified 01/27/23 02:25 COUGH SYRP-INSOMNIA/NAUSEA hydrocodone AdvReac Intermediate NAUSEA/INSOMINIA-COUGH Verified 01/27/23 02:25 SYRUP Home Medications Medication Instructions Recorded Confirmed Type ascorbic acid (vitamin C) 500 mg 500 mg PO BID 04/26/19 01/27/23 History capsule cholecalciferol (vitamin D3) 50 2,000 units PO QAM 04/26/19 01/27/23 History mcg (2,000 unit) tablet folic acid 800 mcg tablet 0.8 mg PO QAM 04/26/19 01/27/23 History glucosamine sulfate 500 mg tablet 500 mg PO BID 04/26/19 01/27/23 History (Glucosamine) calcium carbonate 600 mg calcium 600 mg PO BID 09/12/19 01/27/23 History (1,500 mg) tablet (Calcium) docusate sodium 100 mg capsule 100 mg PO BID 09/12/19 01/27/23 History (Colace) albuterol sulfate 90 mcg/actuation 2 puffs inhalation Q6H PRN 03/25/20 01/27/23 Rx aerosol inhaler Shortness Of Breath Or Wheezing #8.5 grams aspirin 81 mg tablet,delayed 81 mg PO DAILY 12/16/21 01/27/23 History release (Adult Aspirin Regimen) atorvastatin 20 mg tablet 20 mg PO QPM #90 tabs 02/02/22 01/27/23 Rx furosemide 40 mg tablet 40 mg PO QAM #90 tabs 02/27/22 01/27/23 Rx propranolol 40 mg tablet 40 mg PO BID #180 tabs 02/27/22 01/27/23 Rx duloxetine 30 mg capsule,delayed 30 mg PO DAILY #90 caps 04/21/22 01/27/23 Rx release baclofen 5 mg tablet 5 mg PO BID #180 tabs 06/29/22 01/27/23 Rx flurbiprofen 100 mg tablet 100 mg PO TID #270 tabs 09/17/22 01/27/23 Rx pantoprazole 40 mg tablet,delayed 40 mg PO DAILY #90 tabs 09/17/22 01/27/23 Rx release lorazepam 1 mg tablet 1 mg PO BID #20 tabs 10/21/22 01/27/23 Rx tramadol 50 mg tablet 100 mg PO BID pain #40 tabs 10/21/22 01/27/23 Rx lisinopril 5 mg tablet 5 mg PO QAM #10 tabs 11/09/22 01/27/23 Rx tolterodine 4 mg capsule,extended 4 mg PO PM #90 caps 11/30/22 01/27/23 Rx release 24 hr gabapentin 300 mg capsule 300 mg PO DAILY #30 caps 01/25/23 01/27/23 Rx oxycodone 10 mg tablet 10 mg PO Q8H PRN pain #21 tabs 01/25/23 01/27/23 Rx wnyzscmi-kla-fdjm-FA-Ca carb-vit K 1 tab PO QAM 01/27/23 01/27/23 History 18 mg iron-400 mcg-500 mg tablet Past Med/Surg History Medical History Aortic valve sclerosis Without stenosis per 2018 echo. Arthritis COVID-19 Depression Encounter for pre-operative examination Excessive sweating History of abnormal electrocardiogram HTN (hypertension) Hypercalcemia Resolved Hyperparathyroidism s/p parathyroidectomy Hypokalemia Resolved Hypophosphatemia Mitral valve prolapse Not noted on 2018 echo Obesity Partial small bowel obstruction Right rotator cuff tear arthropathy Stress incontinence Trigger finger (acquired) Surgical History Cervical vertebral fusion 10/2008- Dr. Guerrero H/O arthroscopy of knee LEFT H/O carpal tunnel repair R/L H/O colonoscopy H/O neck surgery neck exploration with excision of parathyroidadenoma and biopsy of upper parathyroid gland H/O parathyroidectomy History of gynecologic surgery anterior colporrhaphy, repair of cystocele and posterior colporrhaphy for pelvic relaxation History of total hip replacement RIGHT History of total knee arthroplasty LEFT S/P lumbar fusion 2005- Dr. Guerrero and repeat lumbar surgery 05/2009 S/P rotator cuff repair RIGHT S/P thyroid surgery parathyroid resection S/P vaginal hysterectomy Family History Mother Goiter Father Colon cancer Emphysema of lung Denies family history of Ovarian cancer Prostate cancer Myocardial infarction Breast cancer Social History Smoking Status: Never smoker Second Hand Exposure: Yes (SPOUSE USED TO SMOKE); Hx Alcohol Use: No Hx Substance Use: No Preferred Language: Maltese Communication Ability: Effective Wool Puller Required: No Beliefs That Will Affect Care: None marital status: Current Living Situation: Alone current occupational status: retired 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, 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 Feels Safe at Home: Yes Safety Concerns Comment: Concerns about falling, concerns about mobility Childhood Exposure to Second-Hand Smoke: Yes Dental Care, Regularly: No Physical Activity Frequency: Does not Exercise Seatbelt Use: always Sunscreen Use: No Assistive Devices: Walker Review of Systems Review of Systems: All systems reviewed & are unremarkable except as noted in HPI & below Physical Exam Physical Exam: General: patient resting comfortably, NAD, non-toxic in appearance, AA&O x 4 Skin: warm, dry, intact, no rashes or lesions HEENT: NC/AT, PERRL, EOMI, anicteric sclera, conjunctiva without injection, external ear normal to inspection and nontender, nares patent, moist mucus membranes, dentition intact, no oropharyngeal lesions, neck supple, trachea midline, no LAD, no thyromegaly, no JVD Heart: +S1/S2, regular, 3/6 MADELYN at right 2nd ICS with radiation across precordium, blowing systolic murmur at LSB Lungs: equal air entry bilaterally, no rales/rhonchi/wheezes Abd: +BS, soft, NT/ND, no masses/organomegaly/ascites Ext: warm, 2+ pulses in UE/LE bilaterally, no clubbing/cyanosis or edema Mild tenderness with palpation of cervical spine. No overt muscle spasm or tenderness present. Difficulty lifting arms bilaterally. 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 Finger adduction and abduction intact bilaterally Results & Data Results & Data Vital Signs (Past 12 Hours) Vital Signs Temp Pulse Pulse Resp BP BP Pulse Ox 01/27/23 03:54 77 18 94 01/27/23 03:53 77 18 184/95 H 96 01/27/23 02:27 82 01/27/23 02:06 79 18 165/95 H 94 01/27/23 02:02 36.8 C 79 18 165/95 H 94 O2 Del Method 01/27/23 03:54 Room Air 01/27/23 03:53 Room Air 01/27/23 02:27 01/27/23 02:06 Room Air 01/27/23 02:02 Room Air Laboratory Results Laboratory Results WBC 5.27 K/ul (4.8-10.8) 01/27/23 03:43 RBC 3.76 M/uL (4.20-5.40) L 01/27/23 03:43 Hgb 10.9 g/dl (12.0-16.0) L 01/27/23 03:43 Hct 33.6 % (37.0-47.0) L 01/27/23 03:43 MCV 89.4 fL (80.0-100.0) 01/27/23 03:43 MCH 29.0 pg (25.0-34.0) 01/27/23 03:43 MCHC 32.4 g/dL (32.0-36.0) 01/27/23 03:43 RDW Std Deviation 44.5 fL (36.4-46.3) 01/27/23 03:43 RDW Coeff of Jh 13.6 % (11.5-14.5) 01/27/23 03:43 Plt Count 185 K/uL (130-400) 01/27/23 03:43 MPV 9.5 fL (9.4-12.4) 01/27/23 03:43 Immature Gran % (Auto) 0.2 % 01/27/23 03:43 Neut % (Auto) 60.7 % 01/27/23 03:43 Lymph % (Auto) 25.8 % 01/27/23 03:43 Blount % (Auto) 8.5 % 01/27/23 03:43 Eos % (Auto) 4.2 % 01/27/23 03:43 Baso % (Auto) 0.6 % 01/27/23 03:43 Neut # (Auto) 3.20 K/uL (1.40-6.50) 01/27/23 03:43 Lymph # (Auto) 1.36 K/uL (1.2-3.4) 01/27/23 03:43 Blount # (Auto) 0.45 K/uL (0.11-0.59) 01/27/23 03:43 Eos # (Auto) 0.22 K/uL (0-0.50) 01/27/23 03:43 Baso # (Auto) 0.03 K/uL (0-0.2) 01/27/23 03:43 Immature Gran # (Auto) 0.01 K/uL (0.01-0.20) 01/27/23 03:43 Sodium 136 mmol/L (136-145) 01/27/23 03:43 Potassium 4.0 mmol/L (3.5-5.1) 01/27/23 03:43 Chloride 98 mmol/L (98-107) 01/27/23 03:43 Carbon Dioxide 30 mmol/L (21-32) 01/27/23 03:43 Anion Gap 8 (3-11) 01/27/23 03:43 BUN 24 mg/dl (6-23) H 01/27/23 03:43 Creatinine 0.85 mg/dl (0.6-1.2) 01/27/23 03:43 Est Cr Clr Drug Dosing 57.3 ml/min 01/27/23 03:43 Est GFR ( Amer) 76.1 ml/min 01/27/23 03:43 Est GFR (Non-Af Amer) 65.6 ml/min 01/27/23 03:43 BUN/Creatinine Ratio 28.2 (10-20) H 01/27/23 03:43 Glucose 117 mg/dl (70-99(Fasting)) H 01/27/23 03:43 Calcium 9.3 mg/dl (8.6-10.3) 01/27/23 03:43 Total Bilirubin 0.5 mg/dl (0.2-1.0) 01/27/23 03:43 AST 17 U/L (13-39) 01/27/23 03:43 ALT 14 U/L (7-52) 01/27/23 03:43 Alkaline Phosphatase 64 U/L (34-104) 01/27/23 03:43 Total Protein 6.6 gm/dl (6.0-8.3) 01/27/23 03:43 Albumin 3.6 gm/dl (3.4-5.0) 01/27/23 03:43 Globulin 3.0 gm/dl (2.5-4.0) 01/27/23 03:43 Albumin/Globulin Ratio 1.2 (0.9-2) 01/27/23 03:43 SARS-CoV-2, RNA, NAAT NEGATIVE (NEGATIVE) 01/27/23 03:43 Diagnostic Findings MR cervical spine wo con HISTORY: 77 years-old Female M25.511 - Pain in right shoulder chronic neck pain with history of prior surgery. COMPARISON: CT cervical spine 09/12/2019 TECHNIQUE: Multiplanar multisequence MRI of the cervical spine was obtained without the use of IV contrast. FINDINGS: Motion degraded exam. No acute fracture, subluxation, endplate erosion or marrow replacing process. Anterior plate and screw fusion hardware is again noted at C3-C7 with associated discectomy changes. Artifact from the hardware limits the exam. Posterior interbody hardware is also noted at these levels. Severe degeneration at C1-C2 is again noted with chronic remodeling. Anterior subluxation of the dens in relation to the clivus is noted with partially calcified pannus posterior to odontoid. There is resultant severe central canal stenosis at the craniocervical junction with AP dimension measuring 3.5 mm on image 9 series 3. There is mild edema within the cervical medullary junction. Multilevel advanced facet arthrosis. C2-C3: Moderate intervertebral disc space narrowing. The central canal and neural foramen are patent. C3-C4: The central canal is patent. Suboptimal visualization of the neural foramen with suggestion of at least mild left foraminal narrowing. The right neuroforamen appears patent. C4-C5: The central canal is patent. Suboptimal visualization of the neural foramen with suggestion of bilateral foraminal narrowing. C5-C6: The central canal is patent. Mild right greater than left bilateral neural foraminal narrowing. C6-C7: The central canal is patent. Mild to moderate bilateral foraminal narrowing. C7-T1: Moderate to severe intervertebral disc space narrowing. 3 mm anterolisthesis is likely degenerative. Mild central canal stenosis with AP dimension of the thecal sac measuring 7 mm. Mild bilateral neural foraminal narrowing. Severe intervertebral disc space narrowing at T2-T3 with posterior disc osteophyte complex and posterior disc uncovering with 3 mm anterolisthesis and severe facet arthrosis. Moderate to severe central canal stenosis with AP dimension of the thecal sac measuring 4 mm. Moderate left with severe right neural foraminal narrowing. IMPRESSION: 1. Severe degeneration at C1-C2 with chronic remodeling and partially calcified pannus posterior to the dens. Additionally, there is likely degenerative related posterior displacement of the clivus in relation to the C1-C2 articulation with resultant severe narrowing at the craniocervical junction which results in compression of the cervical medullary junction with myelomalacia. 2. Moderate to severe central canal stenosis at T2-T3. 3. Additional degenerative and postoperative changes as above. ACT 112: Negative or not required by law. The above report was generated using voice recognition software. It may contain grammatical, syntax or spelling errors. Electronically signed by: Mehul Rothman M.D. 01/26/2023 4:59 PM Dictated:01/26/231618 Transcribed: 01/26/231618 PG Care Time/CCT Total # of Minutes Spent Total Time Spent with Patient: Total time spent is greater than 50% in coordination of care (as documented) at patient's floor/unit and/or counseling patient: Coding Level of Care Code 01562 INT INP/OBS CARE 2MIN Diagnoses Neck pain M54.2 HTN (hypertension) I10 Hyperlipidemia E78.5 Depression F32.9 Asthma J45.909
[2023-01-27 04:40] LABS: Prothrombin Time 10.8 Seconds (9.0-12.0)
[2023-01-27] MEDS ORDERED: ONDANSETRON INJ 2 MG/ML 2 ML VIAL IV PRN (09:16)
[2023-01-27] MEDS ORDERED: ALBUTEROL HFA 8 GM INHALER INH PRN (09:16)
[2023-01-27] MEDS ORDERED: POLYETHYLENE (MIRALAX) 17 GM PACK PO PRN (09:16)
[2023-01-27] MEDS ORDERED: MoRPHine SULFATE 2 MG/ML CARP IV PRN (09:16)
[2023-01-27] MEDS: MoRPHine SULFATE 4 MG/ML 1 ML CARP\\VIAL IV PRN ×4 (09:29→21:57)
[2023-01-27] MEDS: LORazepam 1 MG TAB PO SCH ×2 (12:49→20:24)
[2023-01-27] MEDS: DULoxetine HCL 30 MG CAP PO SCH (12:50)
[2023-01-27] MEDS: lisinopril 5 MG TAB PO SCH (12:50)
[2023-01-27] MEDS: FUROSEMIDE 40 MG TAB PO SCH (12:50)
[2023-01-27] MEDS: GABAPENTIN 300 MG CAP PO SCH (12:50)
[2023-01-27] MEDS: ACETAMINOPHEN 500 MG TAB PO SCH ×3 (12:50→21:57)
[2023-01-27] MEDS: PANTOprazole 40 MG TAB PO SCH (12:51)
[2023-01-27] MEDS: PROPRANOLOL HCL 20 MG TAB PO SCH ×2 (12:51→20:26)
[2023-01-27] MEDS: BACLOFEN 10 MG TAB PO SCH ×2 (12:51→20:25)
[2023-01-27] MEDS: DOCUSATE SODIUM 100 MG CAP PO SCH ×2 (12:51→20:25)
[2023-01-27] MEDS ORDERED: dexAMETHasone 8 MG in SYRINGE 0 ML IV ONE (15:00)
--- NOTE | 2023-01-27 17:10 | Discharge Summary ---
Date of Service January 28, 2023 Admission HPI Per Admitting Provider Armand Kaminski is a pleasant 77yo female with history of HTN, Anxiety/Depression presenting with severe neck pain and bilateral UE weakness. co She has a history of cervical fusion performed by Dr. Guerrero in October 2008. She has overall been doing well. She was seen by her PCP on 01/01/23 with complaint of neck pain, bilateral shoulder pain and pain between her shoulder blades. She was having difficulty lifting her arms >90 degrees as well a some difficulty with fine motor skills secondary to hand numbness. She had a cervical and thoracic spine x-rays performed on 01/04/23 which revealed no acute fracture or subluxation. Degenerative and postoperative changes present with no evidence of hardware complication. She had an ESR performed which was mildly elevated at 35 and a CRP which was normal. She was seen by her PCP again on 01/25/23 for evaluation of progressive neck pain and bilateral hand weakness. Mild hand weakness noted predominantly on the right hand during that visit - inability to resist finger adduction and thumb flexion on right. She had some adjustments in her medications to include increase in Gabapentin from 200mg po TID to 300mg po TID, initiation of scheduled Tylenol 1000mg po TID and Oxycodone 10mg PRN. She had an MRI performed on 01/26/23 (results below). Patient was scheduled to followup with Ortho-Spine later this week. She presents this evening with complaint of severe neck pain and progressive bilateral UE weakness. She states she is unable to lift her arms, comb her hair or get dressed at home. She has taken 5 Oxycodone tablets with minimal improvement in pain. The pain is across her shoulders bilaterally and into her arms, neck and head. She denies falls or trauma but does report that she has been doing some more activity in the last several weeks. She is preparing to move in with her daughter and has been doing some light packing which is an increased level of activity from her baseline. No additional complaints at this time. Specifically patient denies chest pain, cough, SOB, fever. In the ER she is afebrile, hypertensive, otherwise HD stable. Administered Fentanyl 50mcg po x 1 with some improvement in pain ER Course: Fentanyl 50mcg IV Admission Exam Per Admitting Provider General: patient resting comfortably, NAD, non-toxic in appearance, AA&O x 4 Skin: warm, dry, intact, no rashes or lesions HEENT: NC/AT, PERRL, EOMI, anicteric sclera, conjunctiva without injection, external ear normal to inspection and nontender, nares patent, moist mucus mem branes, dentition intact, no oropharyngeal lesions, neck supple, trachea midline, no LAD, no thyromegaly, no JVD Heart: +S1/S2, regular, 3/6 MADELYN at right 2nd ICS with radiation across precordium, blowing systolic murmur at LSB Lungs: equal air entry bilaterally, no rales/rhonchi/wheezes Abd: +BS, soft, NT/ND, no masses/organomegaly/ascites Ext: warm, 2+ pulses in UE/LE bilaterally, no clubbing/cyanosis or edema Mild tenderness with palpation of cervical spine. No overt muscle spasm or tenderness present. Difficulty lifting arms bilaterally. 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 Discharge Data Allergies Allergy/AdvReac Type Severity Reaction Status Date / Time homatropine AdvReac Intermediate HYDROCODONE/HOMATROPINE Verified 01/27/23 02:25 COUGH SYRP-INSOMNIA/NAUSEA hydrocodone AdvReac Intermediate NAUSEA/INSOMINIA-COUGH Verified 01/27/23 02:25 SYRUP Consultations 01/27/23 03:48 ED Decision to Admit Stat 01/27/23 09:16 Consult Orthopedic Surgery Routine Hospital Course (1) Neck pain: 77yo female with history of prior C3-C7 discectomy with anterior plate placement presenting with several weeks of progressive neck, shoulder and arm pain as well as bilateral arm weakness and difficulty performing her ADLs. Patient had an MRI of the cervical spine performed 01/26/23 outpatient which revealed "severe degeneration with chronic remodeling. 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 I was contacted by Meg Rivera from [facility] on 01/27. They recommended transfer to a tertiary care center for C1-C2 myelomalacia. I got the patient accepted by Dr. Hadley at [facility]. A bed became available today and transportation was arranged for today. She was given a dose of IV Decadron and was instructed to be transferred in a short hard neck collar by Dr. Hadley. (2) HTN (hypertension): Chronic. Blood pressure elevated presently in setting of acute pain -Pain control with IV Morphine PRN -Continue Lisinopril -Continue Propranolol -Monitor (3) Hyperlipidemia: Chronic. Stable -Continue Atorvastatin 20mg po qPM (4) Depression: Chronic -Continue Cymbalta -Continue Ativan 1mg po BID for history of anxiety - caution with coadministration with Opiates/morphine (5) Asthma: Chronic. Well controlled. No cough, SOB or wheeze -Continue Albuterol PRN Total Time Total Time Spent Total Time Spent (In Minutes): 35 Discharge Plan Discharge Items Patient Disposition: Transfer Acute Care Hospital Reason For Visit: HEADACHE/NECK PAIN Discharge Diagnosis: C1-C2 myelo malacia Activity: As commented below Activity Comment: Bedrest with neck collar on Non-emergency contact: Primary Care Provider Call non-emergency contact if: you have any medication questions and your symptoms worsen Follow-up/Referrals: Cate Ford MD [Primary Care Provider] - Diet: Heart Healthy Addtl Attending Provider Instructions: Advised to note that you are being transferred to [facility] for escalation of care for C1-C2 nerve compression Pending Studies at Discharge: No Stand-Alone Forms: My [facility] Skilled Items Patient informed of condition?: Yes DNR: No Discharge Level of Care: Other Communicable Disease: No Discharge Prognosis: Stable Lines: Peripheral IV Urinary Catheter: No Medications and DC Order Prescriptions: Continued aspirin [Adult Aspirin Regimen] 81 mg tablet,delayed release (DR/EC) 81 mg PO DAILY atorvastatin 20 mg tablet 20 mg PO QPM Qty: 90 3RF furosemide 40 mg tablet 40 mg PO QAM Qty: 90 3RF Rx Instructions: 40 mg PO daily, may take 2 tablets daily PRN ; propranolol 40 mg tablet 40 mg PO BID Qty: 180 3RF baclofen 5 mg tablet 5 mg PO BID Qty: 180 4RF tramadol 50 mg tablet 100 mg PO BID Qty: 40 0RF lorazepam 1 mg tablet 1 mg PO BID Qty: 20 0RF lisinopril 5 mg tablet 5 mg PO QAM Qty: 10 0RF tolterodine 4 mg capsule,extended release 24hr 4 mg PO PM Qty: 90 3RF glucosamine sulfate [Glucosamine] 500 mg tablet 500 mg PO BID folic acid 800 mcg tablet 0.8 mg PO QAM cholecalciferol (vitamin D3) 2,000 unit tablet 2,000 units PO QAM ascorbic acid (vitamin C) 500 mg capsule 500 mg PO BID albuterol sulfate 90 mcg/actuation HFA aerosol inhaler 2 puffs INH Q6H PRN (Reason: Shortness Of Breath Or Wheezing) Qty: 8.5 5RF gabapentin 300 mg capsule 300 mg PO DAILY Qty: 30 2RF oxycodone 10 mg tablet 10 mg PO Q8H PRN (Reason: pain) Qty: 21 0RF flurbiprofen 100 mg tablet 100 mg PO TID Qty: 270 3RF pantoprazole 40 mg tablet,delayed release (DR/EC) 40 mg PO DAILY Qty: 90 3RF duloxetine 30 mg capsule,delayed release(DR/EC) 30 mg PO DAILY Qty: 90 3RF calcium carbonate [Calcium 600] 600 mg calcium (1,500 mg) Tablet 600 mg PO BID docusate sodium [Colace] 100 mg Capsule 100 mg PO BID [id number]-Ca carb-vit K 18 mg iron-400 mcg-500 mg Tablet 1 tab PO QAM Discharge Orders: Discharge Order (Routine); Ordered 01/27/23 Ordered By: Sanjana Fernandes Admission Data Admit Date/Time: 01/27/23 04:11 Attending Provider: Sanjana Fernandes Admit Provider: Kate Jain Primary Care Provider: Cate Ford Other Providers: Kate Jain ; Tobias Guerrero Other Interventions: Discharge Summary Assessment (RN) Last Done: 01/28/23 12:10 Coding Level of Care Code 80962 INP/OBS DISCH >30 MIN Diagnoses Neck pain M54.2 HTN (hypertension) I10 Hyperlipidemia E78.5 Depression F32.9 Asthma J45.909
[2023-01-27] MEDS ORDERED: TOLTERODINE TARTRATE LA 4 MG CAPCR PO SCH (21:00)
[2023-01-27] MEDS ORDERED: ATORVASTATIN 20 MG TAB PO SCH (21:00)
[2023-01-28] MEDS: MoRPHine SULFATE 4 MG/ML 1 ML CARP\\VIAL IV PRN ×3 (02:18→11:34)
[2023-01-28] MEDS ORDERED: KETOROLAC TROMETHAMINE 15 MG/ML VIAL IV ONE (03:01)
[2023-01-28] MEDS: ACETAMINOPHEN 500 MG TAB PO SCH (05:10)
--- NOTE | 2023-01-28 07:34 | Communication Note ---
Date of Service: January 27, 2023 Saw the patient Ms. Kaminski at bedside. She seemed to be in quite some distress due to neck pain. She also had bilateral upper extremity weakness, rig ht more than left. I ordered a dose of IV Decadron. I was contacted by Meg Rivera from [facility] who recommended transfer of this patient to a tertiary care facility for management of C1-C2 myelomalacia. I spoke to [facility] who did not have beds. I then spoke to Dr. Hadley at [facility] who accepted the patient in transfer. I informed the patient, informed her daughter, informed the nurse, completed the paperwork for transfer. The patient will be transferred with a short hard neck collar. Awaiting bed and transportation to [facility] for escalation of care of C1-C2 myelomalacia.
[2023-01-28] MEDS: BACLOFEN 10 MG TAB PO SCH (08:21)
[2023-01-28] MEDS: PANTOprazole 40 MG TAB PO SCH (08:22)
[2023-01-28] MEDS: DOCUSATE SODIUM 100 MG CAP PO SCH (08:22)
[2023-01-28] MEDS: lisinopril 5 MG TAB PO SCH (08:22)
[2023-01-28] MEDS: DULoxetine HCL 30 MG CAP PO SCH (08:22)
[2023-01-28] MEDS: PROPRANOLOL HCL 20 MG TAB PO SCH (08:22)
[2023-01-28] MEDS: FUROSEMIDE 40 MG TAB PO SCH (08:22)
[2023-01-28] MEDS: GABAPENTIN 300 MG CAP PO SCH (08:22)
[2023-01-28] MEDS: LORazepam 1 MG TAB PO SCH (08:22)
--- NOTE | 2023-01-28 08:52 | Orthopedic Consultation ---
Date of Consultation January 28, 2023 Assessment & Plan (1) Cervical stenosis of spinal canal: Assessment cervical stenosis C1-C2. Plan at this time MRI demonstrates severe cervical spinal stenosis at the C1-C2 level. I discussed with the patient this require tertiary care management. She understands agrees. Arrangements are being made. History of Present Illness Reason for Consultation: Cervicalgia Attending Physician: Sanjana Fernandes MD History of Present Illness This is a 69-year-old female known to me the presents with severe cervicalgia with radiation of the head. She states this has been present for a while it does affect her ability to ambulate and use her arms. Cervical collar was intolerable. Allergies Allergy/AdvReac Type Severity Reaction Status Date / Time homatropine AdvReac Intermediate HYDROCODONE/HOMATROPINE Verified 01/27/23 02:25 COUGH SYRP-INSOMNIA/NAUSEA hydrocodone AdvReac Intermediate NAUSEA/INSOMINIA-COUGH Verified 01/27/23 02:25 SYRUP Home Medications Medication Instructions Recorded Confirmed Type ascorbic acid (vitamin C) 500 mg 500 mg PO BID 04/26/19 01/27/23 History capsule cholecalciferol (vitamin D3) 50 2,000 units PO QAM 04/26/19 01/27/23 History mcg (2,000 unit) tablet folic acid 800 mcg tablet 0.8 mg PO QAM 04/26/19 01/27/23 History glucosamine sulfate 500 mg tablet 500 mg PO BID 04/26/19 01/27/23 History (Glucosamine) calcium carbonate 600 mg calcium 600 mg PO BID 09/12/19 01/27/23 History (1,500 mg) tablet (Calcium) docusate sodium 100 mg capsule 100 mg PO BID 09/12/19 01/27/23 History (Colace) albuterol sulfate 90 mcg/actuation 2 puffs inhalation Q6H PRN 03/25/20 01/27/23 Rx aerosol inhaler Shortness Of Breath Or Wheezing #8.5 grams aspirin 81 mg tablet,delayed 81 mg PO DAILY 12/16/21 01/27/23 History release (Adult Aspirin Regimen) atorvastatin 20 mg tablet 20 mg PO QPM #90 tabs 02/02/22 01/27/23 Rx furosemide 40 mg tablet 40 mg PO QAM #90 tabs 02/27/22 01/27/23 Rx propranolol 40 mg tablet 40 mg PO BID #180 tabs 02/27/22 01/27/23 Rx duloxetine 30 mg capsule,delayed 30 mg PO DAILY #90 caps 04/21/22 01/27/23 Rx release baclofen 5 mg tablet 5 mg PO BID #180 tabs 06/29/22 01/27/23 Rx flurbiprofen 100 mg tablet 100 mg PO TID #270 tabs 09/17/22 01/27/23 Rx pantoprazole 40 mg tablet,delayed 40 mg PO DAILY #90 tabs 09/17/22 01/27/23 Rx release lorazepam 1 mg tablet 1 mg PO BID #20 tabs 10/21/22 01/27/23 Rx tramadol 50 mg tablet 100 mg PO BID pain #40 tabs 10/21/22 01/27/23 Rx lisinopril 5 mg tablet 5 mg PO QAM #10 tabs 11/09/22 01/27/23 Rx tolterodine 4 mg capsule,extended 4 mg PO PM #90 caps 11/30/22 01/27/23 Rx release 24 hr gabapentin 300 mg capsule 300 mg PO DAILY #30 caps 01/25/23 01/27/23 Rx oxycodone 10 mg tablet 10 mg PO Q8H PRN pain #21 tabs 01/25/23 01/27/23 Rx rmegucxz-aye-ibzk-FA-Ca carb-vit K 1 tab PO QAM 01/27/23 01/27/23 History 18 mg iron-400 mcg-500 mg tablet Patient History Medical History Aortic valve sclerosis Without stenosis per 2018 echo. Arthritis COVID-19 Depression Encounter for pre-operative examination Excessive sweating History of abnormal electrocardiogram HTN (hypertension) Hypercalcemia Resolved Hyperparathyroidism s/p parathyroidectomy Hypokalemia Resolved Hypophosphatemia Mitral valve prolapse Not noted on 2018 echo Obesity Partial small bowel obstruction Right rotator cuff tear arthropathy Stress incontinence Trigger finger (acquired) Surgical History Cervical vertebral fusion 10/2008- Dr. Guerrero H/O arthroscopy of knee LEFT H/O carpal tunnel repair R/L H/O colonoscopy H/O neck surgery neck exploration with excision of parathyroidadenoma and biopsy of upper parathyroid gland H/O parathyroidectomy History of gynecologic surgery anterior colporrhaphy, repair of cystocele and posterior colporrhaphy for pelvic relaxation History of total hip replacement RIGHT History of total knee arthroplasty LEFT S/P lumbar fusion 2005- Dr. Guerrero and repeat lumbar surgery 05/2009 S/P rotator cuff repair RIGHT S/P thyroid surgery parathyroid resection S/P vaginal hysterectomy Family History Mother Goiter Father Colon cancer Emphysema of lung Denies family history of Ovarian cancer Prostate cancer Myocardial infarction Breast cancer Social History Smoking Status: Never smoker Second Hand Exposure: Yes (SPOUSE USED TO SMOKE); Hx Alcohol Use: No Hx Substance Use: No Preferred Language: [place] Communication Ability: Effective Forklift Operator Required: No Beliefs That Will Affect Care: None marital status: Current Living Situation: Alone Current Living Situation Comment: neighbor assists with driving; daughter assists with cleaning current occupational status: retired 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 She has limited strength testing the upper extremities. She has limited cervical range of motion. Results & Data Vital Signs (Past 12 Hours) Vital Signs Temp Pulse Pulse Resp BP Pulse Ox O2 Del Method 01/28/23 07:35 36.5 C 77 16 137/83 96 Room Air 01/27/23 23:12 37.1 C 102 H 18 182/83 H 95 Room Air
== END 2023-01-28 12:56 | disposition short-term general hospital (02) ==
LOC: 3N 01:51 → ED 01:51 → SUATTDRO 04:11 → 3N 08:28

== ENCOUNTER 2024-03-16 04:14 | Inpatient (IN) ==
--- NOTE | 2024-03-16 04:51 | Emergency Department Note ---
Impression & Plan Acute exacerbation of chronic low back pain, Urinary tract infection, Intractable back pain ED Provider Note NAME: CHARLI DUMONT AGE: 78 SEX: F : 1945 ARRIVES VIA: Ambulance INFORMANT: Patient ED PROVIDER(S): Abhilash Maguire MD CHIEF COMPLAINT: Back pain PLAN: Disposition: Admit MEDICAL DECISION MAKING: The patient is a pleasant 78-year-old woman with a past medical history of lumbar canal stenosis, cervical spinal stenosis who presents to the emergency department via EMS for evaluation of ongoing severe low back pain in setting being seen emergency department on 03/10 for the same related to a fall that occurred in January when she was carrying her grandchildren and reports falling into a ditch and hitting her low back. She denies any urinary retention or loss of bowel control. She reports that she recently had a telehealth visit with her primary care doctor following her emergency department visit which demonstrated no fracture on x-rays were performed. She was prescribed steroids as well as tramadol for pain which she reports helped initially but now her pain continues. She is equivocal when asked if she has made sure to take a break from physical activities which may provoke symptoms such as housework. On evaluation the patient is anxious appearing, comfortable no acute distress, afebrile with blood pressure 140s/100s and heart in the 100s in setting of her discomfort. Vital signs otherwise stable. Patient exhibits mild lower lumbar paraspinal muscle discomfort without discrete tenderness. This radiates distally bilaterally over the PSIS and sciatic distribution. There is no midline CTL spine tenderness palpation or step-offs. She has normal strength in bilateral lower extremities. There is no clonus. Reflexes within normal limits. WBC and platelets normal limits. H/H similar to prior. Chemistry without metabolic acidosis. Creatinine 1.2. Increased from prior though no recent for comparison but consistent with patient's clinical dry appearance. LFTs unremarkable. UA is suspicious for infection with 4+ bacteria. CT of the abdomen pelvis and lumbar spine were performed and were negative for acute abnormalities. Prior L5-S1 laminectomy is described. Otherwise no CT evidence of high-grade canal stenosis. Upon reevaluation patient continued to deny any improvement following treatment with IV hydration, IV APAP, Toradol, dexamethasone, oral Valium. Given the patient's intractable pain she did agree with plan for admission for further evaluation with MRI, pain control and PT/OT and placement as indicated. Patient was ordered for IV morphine given her intractable pain. Given suspicion for UTI blood cultures obtained and empiric treatment initiated with ceftriaxone. Case was discussed with DANNY Garcia hospitalist, who will evaluate the patient for admission. Triage Nursing notes reviewed and agree them. Prior/external medical records reviewed Vital Signs: reviewed Differential diagnosis: Musculoskeletal, disc herniation, fracture, metastatic disease, cord compression, discitis, sciatica, cauda equina, infection, aortic disease, renal colic, gastrointestinal, as well as other pathologies. ER treatment provided: See below. Diagnostics interpreted by me: Cardiac Monitoring: An order for continuous cardiac monitoring was placed and demonstrated normal sinus rhythm, 95 bpm, no ectopy. Laboratory studies: See below Imaging studies: See below Consultation(s): DANNY Mcwilliams hospitalist HPI: The patient is a pleasant 78-year-old woman with a past medical history of lumbar canal stenosis, cervical spinal stenosis who presents to the emergency department via EMS for evaluation of ongoing severe low back pain in setting being seen emergency department on 03/10 for the same related to a fall that occurred in January when she was carrying her grandchildren and reports falling into a ditch and hitting her low back. She denies any urinary retention or loss of bowel control. She reports that she recently had a telehealth visit with her primary care doctor following her emergency department visit which demonstrated no fracture on x-rays were performed. She was prescribed steroids as well as tramadol for pain which she reports helped initially but now her pain continues. She is equivocal when asked if she has made sure to take a break from physical activities which may provoke symptoms such as housework. ROS: See above HPI for pertinent positives & negatives. A total of 10 systems reviewed and were otherwise negative. VITALS:See Below PHYSICAL EXAMINATION: GENERAL: Awake, alert, uncomfortable-appearing, in no distress, BMI 41.7. HENT: Normocephalic, atraumatic. Oropharynx with dry mucous membranes and otherwise unremarkable. EYES: Normal conjunctiva. Sclera non-icteric. NECK: Supple. No nuchal rigidity. FROM. No JVD. RESPIRATORY: Clear to auscultation. CARDIAC: Regular rate, normal rhythm. Extremities warm and well perfused. Pulses equal. ABDOMEN: Soft, non-distended. No tenderness to palpation. No rebound or guarding. No masses. MUSCULOSKELETAL: Chest examination reveals no tenderness. The back is symmetrical on inspection without obvious abnormality. There is no CVA tenderness to palpation. No joint edema. LOWER EXTREMITIES: Calves are equal size bilaterally and non-tender. No edema. No discoloration. NEURO: Normal sensorium. No sensory or motor deficits noted. SKIN: No rash or jaundice noted. Abhilash Maguire MD Past Med/Surg History Problem List (Updated 03/16/24 @ 08:33 by Abhilash Maguire MD) Intractable back pain (Acute) Urinary tract infection (Acute) Abnormal urinalysis Acute exacerbation of chronic low back pain (Acute) Acute pain of right knee (Acute) Acute pain of right lower extremity (Acute) Essential tremor Left shoulder pain Cervical stenosis of spinal canal Low back pain Right rotator cuff tear arthropathy Impaired fasting glucose Anxiety (Acute) Urinary incontinence (Acute) Vitamin D deficiency (Acute) Lumbar canal stenosis Gait disturbance Arthralgia of multiple sites Anemia Aortic valve sclerosis Without stenosis per 2018 echo. HTN (hypertension) Medical History History of COVID-19 12/2021- states was hospitalized at [facility]; resolved Hx of small bowel obstruction Obesity Arthritis History of abnormal electrocardiogram Mitral valve prolapse Not noted on 2018 echo Stress incontinence Hyperlipidemia Excessive sweating Depression Asthma states recent increased SOB due to anemia Hyperparathyroidism s/p parathyroidectomy Surgical History Hx of bilateral cataract extraction Hx of cervical spine surgery 01/2023- PSH, C - limited rom and unable to lift arms over head H/O parathyroidectomy S/P thyroid surgery parathyroid resection H/O carpal tunnel repair R/L S/P lumbar fusion 2005- Dr. Guerrero and repeat lumbar surgery 05/2009 History of gynecologic surgery anterior colporrhaphy, repair of cystocele and posterior colporrhaphy for pelvic relaxation History of total knee arthroplasty LEFT H/O neck surgery neck exploration with excision of parathyroidadenoma and biopsy of upper parathyroid gland History of total hip replacement RIGHT H/O colonoscopy S/P rotator cuff repair RIGHT S/P vaginal hysterectomy Cervical vertebral fusion 10/2008- Dr. 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 Required: No Beliefs That Will Affect Care: None marital status: / Current Living Situation: Alone Current Living Situation Comment: in the process of moving in with daughter and son in law current occupational status: retired 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, 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 Feels Safe at Home: Yes Safety Concerns Comment: Concerns about falling, concerns about mobility Childhood Exposure to Second-Hand Smoke: Yes Diet: regular Dental Care, Regularly: No Physical Activity Frequency: Does not Exercise Seatbelt Use: always Sunscreen Use: No Assistive Devices: Denture - Upper, Denture - Lower, Glasses and Walker Allergies Allergies Allergy/AdvReac Type Severity Reaction Status Date / Time homatropine AdvReac Intermediate HYDROCODONE/HOMATROPINE Verified 01/24/24 14:13 COUGH SYRP-INSOMNIA/NAUSEA hydrocodone AdvReac Intermediate NAUSEA/INSOMINIA-COUGH Verified 01/24/24 14:13 SYRUP Home Meds Home Medications Medication Instructions Recorded Confirmed ascorbic acid (vitamin C) 500 mg 500 mg PO BID 04/26/19 01/24/24 capsule aspirin 81 mg tablet,delayed 81 mg PO DAILY 12/16/21 01/24/24 release (Adult Aspirin Regimen) ixbsqudd-qbc-hxpy-FA-Ca carb-vit K 1 tab PO QAM 01/27/23 01/24/24 18 mg iron-400 mcg-500 mg tablet glucosamine sulf dipot 1 cap PO QAM 08/19/23 01/24/24 chlr,msm,chond 550 mg-C 30 mg-claritza 1 mg capsule (Glucosamine Chondroitin) Previous Rx's Medication Instructions Recorded Shower Chair #1 ea 03/04/23 albuterol sulfate 90 mcg/actuation 2 puff inhalation Q6H PRN 02/01/24 aerosol inhaler Shortness Of Breath Or Wheezing #8.5 grams atorvastatin 20 mg tablet 20 mg PO QPM #90 tabs 02/01/24 calcium carbonate (Calcium 600) 600 mg PO DAILY 90 days #90 tabs 02/01/24 cholecalciferol (vitamin D3) 50 2,000 unit PO QAM 90 days #90 tabs 02/01/24 mcg (2,000 unit) tablet docusate sodium 100 mg capsule 100 mg PO BID 30 days #60 caps 02/01/24 (Colace) duloxetine 60 mg capsule,delayed 60 mg PO DAILY #90 caps 02/01/24 release flurbiprofen 100 mg tablet 100 mg PO TID #270 tabs 02/01/24 gabapentin 300 mg capsule 300 mg PO TID #90 caps 02/01/24 ketoconazole 2 % topical cream 1 applic topical BID 14 days #30 02/01/24 grams lisinopril 5 mg tablet 5 mg PO .Q AM #10 tabs 02/01/24 nystatin-triamcinolone 100,000 1 applic topical BID #30 grams 02/01/24 unit/g-0.1 % topical cream propranolol 60 mg tablet 60 mg PO BID 90 days #180 tabs 02/01/24 tolterodine 4 mg capsule,extended 4 mg PO PM #90 caps 02/01/24 release 24 hr furosemide 20 mg tablet 20 mg PO DAILY #90 tabs 02/09/24 prednisone 10 mg tablet 10 mg PO .COMPLEX #20 tabs 03/13/24 tramadol 50 mg tablet 50 mg PO TID PRN pain #30 tabs 03/13/24 Results & Data (ED) Vital Signs Vital Signs - 24 hr 03/16/24 04:01 03/16/24 04:22 03/16/24 04:39 Temperature 36.6 C Temperature Source Oral Pulse Rate 105 H 105 H 97 H Pulse Rate from SpO2 Sensor 97 H Respiratory Rate 19 23 Blood Pressure 141/111 H Blood Pressure Mean 121 Pulse Oximetry 96 95 Oxygen Delivery Method Room Air Sepsis Recent Fever Within 48 Hours No Sepsis New/Unexplained Change in Mental Status No Sepsis Action Taken by Nursing No Action Required 03/16/24 04:48 03/16/24 05:00 03/16/24 05:12 Temperature Temperature Source Pulse Rate 96 H 98 H 91 H Pulse Rate from SpO2 Sensor 96 H 97 H Respiratory Rate 19 19 19 Blood Pressure Blood Pressure Mean Pulse Oximetry 92 93 Oxygen Delivery Method Sepsis Recent Fever Within 48 Hours Sepsis New/Unexplained Change in Mental Status Sepsis Action Taken by Nursing 03/16/24 05:18 03/16/24 05:57 03/16/24 06:00 Temperature Temperature Source Pulse Rate 77 87 90 Pulse Rate from SpO2 Sensor 88 90 Respiratory Rate 21 12 17 Blood Pressure 169/100 H Blood Pressure Mean 123 Pulse Oximetry 95 96 96 Oxygen Delivery Method Room Air Sepsis Recent Fever Within 48 Hours Sepsis New/Unexplained Change in Mental Status Sepsis Action Taken by Nursing 03/16/24 06:42 03/16/24 06:51 03/16/24 08:11 Temperature Temperature Source Pulse Rate 90 95 H 100 H Pulse Rate from SpO2 Sensor 95 H Respiratory Rate 21 19 Blood Pressure Blood Pressure Mean Pulse Oximetry 95 Oxygen Delivery Method Room Air Sepsis Recent Fever Within 48 Hours Sepsis New/Unexplained Change in Mental Status Sepsis Action Taken by Nursing Laboratory Data Attestation: I reviewed the patient's lab results. 03/16/24 05:13 03/16/24 05:13 Lab Results 03/16/24 03/16/24 03/16/24 Range/Units 05:13 05:18 06:39 WBC 8.98 (4.8-10.8) K/ul RBC 4.10 L (4.20-5.40) M/uL Hgb 11.9 L (12.0-16.0) g/dl POC Hgb 12.6 (12.0-16.0) g/dl Hct 36.3 L (37.0-47.0) % POC Hct 37 (37-47) % MCV 88.5 (80.0-100.0) fL MCH 29.0 (25.0-34.0) pg MCHC 32.8 (32.0-36.0) g/dL RDW Std Deviation 45.3 (36.4-46.3) fL RDW Coeff of Jh 13.9 (11.5-14.5) % Plt Count 235 (130-400) K/uL MPV 9.6 (9.4-12.4) fL Immature Gran % (Auto) 0.2 % Neut % (Auto) 74.1 % Lymph % (Auto) 17.5 % Runnels % (Auto) 7.1 % Eos % (Auto) 0.9 % Baso % (Auto) 0.2 % Neut # (Auto) 6.65 H (1.40-6.50) K/uL Lymph # (Auto) 1.57 (1.20-3.40) K/uL Runnels # (Auto) 0.64 H (0.11-0.59) K/uL Eos # (Auto) 0.08 (0.00-0.50) K/uL Baso # (Auto) 0.02 (0.00-0.20) K/uL Immature Gran # (Auto) 0.02 (0.01-0.20) K/uL POC Sodium 132 L (135-144) mmol/L Sodium 132 L (136-145) mmol/L POC Potassium 3.4 (3.3-5.0) mmol/L Potassium 3.5 (3.5-5.1) mmol/L POC Chloride 94 L (101-112) mmol/L Chloride 94 L (98-107) mmol/L Carbon Dioxide 30 (21-32) mmol/L POC Total CO2 29 (24-31) mmol/L Anion Gap 8 (3-11) POC Anion Gap 14.0 L (16-25) mmol/L POC BUN 36 H (7-18) mg/dl BUN 42 H (6-23) mg/dl Creatinine 1.24 H (0.6-1.2) mg/dl POC Creatinine 1.4 H (0.6-1.3) mg/dl Est Cr Clr Drug Dosing 39.9 ml/min Est GFR ( Amer) 47.8 ml/min Est GFR (Non-Af Amer) 41.3 ml/min BUN/Creatinine Ratio 33.9 H (10-20) Glucose 159 H (70-99(Fasting)) mg/dl POC Glucose (other) 156 H (70-99) mg/dl Calcium 9.6 (8.6-10.3) mg/dl POC Ioniz Calcium Dayami 1.23 (1.12-1.32) mmol/l Total Bilirubin 0.6 (0.2-1.0) mg/dl AST 18 (13-39) U/L ALT 13 (7-52) U/L Alkaline Phosphatase 65 (34-104) U/L Total Protein 7.1 (6.0-8.3) gm/dl Albumin 3.8 (3.4-5.0) gm/dl Globulin 3.3 (2.5-4.0) gm/dl Albumin/Globulin Ratio 1.2 (0.9-2) Lipase 7 L (11-82) U/L Urine Color Yellow Urine Appearance Clear (Clear) Urine pH 5.5 (4.5-7.5) Ur Specific [place] 1.021 (1.000-1.030) Urine Protein Negative (Negative) Urine Glucose (UA) Negative (Negative) Urine Ketones Negative (Negative) Urine Blood Negative (Negative) Urine Nitrite Negative (Negative) Urine Bilirubin Negative (Negative) Urine Urobilinogen Negative (Negative) Ur Leukocyte Esterase 2+ H (Negative) Urine WBC (Auto) 21-50 H (0-5) /hpf Urine RBC (Auto) 0-2 (0-2) /hpf U Hyaline Cast (Auto) 3-5 H (0-2) /lpf U Epithel Cells (Auto) 0-2 (0-2) /hpf Urine Bacteria (Auto) 4+ H (None Seen) Administered Medications Discontinued Medications Dexamethasone Sodium Phosphate (DexamethasonePf 10 Mg/Ml Vial) 10 mg IV NOW ONE Stop: 03/16/24 04:49 Last Admin: 03/16/24 05:11 Dose: 10 mg Documented By: ESTRELLITA Diazepam (Diazepam 2 Mg Tablet) 2 mg PO NOW ONE Stop: 03/16/24 04:49 Last Admin: 03/16/24 05:10 Dose: 2 mg Documented By: ESTRELLITA Sodium Chloride (Nss) 1,000 mls @ 999 mls/hr IV .Q1H1M ONE Stop: 03/16/24 05:48 Last Infusion: 03/16/24 06:16 Dose: Infused Documented By: Admin: 03/16/24 05:10 Dose: 999 mls/hr Documented By: ESTRELLITA Acetaminophen (Ofirmev) 1,000 mg in 100 mls @ 400 mls/hr IV NOW STA Stop: 03/16/24 05:02 Last Infusion: 03/16/24 05:28 Dose: Infused Documented By: Admin: 03/16/24 05:11 Dose: 400 mls/hr Documented By: ESTRELLITA Ioversol (Optiray 320 100ml) 100 ml IV ONCE ONE Stop: 03/16/24 05:47 Last Admin: 03/16/24 05:46 Dose: 91 ml Documented By: CHAPO Ketorolac Tromethamine (Ketorolac Tromethamine 15 Mg/Ml Vial) 15 mg IV NOW STA Stop: 03/16/24 04:49 Last Admin: 03/16/24 05:10 Dose: 15 mg Documented By: ESTRELLITA Ketorolac Tromethamine (Ketorolac Tromethamine 15 Mg/Ml Vial) 15 mg IV NOW STA Stop: 03/16/24 06:14 Last Admin: 03/16/24 06:34 Dose: 15 mg Documented By: ESTRELLITA Morphine Sulfate (Morphine Sulfate 2 Mg/Ml Carp) 2 mg IV NOW STA Stop: 03/16/24 07:51 Last Admin: 03/16/24 08:07 Dose: 2 mg Documented By: [facility] Data Radiologist's Impression: Abdomen/Pelvis CT 03/16/24 04:46 Exam(s): CT ABDOMEN + PELVIS With Contrast IV Amt: 91 ML OPTIRAY 320 EXAM: CT Abdomen and Pelvis With Intravenous Contrast CLINICAL HISTORY: Reason for exam: low back pain, 1wk s/p fall. TECHNIQUE: Axial computed tomography images of the abdomen and pelvis with intravenous contrast. CTDI is 28.14 mGy and DLP is 1316.89 mGy-cm. Automated exposure control was utilized for the study. A dose lowering technique was utilized adhering to the principles of ALARA. CONTRAST: Patient received 91 ML OPTIRAY 320 of IV contrast COMPARISON: No relevant prior studies available. FINDINGS: Lung bases: Cardiomegaly. Coronary artery calcifications. Mild dependent atelectatic changes. ABDOMEN: Liver: Unremarkable. No mass. Gallbladder and bile ducts: Unremarkable. No calcified stones. No ductal dilation. Pancreas: Unremarkable. No mass. No ductal dilation. Spleen: Unremarkable. No splenomegaly. Adrenals: Unremarkable. No mass. Kidneys and ureters: Simple left renal cyst. No follow-up of this simple cyst is necessary. No hydronephrosis. Stomach and bowel: No evidence of bowel obstruction. No mucosal thickening. PELVIS: Appendix: Normal appendix. Bladder: Unremarkable. No mass. Reproductive: Hysterectomy changes. ABDOMEN and PELVIS: Intraperitoneal space: Unremarkable. No free air. No significant fluid collection. Bones/joints: Right total hip arthroplasty changes. Degenerative changes in the spine. T11-L4 posterior spinal fusion hardware with intervertebral disc spacers noted at L3 L4-L5 S1. Additional laminectomy changes noted at L1, L3-S1. No acute fracture. No dislocation. Soft tissues: Umbilical hernia containing fat. Vasculature: Atherosclerotic disease. No abdominal aortic aneurysm. Lymph nodes: Unremarkable. No enlarged lymph nodes. IMPRESSION: No acute findings on CT abdomen/pelvis4 with incidental findings as described. Electronically signed by: Bill Crocker MD 03/16/24 07:[address] 03/16/24 04:46 CT lumbar spine w con CT DOSE: CLINICAL HISTORY: low back pain, 1wk s/p fall TECHNIQUE: Multiaxial CT images of the lumbar spine were performed following the intravenous administration of contrast and reformatted in the sagittal and coronal planes. A dose lowering technique was utilized adhering to the principles of ALARA. COMPARISON STUDY: Lumbar spine radiograph 03/10/2024. FINDINGS: There is again noted posterior decompression and fusion from T11 through L4 with pedicle screws and rods. The hardware appears intact. No abnormal periprosthetic lucency. Prior L5-S1 laminectomy is also noted. Partially visualized left sacroiliac bolts. The S1 pedicle screws have been removed. Suboptimal evaluation the central canal due to the CT technique. However, no high-grade central canal stenosis identified. No acute fractures within the lumbar spine. The sacrum is intact. IMPRESSION: 1. No acute fractures within the lumbar spine. 2. Postoperative changes as described above. The hardware appears intact. ACT 112: Negative or not required by law. Electronically signed by: Yair Kaplan M.D. 03/16/2024 7:37 AM Discharge Plan Visit Data Chief Complaint: Back Injury/Pain Stated Complaint: LOW BACK PAIN - RADIATES INTO BOTH LEGS ED Provider: Abhilash Maguire Discharge Problem: Acute exacerbation of chronic low back pain, Urinary tract infection, Intractable back pain Forms Stand Alone Forms: [facility] [employer] Prescriptions Prescriptions: No Action aspirin [Adult Aspirin Regimen] 81 mg tablet,delayed release (DR/EC) 81 mg PO DAILY albuterol sulfate 90 mcg/actuation HFA aerosol inhaler 2 puff INH Q6H PRN (Reason: Shortness Of Breath Or Wheezing) Qty: 8.5 5RF atorvastatin 20 mg tablet 20 mg PO QPM Qty: 90 3RF docusate sodium [Colace] 100 mg capsule 100 mg PO BID 30 Days Qty: 60 3RF tolterodine 4 mg capsule,extended release 24hr 4 mg PO PM Qty: 90 3RF propranolol 60 mg tablet 60 mg PO BID 90 Days Qty: 180 2RF nystatin-triamcinolone 100,000-0.1 unit/g-% cream 1 applic topical BID Qty: 30 0RF lisinopril 5 mg tablet 5 mg PO .Q AM Qty: 10 0RF ketoconazole 2 % cream 1 applic topical BID 14 Days Qty: 30 0RF gabapentin 300 mg capsule 300 mg PO TID Qty: 90 5RF flurbiprofen 100 mg tablet 100 mg PO TID Qty: 270 3RF Hold Instructions: leg swelling duloxetine 60 mg capsule,delayed release(DR/EC) 60 mg PO DAILY Qty: 90 3RF cholecalciferol (vitamin D3) 50 mcg (2,000 unit) tablet 2,000 unit PO QAM 90 Days Qty: 90 4RF calcium carbonate [Calcium 600] 600 mg calcium (1,500 mg) tablet 600 mg PO DAILY 90 Days Qty: 90 3RF furosemide 20 mg tablet 20 mg PO DAILY Qty: 90 3RF ascorbic acid (vitamin C) 500 mg capsule 500 mg PO BID (DME) Shower Chair Misc See Rx Instructions .Route Qty: 1 0RF Rx Instructions: As directed prednisone 10 mg tablet 10 mg PO .COMPLEX Qty: 20 0RF Rx Instructions: take 4 tabs for 2 days, 3 tabs for 2 days, 2 tabs for 2 days, 1 tab for 2 days then stop tramadol 50 mg tablet 50 mg PO TID PRN (Reason: pain) Qty: 30 0RF Glucosamine Chondroitin 550-30-1 mg Capsule 1 cap PO QAM qh-kl-okhi-FA-Ca carb-vit K 18 mg iron-400 mcg-500 mg Tablet 1 tab PO QAM Referrals Referrals: PCP,NO [Physician] - Discharge Problem: Urinary tract infection Qualifiers: Urinary tract infection type: acute cystitis Hematuria presence: without hematuria Qualified Code(s): N30.00 - Acute cystitis without hematuria
[2024-03-16] MEDS: diazePAM 2 MG TABLET PO ONE (05:10)
[2024-03-16] MEDS: SODIUM CHLORIDE 0.9% 1,000 ML IV ONE (05:10)
[2024-03-16] MEDS: KETOROLAC TROMETHAMINE 15 MG/ML VIAL IV STA ×2 (05:10→06:34)
[2024-03-16] MEDS: dexAMETHasone**PF** 10 MG/ML VIAL IV ONE (05:11)
[2024-03-16] MEDS: ACETAMINOPHEN 1,000 MG/100 ML VIAL IV STA (05:11)
[2024-03-16 05:27] LABS: Basophils # (auto) 0.02 K/uL (0.00-0.20); Basophils % (auto) 0.2 %; Eosinophils # (auto) 0.08 K/uL (0.00-0.50); Eosinophils % (auto) 0.9 %; Hematocrit (blood only) 36.3 % (37.0-47.0); Hemoglobin 11.9 g/dl (12.0-16.0); Immature Granulocytes # (auto) 0.02 K/uL (0.01-0.20); Immature Granulocytes % (auto) 0.2 %; Lymphocytes # (auto) 1.57 K/uL (1.20-3.40); Lymphocytes % (auto) 17.5 %; Mean Corpuscular Hgb Conc 32.8 g/dL (32.0-36.0); Mean Corpuscular Volume 88.5 fL (80.0-100.0); Mean Platelet Volume 9.6 fL (9.4-12.4); Monocytes # (auto) 0.64 K/uL (0.11-0.59); Monocytes % (auto) 7.1 %; Neutrophils # (auto) 6.65 K/uL (1.40-6.50); Neutrophils % (auto) 74.1 %; Platelet Count 235 K/uL (130-400); RDW Coefficient of Variation 13.9 % (11.5-14.5); RDW Standard Deviation 45.3 fL (36.4-46.3); White Blood Count 8.98 K/ul (4.8-10.8)
[2024-03-16 05:43] LABS: Albumin Globulin Ratio 1.2 (0.9-2); Albumin Level 3.8 gm/dl (3.4-5.0); BUN Creatinine Ratio 33.9 (10-20); Bilirubin,Total 0.6 mg/dl (0.2-1.0); Calcium 9.6 mg/dl (8.6-10.3); Creatinine Clr Calc Pharmacy 39.9 ml/min; Est GFR (African American) 47.8 ml/min; Est GFR (Non-African American) 41.3 ml/min; Globulin 3.3 gm/dl (2.5-4.0); Potassium 3.5 mmol/L (3.5-5.1); Total Protein 7.1 gm/dl (6.0-8.3)
[2024-03-16] MEDS: OPTIRAY 320 100ml IV ONE (05:46)
[2024-03-16 07:16] LABS: iSTAT Creatinine 1.4 mg/dl (0.6-1.3); iSTAT Hemoglobin 12.6 g/dl (12.0-16.0); iSTAT Ionized Calcium 1.23 mmol/l (1.12-1.32); iSTAT Potassium 3.4 mmol/L (3.3-5.0)
--- NOTE | 2024-03-16 07:35 | CT Scan Report ---
Exam(s): CT ABDOMEN + PELVIS With Contrast IV Amt: 91 ML OPTIRAY 320 EXAM: CT Abdomen and Pelvis With Intravenous Contrast CLINICAL HISTORY: Reason for exam: low back pain, 1wk s/p fall. TECHNIQUE: Axial computed tomography images of the abdomen and pelvis with intravenous contrast. CTDI is 28.14 mGy and DLP is 1316.89 mGy-cm. Automated exposure control was utilized for the study. A dose lowering technique was utilized adhering to the principles of ALARA. CONTRAST: Patient received 91 ML OPTIRAY 320 of IV contrast COMPARISON: No relevant prior studies available. FINDINGS: Lung bases: Cardiomegaly. Coronary artery calcifications. Mild dependent atelectatic changes. ABDOMEN: Liver: Unremarkable. No mass. Gallbladder and bile ducts: Unremarkable. No calcified stones. No ductal dilation. Pancreas: Unremarkable. No mass. No ductal dilation. Spleen: Unremarkable. No splenomegaly. Adrenals: Unremarkable. No mass. Kidneys and ureters: Simple left renal cyst. No follow-up of this simple cyst is necessary. No hydronephrosis. Stomach and bowel: No evidence of bowel obstruction. No mucosal thickening. PELVIS: Appendix: Normal appendix. Bladder: Unremarkable. No mass. Reproductive: Hysterectomy changes. ABDOMEN and PELVIS: Intraperitoneal space: Unremarkable. No free air. No significant fluid collection. Bones/joints: Right total hip arthroplasty changes. Degenerative changes in the spine. T11-L4 posterior spinal fusion hardware with intervertebral disc spacers noted at L3 L4-L5 S1. Additional laminectomy changes noted at L1, L3-S1. No acute fracture. No dislocation. Soft tissues: Umbilical hernia containing fat. Vasculature: Atherosclerotic disease. No abdominal aortic aneurysm. Lymph nodes: Unremarkable. No enlarged lymph nodes. IMPRESSION: No acute findings on CT abdomen/pelvis4 with incidental findings as described. Electronically signed by: Bill Crocker MD 03/16/24 07:34 AM
[2024-03-16 07:36] LABS: Appearance Urine Clear (Clear); Bacteria Urine Automated 4+ (None Seen); Bilirubin Urine Negative (Negative); Blood Urine Negative (Negative); Color Urine Yellow; Epithelial Cell Urine Auto 0-2 /hpf (0-2); Glucose Urine UA Negative (Negative); Ketones Urine Negative (Negative); Leukocyte Esterase Urine 2+ (Negative); Nitrite Urine Negative (Negative); Protein Urine Negative (Negative); RBC Urine Automated 0-2 /hpf (0-2); Specific Gravity Urine 1.021 (1.000-1.030); Urobilinogen Urine Negative (Negative); WBC Urine Automated 21-50 /hpf (0-5); pH Urine 5.5 (4.5-7.5)
--- NOTE | 2024-03-16 07:40 | CT Scan Report ---
CT lumbar spine w con CT DOSE: CLINICAL HISTORY: low back pain, 1wk s/p fall TECHNIQUE: Multiaxial CT images of the lumbar spine were performed following the intravenous administ ration of contrast and reformatted in the sagittal and coronal planes. A dose lowering technique was utilized adhering to the principles of ALARA. COMPARISON STUDY: Lumbar spine radiograph 03/10/2024. FINDINGS: There is again noted posterior decompression and fusion from T11 through L4 with pedicle sc rews and rods. The hardware appears intact. No abnormal periprosthetic lucency. Prior L5-S1 laminecto my is also noted. Partially visualized left sacroiliac bolts. The S1 pedicle screws have been removed . Suboptimal evaluation the central canal due to the CT technique. However, no high-grade central can al stenosis identified. No acute fractures within the lumbar spine. The sacrum is intact. IMPRESSION: 1. No acute fractures within the lumbar spine. 2. Postoperative changes as described above. The hardware appears intact. ACT 112: Negative or not required by law. Electronically signed by: Yair Kaplan M.D. 03/16/2024 7:37 AM
[2024-03-16] MEDS: MoRPHine SULFATE 2 MG/ML CARP IV STA (08:07)
[2024-03-16] MEDS ORDERED: LORazepam 0.5 MG TAB PO PRN (08:22)
--- NOTE | 2024-03-16 08:24 | History & Physical Report ---
Date of Service March 16, 2024 Assessment & Plan (1) Acute exacerbation of chronic low back pain: Plan: Acute on chronic lower back pain. Patient admitted without radicular concerns for impingement. Patient be placed on parenteral hydromorphone, dexamethasone, scheduled Tylenol, continue duloxetine and gabapentin. MRI of her lumbar spine will be ordered given the nature of her pain is mostly in the lumbar back. Patient with history of anxiety at this time which is exacerbated continue her duloxetine and offering her lorazepam which also may have an added benefit for muscle relaxation. (2) Abnormal urinalysis: Plan: Concerns for UTI POA patient on ceftriaxone cultures are sent Plan Patient is a full code Lovenox for DVT prevention History of Present Illness Primary Care Provider: Cate Ford MD 78-year-old female with extensive orthopedic history including cervical lumbar spinal surgery which is extensive with hardware implanted who had a fall in January and has had intractable pain since. ER visit in February without improvement of pain. Patient is also seen her primary care provider and started on steroids and tramadol. Pt is admitted for intractable pain. Typically has ortho surgical follow up at [facility] [place] [facility] Dr [place] Allergies Allergy/AdvReac Type Severity Reaction Status Date / Time homatropine AdvReac Intermediate HYDROCODONE/HOMATROPINE Verified 01/24/24 14:13 COUGH SYRP-INSOMNIA/NAUSEA hydrocodone AdvReac Intermediate NAUSEA/INSOMINIA-COUGH Verified 01/24/24 14:13 SYRUP Home Medications Medication Instructions Recorded Confirmed Type ascorbic acid (vitamin C) 500 mg 500 mg PO BID 04/26/19 01/24/24 History capsule aspirin 81 mg tablet,delayed 81 mg PO DAILY 12/16/21 01/24/24 History release (Adult Aspirin Regimen) qqjinkzz-dez-ymrv-FA-Ca carb-vit K 1 tab PO QAM 01/27/23 01/24/24 History 18 mg iron-400 mcg-500 mg tablet Shower Chair #1 ea 03/04/23 01/24/24 Rx glucosamine sulf dipot 1 cap PO QAM 08/19/23 01/24/24 History chlr,msm,chond 550 mg-C 30 mg-claritza 1 mg capsule (Glucosamine Chondroitin) albuterol sulfate 90 mcg/actuation 2 puff inhalation Q6H PRN 02/01/24 Rx aerosol inhaler Shortness Of Breath Or Wheezing #8.5 grams atorvastatin 20 mg tablet 20 mg PO QPM #90 tabs 02/01/24 Rx calcium carbonate (Calcium 600) 600 mg PO DAILY 90 days #90 tabs 02/01/24 Rx cholecalciferol (vitamin D3) 50 2,000 unit PO QAM 90 days #90 tabs 02/01/24 Rx mcg (2,000 unit) tablet docusate sodium 100 mg capsule 100 mg PO BID 30 days #60 caps 02/01/24 Rx (Colace) duloxetine 60 mg capsule,delayed 60 mg PO DAILY #90 caps 02/01/24 Rx release flurbiprofen 100 mg tablet 100 mg PO TID #270 tabs 02/01/24 03/13/24 Rx gabapentin 300 mg capsule 300 mg PO TID #90 caps 02/01/24 Rx ketoconazole 2 % topical cream 1 applic topical BID 14 days #30 02/01/24 Rx grams lisinopril 5 mg tablet 5 mg PO .Q AM #10 tabs 02/01/24 Rx nystatin-triamcinolone 100,000 1 applic topical BID #30 grams 02/01/24 Rx unit/g-0.1 % topical cream propranolol 60 mg tablet 60 mg PO BID 90 days #180 tabs 02/01/24 Rx tolterodine 4 mg capsule,extended 4 mg PO PM #90 caps 02/01/24 Rx release 24 hr furosemide 20 mg tablet 20 mg PO DAILY #90 tabs 02/09/24 Rx prednisone 10 mg tablet 10 mg PO .COMPLEX #20 tabs 03/13/24 03/13/24 Rx tramadol 50 mg tablet 50 mg PO TID PRN pain #30 tabs 03/13/24 03/13/24 Rx Past Med/Surg History Problem List (Updated 03/16/24 @ 10:47 by Neeru Brice) Intractable back pain (Acute) Urinary tract infection (Acute) Abnormal urinalysis Acute exacerbation of chronic low back pain (Acute) Acute pain of right knee (Acute) Acute pain of right lower extremity (Acute) Essential tremor Left shoulder pain Cervical stenosis of spinal canal Low back pain Right rotator cuff tear arthropathy Impaired fasting glucose Anxiety (Acute) Urinary incontinence (Acute) Vitamin D deficiency (Acute) Lumbar canal stenosis Gait disturbance Arthralgia of multiple sites Anemia Aortic valve sclerosis Without stenosis per 2018 echo. HTN (hypertension) Medical History History of COVID-19 12/2021- states was hospitalized at [facility]; resolved Hx of small bowel obstruction Obesity Arthritis History of abnormal electrocardiogram Mitral valve prolapse Not noted on 2018 echo Stress incontinence Hyperlipidemia Excessive sweating Depression Asthma states recent increased SOB due to anemia Hyperparathyroidism s/p parathyroidectomy Surgical History Hx of bilateral cataract extraction Hx of cervical spine surgery 01/2023- PSH, [facility] - limited rom and unable to lift arms over head H/O parathyroidectomy S/P thyroid surgery parathyroid resection H/O carpal tunnel repair R/L S/P lumbar fusion 2005- Dr. Guerrero and repeat lumbar surgery 05/2009 History of gynecologic surgery anterior colporrhaphy, repair of cystocele and posterior colporrhaphy for pelvic relaxation History of total knee arthroplasty LEFT H/O neck surgery neck exploration with excision of parathyroidadenoma and biopsy of upper par athyroid gland History of total hip replacement RIGHT H/O colonoscopy S/P rotator cuff repair RIGHT S/P vaginal hysterectomy Cervical vertebral fusion 10/2008- Dr. Guerrero H/O arthroscopy of knee LEFT Family History Mother Goiter Father Colon cancer Emphysema of lung Denies family history of Ovarian cancer Prostate cancer Myocardial infarction Breast cancer Social History Smoking Status: Never smoker Second Hand Exposure: Yes (SPOUSE USED TO SMOKE); Do You Dip or Chew Tobacco: No; Hx Alcohol Use: No Hx Substance Use: No Preferred Language: Palauan Communication Ability: Effective Front Worker Required: No Beliefs That Will Affect Care: None marital status: / Current Living Situation: Family Current Living Situation Comment: daughter and son in law current occupational status: retired 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 Vital signs as documented. Head exam is normocephalic atraumatic Neck is without JVD, thyromegaly, or carotid bruits. Cannot rotate her neck due to his previous spinal fusion Lungs are clear to auscultation, no focal loss of breath sounds Cardiac exam, Rhythm is regular.. No murmurs, rubs or gallops. Abdominal exam reveals normal bowel sounds, soft non tender, no masses Extremities are nonedematous and both pedal pulses are present Neurologic exam is alert and oriented, no focal loss of strength or sensation focal pain in her back mostly on her lower back Skin is without bruises or rashes Psychologically is without concerns for anxiety or depression.. Results & Data Results & Data Vital Signs (Past 12 Hours) Vital Signs Temp Pulse Resp BP Pulse Ox O2 Del Method 03/16/24 08:11 100 H 03/16/24 06:51 95 H 19 95 Room Air 03/16/24 06:42 90 21 03/16/24 06:00 90 17 96 03/16/24 05:57 87 12 96 03/16/24 05:18 77 21 169/100 H 95 Room Air 03/16/24 05:12 91 H 19 03/16/24 05:00 98 H 19 93 03/16/24 04:48 96 H 19 92 03/16/24 04:39 97 H 23 95 03/16/24 04:22 105 H 03/16/24 04:01 97.9 F 105 H 19 141/111 H 96 Room Air Laboratory Results Reviewed CBC reviewed chemistry Code Status & VTE Plan VTE Prophylaxis Plan VTE Prophylaxis will be ordered: Yes PG Care Time/CCT Total # of Minutes Spent Total Time Spent with Patient: Total time spent is greater than 50% in coordination of care (as documented) at patient's floor/unit and/or counseling patient: Coding Level of Care Code 49029 INT INP/OBS CARE 2/55MIN Diagnoses Acute exacerbation of chronic low back pain M54.50; G89.29 Abnormal urinalysis R82.90
[2024-03-16] MEDS: cefTRIAXone SODIUM 2,000 MG/50 ML BAG IV STA (09:45)
[2024-03-16] MEDS ORDERED: MAGNESIUM HYDROXIDE SUSP 30 ML UDC PO PRN (11:02)
[2024-03-16] MEDS ORDERED: NON-FORMULARY MEDICATION (Flurbiprofen 100 mg tablet) PO SCH (11:02)
[2024-03-16] MEDS ORDERED: POLYETHYLENE (MIRALAX) 17 GM PACK PO PRN (11:02)
[2024-03-16] MEDS ORDERED: NON-FORMULARY MEDICATION (Glucos Sul 2kcl-Msm-Chond-C-Mn [Glucosamine Chondroitin] 550-30- PO SCH (11:02)
[2024-03-16] MEDS ORDERED: ALBUTEROL HFA 8 GM INHALER INH PRN (11:02)
[2024-03-16] MEDS: HYDROmorphone INJ 1 MG/ML SYRINGE IV PRN (11:31)
--- NOTE | 2024-03-16 11:35 | Magnetic Resonance Report ---
MR lumbar spine wo con CLINICAL HISTORY: 78 years-old Female with lumbar pain. COMPARISON: None. TECHNIQUE: Multiplanar, multi sequence MRI of the lumbar spine was performed without intravenous cont rast. FINDINGS: There is again noted posterior decompression and fusion from T11 through L4 with pedicle screws and r ods. Prior L5-S1 laminectomy is also noted. No acute fracture, subluxation, endplate erosion or marro w replacing process. Cuax-sk-ielhbfcm multilevel spondylotic spurring with moderate facet arthrosis. Probable cyst of the inferior pole left kidney, 2.8 cm. The imaged sacrum appears intact. Conus medul britt terminates at the L1 level. Normal signal within the imaged thoracic spinal cord. Atrophy of th e paraspinal musculature. T12-L1: No central canal or neural foraminal stenosis. L1-L2: No central canal or neural foraminal stenosis. L2-L3: Mild intervertebral disc space narrowing with spondylitic spurring and moderate facet arthros is. No central canal or neural foraminal stenosis. L3-L4: Intervertebral disc spacer at the posterior aspect, partially extends into the left lateral r ecess resulting in [id number]-lsufbvwj left lateral recess narrowing with abutment of the left L4 nerve root. No central canal or neural foraminal stenosis. L4-L5: No central canal or neural foraminal stenosis. L5-S1: No central canal or neural foraminal stenosis. IMPRESSION: 1. No acute fracture or subluxation. 2. Postoperative changes as above without high-grade central canal or neuroforaminal narrowing. 3. The intervertebral spacer at L3-L4 is positioned posteriorly within the disc space, extending into the left lateral recess causing [id number] left lateral recess narrowing with abutment of the left L4 nerve root. ACT 112: Negative or not required by law. The above report was generated using voice recognition software. It may contain grammatical, syntax o r spelling errors. Dictated: 03/16/2024 9:44 AM Transcribed: 03/16/2024 10:27 AM Arnol [id number] [email or web address] Electronically signed by: Mehul Rothman M.D. 03/16/2024 11:33 AM
[2024-03-16] MEDS: HYDROmorphone INJ 0.5 MG/0.5 ML SYR IV STA (12:23)
[2024-03-16] MEDS: PROPRANOLOL HCL 20 MG TAB PO SCH (12:25)
[2024-03-16] MEDS: GABAPENTIN 300 MG CAP PO SCH (12:26)
[2024-03-16] MEDS: CEROVITE ADV FORMULA TAB PO SCH (12:26)
[2024-03-16] MEDS: DOCUSATE SODIUM 100 MG CAP PO SCH (12:26)
[2024-03-16] MEDS: CHOLECALCIFEROL 25 MCG (1000 UNITS) TAB PO SCH (12:26)
[2024-03-16] MEDS: FUROSEMIDE 20 MG TAB PO SCH (12:26)
[2024-03-16] MEDS: lisinopril 5 MG TAB PO SCH (12:26)
[2024-03-16] MEDS: DULoxetine HCL 60 MG CAP PO SCH (12:26)
[2024-03-16] MEDS: KETOCONAZOLE 2% CR 15 GM TUBE EXT SCH (12:27)
[2024-03-16] MEDS: ACETAMINOPHEN 500 MG TAB PO SCH (12:27)
[2024-03-16] MEDS: NYSTATIN/TRIAMCIN CR 15 GM TUBE EXT SCH (12:27)
[2024-03-16] MEDS: ENOXAPARIN INJ 40 MG/0.4 ML SYR SQ SCH (12:29)
[2024-03-16] MEDS: SODIUM CHLORIDE 0.9% 1,000 ML IV SCH (18:24)
[2024-03-16] MEDS: OXYBUTYNIN CHLORIDE XL 5 MG TABCR PO SCH (19:41)
[2024-03-16] MEDS: ATORVASTATIN 20 MG TAB PO SCH (19:41)
[2024-03-16] MEDS ORDERED: ASPIRIN 325 MG ECTAB PO SCH (21:00)
[2024-03-16] MEDS: HYDROmorphone INJ 0.5 MG/0.5 ML SYR IV PRN (23:17)
[2024-03-17 07:02] LABS: BUN Creatinine Ratio 34.3 (10-20); Calcium 9.2 mg/dl (8.6-10.3); Creatinine Clr Calc Pharmacy 45.1 ml/min; Est GFR (African American) 58.5 ml/min; Est GFR (Non-African American) 50.5 ml/min; Potassium 3.9 mmol/L (3.5-5.1)
[2024-03-17] MEDS: CALCIUM CARBONATE 1250MG TAB PO SCH (07:51)
[2024-03-17] MEDS: dexAMETHasone 4 MG in SYRINGE 0 ML IV SCH (07:52)
[2024-03-17] MEDS: FAMOTIDINE 20 MG TAB PO SCH (07:53)
[2024-03-17] MEDS: cefTRIAXone SODIUM 2,000 MG/50 ML BAG IV SCH (07:54)
[2024-03-17] MEDS ORDERED: DEXAMETHASONE SOD INJ 4 MG/ML VIAL IV SCH (09:00)
[2024-03-17] MEDS: oxyCODONE HCL IR 5 MG TAB (IMMEDIATE RELEASE) PO PRN (12:07)
--- NOTE | 2024-03-17 17:22 | Hospitalist Progress Note ---
Date of Service March 17, 2024 Assessment & Plan (1) Acute exacerbation of chronic low back pain: Plan: Acute on chronic lower back pain. Patient admitted without radicular concerns for impingement. Patient be placed on parenteral hydromorphone, dexamethasone, scheduled Tylenol, lidoderm, ultram continue duloxetine and gabapentin. MRI of her lumbar spine reviewed by Dr Guerrero and no immediate need for intervention now her pain has radiated cephalad, will check thoracic MRI Patient with history of anxiety at this time which is exacerbated continue her duloxetine and offering her lorazepam which also may have an added benefit for muscle relaxation. (2) Abnormal urinalysis: Plan: Concerns for UTI POA patient on ceftriaxone cultures are sent, > 100,00 gram neg await sensitivities Plan Patient is a full code Lovenox for DVT prevention evaluation for rehab Admission and Anticipated Discharge Date Admission Date: March 16, 2024 Subjective pt still with significant back pain, supposedly entire both legs radiating to feet, pain is not sharp and no deficit of strenght discussed case with Dr Guerrero, MRI reviewed, does not feel there are acute lumbar changes to support pain , her pain also supposedly radiated to mid torso adjusted pain medicine and have MRI of t spine Physical Exam Physical Exam: pt without deficits of strength or sensation cardiac is regular lungs are clear abd is soft and non tender Results & Data Results & Data Vital Signs (Past 12 Hours) Vital Signs Temp Pulse Resp BP Pulse Ox O2 Del Method 03/17/24 15:26 161/86 H 03/17/24 15:24 98.2 F 88 18 188/88 H 96 Room Air 03/17/24 08:00 Room Air 03/17/24 07:03 98.2 F 78 18 174/85 H 95 Room Air Laboratory Results review chemistry PG Care Time/CCT Total # of Minutes Spent Total Time Spent with Patient: Total time spent is greater than 50% in coordination of care (as documented) at patient's floor/unit and/or counseling patient: Coding Level of Care Code 55423 SUB INP/OBS CARE 2/35MIN Diagnoses Acute exacerbation of chronic low back pain M54.50; G89.29 Abnormal urinalysis R82.90
[2024-03-17] MEDS: LIDOCAINE 5% 1 PATCH TD STA (17:41)
[2024-03-17] MEDS: ACETAMINOPHEN 500 MG TAB PO SCH (20:25)
[2024-03-17] MEDS: DOCUSATE SODIUM/SENNA 50/8.6MG TAB PO SCH (20:26)
[2024-03-17] MEDS: traMADol HCL 50 MG TABLET PO SCH (20:29)
--- NOTE | 2024-03-17 21:12 | Magnetic Resonance Report ---
MR thoracic spine wo con CLINICAL HISTORY: mid back pain and some altered sensation TECHNIQUE: Multiplanar sequences through the thoracic spine were obtained, without intravenous contra st. Comparison: Comparison is made to thoracic spine radiographs 02/21/2024 FINDINGS: ACDF is seen in posterior fixation hardware is seen in the upper thoracic spine and lower thoracolumb ar spine. Degenerative disc disease is seen most prominent at T8-T9. No significant canal or neurofor aminal stenosis is seen. No evidence of acute fracture. The spinal ligaments are intact, without evidence of disruption or abnormal signal intensity. The spi nal cord is normal in signal intensity and there is no evidence of cord contusion. There is no eviden ce of an extradural, intradural, extramedullary or intramedullary lesion. Left renal cysts are seen. IMPRESSION: No acute abnormality and in particular no evidence of acute fracture or significant canal or neurofor aminal stenosis. Postsurgical changes as above. ACT 112: Negative or not required by law. Electronically signed by: Jair Kwon M.D. 03/17/2024 9:10 PM
[2024-03-18] MEDS: COUGH DROP (SUGAR FREE) LOZ 24 LOZ/1 BOX BUCCAL ONE (01:24)
[2024-03-18] MEDS: LIDOCAINE 5% 1 PATCH TD SCH (07:27)
[2024-03-18 07:47] LABS: Hematocrit (blood only) 35.7 % (37.0-47.0); Hemoglobin 11.5 g/dl (12.0-16.0); Mean Corpuscular Hemoglobin 29.4 pg (25.0-34.0); Mean Corpuscular Hgb Conc 32.2 g/dL (32.0-36.0); Mean Corpuscular Volume 91.3 fL (80.0-100.0); Mean Platelet Volume 9.4 fL (9.4-12.4); Platelet Count 240 K/uL (130-400); RDW Coefficient of Variation 14.5 % (11.5-14.5); RDW Standard Deviation 48.5 fL (36.4-46.3); Red Blood Count 3.91 M/uL (4.20-5.40); White Blood Count 6.32 K/ul (4.8-10.8)
[2024-03-18] MEDS: CYCLOBENZAPRINE HCL 5 MG TAB PO ONE (08:53)
--- NOTE | 2024-03-18 16:39 | Hospitalist Progress Note ---
Date of Service March 18, 2024 Assessment & Plan (1) Acute exacerbation of chronic low back pain: Plan: Acute on chronic lower back pain. Patient admitted without radicular concerns for impingement. He is improved dramatically with medical management. This include parenteral hydromorphone, dexamethasone, scheduled Tylenol, lidoderm, ultram continue duloxetine and gabapentin. MRI of her lumbar spine reviewed by Dr Guerrero and no immediate need for intervention additionally does not feel her hardware has been removed No significant changes noted on thoracic MRI Patient with history of anxiety at this time which is exacerbated continue her duloxetine and offering her lorazepam which also may have an added benefit for muscle relaxation. (2) Abnormal urinalysis: Plan: Concerns for UTI POA patient on ceftriaxone cultures are sent, > 100,00 pansensitive E. coli will treat for 1 week given the degree of hardware and likely metabolic encephalopathy present on admission due to UTI Plan Patient is a full code Lovenox for DVT prevention evaluation for rehab versus home as improvement has been traumatic Admission and Anticipated Discharge Date Admission Date: March 16, 2024 Subjective Patient is a good improvement of her symptoms now just symptoms in her back. Patient and nursing feel might be muscle spasms trying Flexeril therapy with good relief. Patient is considering rehab versus going home with home health Overall endorses good improvement Physical Exam Physical Exam: pt without deficits of strength or sensation cardiac is regular lungs are clear abd is soft and non tender Results & Data Results & Data Vital Signs (Past 12 Hours) Vital Signs Temp Pulse Resp BP Pulse Ox O2 Del Method 03/18/24 14:27 98.1 F 74 17 137/76 97 Room Air 03/18/24 07:12 98.1 F 86 16 106/76 96 Room Air Laboratory Results Reviewed CBC PG Care Time/CCT Total # of Minutes Spent Total Time Spent with Patient: Total time spent is greater than 50% in coordination of care (as documented) at patient's floor/unit and/or counseling patient: Coding Level of Care Code 05510 SUB INP/OBS CARE 2/35MIN Diagnoses Acute exacerbation of chronic low back pain M54.50; G89.29 Abnormal urinalysis R82.90
[2024-03-18] MEDS: CYCLOBENZAPRINE HCL 5 MG TAB PO PRN (20:59)
--- NOTE | 2024-03-19 08:08 | Hospitalist Progress Note ---
Date of Service March 19, 2024 Assessment & Plan (1) Acute exacerbation of chronic low back pain: Plan: Acute on chronic lower back pain. Patient admitted without radicular concerns for impingement. He is improved dramatically with medical management. This include parenteral hydromorphone, dexamethasone, scheduled Tylenol, lidoderm, ultram continue duloxetine and gabapentin. MRI of her lumbar spine reviewed by Dr Guerrero and no immediate need for intervention additionally does not feel her hardware has moved No significant changes noted on thoracic MRI Patient with history of anxiety at this time which is exacerbated continue her duloxetine and offering her lorazepam which also may have an added benefit for muscle relaxation. (2) Abnormal urinalysis: Plan: Concerns for UTI POA patient on ceftriaxone cultures are sent, > 100,00 pansensitive E. coli will treat for 1 week given the degree of hardware and likely metabolic encephalopathy present on admission due to UTI Plan Patient is a full code Lovenox for DVT prevention evaluation for rehab specially with fall on 03/19/2024 Admission and Anticipated Discharge Date Admission Date: March 16, 2024 Subjective Patient having waxing and waning hospital stay on 03/19 she is feeling more poorly. She then attempted to get out of bed by herself without nursing supervision and fell striking her right knee on the ground. Pending x-ray Given her persistent weakness and discomfort patient will now endorse consideration of rehab referral Physical Exam Physical Exam: Awake and alert nonfocal no radicular signs or symptoms Cardiac exam is regular lungs are clear Results & Data Results & Data Vital Signs (Past 12 Hours) Vital Signs Temp Pulse Resp BP Pulse Ox O2 Del Method 03/19/24 07:04 98.8 F 85 16 133/66 97 Room Air 03/18/24 22:28 97.9 F 71 19 164/65 H 96 Room Air 03/18/24 21:05 Room Air Laboratory Results Reviewed chemistry Ordered right knee x-ray and response to fall PG Care Time/CCT Total # of Minutes Spent Total Time Spent with Patient: Total time spent is greater than 50% in coordination of care (as documented) at patient's floor/unit and/or counseling patient: Coding Level of Care Code 58243 SUB INP/OBS CARE 2/35MIN Diagnoses Acute exacerbation of chronic low back pain M54.50; G89.29 Abnormal urinalysis R82.90
[2024-03-19 09:21] LABS: Calcium 9.3 mg/dl (8.6-10.3); Potassium 4.2 mmol/L (3.5-5.1)
[2024-03-19 09:27] LABS: BUN Creatinine Ratio 25.8 (10-20); Creatinine Clr Calc Pharmacy 48.8 ml/min; Est GFR (African American) 64.4 ml/min; Est GFR (Non-African American) 55.5 ml/min
--- NOTE | 2024-03-19 15:28 | XRay Report ---
RIGHT KNEE 3 VIEWS CLINICAL HISTORY: Fall. Right knee pain. FINDINGS: AP, crosstable lateral, and sunrise views of the right knee are compared to study dated 02/10. The skeletal structures are osteopenic. No fracture is seen. There is moderate to severe tric ompartmental degenerative joint space narrowing, greatest in the medial compartment. There are margin al osteophytes and patellar enthesophytes. Chondrocalcinosis is observed in the medial and lateral co mpartments. A joint effusion is observed. Prepatellar soft tissue swelling is noted. IMPRESSION: 1. Soft tissue swelling and joint effusion with no fracture identified. 2. Osteopenia with arthritic change and chondrocalcinosis as above. Electronically signed by: Agustin Purcell M.D. 03/19/2024 3:26 PM
[2024-03-20] MEDS: SODIUM CHLORIDE 0.65% NA SOLN 45 ML (OCEAN) PRN (05:46)
[2024-03-20 06:41] LABS: Hemoglobin 11.5 g/dl (12.0-16.0); Mean Corpuscular Hemoglobin 29.6 pg (25.0-34.0); Mean Corpuscular Hgb Conc 31.9 g/dL (32.0-36.0); Mean Corpuscular Volume 92.8 fL (80.0-100.0); Mean Platelet Volume 9.4 fL (9.4-12.4); Platelet Count 257 K/uL (130-400); RDW Coefficient of Variation 14.4 % (11.5-14.5); RDW Standard Deviation 48.5 fL (36.4-46.3); Red Blood Count 3.88 M/uL (4.20-5.40); White Blood Count 10.22 K/ul (4.8-10.8)
[2024-03-20] MEDS: guaiFENesin 600 MG TABCR PO SCH (09:06)
--- NOTE | 2024-03-20 17:52 | Hospitalist Progress Note ---
Date of Service March 20, 2024 Assessment & Plan (1) Acute exacerbation of chronic low back pain: Plan: Acute on chronic lower back pain. Patient admitted without radicular concerns for impingement. He is improved dramatically with medical management. This include parenteral hydromorphone, dexamethasone, scheduled Tylenol, lidoderm, ultram continue duloxetine and gabapentin. MRI of her lumbar spine reviewed by Dr Guerrero and no immediate need for intervention additionally does not feel her hardware has moved No significant changes noted on thoracic MRI Patient with history of anxiety at this time which is exacerbated continue her duloxetine and offering her lorazepam which also may have an added benefit for muscle relaxation. Had peer to peer review for inpatient rehab. This was denied. awaiting for SNF approval. (2) Abnormal urinalysis: Plan: Concerns for UTI POA patient on ceftriaxone cultures are sent, > 100,00 pansensitive E. coli will treat for 1 week given the degree of hardware and likely metabolic encephalopathy present on admission due to UTI Plan Patient is a full code Lovenox for DVT prevention evaluation for rehab specially with fall on 03/19/2024 Admission and Anticipated Discharge Date Admission Date: March 16, 2024 Subjective 78 yo female reports no new symptoms. Review of Systems Review of Systems: All systems reviewed & are unremarkable except as noted in HPI & below Physical Exam Physical Exam: Awake and alert nonfocal no radicular signs or symptoms Cardiac exam is regular lungs are clear Results & Data Results & Data Vital Signs (Past 12 Hours) Vital Signs Temp Pulse Pulse Resp BP BP Pulse Ox 03/20/24 16:01 37.2 C 86 16 141/76 H 95 03/20/24 07:45 36.7 C 62 20 145/84 H 96 O2 Del Method 03/20/24 16:01 Room Air 03/20/24 07:45 Room Air PG Care Time/CCT Total # of Minutes Spent Total Time Spent with Patient: Total time spent is greater than 50% in coordination of care (as documented) at patient's floor/unit and/or counseling patient: Coding Level of Care Code 77631 SUB INP/OBS CARE 2/35MIN Diagnoses Acute exacerbation of chronic low back pain M54.50; G89.29 Abnormal urinalysis R82.90
[2024-03-21 07:56] LABS: BUN Creatinine Ratio 34.5 (10-20); Calcium 9.1 mg/dl (8.6-10.3); Creatinine Clr Calc Pharmacy 56.4 ml/min; Est GFR (African American) 76.6 ml/min; Est GFR (Non-African American) 66.1 ml/min; Potassium 4.1 mmol/L (3.5-5.1)
--- NOTE | 2024-03-21 18:03 | Hospitalist Progress Note ---
Date of Service March 21, 2024 Assessment & Plan (1) Acute exacerbation of chronic low back pain: Plan: Acute on chronic lower back pain. Patient admitted without radicular concerns for impingement. He is improved dramatically with medical management. This include parenteral hydromorphone, dexamethasone, scheduled Tylenol, lidoderm, ultram continue duloxetine and gabapentin. MRI of her lumbar spine reviewed by Dr Guerrero and no immediate need for intervention additionally does not feel her hardware has moved No significant changes noted on thoracic MRI Patient with history of anxiety at this time which is exacerbated continue her duloxetine and offering her lorazepam which also may have an added benefit for muscle relaxation. Had peer to peer review for inpatient rehab. This was denied. awaiting for SNF. Unable to get into daughter's car will set up litter van on 03/22 (2) Abnormal urinalysis: Plan: Concerns for UTI POA patient on ceftriaxone cultures are sent, > 100,00 pansensitive E. coli will treat for 1 week given the degree of hardware and likely metabolic encephalopathy present on admission due to UTI Plan Patient is a full code Lovenox for DVT prevention evaluation for rehab specially with fall on 03/19/2024 Admission and Anticipated Discharge Date Admission Date: March 16, 2024 Subjective 78 yo female reports no new symptoms. Review of Systems Review of Systems: All systems reviewed & are unremarkable except as noted in HPI & below Physical Exam Physical Exam: Awake and alert nonfocal no radicular signs or symptoms Cardiac exam is regular lungs are clear Results & Data Results & Data Vital Signs (Past 12 Hours) Vital Signs Temp Pulse Resp BP BP Pulse Ox O2 Del Method 03/21/24 15:31 36.7 C 66 18 145/76 H 92 Room Air 03/21/24 06:56 36.8 C 67 20 151/81 H 96 Room Air PG Care Time/CCT Total # of Minutes Spent Total Time Spent with Patient: Total time spent is greater than 50% in coordination of care (as documented) at patient's floor/unit and/or counseling patient: Coding Level of Care Code 06504 SUB INP/OBS CARE 2/35MIN Diagnoses Acute exacerbation of chronic low back pain M54.50; G89.29 Abnormal urinalysis R82.90
[2024-03-21 20:58] VITALS: RESP 16; O2SAT 95
[2024-03-22] MEDS: ALUMINUM/MAGNESIUM SUSP 30 ML UDC PO PRN (02:04)
[2024-03-22 08:03] LABS: Hematocrit (blood only) 34.3 % (37.0-47.0); Hemoglobin 11.1 g/dl (12.0-16.0); Mean Corpuscular Hemoglobin 29.7 pg (25.0-34.0); Mean Corpuscular Hgb Conc 32.4 g/dL (32.0-36.0); Mean Corpuscular Volume 91.7 fL (80.0-100.0); Mean Platelet Volume 9.4 fL (9.4-12.4); Platelet Count 285 K/uL (130-400); RDW Coefficient of Variation 14.6 % (11.5-14.5); RDW Standard Deviation 49.1 fL (36.4-46.3); Red Blood Count 3.74 M/uL (4.20-5.40); White Blood Count 8.89 K/ul (4.8-10.8)
[2024-03-22 08:44] VITALS: BP 131/81; PULSE 92; TEMP 99
--- NOTE | 2024-03-23 08:32 | Discharge Summary ---
Date of Service March 22, 2024 Admission HPI Per Admitting Provider 78-year-old female with extensive orthopedic history including cervical lumbar spinal surgery which is extensive with hardware implanted who had a fall in January and has had intractable pain since. ER visit in February without improvement of pain. Patient is also seen her primary care provider and started on steroids and tramadol. Pt is admitted for intractable pain. [place] [facility] [place] Principal Diagnosis acute exacerbation of low back pain. Discharge Exam Awake and alert nonfocal no radicular signs or symptoms Cardiac exam is regular lungs are clear Discharge Data Allergies Allergy/AdvReac Type Severity Reaction Status Date / Time homatropine AdvReac Intermediate HYDROCODONE/HOMATROPINE Verified 01/24/24 14:13 COUGH SYRP-INSOMNIA/NAUSEA hydrocodone AdvReac Intermediate NAUSEA/INSOMINIA-COUGH Verified 01/24/24 14:13 SYRUP Consultations 03/16/24 08:04 ED Decision to Admit Stat Ordered Studies 03/16/24 04:46 CT abd pelvis IV con only Stat CT lumbar spine w con Stat 03/16/24 08:22 MRI Lumbar Spine [MR lumbar spine wo con] Routine 03/17/24 17:21 MRI Thoracic [MR thoracic spine wo con] Routine Hospital Course (1) Acute exacerbation of chronic low back pain: Acute on chronic lower back pain. Patient admitted without radicular concerns for impingement. She improved dramatically with medical management. This include parenteral hydromorphone, dexamethasone, scheduled Tylenol, lidoderm, ultram continue duloxetine and gabapentin. MRI of her lumbar spine reviewed by Dr Guerrero and no immediate need for intervention additionally does not feel her hardware has moved No significant changes noted on thoracic MRI Patient with history of anxiety at this time which is exacerbated continue her duloxetine and offering her lorazepam which also may have an added benefit for muscle relaxation. Had peer to peer review for inpatient rehab. This was denied. Patient will be discharged to SNF on 03/22 Discharge medications noted below. Pain regimen: Tylenol/flubiprofen/tramadol will be scheduled. 5mg of oxycodone for moderate pain and 10mg of oxycodon for severe pain cyclobenzaprine for muscle spasms as needed. Patient understands risks of fall/confusion regarding opiates/ muscle relaxer. However uncontrolled pain in itself is also a risk of confusion. (2) Abnormal urinalysis: Concerns for UTI POA patient on ceftriaxone cultures are sent, > 100,00 pansensitive E. coli Patient completed >5 days of IV antibiotics ceftriaxone. This would treat her uncomplicated UTI Total Time Total Time Spent Total Time Spent (In Minutes): 32 Discharge Plan Discharge Items Patient Disposition: Transfer [facility] Reason For Visit: INTRACTABLE BACK PAIN, UTI POA Discharge Diagnosis: back pain Activity: Resume your previous activity Non-emergency contact: Primary Care Provider Call non-emergency contact if: you have any medication questions Follow-up/Referrals: Cate Ford MD [Primary Care Provider] - Diet: Regular Addtl Attending Provider Instructions: Recommend followup with PCP in 1-2 weeks. Please continue your pain regimen noted below. Tylenol/flubiprofen/tramadol will be scheduled. You will have 1 tablet of oxycodone for moderate pain and 2 tablets for severe pain You will also have cyclobenzaprine for muscle spasms as needed. Please continue to use miralax to help with constipation caused by opiates such as oxycodone. In regards to your UTI, this was treated while you were hospitalized. Good luck on your path to rehab. Pending Studies at Discharge: No Stand-Alone Forms: My [facility] Skilled Items Patient informed of condition?: Yes DNR: No Discharge Level of Care: Skilled Communicable Disease: No Discharge Prognosis: Stable Lines: None Urinary Catheter: No Medications and DC Order Prescriptions: New acetaminophen 325 mg tablet 325 mg PO Q6H PRN (Reason: pain) Qty: 120 0RF tramadol 50 mg Tablet 100 mg PO BID Qty: 30 0RF oxycodone 5 mg Tablet See Rx Instructions .ROUTE .COMPLEX PRN (Reason: moderate pain (scale score 5-6)) Qty: 20 0RF Rx Instructions: Po q6 hprn 1 tablet for moderate pain 2 tablets for severe pain polyethylene glycol 3350 [Miralax] 17 gram Powder In Packet 17 g PO DAILY Qty: 100 0RF Rx Instructions: stop for diarrhea famotidine 20 mg Tablet 20 mg PO QAM Qty: 30 0RF lidocaine 5 % Adhesive Patch,Medicated 1 patch transdermal QAM Qty: 10 0RF cyclobenzaprine 5 mg Tablet 5 mg PO TID PRN (Reason: muscle spasm) Qty: 20 0RF Continued nystatin-triamcinolone 100,000-0.1 unit/g-% cream 1 applic topical BID Qty: 30 0RF ketoconazole 2 % cream 1 applic topical BID 14 Days Qty: 30 0RF (DME) Shower Chair Misc See Rx Instructions .Route Qty: 1 0RF Rx Instructions: As directed atorvastatin 20 mg tablet 20 mg PO QPM Qty: 15 3RF tolterodine 4 mg capsule,extended release 24hr 4 mg PO PM Qty: 15 3RF propranolol 60 mg tablet 60 mg PO BID 90 Days Qty: 30 2RF aspirin [Adult Aspirin Regimen] 81 mg tablet,delayed release (DR/EC) 81 mg PO DAILY Qty: 15 0RF calcium carbonate [Calcium 600] 600 mg calcium (1,500 mg) tablet 600 mg PO DAILY 90 Days Qty: 15 3RF docusate sodium 100 mg capsule 100 mg PO BID 30 Days Qty: 30 3RF gabapentin 300 mg capsule 300 mg PO TID Qty: 45 5RF flurbiprofen 100 mg tablet 100 mg PO TID Qty: 45 3RF lisinopril 5 mg tablet 5 mg PO .Q AM Qty: 15 0RF furosemide 20 mg tablet 20 mg PO DAILY Qty: 15 3RF albuterol sulfate 90 mcg/actuation HFA aerosol inhaler 2 puff INH Q6H PRN (Reason: Shortness Of Breath Or Wheezing) Qty: 8.5 5RF duloxetine 60 mg capsule,delayed release(DR/EC) 60 mg PO DAILY Qty: 15 3RF cholecalciferol (vitamin D3) 50 mcg (2,000 unit) tablet 2,000 unit PO QAM 90 Days Qty: 15 4RF [id number]-Ca carb-vit K 18 mg iron-400 mcg-500 mg Tablet 1 tab PO QAM Qty: 15 0RF ascorbic acid (vitamin C) 500 mg capsule 500 mg PO BID Qty: 30 0RF Glucosamine Chondroitin 550-30-1 mg Capsule 1 cap PO QAM Qty: 14 0RF Discontinued prednisone 10 mg tablet 10 mg PO .COMPLEX Qty: 20 0RF Rx Instructions: take 4 tabs for 2 days, 3 tabs for 2 days, 2 tabs for 2 days, 1 tab for 2 days then stop tramadol 50 mg tablet 50 mg PO TID PRN (Reason: pain) Qty: 30 0RF Discharge Orders: Discharge Order (Routine); Ordered 06/12/24 Ordered By: Jone Waters Admission Data Admit Date/Time: 03/16/24 08:17 Attending Provider: Jone Waters Admit Provider: Anish Mcwilliams Primary Care Provider: Cate Ford Other Providers: Anish Mcwilliams; [facility]; [facility]; [place],[facility] Other Interventions: Discharge Summary Assessment (RN) Last Done: 03/21/24 12:21 Coding Level of Care Code 02555 INP/OBS DISCH >30 MIN Diagnoses Acute exacerbation of chronic low back pain M54.50; G89.29 Abnormal urinalysis R82.90
== END 2024-03-22 12:32 | DRG 551 ==
LOC: SUATTDRO → ED 04:14 → SUATTDRO 08:17 → 3N 08:17

== ENCOUNTER 2024-04-03 09:44 | Inpatient (IN) ==
--- NOTE | 2024-04-03 10:11 | Emergency Department Note ---
Impression & Plan Right leg pain, Ambulatory dysfunction, Cellulitis, Chronic back pain ED Provider Note NAME: CHARLI DUMONT AGE: 78 SEX: F : 1945 ARRIVES VIA: Ambulance INFORMANT: [Patient][ems] ED PROVIDER(S): [Agustin Crenshaw MD] CHIEF COMPLAINT: Leg pain HISTORY OF PRESENT ILLNESS: The patient is a 78-year-old female presents to the ER with ongoing leg pain, more so on the right. The patient was in our hospital 12 days ago for back pain that would radiate down the legs. No surgical intervention was recommended. The patient did go to rehab. She was discharged from rehab yesterday. She is now at home with her daughter. The patient had gabapentin and oxycodone today. She has had increased pain though to the point where she cannot function. She presents for evaluation. There has been no cough or cold or congestion. No fever or chills, no chest pain or abdominal pain. Of note, EMS noted a temperature of 101.9 prior to arrival. There has been no new fall. PMHx/PSHx/Social Hx: See Below PHYSICAL EXAM: GENERAL: Patient is in mild distress from pain, moaning and at times tearful. HEENT: No acute trauma, normocephalic atraumatic, mucous membranes moist, no nasal congestion. NECK: No stridor, no adenopathy, no meningismus, trachea is midline. LUNGS: Clear to auscultation bilaterally, no wheeze, no rhonchi, breath sounds equal. HEART: Without murmurs gallops or rubs, regular rate and rhythm. ABDOMEN: Soft, nontender, no peritonitis. Obese. EXTREMITIES: No cyanosis, the patient does have a 6 cm contusion to the inferior aspect of the right anterior knee. There is some warmth and erythema from the knee to the ankle along the anterior lateral aspect. No drainage. NEUROLOGIC: Oriented x 3, no acute motor or sensory deficits, no focal weakness. SKIN: No jaundice, no diaphoresis. DIFFERENTIAL DIAGNOSIS: Cellulitis, DVT, sciatica, acute on chronic pain, dehydration, failed outpatient management, among others. EMERGENCY DEPARTMENT PROCEDURES: MEDICAL DECISION MAKING: There is no leukocytosis, a subtle anemia was noted. There was a normal platelet count. No coagulopathy. No renal failure or electrolyte abnormality. Lactic acid level was not elevated making severe sepsis less likely. There was no concerning liver enzyme elevation. Right leg ultrasound did not show DVT. Right knee film shows some arthritis and potential fracture, CT was recommended. A right knee CT was done, there was no fracture. On exam, the patient was complaining of right leg pain. She had warmth and erythema to the anterior aspect of the right leg. There was a contusion at the inferior aspect of the right anterior knee. I was concerned for the start of cellulitis. Patient received IV saline for hydration, she was given IV morphine for pain, she received IV Tylenol for pain. The patient just left rehab yesterday. She has been at home for about a day and could not function on her own. She is in extreme pain in the right leg and may have an early cellulitis. She clearly is not able to be discharged, she may require placement at a care facility. I spoke with case management, I did speak with the patient, the on-call hospitalist was consulted. Patient's pain is controlled after the dose of IV morphine. Prior/Outside records/notes reviewed: Today's EMS notes describing her presentation and transport to this hospital. ECG per my interpretation: Indication was possible infection. The ECG shows a sinus rhythm with a first-degree AV block. The rate is 93. There is no acute ST elevation, no PVCs. There is some subtle baseline artifact. QTc was 435. Continuous Cardiac Monitoring per my interpretation: An order was placed for continuous cardiac monitoring. The monitor shows a rate of 105 with sinus tachycardia. Imaging/x-ray results per my interpretation: Right knee film shows arthritis and potential fracture of the proximal tibia. Chronic Medical/Social conditions affecting care: Obesity, advanced age. Care/Management discussed with: Case management, the on-call hospitalist. Level of care consideration(s): After review of the information above and other included data: --I believe the patient requires escalation of care to admission DISPOSITION: Admission Past Med/Surg History Problem List (Updated 04/03/24 @ 16:00 by Agustin Crenshaw MD) Chronic back pain (Acute) Cellulitis (Acute) Ambulatory dysfunction (Acute) Right leg pain (Acute) Right leg pain Ambulatory dysfunction Intractable back pain (Acute) Urinary tract infection (Acute) Abnormal urinalysis Acute exacerbation of chronic low back pain (Acute) Acute pain of right knee (Acute) Acute pain of right lower extremity (Acute) Essential tremor Left shoulder pain Cervical stenosis of spinal canal Low back pain Right rotator cuff tear arthropathy Impaired fasting glucose Anxiety (Acute) Urinary incontinence (Acute) Vitamin D deficiency (Acute) Lumbar canal stenosis Gait disturbance Arthralgia of multiple sites Anemia Aortic valve sclerosis Without stenosis per 2018 echo. HTN (hypertension) Medical History History of COVID-19 12/2021- states was hospitalized at [facility]; resolved Hx of small bowel obstruction Obesity Arthritis History of abnormal electrocardiogram Mitral valve prolapse Not noted on 2018 echo Stress incontinence Hyperlipidemia Excessive sweating Depression Asthma states recent increased SOB due to anemia Hyperparathyroidism s/p parathyroidectomy Surgical History Hx of bilateral cataract extraction Hx of cervical spine surgery 01/2023- PSH, [facility] - limited rom and unable to lift arms over head H/O parathyroidectomy S/P thyroid surgery parathyroid resection H/O carpal tunnel repair R/L S/P lumbar fusion 2005- Dr. Guerrero and repeat lumbar surgery 05/2009 History of gynecologic surgery anterior colporrhaphy, repair of cystocele and posterior colporrhaphy for pelvic relaxation History of total knee arthroplasty LEFT H/O neck surgery neck exploration with excision of parathyroidadenoma and biopsy of upper parathyroid gland History of total hip replacement RIGHT H/O colonoscopy S/P rotator cuff repair RIGHT S/P vaginal hysterectomy Cervical vertebral fusion 10/2008- Dr. Guerrero H/O arthroscopy of knee LEFT Family History Mother Goiter Father Colon cancer Emphysema of lung Denies family history of Ovarian cancer Prostate cancer Myocardial infarction Breast cancer Social History Smoking Status: Never smoker Second Hand Exposure: Yes (SPOUSE USED TO SMOKE); Do You Dip or Chew Tobacco: No; Hx Alcohol Use: No Hx Substance Use: No Preferred Language: Azeri Communication Ability: Effective Front Office Director Required: No Beliefs That Will Affect Care: None marital status: / Current Living Situation: Family Current Living Situation Comment: daughter and son in law current occupational status: retired 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, 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 Feels Safe at Home: Yes Safety Concerns Comment: Concerns about falling, concerns about mobility Childhood Exposure to Second-Hand Smoke: Yes Diet: regular Dental Care, Regularly: No Physical Activity Frequency: Does not Exercise Seatbelt Use: always Sunscreen Use: No Assistive Devices: Scooter/Electric Scooter, Walker and Wheelchair Allergies Allergies Allergy/AdvReac Type Severity Reaction Status Date / Time homatropine AdvReac Intermediate HYDROCODONE/HOMATROPINE Verified 01/24/24 14:13 COUGH SYRP-INSOMNIA/NAUSEA hydrocodone AdvReac Intermediate NAUSEA/INSOMINIA-COUGH Verified 01/24/24 14:13 SYRUP Home Meds Home Medications Medication Instructions Recorded Confirmed oxycodone 5 mg tablet 5 - 10 mg PO Q6H PRN moderate pain 04/03/24 04/03/24 (scale score 5-6) Previous Rx's Medication Instructions Recorded Shower Chair #1 ea 03/04/23 ketoconazole 2 % topical cream 1 applic topical BID 14 days #30 02/01/24 grams nystatin-triamcinolone 100,000 1 applic topical BID #30 grams 02/01/24 unit/g-0.1 % topical cream acetaminophen 325 mg tablet 325 mg PO Q6H PRN pain #120 tabs 03/21/24 albuterol sulfate 90 mcg/actuation 2 puff inhalation Q6H PRN 03/21/24 aerosol inhaler Shortness Of Breath Or Wheezing #8.5 grams ascorbic acid (vitamin C) 500 mg 500 mg PO BID #30 caps 03/21/24 capsule aspirin 81 mg tablet,delayed 81 mg PO DAILY #15 tabs 03/21/24 release (Adult Aspirin Regimen) atorvastatin 20 mg tablet 20 mg PO QPM #15 tabs 03/21/24 calcium carbonate (Calcium 600) 600 mg PO DAILY 90 days #15 tabs 03/21/24 cholecalciferol (vitamin D3) 50 2,000 unit PO QAM 90 days #15 tabs 03/21/24 mcg (2,000 unit) tablet cyclobenzaprine 5 mg tablet 5 mg PO TID PRN muscle spasm #20 03/21/24 tabs docusate sodium 100 mg capsule 100 mg PO BID 30 days #30 caps 03/21/24 duloxetine 60 mg capsule,delayed 60 mg PO DAILY #15 caps 03/21/24 release famotidine 20 mg tablet 20 mg PO QAM #30 tabs 03/21/24 flurbiprofen 100 mg tablet 100 mg PO TID #45 tabs 03/21/24 furosemide 20 mg tablet 20 mg PO DAILY #15 tabs 03/21/24 gabapentin 300 mg capsule 300 mg PO TID #45 caps 03/21/24 glucosamine sulf dipot 1 cap PO QAM #14 caps 03/21/24 chlr,msm,chond 550 mg-C 30 mg-claritza 1 mg capsule (Glucosamine Chondroitin) lidocaine 5 % topical patch 1 patch transdermal QAM #10 ea 03/21/24 lisinopril 5 mg tablet 5 mg PO .Q AM #15 tabs 03/21/24 jxzirwpo-vrh-cuov-FA-Ca carb-vit K 1 tab PO QAM #15 tabs 03/21/24 18 mg iron-400 mcg-500 mg tablet polyethylene glycol 3350 17 gram 17 g PO DAILY #100 ea 03/21/24 oral powder packet (Miralax) propranolol 60 mg tablet 60 mg PO BID 90 days #30 tabs 03/21/24 tolterodine 4 mg capsule,extended 4 mg PO PM #15 caps 03/21/24 release 24 hr tramadol 50 mg tablet 100 mg (2 x 50 mg) PO BID #30 tabs 03/21/24 Results & Data (ED) Vital Signs Vital Signs - 24 hr 04/03/24 09:53 04/03/24 10:07 04/03/24 10:18 Temperature 37.2 C Temperature Source Oral Pulse Rate 107 H 99 H Pulse Rate [Apical] Pulse Rate from SpO2 Sensor Pulse Rhythm Regular Pulse Rhythm [Apical] Respiratory Rate 18 25 H Respiratory Effort / Characteristics Non-Labored Accessory Muscle Use Respiratory Depth Normal Blood Pressure 147/110 H Blood Pressure Mean 122 Pulse Oximetry 97 98 Oxygen Delivery Method Room Air Room Air Sepsis Recent Fever Within 48 Hours No Sepsis New/Unexplained Change in Mental Status No Sepsis Action Taken by Nursing No Action Required 04/03/24 10:30 04/03/24 10:45 04/03/24 10:54 Temperature Temperature Source Pulse Rate 94 H 97 H 91 H Pulse Rate [Apical] Pulse Rate from SpO2 Sensor 97 H 91 H Pulse Rhythm Pulse Rhythm [Apical] Respiratory Rate 18 16 14 Respiratory Effort / Characteristics Respiratory Depth Blood Pressure Blood Pressure Mean Pulse Oximetry 94 94 Oxygen Delivery Method Sepsis Recent Fever Within 48 Hours Sepsis New/Unexplained Change in Mental Status Sepsis Action Taken by Nursing 04/03/24 11:03 04/03/24 11:42 04/03/24 11:54 Temperature Temperature Source Pulse Rate 92 H 68 Pulse Rate [Apical] 89 Pulse Rate from SpO2 Sensor 92 H 69 Pulse Rhythm Pulse Rhythm [Apical] Respiratory Rate 23 20 15 Respiratory Effort / Characteristics Respiratory Depth Normal Blood Pressure Blood Pressure Mean Pulse Oximetry 94 91 98 Oxygen Delivery Method Room Air Sepsis Recent Fever Within 48 Hours Sepsis New/Unexplained Change in Mental Status Sepsis Action Taken by Nursing 04/03/24 11:54 04/03/24 12:06 04/03/24 12:15 Temperature Temperature Source Pulse Rate 86 70 70 Pulse Rate [Apical] Pulse Rate from SpO2 Sensor 84 69 70 Pulse Rhythm Pulse Rhythm [Apical] Respiratory Rate 12 19 20 Respiratory Effort / Characteristics Respiratory Depth Blood Pressure Blood Pressure Mean Pulse Oximetry 98 95 97 Oxygen Delivery Method Sepsis Recent Fever Within 48 Hours Sepsis New/Unexplained Change in Mental Status Sepsis Action Taken by Nursing 04/03/24 12:21 04/03/24 12:48 04/03/24 12:54 Temperature Temperature Source Pulse Rate 71 90 92 H Pulse Rate [Apical] Pulse Rate from SpO2 Sensor 70 90 93 H Pulse Rhythm Pulse Rhythm [Apical] Respiratory Rate 18 17 22 Respiratory Effort / Characteristics Respiratory Depth Blood Pressure Blood Pressure Mean Pulse Oximetry 94 100 99 Oxygen Delivery Method Sepsis Recent Fever Within 48 Hours Sepsis New/Unexplained Change in Mental Status Sepsis Action Taken by Nursing 04/03/24 12:58 04/03/24 13:18 04/03/24 13:30 Temperature Temperature Source Pulse Rate 85 92 H Pulse Rate [Apical] 94 H Pulse Rate from SpO2 Sensor 85 93 H Pulse Rhythm Pulse Rhythm [Apical] Regular Respiratory Rate 18 19 14 Respiratory Effort / Characteristics Respiratory Depth Blood Pressure Blood Pressure Mean Pulse Oximetry 96 95 98 Oxygen Delivery Method Room Air Sepsis Recent Fever Within 48 Hours Sepsis New/Unexplained Change in Mental Status Sepsis Action Taken by Nursing 04/03/24 13:45 04/03/24 13:54 04/03/24 14:00 Temperature Temperature Source Pulse Rate 83 83 69 Pulse Rate [Apical] Pulse Rate from SpO2 Sensor 85 82 70 Pulse Rhythm Pulse Rhythm [Apical] Respiratory Rate 18 20 20 Respiratory Effort / Characteristics Respiratory Depth Blood Pressure Blood Pressure Mean Pulse Oximetry 95 94 94 Oxygen Delivery Method Sepsis Recent Fever Within 48 Hours Sepsis New/Unexplained Change in Mental Status Sepsis Action Taken by Nursing 04/03/24 14:24 04/03/24 14:33 Temperature Temperature Source Pulse Rate 83 70 Pulse Rate [Apical] Pulse Rate from SpO2 Sensor 83 71 Pulse Rhythm Pulse Rhythm [Apical] Respiratory Rate 20 21 Respiratory Effort / Characteristics Respiratory Depth Blood Pressure Blood Pressure Mean Pulse Oximetry 96 95 Oxygen Delivery Method Sepsis Recent Fever Within 48 Hours Sepsis New/Unexplained Change in Mental Status Sepsis Action Taken by [facility] Medications Current Medication List: was personally reviewed by me Laboratory Data Attestation: I reviewed the patient's lab results. 04/03/24 10:29 04/03/24 10:29 Lab Results 04/03/24 Range/Units 10:29 WBC 5.51 (4.8-10.8) K/ul RBC 3.88 L (4.20-5.40) M/uL Hgb 11.4 L (12.0-16.0) g/dl Hct 35.8 L (37.0-47.0) % MCV 92.3 (80.0-100.0) fL MCH 29.4 (25.0-34.0) pg MCHC 31.8 L (32.0-36.0) g/dL RDW Std Deviation 47.4 H (36.4-46.3) fL RDW Coeff of Jh 14.0 (11.5-14.5) % Plt Count 165 (130-400) K/uL MPV 9.4 (9.4-12.4) fL Immature Gran % (Auto) 0.4 % Neut % (Auto) 77.4 % Lymph % (Auto) 13.8 % [place] % (Auto) 5.6 % Eos % (Auto) 2.4 % Baso % (Auto) 0.4 % Neut # (Auto) 4.27 (1.40-6.50) K/uL Lymph # (Auto) 0.76 L (1.20-3.40) K/uL [place] # (Auto) 0.31 (0.11-0.59) K/uL Eos # (Auto) 0.13 (0.00-0.50) K/uL Baso # (Auto) 0.02 (0.00-0.20) K/uL Immature Gran # (Auto) 0.02 (0.01-0.20) K/uL PT 11.0 (9.0-12.0) Seconds INR 1.0 (0.9-1.1) APTT 27 (21-31) Seconds PTT Ratio 1.0 Sodium 140 (136-145) mmol/L Potassium 3.7 (3.5-5.1) mmol/L Chloride 102 (98-107) mmol/L Carbon Dioxide 32 (21-32) mmol/L Anion Gap 6 (3-11) BUN 19 (6-23) mg/dl Creatinine 0.86 (0.6-1.2) mg/dl Est Cr Clr Drug Dosing 56.9 ml/min Est GFR ( Amer) 74.5 ml/min Est GFR (Non-Af Amer) 64.3 ml/min BUN/Creatinine Ratio 22.1 H (10-20) Glucose 151 H (70-99(Fasting)) mg/dl Lactate 1.9 (0.4-2.0) mmol/L Calcium 9.7 (8.6-10.3) mg/dl Magnesium 1.8 (1.7-2.4) mg/dl Total Bilirubin 0.7 (0.2-1.0) mg/dl AST 16 (13-39) U/L ALT 14 (7-52) U/L Alkaline Phosphatase 70 (34-104) U/L Total Protein 6.5 (6.0-8.3) gm/dl Albumin 3.6 (3.4-5.0) gm/dl Globulin 2.9 (2.5-4.0) gm/dl Albumin/Globulin Ratio 1.2 (0.9-2) Procalcitonin < 0.02 (0-0.5) ng/ml Administered Medications Discontinued Medications Sodium Chloride (Nss) 500 mls @ 999 mls/hr IV .Q31M GARRETT Stop: 04/03/24 10:45 Last Infusion: 04/03/24 13:34 Dose: Infused Documented By: Admin: 04/03/24 10:50 Dose: 999 mls/hr Documented By: HORTENCIA Acetaminophen (Ofirmev) 1,000 mg in 100 mls @ 400 mls/hr IV NOW STA Stop: 04/03/24 10:18 Last Infusion: 04/03/24 13:34 Dose: Infused Documented By: Admin: 04/03/24 10:50 Dose: 400 mls/hr Documented By: HS Famotidine (Pepcid 20mg Iv Push) 20 mg in 5 mls @ 2.5 mls/min IV NOW STA Stop: 04/03/24 13:43 Last Admin: 04/03/24 14:45 Dose: 2.5 mls/min Documented By: NRLuis Morphine Sulfate (Morphine Sulfate 10 Mg/Ml Carp/Vial) 6 mg IV NOW STA Stop: 04/03/24 10:05 Last Admin: 04/03/24 10:50 Dose: 6 mg Documented By: HS Imaging Data Radiologist's Impression: Venous Doppler Study 04/03/24 10:04 RIGHT LOWER EXTREMITY VENOUS DOPPLER CLINICAL HISTORY: swelling, pain COMPARISON STUDY: Bilateral lower extremity venous Doppler ultrasound March 10, 2024. TECHNIQUE: Sonography of the deep venous system of the right lower extremity was performed. Compression and augmentation were evaluated. FINDINGS: The right common femoral, superficial femoral and popliteal veins were compressible. Augmentation was normal. Flow was shown within the deep calf vessels. There is a small right popliteal cyst. IMPRESSION: No evidence of deep venous thrombus within the right lower extremity. ACT 112: Negative or not required by law. Electronically signed by: Mikael Lord M.D. 04/03/2024 11:38 AM Knee X-Ray 04/03/24 10:11 XR knee RT 3V CLINICAL HISTORY: contusion, pain TECHNIQUE: 3 views of the right knee were obtained. Comparison: Comparison is made to knee radiographs 03/19/2024 FINDINGS: Bipartite appearance of the patella is unchanged. There is questionable irregularity of the anterior aspect of the tibial plateau which is new from prior exam. Degenerative changes are seen in the knee joint. No definite evidence for effusion, evaluation for effusion is limited by lack of true lateral view. Soft tissue swelling is seen about the knee. IMPRESSION: Possible fracture of the anterior tibial plateau with associated soft tissue swelling. If clinical uncertainty remains, CT can be performed. ACT 112: Negative or not required by law. Electronically signed by: Jair Kwon M.D. 04/03/2024 11:[address] 04/03/24 11:08 CT SCAN OF THE RIGHT KNEE WITHOUT IV CONTRAST CLINICAL HISTORY: Right knee injury. Possible fracture. COMPARISON STUDY: Radiographs of the right knee dated 04/03/2024. TECHNIQUE: CT scan of the right knee is performed from the distal femur to the proximal tibia and fibula. Images are reviewed in the axial, sagittal, and coronal planes. IV contrast was not administered for this examination. A dose lowering technique was utilized adhering to the principles of ALARA. CT DOSE: 513.98 mGy.cm FINDINGS: The skeletal structures are osteopenic. No acute fracture is clearly identified. There is eujxlhfp-xk-ulwsrutj tricompartmental degenerative joint space narrowing. Chondrocalcinosis is seen in the medial and lateral compartments. There is a joint effusion, with no evidence of lipohemarthrosis. Degenerative spurring is seen on the distal femur and the proximal tibia. Marginal osteophytosis is observed. There is bone overgrowth along the superior aspect of the patella. Generalized atrophy is observed in the regional musculature. There is atherosclerotic calcification of the popliteal artery. There is mild prepatellar soft tissue swelling. IMPRESSION: 1. Mild soft tissue swelling and joint effusion with no fracture identified. 2. Osteopenia with degenerative change and chondrocalcinosis as above. ACT 112: Negative or not required by law. Dictated: 04/03/2024 11:49 AM Transcribed: 04/03/2024 12:00 PM Arnol [id number] [email or web address] Electronically signed by: Agustin Purcell M.D. 04/03/2024 12:19 PM Discharge Plan Visit Data Chief Complaint: Leg Injury/Pain ED Provider: Agustin Crenshaw Discharge Problem: Right leg pain, Ambulatory dysfunction, Cellulitis, Chronic back pain Patient Disposition: Home - Self-Care Condition: Fair Forms Stand Alone Forms: My [facility], Important Visit Information Prescriptions Prescriptions: No Action nystatin-triamcinolone 100,000-0.1 unit/g-% cream 1 applic topical BID Qty: 30 0RF ketoconazole 2 % cream 1 applic topical BID 14 Days Qty: 30 0RF (DME) Shower Chair Misc See Rx Instructions .Route Qty: 1 0RF Rx Instructions: As directed acetaminophen 325 mg tablet 325 mg PO Q6H PRN (Reason: pain) Qty: 120 0RF tramadol 50 mg Tablet 100 mg PO BID Qty: 30 0RF polyethylene glycol 3350 [Miralax] 17 gram Powder In Packet 17 g PO DAILY Qty: 100 0RF Rx Instructions: stop for diarrhea famotidine 20 mg Tablet 20 mg PO QAM Qty: 30 0RF lidocaine 5 % Adhesive Patch,Medicated 1 patch transdermal QAM Qty: 10 0RF cyclobenzaprine 5 mg Tablet 5 mg PO TID PRN (Reason: muscle spasm) Qty: 20 0RF atorvastatin 20 mg tablet 20 mg PO QPM Qty: 15 3RF tolterodine 4 mg capsule,extended release 24hr 4 mg PO PM Qty: 15 3RF propranolol 60 mg tablet 60 mg PO BID 90 Days Qty: 30 2RF aspirin [Adult Aspirin Regimen] 81 mg tablet,delayed release (DR/EC) 81 mg PO DAILY Qty: 15 0RF calcium carbonate [Calcium 600] 600 mg calcium (1,500 mg) tablet 600 mg PO DAILY 90 Days Qty: 15 3RF docusate sodium 100 mg capsule 100 mg PO BID 30 Days Qty: 30 3RF gabapentin 300 mg capsule 300 mg PO TID Qty: 45 5RF flurbiprofen 100 mg tablet 100 mg PO TID Qty: 45 3RF lisinopril 5 mg tablet 5 mg PO .Q AM Qty: 15 0RF furosemide 20 mg tablet 20 mg PO DAILY Qty: 15 3RF albuterol sulfate 90 mcg/actuation HFA aerosol inhaler 2 puff INH Q6H PRN (Reason: Shortness Of Breath Or Wheezing) Qty: 8.5 5RF duloxetine 60 mg capsule,delayed release(DR/EC) 60 mg PO DAILY Qty: 15 3RF cholecalciferol (vitamin D3) 50 mcg (2,000 unit) tablet 2,000 unit PO QAM 90 Days Qty: 15 4RF dt-te-cqlm-FA-Ca carb-vit K 18 mg iron-400 mcg-500 mg Tablet 1 tab PO QAM Qty: 15 0RF ascorbic acid (vitamin C) 500 mg capsule 500 mg PO BID Qty: 30 0RF Glucosamine Chondroitin 550-30-1 mg Capsule 1 cap PO QAM Qty: 14 0RF oxycodone 5 mg tablet 5 - 10 mg PO Q6H PRN (Reason: moderate pain (scale score 5-6)) Rx Instructions: Po q6 hprn. 1 tablet for moderate pain; 2 tablets for severe pain Referrals Referrals: Cate Ford MD [Primary Care Provider] - Discharge Problem: Cellulitis Qualifiers: Site of cellulitis: extremity Site of cellulitis of extremity: lower extremity Laterality: right Qualified Code(s): L03.115 - Cellulitis of right lower limb Chronic back pain Qualifiers: Back pain location: low back pain Back pain laterality: unspecified Sciatica presence: with sciatica Sciatica laterality: sciatica laterality unspecified Q ualified Code(s): M54.40 - Lumbago with sciatica, unspecified side; G89.29 - Other chronic pain
[2024-04-03 10:49] LABS: Basophils # (auto) 0.02 K/uL (0.00-0.20); Basophils % (auto) 0.4 %; Eosinophils # (auto) 0.13 K/uL (0.00-0.50); Eosinophils % (auto) 2.4 %; Hematocrit (blood only) 35.8 % (37.0-47.0); Hemoglobin 11.4 g/dl (12.0-16.0); Immature Granulocytes # (auto) 0.02 K/uL (0.01-0.20); Immature Granulocytes % (auto) 0.4 %; Lymphocytes # (auto) 0.76 K/uL (1.20-3.40); Lymphocytes % (auto) 13.8 %; Mean Corpuscular Hemoglobin 29.4 pg (25.0-34.0); Mean Corpuscular Hgb Conc 31.8 g/dL (32.0-36.0); Mean Corpuscular Volume 92.3 fL (80.0-100.0); Mean Platelet Volume 9.4 fL (9.4-12.4); Monocytes # (auto) 0.31 K/uL (0.11-0.59); Monocytes % (auto) 5.6 %; Neutrophils # (auto) 4.27 K/uL (1.40-6.50); Neutrophils % (auto) 77.4 %; Platelet Count 165 K/uL (130-400); RDW Standard Deviation 47.4 fL (36.4-46.3); Red Blood Count 3.88 M/uL (4.20-5.40); White Blood Count 5.51 K/ul (4.8-10.8)
[2024-04-03] MEDS: MoRPHine SULFATE 10 MG/ML CARP/VIAL IV STA (10:50)
[2024-04-03] MEDS: SODIUM CHLORIDE 0.9% 500 ML IV SCH (10:50)
[2024-04-03] MEDS: ACETAMINOPHEN 1,000 MG/100 ML VIAL IV STA (10:50)
--- NOTE | 2024-04-03 11:07 | XRay Report ---
XR knee RT 3V CLINICAL HISTORY: contusion, pain TECHNIQUE: 3 views of the right knee were obtained. Comparison: Comparison is made to knee radiographs 03/19/2024 FINDINGS: Bipartite appearance of the patella is unchanged. There is questionable irregularity of the anterior aspect of the tibial plateau which is new from prior exam. Degenerative changes are seen in the knee joint. No definite evidence for effusion, evaluation for effusion is limited by lack of true lateral view. Soft tissue swelling is seen about the knee. IMPRESSION: Possible fracture of the anterior tibial plateau with associated soft tissue swelling. If clinical un certainty remains, CT can be performed. ACT 112: Negative or not required by law. Electronically signed by: Jair Kwon M.D. 04/03/2024 11:05 AM
[2024-04-03 11:10] LABS: Albumin Globulin Ratio 1.2 (0.9-2); Albumin Level 3.6 gm/dl (3.4-5.0); BUN Creatinine Ratio 22.1 (10-20); Bilirubin,Total 0.7 mg/dl (0.2-1.0); Calcium 9.7 mg/dl (8.6-10.3); Creatinine Clr Calc Pharmacy 56.9 ml/min; Est GFR (African American) 74.5 ml/min; Est GFR (Non-African American) 64.3 ml/min; Globulin 2.9 gm/dl (2.5-4.0); Magnesium 1.8 mg/dl (1.7-2.4); Potassium 3.7 mmol/L (3.5-5.1); Total Protein 6.5 gm/dl (6.0-8.3)
[2024-04-03 11:23] LABS: Partial Thromboplastin Time 27 Seconds (21-31)
--- NOTE | 2024-04-03 11:39 | Ultrasound Report ---
RIGHT LOWER EXTREMITY VENOUS DOPPLER CLINICAL HISTORY: swelling, pain COMPARISON STUDY: Bilateral lower extremity venous Doppler ultrasound March 10, 2024. TECHNIQUE: Sonography of the deep venous system of the right lower extremity was performed. Compress ion and augmentation were evaluated. FINDINGS: The right common femoral, superficial femoral and popliteal veins were compressible. Augme ntation was normal. Flow was shown within the deep calf vessels. There is a small right popliteal cys t. IMPRESSION: No evidence of deep venous thrombus within the right lower extremity. ACT 112: Negative or not required by law. Electronically signed by: Mikael Lord M.D. 04/03/2024 11:38 AM
--- NOTE | 2024-04-03 12:20 | CT Scan Report ---
CT SCAN OF THE RIGHT KNEE WITHOUT IV CONTRAST CLINICAL HISTORY: Right knee injury. Possible fracture. COMPARISON STUDY: Radiographs of the right knee dated 04/03/2024. TECHNIQUE: CT scan of the right knee is performed from the distal femur to the proximal tibia and fib nasrin. Images are reviewed in the axial, sagittal, and coronal planes. IV contrast was not administered for this examination. A dose lowering technique was utilized adhering to the principles of ALARA. CT DOSE: 513.98 mGy.cm FINDINGS: The skeletal structures are osteopenic. No acute fracture is clearly identified. There is m bpjzutb-rz-ztaxaoxl tricompartmental degenerative joint space narrowing. Chondrocalcinosis is seen in the medial and lateral compartments. There is a joint effusion, with no evidence of lipohemarthrosis . Degenerative spurring is seen on the distal femur and the proximal tibia. Marginal osteophytosis is observed. There is bone overgrowth along the superior aspect of the patella. Generalized atrophy is observed in the regional musculature. There is atherosclerotic calcification of the popliteal artery. There is mild prepatellar soft tissue swelling. IMPRESSION: 1. Mild soft tissue swelling and joint effusion with no fracture identified. 2. Osteopenia with degenerative change and chondrocalcinosis as above. ACT 112: Negative or not required by law. Dictated: 04/03/2024 11:49 AM Transcribed: 04/03/2024 12:00 PM Arnol [id number] [email or web address] Electronically signed by: Agustin Purcell M.D. 04/03/2024 12:19 PM
--- NOTE | 2024-04-03 13:20 | History & Physical Report ---
Date of Service April 03, 2024 Assessment & Plan (1) Ambulatory dysfunction: Plan: Admit to med/surge Currently stable and nontoxic-appearing Presented back to the ED today after she was discharged home from [facility] on 04/02/2024 due to ongoing ambulatory dysfunction and chronic pain in the low back/right lower extremity Patient denies new injuries/pain compared to her last admission to our hospital earlier this month At this time patient requires further care than she can currently be given at home, patient is in agreement with placement to either inpatient rehab or SNF No acute trauma on exam, CT of the right knee is negative for acute fracture, patient with intact sensation without acute neurologic defects since last admission Will continue patient's scheduled Tylenol, Flexeril, gabapentin, lidocaine patch Will add as needed IV Dilaudid for severe pain, can plan to convert back to p.o. oxycodone when her pain is better controlled PT/OT/case management consultation placed Fall precautions Heart healthy diet SQ Lovenox for DVT prophylaxis AM CBC, BMP (2) Right leg pain: Plan: See ambulatory dysfunction (3) HTN (hypertension): Plan: Currently stable Continue lisinopril, furosemide, and propranolol Plan The patient was discussed with Dr. Waters at the time of the admission History of Present Illness Chief Complaint: right leg pain Primary Care Provider: Cate Ford MD Armand is a 78-year-old female with extensive orthopedic history including cervical and lumbar spinal surgery with extensive hardware implants, chronic pain, anxiety, and HTN Who presented to the [facility] ED on 04/03/2024 with complaints of ongoing chronic right lower extremity pain and ambulatory dysfunction. Patient was recently discharged from [facility] for rehab ongoing ambulatory dysfunction since arriving home. She was recently admitted to her service from after she sustained mechanical fall and experienced acute exacerbation of her chronic low back pain. She underwent MRI of the thoracic and lumbar spine during her last admission. Thoracic spine MRI was read as negative for acute findings. Lumbar spine MRI was read as negative for acute fracture or subluxation. Postoperative changes seen as above without high-grade central canal or neural foraminal narrowing. The intervertebral spacer L3-L4 is positioned posteriorly within the disc space, extending into the left lateral recess causing mild to moderate left lateral recess narrowing with abutment of the L4 nerve root. During her admission the hospitalist team did speak with Dr. Guerrero of ortho spine who did not recommend surgical intervention at that time with plans to continue following the patient at the time of discharge. The patient's symptoms significantly progressed with the addition of IV hydromorphone, dexamethasone, scheduled Tylenol, Lidoderm patch, and Ultram in addition to her home duloxetine and gabapentin. She was discharged to [facility] for rehab on 03/22/2024. On arrival to the ED today the patient was noted to be tachycardic at 107 but was otherwise stable. Labs including CBC, CMP, INR, and Pro-Chinmay were unremarkable. Venous Doppler of the right lower extremity was read as negative for acute findings. X-ray of the right knee was read as possible fracture of the anterior tibial plateau with associated soft tissue swelling. CT of the right knee was read as mild soft tissue swelling and joint effusion with no fra cture identified. Osteopenia with degenerative change and chondrocalcinosis as above. Prior to admission patient was given 1 g IV Tylenol, 500 mL normal saline, and 6 mg IV morphine. Patient was sitting in bed in no acute distress at the time of exam. She states that she had a very poor experience at [facility]. States that for the majority of her stay at [facility] she mainly was kept with chair and only had physical therapy approximately 3 days. Will discharge her back home 04/02/2024 but she did not feel as though she was strong enough at that time. She is currently living with her daughter and son-in-law since discharge but she has essentially been bedbound as she has required significant assistance with her ADLs. She states that she has not wanted to be transferred to [facility] from [facility] prior to discharge home. At this time she is interested in either inpatient rehab or SNF placement. Denies any other complaints at this time and confirms that her right lower extremity pain is the same as her last admission. Her left lower extremity pain has improved compared to last admission. She denies recent/chills, chest pain, shortness of breath, nausea/vomiting, dysuria, hematuria, diarrhea, and recurrent falls/trauma since prior to her last admission to [facility]. We discussed CODE STATUS, she clearly stated that she wishes to be a DNR/DNI for her daughter Dyana Goodwin to be here primary decision maker if she cannot Decision. Please refer to Dr. Waters's attestation for any changes to the treatment plan Allergies Allergy/AdvReac Type Severity Reaction Status Date / Time homatropine AdvReac Intermediate HYDROCODONE/HOMATROPINE Verified 01/24/24 14:13 COUGH SYRP-INSOMNIA/NAUSEA hydrocodone AdvReac Intermediate NAUSEA/INSOMINIA-COUGH Verified 01/24/24 14:13 SYRUP Home Medications Medication Instructions Recorded Confirmed Type Shower Chair #1 ea 03/04/23 01/24/24 Rx ketoconazole 2 % topical cream 1 applic topical BID 14 days #30 02/01/24 04/03/24 Rx grams nystatin-triamcinolone 100,000 1 applic topical BID #30 grams 02/01/24 04/03/24 Rx unit/g-0.1 % topical cream acetaminophen 325 mg tablet 325 mg PO Q6H PRN pain #120 tabs 03/21/24 04/03/24 Rx albuterol sulfate 90 mcg/actuation 2 puff inhalation Q6H PRN 03/21/24 04/03/24 Rx aerosol inhaler Shortness Of Breath Or Wheezing #8.5 grams ascorbic acid (vitamin C) 500 mg 500 mg PO BID #30 caps 03/21/24 04/03/24 Rx capsule aspirin 81 mg tablet,delayed 81 mg PO DAILY #15 tabs 03/21/24 04/03/24 Rx release (Adult Aspirin Regimen) atorvastatin 20 mg tablet 20 mg PO QPM #15 tabs 03/21/24 04/03/24 Rx calcium carbonate (Calcium 600) 600 mg PO DAILY 90 days #15 tabs 03/21/24 04/03/24 Rx cholecalciferol (vitamin D3) 50 2,000 unit PO QAM 90 days #15 tabs 03/21/24 04/03/24 Rx mcg (2,000 unit) tablet cyclobenzaprine 5 mg tablet 5 mg PO TID PRN muscle spasm #20 03/21/24 04/03/24 Rx tabs docusate sodium 100 mg capsule 100 mg PO BID 30 days #30 caps 03/21/24 04/03/24 Rx duloxetine 60 mg capsule,delayed 60 mg PO DAILY #15 caps 03/21/24 04/03/24 Rx release famotidine 20 mg tablet 20 mg PO QAM #30 tabs 03/21/24 04/03/24 Rx flurbiprofen 100 mg tablet 100 mg PO TID #45 tabs 03/21/24 04/03/24 Rx furosemide 20 mg tablet 20 mg PO DAILY #15 tabs 03/21/24 04/03/24 Rx gabapentin 300 mg capsule 300 mg PO TID #45 caps 03/21/24 04/03/24 Rx glucosamine sulf dipot 1 cap PO QAM #14 caps 03/21/24 04/03/24 Rx chlr,msm,chond 550 mg-C 30 mg-claritza 1 mg capsule (Glucosamine Chondroitin) lidocaine 5 % topical patch 1 patch transdermal QAM #10 ea 03/21/24 04/03/24 Rx lisinopril 5 mg tablet 5 mg PO .Q AM #15 tabs 03/21/24 04/03/24 Rx gokttagt-jzk-ilcm-FA-Ca carb-vit K 1 tab PO QAM #15 tabs 03/21/24 04/03/24 Rx 18 mg iron-400 mcg-500 mg tablet polyethylene glycol 3350 17 gram 17 g PO DAILY #100 ea 03/21/24 04/03/24 Rx oral powder packet (Miralax) propranolol 60 mg tablet 60 mg PO BID 90 days #30 tabs 03/21/24 04/03/24 Rx tolterodine 4 mg capsule,extended 4 mg PO PM #15 caps 03/21/24 04/03/24 Rx release 24 hr tramadol 50 mg tablet 100 mg (2 x 50 mg) PO BID #30 tabs 03/21/24 04/03/24 Rx oxycodone 5 mg tablet 5 - 10 mg PO Q6H PRN moderate pain 04/03/24 04/03/24 History (scale score 5-6) Past Med/Surg History Problem List (Updated 04/03/24 @ 16:00 by Agustin Crenshaw MD) Chronic back pain (Acute) Cellulitis (Acute) Ambulatory dysfunction (Acute) Right leg pain (Acute) Right leg pain Ambulatory dysfunction Intractable back pain (Acute) Urinary tract infection (Acute) Abnormal urinalysis Acute exacerbation of chronic low back pain (Acute) Acute pain of right knee (Acute) Acute pain of right lower extremity (Acute) Essential tremor Left shoulder pain Cervical stenosis of spinal canal Low back pain Right rotator cuff tear arthropathy Impaired fasting glucose Anxiety (Acute) Urinary incontinence (Acute) Vitamin D deficiency (Acute) Lumbar canal stenosis Gait disturbance Arthralgia of multiple sites Anemia Aortic valve sclerosis Without stenosis per 2018 echo. HTN (hypertension) Medical History History of COVID-19 12/2021- states was hospitalized at [facility]; resolved Hx of small bowel obstruction Obesity Arthritis History of abnormal electrocardiogram Mitral valve prolapse Not noted on 2018 echo Stress incontinence Hyperlipidemia Excessive sweating Depression Asthma states recent increased SOB due to anemia Hyperparathyroidism s/p parathyroidectomy Surgical History Hx of bilateral cataract extraction Hx of cervical spine surgery 01/2023- PSH, [facility] - limited rom and unable to lift arms over head H/O parathyroidectomy S/P thyroid surgery parathyroid resection H/O carpal tunnel repair R/L S/P lumbar fusion 2005- Dr. Guerrero and repeat lumbar surgery 05/2009 History of gynecologic surgery anterior colporrhaphy, repair of cystocele and posterior colporrhaphy for pelvic relaxation History of total knee arthroplasty LEFT H/O neck surgery neck exploration with excision of parathyroidadenoma and biopsy of upper parathyroid gland History of total hip replacement RIGHT H/O colonoscopy S/P rotator cuff repair RIGHT S/P vaginal hysterectomy Cervical vertebral fusion 10/2008- Dr. 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 Required: No Beliefs That Will Affect Care: None marital status: / Current Living Situation: Family Current Living Situation Comment: lives with daughter and current occupational status: retired 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, 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 Other Information That Helps Us Care for You: No Feels Safe at Home: Yes Safety Concerns: Feels Safe At This Time Safety Concerns Comment: Concerns about falling, concerns about mobility Childhood Exposure to Second-Hand Smoke: Yes Diet: regular Dental Care, Regularly: No Physical Activity Frequency: Does not Exercise Seatbelt Use: always Sunscreen Use: No Assistive Devices: Denture - Upper, Denture - Lower, Glasses and Walker Review of Systems Constitutional: no fever Eyes: no blind spots Ear, Nose, Mouth, Throat: no ear pain Respiratory: no cough Cardiovascular: no chest pain Gastrointestinal: no abdominal pain Genitourinary: no dysuria Musculoskeletal: + joint pain Integumentary: no acne Neurologic: no gait abnormality Psychiatric: no behavioral changes Endocrine: no fatigue Hematologic / Lymphatic: no easy bleeding Allergy / Immunological: no GI upset with certain foods Physical Exam Physical Exam: Physical Exam: General: In no acute distress, stated age, well-nourished, good hygiene HEENT: Normocephalic, atraumatic, no scleral icterus, pupils around round, s ymmetrical, and reactive to light, moist mucus membranes, trachea midline, no thyromegaly Chest/Pulm: No respiratory distress, symmetrical chest expansion, clear breath sounds throughout Cardiac: RRR, no murmurs noted Abdomen: Negative for ascites and bruising, normoactive bowel sounds, soft, non-tender to palpation throughout Musculoskeletal: Patient with mild swelling of the right knee, no acute trauma noted on exam, scars from previous cervical and lumbar surgeries appear intact and without signs of dehiscence, patient is non-tender to palpation down the entire spine, no acute step off's or crepitus noted on palpation, patient with decreased flexion of the right hip and knee compared to left due to pain, patient confirms this has been her baseline since last admission Extremities: Radial, dorsalis pedis, and posterior tibial pulses are intact and symmetrical, mild edema noted in the LE's Skin: As described above Neuro: Alert and oriented to person, place, month, year, and president, no focal defects, symmetrical sensation and distal reflexes in the LE's Psych: No acute distress, calm and cooperative during the exam Results & Data Results & Data Vital Signs (Past 12 Hours) Vital Signs Temp Pulse Pulse Resp BP Pulse Ox O2 Del Method 04/03/24 12:58 94 H 18 96 Room Air 04/03/24 11:54 89 15 98 Room Air 04/03/24 10:07 98 Room Air 04/03/24 09:53 37.2 C 107 H 18 147/110 H 97 Room Air Laboratory Results Abnormal lab results 04/03/24 Range/Units 10:29 RBC 3.88 L (4.20-5.40) M/uL Hgb 11.4 L (12.0-16.0) g/dl Hct 35.8 L (37.0-47.0) % MCHC 31.8 L (32.0-36.0) g/dL RDW Std Deviation 47.4 H (36.4-46.3) fL Lymph # (Auto) 0.76 L (1.20-3.40) K/uL BUN/Creatinine Ratio 22.1 H (10-20) Glucose 151 H (70-99(Fasting)) mg/dl Diagnostic Findings Venous Doppler Study 04/03/24 10:04 RIGHT LOWER EXTREMITY VENOUS DOPPLER CLINICAL HISTORY: swelling, pain COMPARISON STUDY: Bilateral lower extremity venous Doppler ultrasound March 10, 2024. TECHNIQUE: Sonography of the deep venous system of the right lower extremity was performed. Compression and augmentation were evaluated. FINDINGS: The right common femoral, superficial femoral and popliteal veins were compressible. Augmentation was normal. Flow was shown within the deep calf vessels. There is a small right popliteal cyst. IMPRESSION: No evidence of deep venous thrombus within the right lower extremity. ACT 112: Negative or not required by law. Electronically signed by: Mikael Lord M.D. 04/03/2024 11:38 AM Knee X-Ray 04/03/24 10:11 XR knee RT 3V CLINICAL HISTORY: contusion, pain TECHNIQUE: 3 views of the right knee were obtained. Comparison: Comparison is made to knee radiographs 03/19/2024 FINDINGS: Bipartite appearance of the patella is unchanged. There is questionable irregularity of the anterior aspect of the tibial plateau which is new from prior exam. Degenerative changes are seen in the knee joint. No definite evidence for effusion, evaluation for effusion is limited by lack of true lateral view. Soft tissue swelling is seen about the knee. IMPRESSION: Possible fracture of the anterior tibial plateau with associated soft tissue swelling. If clinical uncertainty remains, CT can be performed. ACT 112: Negative or not required by law. Electronically signed by: Jair Kwon M.D. 04/03/2024 11:[address] 04/03/24 11:08 CT SCAN OF THE RIGHT KNEE WITHOUT IV CONTRAST CLINICAL HISTORY: Right knee injury. Possible fracture. COMPARISON STUDY: Radiographs of the right knee dated 04/03/2024. TECHNIQUE: CT scan of the right knee is performed from the distal femur to the proximal tibia and fibula. Images are reviewed in the axial, sagittal, and coronal planes. IV contrast was not administered for this examination. A dose lowering technique was utilized adhering to the principles of ALARA. CT DOSE: 513.98 mGy.cm FINDINGS: The skeletal structures are osteopenic. No acute fracture is clearly identified. There is qfdjogmx-wb-fnjtdhkq tricompartmental degenerative joint space narrowing. Chondrocalcinosis is seen in the medial and lateral compartments. There is a joint effusion, with no evidence of lipohemarthrosis. Degenerative spurring is seen on the distal femur and the proximal tibia. Marginal osteophytosis is observed. There is bone overgrowth along the superior aspect of the patella. Generalized atrophy is observed in the regional musculature. There is atherosclerotic calcification of the popliteal artery. There is mild prepatellar soft tissue swelling. IMPRESSION: 1. Mild soft tissue swelling and joint effusion with no fracture identified. 2. Osteopenia with degenerative change and chondrocalcinosis as above. ACT 112: Negative or not required by law. Dictated: 04/03/2024 11:49 AM Transcribed: 04/03/2024 12:00 PM Arnol [id number] [email or web address] Electronically signed by: Agustin Purcell M.D. 04/03/2024 12:19 PM ECG Additional Comments: Sinus rhythm with 1st degree A-V block Otherwise normal ECG When compared with ECG of 12-DEC-2021 09:46, CO interval has increased Code Status & VTE Plan Code Status DNR/DNI VTE Prophylaxis Plan VTE Prophylaxis will be ordered: Yes Supervising Physician Co-Signing Physician Notes During face to face encounter, I obtained a history and physical examination, discussed plan of care with patient and answered any questions. I discussed plan of care with APCPeno. I reviewed above note and agree with it except for the following: Patient admitted for ambulatory dysfunction. WIll consider consult with ortho for possible right knee injection. Will consult PT/OT PG Care Time/CCT Total # of Minutes Spent Total Time Spent with Patient: Total time spent is greater than 50% in coordination of care (as documented) at patient's floor/unit and/or counseling patient: Coding [place] [address] INT INP/OBS CARE 2MIN Patient Type Established Medical Decision Making Moderate Complexity Diagnoses Ambulatory dysfunction R26.2 Right leg pain M79.604 HTN (hypertension) I10
[2024-04-03] MEDS ORDERED: ondansetron HCL 6 MG in DEXTROSE 5% 50 ML IV PRN (13:48)
[2024-04-03] MEDS: FAMOTIDINE 20MG IV PUSH 20 MG/5 ML SYR IV STA (14:45)
[2024-04-03] MEDS: HYDROmorphone INJ 0.5 MG/0.5 ML SYR IV PRN (16:05)
[2024-04-03] MEDS ORDERED: ALBUTEROL HFA 8 GM INHALER INH PRN (17:07)
[2024-04-03] MEDS: lisinopril 5 MG TAB PO SCH (17:59)
[2024-04-03] MEDS: GABAPENTIN 300 MG CAP PO SCH (17:59)
[2024-04-03] MEDS: ACETAMINOPHEN 325 MG TAB PO SCH (18:25)
--- NOTE | 2024-04-03 18:39 | Electrocardiogram Report ---
Test Reason : Blood Pressure : / mmHG Vent. Rate : 093 BPM Atrial Rate : 093 BPM P-R Int : 226 ms QRS Dur : 076 ms QT Int : 350 ms P-R-T Axes : 027 036 038 degrees QTc Int : 435 ms Sinus rhythm with 1st degree A-V block Otherwise normal ECG When compared with ECG of 12-DEC-2021 09:46, VA interval has increased Confirmed by Francisco Javier Corral ([id number]) on 04/03/2024 6:38:57 PM Referred By: REFERRED SELF Confirmed By:Francisco Javier Corral
[2024-04-03 20:14] LABS: Appearance Urine Clear (Clear); Bilirubin Urine Negative (Negative); Blood Urine Negative (Negative); Color Urine Yellow; Glucose Urine UA Negative (Negative); Ketones Urine Negative (Negative); Leukocyte Esterase Urine Negative (Negative); Nitrite Urine Negative (Negative); Protein Urine Negative (Negative); Urobilinogen Urine Negative (Negative); pH Urine 5.5 (4.5-7.5)
[2024-04-03] MEDS: ENOXAPARIN INJ 40 MG/0.4 ML SYR SQ SCH (20:27)
[2024-04-03] MEDS: traMADol HCL 50 MG TABLET PO SCH (20:27)
[2024-04-03] MEDS: OXYBUTYNIN CHLORIDE XL 5 MG TABCR PO SCH (20:28)
[2024-04-03] MEDS: PROPRANOLOL HCL 20 MG TAB PO SCH (20:28)
[2024-04-03] MEDS: DOCUSATE SODIUM 100 MG CAP PO SCH (20:28)
[2024-04-03] MEDS: ATORVASTATIN 20 MG TAB PO SCH (20:28)
[2024-04-03] MEDS: FAMOTIDINE 20 MG TAB PO SCH (22:22)
[2024-04-04] MEDS: HYDROmorphone INJ 0.5 MG/0.5 ML SYR IV STA ×2 (03:12→22:20)
[2024-04-04 07:25] LABS: Basophils # (auto) 0.02 K/uL (0.00-0.20); Basophils % (auto) 0.5 %; Eosinophils # (auto) 0.13 K/uL (0.00-0.50); Eosinophils % (auto) 3.2 %; Hematocrit (blood only) 32.7 % (37.0-47.0); Hemoglobin 10.5 g/dl (12.0-16.0); Lymphocytes # (auto) 0.99 K/uL (1.20-3.40); Mean Corpuscular Hemoglobin 29.7 pg (25.0-34.0); Mean Corpuscular Hgb Conc 32.1 g/dL (32.0-36.0); Mean Corpuscular Volume 92.6 fL (80.0-100.0); Mean Platelet Volume 9.7 fL (9.4-12.4); Monocytes # (auto) 0.39 K/uL (0.11-0.59); Monocytes % (auto) 9.5 %; Neutrophils # (auto) 2.59 K/uL (1.40-6.50); Neutrophils % (auto) 62.8 %; Platelet Count 144 K/uL (130-400); RDW Coefficient of Variation 13.9 % (11.5-14.5); RDW Standard Deviation 47.3 fL (36.4-46.3); Red Blood Count 3.53 M/uL (4.20-5.40); White Blood Count 4.12 K/ul (4.8-10.8)
[2024-04-04 07:31] LABS: BUN Creatinine Ratio 26.4 (10-20); Calcium 9.1 mg/dl (8.6-10.3); Creatinine Clr Calc Pharmacy 55.3 ml/min; Est GFR (African American) 73.4 ml/min; Est GFR (Non-African American) 63.4 ml/min; Potassium 3.2 mmol/L (3.5-5.1)
[2024-04-04] MEDS: CYCLOBENZAPRINE HCL 5 MG TAB PO PRN (09:26)
[2024-04-04] MEDS: FAMOTIDINE 20 MG TAB PO SCH (09:27)
[2024-04-04] MEDS: DULoxetine HCL 60 MG CAP PO SCH (09:29)
[2024-04-04] MEDS: FUROSEMIDE 20 MG TAB PO SCH (09:29)
[2024-04-04] MEDS: ASPIRIN 81 MG ECTAB PO SCH (09:30)
[2024-04-04] MEDS: POTASSIUM CHLORIDE CRTAB 20 MEQ TABCR PO STA (11:13)
[2024-04-04] MEDS: SODIUM CHLORIDE 0.65% NA SOLN 45 ML (OCEAN) PRN (11:13)
--- NOTE | 2024-04-04 17:28 | Hospitalist Progress Note ---
Date of Service April 04, 2024 Assessment & Plan (1) Ambulatory dysfunction: Plan: Admit to med/surge Currently stable and nontoxic-appearing Presented back to the ED today after she was discharged home from [facility] on 04/02/2024 due to ongoing ambulatory dysfunction and chronic pain in the low back/right lower extremity Patient denies new injuries/pain compared to her last admission to our hospital earlier this month At this time patient requires further care than she can currently be given at home, patient is in agreement with placement to either inpatient rehab or SNF No acute trauma on exam, CT of the right knee is negative for acute fracture, patient with intact sensation without acute neurologic defects since last admission Will continue patient's scheduled Tylenol, Flexeril, gabapentin, lidocaine patch Will add as needed IV Dilaudid for severe pain, can plan to convert back to p.o. oxycodone when her pain is better controlled PT/OT/case management consultation placed Fall precautions Heart healthy diet consult ortho spine. Dr. Guerrero is not available. (2) Right leg pain: Plan: See ambulatory dysfunction (3) HTN (hypertension): Plan: Currently stable Continue lisinopril, furosemide, and propranolol Admission and Anticipated Discharge Date Admission Date: April 03, 2024 Subjective Patient reports bilateral lower extremity pain. Patient continues to report that she is weak. Review of Systems Review of Systems: All systems reviewed & are unremarkable except as noted in HPI & below Physical Exam Physical Exam: General: In no acute distress, stated age, well-nourished, good hygiene HEENT: Normocephalic, atraumatic Chest/Pulm: No respiratory distress, symmetrical chest expansion, clear james ath sounds throughout Cardiac: RRR, no murmurs noted Abdomen: Negative for ascites and bruising, normoactive bowel sounds, soft, non-tender to palpation throughout Extremities: Radial, dorsalis pedis, and posterior tibial pulses are intact and symmetrical, mild edema noted in the BL LE's Results & Data Results & Data Vital Signs (Past 12 Hours) Vital Signs Temp Pulse Resp BP BP Pulse Ox O2 Del Method 04/04/24 15:24 36.7 C 74 16 106/68 95 Room Air 04/04/24 07:43 36.7 C 84 16 149/81 H 97 Room Air PG Care Time/CCT Total # of Minutes Spent Total Time Spent with Patient: Total time spent is greater than 50% in coordination of care (as documented) at patient's floor/unit and/or counseling patient: Coding Level of Care Code 28058 SUB INP/OBS CARE 2/35MIN Diagnoses Ambulatory dysfunction R26.2 Right leg pain M79.604 HTN (hypertension) I10
--- NOTE | 2024-04-04 19:48 | Orthopedic Consultation ---
Date of Consultation April 04, 2024 Assessment & Plan (1) Right leg pain: IMPRESSION: BLE pain likely secondarily to lumbar etiology versus exacerbation of degenerative changes. PLAN: Patient would like to continue care with [facility], recommend switching consult to [facility]. In the meantime, may conservatively treat symptoms [facility] PT/OT Continue care per primary service. History of Present Illness Reason for Consultation: Right knee pain Attending Physician: Jone Waters History of Present Illness 78 yo female presented to ED today after she was discharged home from [facility] on 04/02/2024, due to ongoing ambulatory dysfunction and chronic pain in the low back/right lower extremity. She notes she is having pain going down both legs. She has a history cervical and lumbar fusions. She notes that most of her orthopedic care is with [facility]. Allergies Allergy/AdvReac Type Severity Reaction Status Date / Time homatropine AdvReac Intermediate HYDROCODONE/HOMATROPINE Verified 01/24/24 14:13 COUGH SYRP-INSOMNIA/NAUSEA hydrocodone AdvReac Intermediate NAUSEA/INSOMINIA-COUGH Verified 01/24/24 14:13 SYRUP Home Medications Medication Instructions Recorded Confirmed Type Shower Chair #1 ea 03/04/23 01/24/24 Rx ketoconazole 2 % topical cream 1 applic topical BID 14 days #30 02/01/24 04/03/24 Rx grams nystatin-triamcinolone 100,000 1 applic topical BID #30 grams 02/01/24 04/03/24 Rx unit/g-0.1 % topical cream acetaminophen 325 mg tablet 325 mg PO Q6H PRN pain #120 tabs 03/21/24 04/03/24 Rx albuterol sulfate 90 mcg/actuation 2 puff inhalation Q6H PRN 03/21/24 04/03/24 Rx aerosol inhaler Shortness Of Breath Or Wheezing #8.5 grams ascorbic acid (vitamin C) 500 mg 500 mg PO BID #30 caps 03/21/24 04/03/24 Rx capsule aspirin 81 mg tablet,delayed 81 mg PO DAILY #15 tabs 03/21/24 04/03/24 Rx release (Adult Aspirin Regimen) atorvastatin 20 mg tablet 20 mg PO QPM #15 tabs 03/21/24 04/03/24 Rx calcium carbonate (Calcium 600) 600 mg PO DAILY 90 days #15 tabs 03/21/24 04/03/24 Rx cholecalciferol (vitamin D3) 50 2,000 unit PO QAM 90 days #15 tabs 03/21/24 04/03/24 Rx mcg (2,000 unit) tablet cyclobenzaprine 5 mg tablet 5 mg PO TID PRN muscle spasm #20 03/21/24 04/03/24 Rx tabs docusate sodium 100 mg capsule 100 mg PO BID 30 days #30 caps 03/21/24 04/03/24 Rx duloxetine 60 mg capsule,delayed 60 mg PO DAILY #15 caps 03/21/24 04/03/24 Rx release famotidine 20 mg tablet 20 mg PO QAM #30 tabs 03/21/24 04/03/24 Rx flurbiprofen 100 mg tablet 100 mg PO TID #45 tabs 03/21/24 04/03/24 Rx furosemide 20 mg tablet 20 mg PO DAILY #15 tabs 03/21/24 04/03/24 Rx gabapentin 300 mg capsule 300 mg PO TID #45 caps 03/21/24 04/03/24 Rx glucosamine sulf dipot 1 cap PO QAM #14 caps 03/21/24 04/03/24 Rx chlr,msm,chond 550 mg-C 30 mg-claritza 1 mg capsule (Glucosamine Chondroitin) lidocaine 5 % topical patch 1 patch transdermal QAM #10 ea 03/21/24 04/03/24 Rx lisinopril 5 mg tablet 5 mg PO .Q AM #15 tabs 03/21/24 04/03/24 Rx sixsrztv-rjw-rgef-FA-Ca carb-vit K 1 tab PO QAM #15 tabs 03/21/24 04/03/24 Rx 18 mg iron-400 mcg-500 mg tablet polyethylene glycol 3350 17 gram 17 g PO DAILY #100 ea 03/21/24 04/03/24 Rx oral powder packet (Miralax) propranolol 60 mg tablet 60 mg PO BID 90 days #30 tabs 03/21/24 04/03/24 Rx tolterodine 4 mg capsule,extended 4 mg PO PM #15 caps 03/21/24 04/03/24 Rx release 24 hr tramadol 50 mg tablet 100 mg (2 x 50 mg) PO BID #30 tabs 03/21/24 04/03/24 Rx oxycodone 5 mg tablet 5 - 10 mg PO Q6H PRN moderate pain 04/03/24 04/03/24 History (scale score 5-6) Patient History Medical History History of COVID-19 12/2021- states was hospitalized at [place]; resolved Hx of small bowel obstruction Obesity Arthritis History of abnormal electrocardiogram Mitral valve prolapse Not noted on 2018 echo Stress incontinence Hyperlipidemia Excessive sweating Depression Asthma states recent increased SOB due to anemia Hyperparathyroidism s/p parathyroidectomy Surgical History Hx of bilateral cataract extraction Hx of cervical spine surgery 01/2023- PSH, [facility] - limited rom and unable to lift arms over head H/O parathyroidectomy S/P thyroid surgery parathyroid resection H/O carpal tunnel repair R/L S/P lumbar fusion 2005- Dr. Guerrero and repeat lumbar surgery 05/2009 History of gynecologic surgery anterior colporrhaphy, repair of cystocele and posterior colporrhaphy for pelvic relaxation History of total knee arthroplasty LEFT H/O neck surgery neck exploration with excision of parathyroidadenoma and biopsy of upper parathyroid gland History of total hip replacement RIGHT H/O colonoscopy S/P rotator cuff repair RIGHT S/P vaginal hysterectomy Cervical vertebral fusion 10/2008- Dr. Guerrero H/O arthroscopy of knee LEFT Family History Mother Goiter Father Colon cancer Emphysema of lung Denies family history of Ovarian cancer Prostate cancer Myocardial infarction Breast cancer Social History Smoking Status: Never smoker Second Hand Exposure: Yes (SPOUSE USED TO SMOKE); Do You Dip or Chew Tobacco: No; Hx Alcohol Use: No Hx Substance Use: No Preferred Language: Mexican Communication Ability: Effective Auto Hauler Required: No Beliefs That Will Affect Care: None marital status: / Current Living Situation: Family Current Living Situation Comment: lives with daughter and current occupational status: retired 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 BCR < 2 sec. Able to wiggle toes. _ log roll hips. +TTP medial joint line on right. - Yony's. Ligaments stable. ROM 0-120 deg. Lumbar spine: + TTP SI joint R > L. Seated modified straight leg limited as she leans back, notes pain along her hamstrings. Results & Data Vital Signs (Past 12 Hours) Vital Signs Temp Pulse Resp BP BP Pulse Ox O2 Del Method 04/04/24 15:24 36.7 C 74 16 106/68 95 Room Air 04/04/24 07:43 36.7 C 84 16 149/81 H 97 Room Air Laboratory Results Laboratory Results WBC 4.12 K/ul (4.8-10.8) L 04/04/24 06:24 RBC 3.53 M/uL (4.20-5.40) L 04/04/24 06:24 Hgb 10.5 g/dl (12.0-16.0) L 04/04/24 06:24 Hct 32.7 % (37.0-47.0) L 04/04/24 06:24 MCV 92.6 fL (80.0-100.0) 04/04/24 06:24 MCH 29.7 pg (25.0-34.0) 04/04/24 06:24 MCHC 32.1 g/dL (32.0-36.0) 04/04/24 06:24 RDW Std Deviation 47.3 fL (36.4-46.3) H 04/04/24 06:24 RDW Coeff of Jh 13.9 % (11.5-14.5) 04/04/24 06:24 Plt Count 144 K/uL (130-400) 04/04/24 06:24 MPV 9.7 fL (9.4-12.4) 04/04/24 06:24 Immature Gran % (Auto) 0.0 % 04/04/24 06:24 Neut % (Auto) 62.8 % 04/04/24 06:24 Lymph % (Auto) 24.0 % 04/04/24 06:24 [place] % (Auto) 9.5 % 04/04/24 06:24 Eos % (Auto) 3.2 % 04/04/24 06:24 Baso % (Auto) 0.5 % 04/04/24 06:24 Neut # (Auto) 2.59 K/uL (1.40-6.50) 04/04/24 06:24 Lymph # (Auto) 0.99 K/uL (1.20-3.40) L 04/04/24 06:24 [place] # (Auto) 0.39 K/uL (0.11-0.59) 04/04/24 06:24 Eos # (Auto) 0.13 K/uL (0.00-0.50) 04/04/24 06: Baso # (Auto) 0.02 K/uL (0.00-0.20) 04/04/24 06: Immature Gran # (Auto) 0.00 K/uL (0.01-0.20) L 04/04/24 06:24 PT 11.0 Seconds (9.0-12.0) 04/03/24 10:29 INR 1.0 (0.9-1.1) 04/03/24 10:29 APTT 27 Seconds (21-31) 04/03/24 10:29 PTT Ratio 1.0 04/03/24 10:29 Sodium 140 mmol/L (136-145) 04/04/24 06:24 Potassium 3.2 mmol/L (3.5-5.1) L 04/04/24 06:24 Chloride 102 mmol/L (98-107) 04/04/24 06:24 Carbon Dioxide 33 mmol/L (21-32) H 04/04/24 06:24 Anion Gap 5 (3-11) 04/04/24 06:24 BUN 23 mg/dl (6-23) 04/04/24 06:24 Creatinine 0.87 mg/dl (0.6-1.2) 04/04/24 06:24 Est Cr Clr Drug Dosing 55.3 ml/min 04/04/24 06:24 Est GFR ( Amer) 73.4 ml/min 04/04/24 06:24 Est GFR (Non-Af Amer) 63.4 ml/min 04/04/24 06:24 BUN/Creatinine Ratio 26.4 (10-20) H 04/04/24 06:24 Glucose 123 mg/dl (70-99(Fasting)) H 04/04/24 06:24 Lactate 1.9 mmol/L (0.4-2.0) 04/03/24 10:29 Calcium 9.1 mg/dl (8.6-10.3) 04/04/24 06:24 Magnesium 1.8 mg/dl (1.7-2.4) 04/03/24 10:29 Total Bilirubin 0.7 mg/dl (0.2-1.0) 04/03/24 10:29 AST 16 U/L (13-39) 04/03/24 10:29 ALT 14 U/L (7-52) 04/03/24 10:29 Alkaline Phosphatase 70 U/L (34-104) 04/03/24 10:29 Total Protein 6.5 gm/dl (6.0-8.3) 04/03/24 10:29 Albumin 3.6 gm/dl (3.4-5.0) 04/03/24 10:29 Globulin 2.9 gm/dl (2.5-4.0) 04/03/24 10:29 Albumin/Globulin Ratio 1.2 (0.9-2) 04/03/24 10:29 Procalcitonin < 0.02 ng/ml (0-0.5) 04/03/24 10:29 Urine Color Yellow 04/03/24 19:48 Urine Appearance Clear (Clear) 04/03/24 19:48 Urine pH 5.5 (4.5-7.5) 04/03/24 19:48 Ur Specific V[place]ourt 1.020 (1.000-1.030) 04/03/24 19:48 Urine Protein Negative (Negative) 04/03/24 19:48 Urine Glucose (UA) Negative (Negative) 04/03/24 19:48 Urine Ketones Negative (Negative) 04/03/24 19:48 Urine Blood Negative (Negative) 04/03/24 19:48 Urine Nitrite Negative (Negative) 04/03/24 19:48 Urine Bilirubin Negative (Negative) 04/03/24 19:48 Urine Urobilinogen Negative (Negative) 04/03/24 19:48 Ur Leukocyte Esterase Negative (Negative) 04/03/24 19:48 Impressions Venous Doppler Study 04/03/24 10:04 RIGHT LOWER EXTREMITY VENOUS DOPPLER CLINICAL HISTORY: swelling, pain COMPARISON STUDY: Bilateral lower extremity venous Doppler ultrasound March 10, 2024. TECHNIQUE: Sonography of the deep venous system of the right lower extremity was performed. Compression and augmentation were evaluated. FINDINGS: The right common femoral, superficial femoral and popliteal veins were compressible. Augmentation was normal. Flow was shown within the deep calf vessels. There is a small right popliteal cyst. IMPRESSION: No evidence of deep venous thrombus within the right lower extremity. ACT 112: Negative or not required by law. Electronically signed by: Mikael Lord M.D. 04/03/2024 11:38 AM Knee X-Ray 04/03/24 10:11 XR knee RT 3V CLINICAL HISTORY: contusion, pain TECHNIQUE: 3 views of the right knee were obtained. Comparison: Comparison is made to knee radiographs 03/19/2024 FINDINGS: Bipartite appearance of the patella is unchanged. There is questionable irregularity of the anterior aspect of the tibial plateau which is new from prior exam. Degenerative changes are seen in the knee joint. No definite evidence for effusion, evaluation for effusion is limited by lack of true lateral view. Soft tissue swelling is seen about the knee. IMPRESSION: Possible fracture of the anterior tibial plateau with associated soft tissue swelling. If clinical uncertainty remains, CT can be performed. ACT 112: Negative or not required by law. Electronically signed by: Jair Kwon M.D. 04/03/2024 11:[address] 04/03/24 11:08 CT SCAN OF THE RIGHT KNEE WITHOUT IV CONTRAST CLINICAL HISTORY: Right knee injury. Possible fracture. COMPARISON STUDY: Radiographs of the right knee dated 04/03/2024. TECHNIQUE: CT scan of the right knee is performed from the distal femur to the proximal tibia and fibula. Images are reviewed in the axial, sagittal, and coronal planes. IV contrast was not administered for this examination. A dose lowering technique was utilized adhering to the principles of ALARA. CT DOSE: 513.98 mGy.cm FINDINGS: The skeletal structures are osteopenic. No acute fracture is clearly identified. There is [id number] tricompartmental degenerative joint space narrowing. Chondrocalcinosis is seen in the medial and lateral compartments. There is a joint effusion, with no evidence of lipohemarthrosis. Degenerative spurring is seen on the distal femur and the proximal tibia. M arginal osteophytosis is observed. There is bone overgrowth along the superior aspect of the patella. Generalized atrophy is observed in the regional musculature. There is atherosclerotic calcification of the popliteal artery. There is mild prepatellar soft tissue swelling. IMPRESSION: 1. Mild soft tissue swelling and joint effusion with no fracture identified. 2. Osteopenia with degenerative change and chondrocalcinosis as above. ACT 112: Negative or not required by law. Dictated: 04/03/2024 11:49 AM Transcribed: 04/03/2024 12:00 PM Arnol [id number] [email or web address] Electronically signed by: Agustin Purcell M.D. 04/03/2024 12:19 PM
[2024-04-05] MEDS: LIDOCAINE 5% 1 PATCH TD SCH (02:09)
[2024-04-05 07:10] LABS: BUN Creatinine Ratio 20.7 (10-20); Creatinine Clr Calc Pharmacy 58.7 ml/min; Est GFR (African American) 78.9 ml/min; Est GFR (Non-African American) 68.1 ml/min; Magnesium 1.9 mg/dl (1.7-2.4); Phosphorus 3.9 mg/dl (2.5-4.9); Potassium 3.9 mmol/L (3.5-5.1)
[2024-04-05 07:17] LABS: Basophils # (auto) 0.02 K/uL (0.00-0.20); Basophils % (auto) 0.5 %; Eosinophils # (auto) 0.14 K/uL (0.00-0.50); Eosinophils % (auto) 3.8 %; Hematocrit (blood only) 31.8 % (37.0-47.0); Hemoglobin 10.1 g/dl (12.0-16.0); Immature Granulocytes # (auto) 0.01 K/uL (0.01-0.20); Immature Granulocytes % (auto) 0.3 %; Lymphocytes # (auto) 0.91 K/uL (1.20-3.40); Lymphocytes % (auto) 24.7 %; Mean Corpuscular Hemoglobin 29.4 pg (25.0-34.0); Mean Corpuscular Hgb Conc 31.8 g/dL (32.0-36.0); Mean Corpuscular Volume 92.4 fL (80.0-100.0); Mean Platelet Volume 9.6 fL (9.4-12.4); Monocytes # (auto) 0.39 K/uL (0.11-0.59); Monocytes % (auto) 10.6 %; Neutrophils # (auto) 2.21 K/uL (1.40-6.50); Neutrophils % (auto) 60.1 %; Platelet Count 144 K/uL (130-400); RDW Coefficient of Variation 13.8 % (11.5-14.5); RDW Standard Deviation 46.5 fL (36.4-46.3); Red Blood Count 3.44 M/uL (4.20-5.40); White Blood Count 3.68 K/ul (4.8-10.8)
--- NOTE | 2024-04-05 18:06 | Orthopedic Consultation ---
Date of Consultation April 05, 2024 Assessment & Plan (1) Right leg weakness: Right leg weakness and pain could be in part related to osteoarthritis of the knee where she has degenerative arthritis of bipartite patella fairly advanced osteoarthritis. No acute fracture. She also has hip flexion weakness which would not be related to her knee. Differential diagnosis for that would be lumbar radiculopathy in the upper lumbar spine, flexor tendinitis of the right hip. Right hip replacement does not appear to be loose. I discussed with her that she could try a steroid injection in her right knee and see how much that helps. Further diagnosis of the right hip may be more complex. We may need to get a metal subtraction MRI of the right hip or other imaging to look at her flexor tendon of the hip. Options for flexor tenosynovitis treatment if noted would be physical therapy, steroid or nonsteroidal anti-inflammatory medication, injection pain management injections. Discussed case with Dr. Guerrero's team and they do not think based on recent MRIs of her back that there is anything surgical to perform there. (2) Chronic back pain: (3) Right leg pain: (4) Ambulatory dysfunction: (5) Bipartite patella: (6) Osteoarthritis of right knee: History of Present Illness Reason for Consultation: Right leg pain Attending Physician: Jone Waters History of Present Illness 78-year-old female well-known to Dr. Guerrero who performed lumbar surgery on her. She has been having difficulty with the right leg and having right leg pain. Main difficulty is trying to flex or lift her leg. She has some back pain rating down to her ankle not to her foot. She denies any numbness. She has some knee pain. Allergies Allergy/AdvReac Type Severity Reaction Status Date / Time homatropine AdvReac Intermediate HYDROCODONE/HOMATROPINE Verified 01/24/24 14:13 COUGH SYRP-INSOMNIA/NAUSEA hydrocodone AdvReac Intermediate NAUSEA/INSOMINIA-COUGH Verified 01/24/24 14:13 SYRUP Home Medications Medication Instructions Recorded Confirmed Type Shower Chair #1 ea 03/04/23 01/24/24 Rx ketoconazole 2 % topical cream 1 applic topical BID 14 days #30 02/01/24 04/03/24 Rx grams nystatin-triamcinolone 100,000 1 applic topical BID #30 grams 02/01/24 04/03/24 Rx unit/g-0.1 % topical cream acetaminophen 325 mg tablet 325 mg PO Q6H PRN pain #120 tabs 03/21/24 04/03/24 Rx albuterol sulfate 90 mcg/actuation 2 puff inhalation Q6H PRN 03/21/24 04/03/24 Rx aerosol inhaler Shortness Of Breath Or Wheezing #8.5 grams ascorbic acid (vitamin C) 500 mg 500 mg PO BID #30 caps 03/21/24 04/03/24 Rx capsule aspirin 81 mg tablet,delayed 81 mg PO DAILY #15 tabs 03/21/24 04/03/24 Rx release (Adult Aspirin Regimen) atorvastatin 20 mg tablet 20 mg PO QPM #15 tabs 03/21/24 04/03/24 Rx calcium carbonate (Calcium 600) 600 mg PO DAILY 90 days #15 tabs 03/21/24 04/03/24 Rx cholecalciferol (vitamin D3) 50 2,000 unit PO QAM 90 days #15 tabs 03/21/24 Rx mcg (2,000 unit) tablet cyclobenzaprine 5 mg tablet 5 mg PO TID PRN muscle spasm #20 03/21/24 04/03/24 Rx tabs docusate sodium 100 mg capsule 100 mg PO BID 30 days #30 caps 03/21/24 04/03/24 Rx duloxetine 60 mg capsule,delayed 60 mg PO DAILY #15 caps 03/21/24 04/03/24 Rx release famotidine 20 mg tablet 20 mg PO QAM #30 tabs 03/21/24 04/03/24 Rx flurbiprofen 100 mg tablet 100 mg PO TID #45 tabs 03/21/24 04/03/24 Rx furosemide 20 mg tablet 20 mg PO DAILY #15 tabs 03/21/24 04/03/24 Rx gabapentin 300 mg capsule 300 mg PO TID #45 caps 03/21/24 04/03/24 Rx glucosamine sulf dipot 1 cap PO QAM #14 caps 03/21/24 04/03/24 Rx chlr,msm,chond 550 mg-C 30 mg-claritza 1 mg capsule (Glucosamine Chondroitin) lidocaine 5 % topical patch 1 patch transdermal QAM #10 ea 03/21/24 04/03/24 Rx lisinopril 5 mg tablet 5 mg PO .Q AM #15 tabs 03/21/24 04/03/24 Rx ptwbfpfj-cdl-pmuw-FA-Ca carb-vit K 1 tab PO QAM #15 tabs 03/21/24 04/03/24 Rx 18 mg iron-400 mcg-500 mg tablet polyethylene glycol 3350 17 gram 17 g PO DAILY #100 ea 03/21/24 04/03/24 Rx oral powder packet (Miralax) propranolol 60 mg tablet 60 mg PO BID 90 days #30 tabs 03/21/24 04/03/24 Rx tolterodine 4 mg capsule,extended 4 mg PO PM #15 caps 03/21/24 04/03/24 Rx release 24 hr tramadol 50 mg tablet 100 mg (2 x 50 mg) PO BID #30 tabs 03/21/24 04/03/24 Rx oxycodone 5 mg tablet 5 - 10 mg PO Q6H PRN moderate pain 04/03/24 04/03/24 History (scale score 5-6) Patient History Medical History History of COVID-19 12/2021- states was hospitalized at [place]; resolved Hx of small bowel obstruction Obesity Arthritis History of abnormal electrocardiogram Mitral valve prolapse Not noted on 2018 echo Stress incontinence Hyperlipidemia Excessive sweating Depression Asthma states recent increased SOB due to anemia Hyperparathyroidism s/p parathyroidectomy Surgical History Hx of bilateral cataract extraction Hx of cervical spine surgery 01/2023- PSH, [facility] - limited rom and unable to lift arms over head H/O parathyroidectomy S/P thyroid surgery parathyroid resection H/O carpal tunnel repair R/L S/P lumbar fusion 2005- Dr. Guerrero and repeat lumbar surgery 05/2009 History of gynecologic surgery anterior colporrhaphy, repair of cystocele and posterior colporrhaphy for pelvic relaxation History of total knee arthroplasty LEFT H/O neck surgery neck exploration with excision of parathyroidadenoma and biopsy of upper parathyroid gland History of total hip replacement RIGHT H/O colonoscopy S/P rotator cuff repair RIGHT S/P vaginal hysterectomy Cervical vertebral fusion 10/2008- Dr. Guerrero H/O arthroscopy of knee LEFT Family History Mother Goiter Father Colon cancer Emphysema of lung Denies family history of Ovarian cancer Prostate cancer Myocardial infarction Breast cancer Social History Smoking Status: Never smoker Second Hand Exposure: Yes (SPOUSE USED TO SMOKE); Do You Dip or Chew Tobacco: No; Hx Alcohol Use: No Hx Substance Use: No Preferred Language: Divehi Communication Ability: Effective It Business Analyst Required: No Beliefs That Will Affect Care: None marital status: / Current Living Situation: Family Current Living Situation Comment: lives with daughter and current occupational status: retired 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 Physical Exam Physical Exam: Left knee incision from previous knee replacement no pain in the left knee with range of motion. Right knee has small effusion tender over the patella and has pain with pressure across patellofemoral joint. There is no instability. There is good range of motion. Little pain with range of motion. Actively she can extend her knee so her extensor mechanism is intact. Distal circulation sensorimotor exam intact. She had normal sensation throughout the foot and good dorsiflex plantarflex her foot with good strength EHL strength was good. Straight leg raise test was negative. Hip flexion was significantly weak with 2+ to 3-/5 strength with hip flexion.. She has 3+/5 left hip flexion strength. Range of motion of the right hip was pain-free and stable hip replacement. Results & Data Vital Signs (Past 12 Hours) Vital Signs Temp Pulse Resp BP Pulse Ox O2 Del Method 04/05/24 14:49 36.8 C 83 16 149/78 H 94 Room Air 04/05/24 07:31 36.7 C 64 16 152/80 H 94 Room Air (2) Chronic back pain Back pain laterality: unspecified Back pain location: low back pain Sciatica laterality: sciatica laterality unspecified Sciatica presence: with sciatica Qualified Code(s): M54.40 - Lumbago with sciatica, unspecified side; G89.29 - Other chronic pain (6) Osteoarthritis of right knee Osteoarthritis type: primary Qualified Code(s): M17.11 - Unilateral primary osteoarthritis, right knee
--- NOTE | 2024-04-05 22:01 | Hospitalist Progress Note ---
Date of Service April 05, 2024 Assessment & Plan (1) Ambulatory dysfunction: Plan: Admit to med/surge Currently stable and nontoxic-appearing Presented back to the ED today after she was discharged home from [facility] on 04/02/2024 due to ongoing ambulatory dysfunction and chronic pain in the low back/right lower extremity Patient denies new injuries/pain compared to her last admission to our hospital earlier this month At this time patient requires further care than she can currently be given at home, patient is in agreement with placement to either inpatient rehab or SNF No acute trauma on exam, CT of the right knee is negative for acute fracture, patient with intact sensation without acute neurologic defects since last admission Will continue patient's scheduled Tylenol, Flexeril, gabapentin, lidocaine patch Will add as needed IV Dilaudid for severe pain, can plan to convert back to p.o. oxycodone when her pain is better controlled PT/OT/case management consultation placed Fall precautions Heart healthy diet consult ortho: appreciate input. Will consider knee injection. Dr. Guerrero is not available. will have PT eval on day of discharge. (2) Right leg pain: Plan: See ambulatory dysfunction (3) HTN (hypertension): Plan: Currently stable Continue lisinopril, furosemide, and propranolol Admission and Anticipated Discharge Date Admission Date: April 03, 2024 Subjective 78 yo female reports no new symptoms. Review of Systems Review of Systems: All systems reviewed & are unremarkable except as noted in HPI & below Physical Exam Physical Exam: General: In no acute distress, stated age, well-nourished, good hygiene HEENT: Normocephalic, atraumatic Chest/Pulm: No respiratory distress, symmetrical chest expansion, clear breath sounds throughout Cardiac: RRR, no murmurs noted Abdomen: Negative for ascites and bruising, normoactive bowel sounds, soft, non-tender to palpation throughout Extremities: Radial, dorsalis pedis, and posterior tibial pulses are intact and symmetrical, mild edema noted in the BL LE's Results & Data Results & Data Vital Signs (Past 12 Hours) Vital Signs Temp Pulse Resp BP BP Pulse Ox O2 Del Method 04/05/24 20:01 36.5 C 103 H 20 163/80 H 96 Room Air 04/05/24 14:49 36.8 C 83 16 149/78 H 94 Room Air PG Care Time/CCT Total # of Minutes Spent Total Time Spent with Patient: Total time spent is greater than 50% in coordination of care (as documented) at patient's floor/unit and/or counseling patient: Coding Level of Care Code 05726 SUB INP/OBS CARE 2/35MIN Diagnoses Ambulatory dysfunction R26.2 Right leg pain M79.604 HTN (hypertension) I10
[2024-04-06] MEDS: COUGH DROP (SUGAR FREE) LOZ 24 LOZ/1 BOX BUCCAL ONE (03:12)
[2024-04-06] MEDS: BENZOCAINE/MENTHOL 18 LOZ/1 BOX MT PRN (03:12)
[2024-04-06 07:55] LABS: Basophils # (auto) 0.02 K/uL (0.00-0.20); Basophils % (auto) 0.5 %; Eosinophils # (auto) 0.21 K/uL (0.00-0.50); Eosinophils % (auto) 4.9 %; Hematocrit (blood only) 33.9 % (37.0-47.0); Hemoglobin 10.8 g/dl (12.0-16.0); Immature Granulocytes # (auto) 0.02 K/uL (0.01-0.20); Immature Granulocytes % (auto) 0.5 %; Lymphocytes # (auto) 1.13 K/uL (1.20-3.40); Lymphocytes % (auto) 26.5 %; Mean Corpuscular Hemoglobin 29.3 pg (25.0-34.0); Mean Corpuscular Hgb Conc 31.9 g/dL (32.0-36.0); Mean Corpuscular Volume 91.9 fL (80.0-100.0); Mean Platelet Volume 9.7 fL (9.4-12.4); Monocytes # (auto) 0.41 K/uL (0.11-0.59); Monocytes % (auto) 9.6 %; Neutrophils # (auto) 2.48 K/uL (1.40-6.50); Platelet Count 144 K/uL (130-400); RDW Coefficient of Variation 13.9 % (11.5-14.5); RDW Standard Deviation 46.9 fL (36.4-46.3); Red Blood Count 3.69 M/uL (4.20-5.40); White Blood Count 4.27 K/ul (4.8-10.8)
[2024-04-06 08:10] LABS: BUN Creatinine Ratio 22.6 (10-20); Calcium 9.4 mg/dl (8.6-10.3); Creatinine Clr Calc Pharmacy 57.3 ml/min; Est GFR (African American) 76.6 ml/min; Est GFR (Non-African American) 66.1 ml/min
--- NOTE | 2024-04-06 14:50 | Communication Note ---
Date of Service: April 06, 2024 Patient seen today in conjunction with Dr. Craig's visit yesterday. He had spoken to her about several of her symptoms etc. and plans were to do a Depo- Medrol steroid injection in her right knee today. Depo-Medrol and Marcaine were ordered and at the bedside today. Patient was placed on the bedside and the right knee was identified by the patient. The knee was kept in flexion and an infrapatellar medial site was chosen. This area was cleansed with alcohol and Betadine and allowed to dry. At that point in time, a 20-gauge needle was inserted into the right knee joint through the medial aspect and 80 mg of Depo- Medrol and 3 cc of Marcaine 0.5% were injected into the knee without difficulty. The needle was removed and gentle pressure was applied over the injection site for approximately 30 seconds. A Band-Aid was then placed over the injection site. The knee was taken through gentle range of motion without difficulty. Patient tolerated the injection well. Patient had seen Dr. Sweeney in the past and can follow-up in the future if need be for any further of her knee problems. We also discussed that she should follow-up with Dr. Guerrero in the next few weeks to discuss her right lower extremity weakness as well as some of the discomfort that she has been having from the low back down into the ankle if her symptoms are persisting. Orthopedics will sign off at this time.
[2024-04-06] MEDS: ETHYL CHLORIDE AER PER SPRAY 100 ML CAN EXT ONE (15:01)
[2024-04-06] MEDS: BUPIVACAINE 0.5 % 5 MG/1 ML MPF 30ML VIAL INFIL ONE (15:01)
[2024-04-06] MEDS: methylPREDNISolone acetate 80 MG/ML VIAL IA ONE (15:02)
--- NOTE | 2024-04-06 21:20 | Hospitalist Progress Note ---
Date of Service April 06, 2024 Assessment & Plan (1) Ambulatory dysfunction: Plan: Admit to med/surge Currently stable and nontoxic-appearing Presented back to the ED today after she was discharged home from [facility] on 04/02/2024 due to ongoing ambulatory dysfunction and chronic pain in the low back/right lower extremity Patient denies new injuries/pain compared to her last admission to our hospital earlier this month At this time patient requires further care than she can currently be given at home, patient is in agreement with placement to either inpatient rehab or SNF No acute trauma on exam, CT of the right knee is negative for acute fracture, patient with intact sensation without acute neurologic defects since last admission Will continue patient's scheduled Tylenol, Flexeril, gabapentin, lidocaine patch Will add as needed IV Dilaudid for severe pain, can plan to convert back to p.o. oxycodone when her pain is better controlled PT/OT/case management consultation placed Fall precautions Heart healthy diet consult ortho: appreciate input. S/P knee injection Dr. Guerrero is not available. [facility] Plan to discharge in AM> (2) Right leg pain: Plan: See ambulatory dysfunction (3) HTN (hypertension): Plan: Currently stable Continue lisinopril, furosemide, and propranolol Admission and Anticipated Discharge Date Admission Date: April 03, 2024 Subjective Patient reports no new symptoms. Physical Exam Physical Exam: General: In no acute distress, stated age, well-nourished, good hygiene HEENT: Normocephalic, atraumatic Chest/Pulm: No respiratory distress, symmetrical chest expansion, clear breath sounds throughout Cardiac: RRR, no murmurs noted Abdomen: Negative for ascites and bruising, normoactive bowel sounds, soft, non-tender to palpation throughout Extremities: Radial, dorsalis pedis, and posterior tibial pulses are intact and symmetrical, mild edema noted in the BL LE's Results & Data Results & Data Vital Signs (Past 12 Hours) Vital Signs Temp Pulse Resp BP BP Pulse Ox O2 Del Method 04/06/24 20:06 36.7 C 88 18 141/83 H 93 Room Air 04/06/24 15:18 36.9 C 85 18 167/66 H 96 Room Air PG Care Time/CCT Total # of Minutes Spent Total Time Spent with Patient: Total time spent is greater than 50% in coordination of care (as documented) at patient's floor/unit and/or counseling patient: Coding Level of Care Code 81456 SUB INP/OBS CARE 2/35MIN Diagnoses Ambulatory dysfunction R26.2 Right leg pain M79.604 HTN (hypertension) I10
[2024-04-07 07:36] VITALS: RESP 16
[2024-04-07 08:08] LABS: Hematocrit (blood only) 31.7 % (37.0-47.0); Hemoglobin 10.3 g/dl (12.0-16.0); Mean Corpuscular Hemoglobin 29.8 pg (25.0-34.0); Mean Corpuscular Hgb Conc 32.5 g/dL (32.0-36.0); Mean Corpuscular Volume 91.6 fL (80.0-100.0); Platelet Count 144 K/uL (130-400); RDW Coefficient of Variation 13.9 % (11.5-14.5); RDW Standard Deviation 46.8 fL (36.4-46.3); Red Blood Count 3.46 M/uL (4.20-5.40); White Blood Count 4.27 K/ul (4.8-10.8)
[2024-04-07 08:36] LABS: Calcium 9.1 mg/dl (8.6-10.3); Potassium 3.9 mmol/L (3.5-5.1)
[2024-04-07 08:41] LABS: BUN Creatinine Ratio 22.8 (10-20); Creatinine Clr Calc Pharmacy 51.3 ml/min; Est GFR (African American) 68.6 ml/min; Est GFR (Non-African American) 59.2 ml/min; Phosphorus 3.8 mg/dl (2.5-4.9)
--- NOTE | 2024-04-07 14:43 | Discharge Summary ---
Date of Service April 07, 2024 Admission HPI Per Admitting Provider Armand is a 78-year-old female with extensive orthopedic history including cervical and lumbar spinal surgery with extensive hardware implants, chronic pain, anxiety, and HTN Who presented to the [facility] ED on 04/03/2024 with complaints of ongoing chronic right lower extremity pain and ambulatory dysfunction. Patient was recently discharged from [facility] for rehab ongoing ambulatory dysfunction since arriving home. She was recently admitted to her service from after she sustained mechanical fall and experienced acute exacerbation of her chronic low back pain. She underwent MRI of the thoracic and lumbar spine during her last admission. Thoracic spine MRI was read as negative for acute findings. Lumbar spine MRI was read as negative for acute fracture or subluxation. Postoperative changes seen as above without high-grade central canal or neural foraminal narrowing. The intervertebral spacer L3-L4 is positioned posteriorly within the disc space, extending into the left lateral recess causing mild to moderate left lateral recess narrowing with abutment of the L4 nerve root. During her admission the hospitalist team did speak with Dr. Guerrero of ortho spine who did not recommend surgical intervention at that time with plans to continue following the patient at the time of discharge. The patient's symptoms significantly progressed with the addition of IV hydromorphone, dexamethasone, scheduled Tylenol, Lidoderm patch, and Ultram in addition to her home duloxetine and gabapentin. She was discharged to [facility] for rehab on 03/22/2024. On arrival to the ED today the patient was noted to be tachycardic at 107 but was otherwise stable. Labs including CBC, CMP, INR, and Pro-Chinmay were unremarkable. Venous Doppler of the right lower extremity was read as negative for acute findings. X-ray of the right knee was read as possible fracture of the anterior tibial plateau with associated soft tissue swelling. CT of the right knee was read as mild soft tissue swelling and joint effusion with no fracture identified. Osteopenia with degenerative change and chondrocalcinosis as above. Prior to admission patient was given 1 g IV Tylenol, 500 mL normal saline, and 6 mg IV morphine. Patient was sitting in bed in no acute distress at the time of exam. She states that she had a very poor experience at [facility]. States that for the majority of her stay at [facility] she mainly was kept with chair and only had physical therapy approximately 3 days. Will discharge her back home 04/02/2024 but she did not feel as though she was strong enough at that time. She is currently living with her daughter and son-in-law since discharge but she has essentially been bedbound as she has required significant assistance with her ADLs. She states that she has not wanted to be transferred to [facility] from [place] prior to discharge home. At this time she is interested in either inpatient rehab or SNF placement. Denies any other complaints at this time and confirms that her right lower extremity pain is the same as her last admission. Her left lower extremity pain has improved compared to last admission. She denies recent/chills, chest pain, shortness of breath, nausea/vomiting, dysuria, hematuria, diarrhea, and recurrent falls/trauma since prior to her last admission to [facility]. We discussed CODE STATUS, she clearly stated that she wishes to be a DNR/DNI for her daughter Dyana Goodwin to be here primary decision maker if she cannot Decision. Principal Diagnosis ambulatory dysfunction Discharge Exam General: In no acute distress, stated age, well-nourished, good hygiene HEENT: Normocephalic, atraumatic Chest/Pulm: No respiratory distress, symmetrical chest expansion, clear breath sounds throughout Cardiac: RRR, no murmurs noted Abdomen: Negative for ascites and bruising, normoactive bowel sounds, soft, non-tender to palpation throughout Extremities: Radial, dorsalis pedis, and posterior tibial pulses are intact and symmetrical, mild edema noted in the BL LE's Discharge Data Allergies Allergy/AdvReac Type Severity Reaction Status Date / Time homatropine AdvReac Intermediate HYDROCODONE/HOMATROPINE Verified 01/24/24 14:13 COUGH SYRP-INSOMNIA/NAUSEA hydrocodone AdvReac Intermediate NAUSEA/INSOMINIA-COUGH Verified 01/24/24 14:13 SYRUP Consultations 04/03/24 12:46 ED Decision to Admit Stat 04/04/24 08:57 Consult Orthopedic Surgery Routine 04/05/24 08:50 Consult Orthopedic Spine Surgery Routine Ordered Studies 04/03/24 10:04 US venous doppler LE RT Stat 04/03/24 11:08 CT knee RT wo con Stat Hospital Course (1) Ambulatory dysfunction: Admit to med/surge Currently stable and nontoxic-appearing Presented back to the ED today after she was discharged home from [facility] on 04/02/2024 due to ongoing ambulatory dysfunction and chronic pain in the low back/right lower extremity Patient denies new injuries/pain compared to her last admission to our hospital earlier this month At this time patient requires further care than she can currently be given at home, patient is in agreement with placement to either inpatient rehab or SNF No acute trauma on exam, CT of the right knee is negative for acute fracture, patient with intact sensation without acute neurologic defects since last admission Will continue patient's scheduled Tylenol, Flexeril, gabapentin, lidocaine patch consult ortho: appreciate input. S/P knee injection Dr. Guerrero is not available, patient will followup with Dr. Guerrero in the outpatient setting. Patient's physical activity improved as the physical therapist recommended home health. Patient agreeable. (2) Right leg pain: See ambulatory dysfunction (3) HTN (hypertension): Currently stable Continue lisinopril, furosemide, and propranolol Total Time Total Time Spent Total Time Spent (In Minutes): 32 Discharge Plan Discharge Items Patient Disposition: Home - Home Health Services Reason For Visit: UNCONTROLLED RLE PAIN, AMBULATORY DYSFUNCTION Discharge Diagnosis: ambulatory dysfunction Condition on Discharge: Fair Activity: Resume your previous activity Non-emergency contact: Primary Care Provider Call non-emergency contact if: you have any medication questions Follow-up/Referrals: Tobias Guerrero, [Surgeon] - (Follow up with Dr. Guerrero in the next 2 weeks to discuss your right leg weakness and discomfort.) Cate Ford MD [Primary Care Provider] - 04/18/24 11:00 am Diet: Heart Healthy and Low Sodium (2gm) Fluids: 1800ml (7 cups) Addtl Attending Provider Instructions: Recommend followup with PCP in 1-2 weeks. Please continue your pain regimen noted below. Pending Studies at Discharge: No Stand-Alone Forms: My [employer], Smoking Cessation Medications and DC Order Prescriptions: Continued nystatin-triamcinolone 100,000-0.1 unit/g-% cream 1 applic topical BID Qty: 30 0RF ketoconazole 2 % cream 1 applic topical BID 14 Days Qty: 30 0RF (DME) Shower Chair Misc See Rx Instructions .Route Qty: 1 0RF Rx Instructions: As directed acetaminophen 325 mg tablet 325 mg PO Q6H PRN (Reason: pain) Qty: 120 0RF tramadol 50 mg Tablet 100 mg PO BID Qty: 30 0RF polyethylene glycol 3350 [Miralax] 17 gram Powder In Packet 17 g PO DAILY Qty: 100 0RF Rx Instructions: stop for diarrhea famotidine 20 mg Tablet 20 mg PO QAM Qty: 30 0RF lidocaine 5 % Adhesive Patch,Medicated 1 patch transdermal QAM Qty: 10 0RF cyclobenzaprine 5 mg Tablet 5 mg PO TID PRN (Reason: muscle spasm) Qty: 20 0RF atorvastatin 20 mg tablet 20 mg PO QPM Qty: 15 3RF tolterodine 4 mg capsule,extended release 24hr 4 mg PO PM Qty: 15 3RF propranolol 60 mg tablet 60 mg PO BID 90 Days Qty: 30 2RF aspirin [Adult Aspirin Regimen] 81 mg tablet,delayed release (DR/EC) 81 mg PO DAILY Qty: 15 0RF calcium carbonate [Calcium 600] 600 mg calcium (1,500 mg) tablet 600 mg PO DAILY 90 Days Qty: 15 3RF docusate sodium 100 mg capsule 100 mg PO BID 30 Days Qty: 30 3RF gabapentin 300 mg capsule 300 mg PO TID Qty: 45 5RF flurbiprofen 100 mg tablet 100 mg PO TID Qty: 45 3RF lisinopril 5 mg tablet 5 mg PO .Q AM Qty: 15 0RF furosemide 20 mg tablet 20 mg PO DAILY Qty: 15 3RF albuterol sulfate 90 mcg/actuation HFA aerosol inhaler 2 puff INH Q6H PRN (Reason: Shortness Of Breath Or Wheezing) Qty: 8.5 5RF duloxetine 60 mg capsule,delayed release(DR/EC) 60 mg PO DAILY Qty: 15 3RF cholecalciferol (vitamin D3) 50 mcg (2,000 unit) tablet 2,000 unit PO QAM 90 Days Qty: 15 4RF io-kd-adoz-FA-Ca carb-vit K 18 mg iron-400 mcg-500 mg Tablet 1 tab PO QAM Qty: 15 0RF ascorbic acid (vitamin C) 500 mg capsule 500 mg PO BID Qty: 30 0RF Glucosamine Chondroitin 550-30-1 mg Capsule 1 cap PO QAM Qty: 14 0RF oxycodone 5 mg tablet 5 - 10 mg PO Q6H PRN (Reason: moderate pain (scale score 5-6)) Rx Instructions: Po q6 hprn. 1 tablet for moderate pain; 2 tablets for severe pain Discharge Orders: Discharge Order (Routine); Ordered 04/07/24 Ordered By: Jone Waters Admission Data Admit Date/Time: 04/03/24 13:21 Attending Provider: Jone Waters Admit Provider: Jone Waters Primary Care Provider: Cate Ford Other Providers: Jone Waters; Tobias Guerrero; Jose Guadalupe Ortega; Elijah Messer; Janny Solorzano; Anish Sweeney; Meg Rivera; Adolph Mcarthur; Trung Olson; Silva Little Andrew J.; Trung Gambino; Kevin Harper; Guille Craig; Anderson Pompa; Benoit Rose; Meg Borja; Tristan Dior Adam M.; Celestine Prieto; Margaret Holly; Jus Cervantes; Mikie Ledezma; Naima Krause; Mehul Quintanilla; Nhung Ngo; Alexandr Ortega; Michael Prabhakar [facility] Other Interventions: Discharge Summary Assessment (RN) Last Done: 04/07/24 15:27 Coding Level of Care Code 71533 INP/OBS DISCH >30 MIN Diagnoses Ambulatory dysfunction R26.2 Right leg pain M79.604 HTN (hypertension) I10
[2024-04-07 14:56] VITALS: PULSE 89; TEMP 97; O2SAT 94
[2024-04-07 15:31] VITALS: BP 167/66
== END 2024-04-07 15:59 | disposition home health service (06) | DRG 554 ==
LOC: ED 09:44 → 3N 13:21
DX: Z88.6 Allergy status to analgesic agent; Z79.82 Long term (current) use of aspirin; I10 Essential (primary) hypertension; Z98.1 Arthrodesis status; Z86.16 Personal history of COVID-19; Z66 Do not resuscitate; M54.89 Other dorsalgia; R26.2 Difficulty in walking, not elsewhere classified; M17.11 Unilateral primary osteoarthritis, right knee; Z96.641 Presence of right artificial hip joint; L03.90 Cellulitis, unspecified; Z88.5 Allergy status to narcotic agent; Z99.3 Dependence on wheelchair

== ENCOUNTER 2024-04-14 06:29 | Inpatient (IN) ==
--- NOTE | 2024-04-14 07:01 | Emergency Department Note ---
History of Present Illness General Chief complaint: Hip Pain Stated complaint: Fall, L Hip Pain, Abdominal Pain Time Seen by Provider: 04/14/24 06:46 Source: patient, RN notes reviewed and old records reviewed (04/03/24-discharge summary from previous fall. I also reviewed the EMS notes from today) Mode of arrival: ambulatory Limitations: no limitations History of Present Illness This patient is 78-year-old female comes in after falling 2 days ago. She uses a walker and she said it tilted and she fell she laid on her left side she has pain in her left hip into the left lower abdomen. She says she felt okay initially and started getting stiff last night. Denies that she hit her head or lost consciousness. No facial trauma or injury no head pain. No neck pain or stiffness or injury no chest pain or shortness of breath. She said this is her third visit since March she does have a history of having ambulatory dysfunction at baseline has chronic issues with her right knee/leg from previous fall. She is on no blood thinners Home Medications Medication Instructions Recorded Confirmed Type Shower Chair #1 ea 03/04/23 04/11/24 Rx nystatin-triamcinolone 100,000 1 applic topical BID #30 grams 02/01/24 04/14/24 Rx unit/g-0.1 % topical cream acetaminophen 325 mg tablet 325 mg PO Q6H PRN pain #120 tabs 03/21/24 04/14/24 Rx albuterol sulfate 90 mcg/actuation 2 puff inhalation Q6H PRN 03/21/24 04/14/24 Rx aerosol inhaler Shortness Of Breath Or Wheezing #8.5 grams ascorbic acid (vitamin C) 500 mg 500 mg PO BID #30 caps 03/21/24 04/14/24 Rx capsule aspirin 81 mg tablet,delayed 81 mg PO DAILY #15 tabs 03/21/24 04/14/24 Rx release (Adult Aspirin Regimen) atorvastatin 20 mg tablet 20 mg PO QPM #15 tabs 03/21/24 04/14/24 Rx calcium carbonate (Calcium 600) 600 mg PO DAILY 90 days #15 tabs 03/21/24 04/14/24 Rx cholecalciferol (vitamin D3) 50 2,000 unit PO QAM 90 days #15 tabs 03/21/24 04/14/24 Rx mcg (2,000 unit) tablet cyclobenzaprine 5 mg tablet 5 mg PO TID PRN muscle spasm #20 03/21/24 04/14/24 Rx tabs docusate sodium 100 mg capsule 100 mg PO BID 30 days #30 caps 03/21/24 04/14/24 Rx duloxetine 60 mg capsule,delayed 60 mg PO DAILY #15 caps 03/21/24 04/14/24 Rx release famotidine 20 mg tablet 20 mg PO QAM #30 tabs 03/21/24 04/14/24 Rx furosemide 20 mg tablet 20 mg PO DAILY #15 tabs 03/21/24 04/14/24 Rx gabapentin 300 mg capsule 300 mg PO TID #45 caps 03/21/24 04/14/24 Rx glucosamine sulf dipot 1 cap PO QAM #14 caps 03/21/24 04/14/24 Rx chlr,msm,chond 550 mg-C 30 mg-claritza 1 mg capsule (Glucosamine Chondroitin) lidocaine 5 % topical patch 1 patch transdermal QAM #10 ea 03/21/24 04/14/24 Rx lisinopril 5 mg tablet 5 mg PO .Q AM #15 tabs 03/21/24 04/14/24 Rx hseglrfm-ajn-xyfi-FA-Ca carb-vit K 1 tab PO QAM #15 tabs 03/21/24 04/14/24 Rx 18 mg iron-400 mcg-500 mg tablet polyethylene glycol 3350 17 gram 17 g PO DAILY #100 ea 03/21/24 04/14/24 Rx oral powder packet (Miralax) propranolol 60 mg tablet 60 mg PO BID 90 days #30 tabs 03/21/24 04/14/24 Rx tolterodine 4 mg capsule,extended 4 mg PO PM #15 caps 03/21/24 04/14/24 Rx release 24 hr tramadol 50 mg tablet 100 mg (2 x 50 mg) PO BID #30 tabs 03/21/24 04/14/24 Rx oxycodone 5 mg tablet 5 - 10 mg (1 - 2 x 5 mg) PO Q6H 04/10/24 04/14/24 Rx PRN moderate pain (scale score 5-6) #20 tabs Hospital Bed #1 ea 04/11/24 04/11/24 Rx Manual Wheelchair #1 ea 04/11/24 04/11/24 Rx ketoconazole 2 % topical cream 1 applic topical BID 14 days #30 04/11/24 04/14/24 Rx grams Allergies Allergy/AdvReac Type Severity Reaction Status Date / Time homatropine AdvReac Intermediate HYDROCODONE/HOMATROPINE Verified 01/24/24 14:13 COUGH SYRP-INSOMNIA/NAUSEA hydrocodone AdvReac Intermediate NAUSEA/INSOMINIA-COUGH Verified 01/24/24 14:13 SYRUP Past Med/Surg History Problem List (Updated 04/14/24 @ 12:02 by Cj Hugo MD) Depression Acute pain of left hip (Acute) Ambulatory dysfunction (Acute) Fall (Acute) Osteoarthritis of right knee Bipartite patella Right leg weakness Chronic back pain (Acute) Cellulitis (Acute) Ambulatory dysfunction (Acute) Right leg pain (Acute) Right leg pain Ambulatory dysfunction Intractable back pain (Acute) Urinary tract infection (Acute) Abnormal urinalysis Acute exacerbation of chronic low back pain (Acute) Acute pain of right knee (Acute) Acute pain of right lower extremity (Acute) Essential tremor Left shoulder pain Cervical stenosis of spinal canal Low back pain Right rotator cuff tear arthropathy Impaired fasting glucose Anxiety (Acute) Urinary incontinence (Acute) Vitamin D deficiency (Acute) Lumbar canal stenosis Gait disturbance Arthralgia of multiple sites Anemia Aortic valve sclerosis Without stenosis per 2018 echo. HTN (hypertension) Medical History History of COVID-19 12/2021- states was hospitalized at [facility]; resolved Hx of small bowel obstruction Obesity Arthritis History of abnormal electrocardiogram Mitral valve prolapse Not noted on 2018 echo Stress incontinence Hyperlipidemia Excessive sweating Depression Asthma states recent increased SOB due to anemia Hyperparathyroidism s/p parathyroidectomy Surgical History Hx of bilateral cataract extraction Hx of cervical spine surgery 01/2023- PSH, [facility] - limited rom and unable to lift arms over head H/O parathyroidectomy S/P thyroid surgery parathyroid resection H/O carpal tunnel repair R/L S/P lumbar fusion 2005- Dr. Guerrero and repeat lumbar surgery 05/2009 History of gynecologic surgery anterior colporrhaphy, repair of cystocele and posterior colporrhaphy for pelvic relaxation History of total knee arthroplasty LEFT H/O neck surgery neck exploration with excision of parathyroidadenoma and biopsy of upper parathyroid gland History of total hip replacement RIGHT H/O colonoscopy S/P rotator cuff repair RIGHT S/P vaginal hysterectomy Cervical vertebral fusion 10/2008- Dr. Guerrero H/O arthroscopy of knee LEFT Family History Mother Goiter Father Colon cancer Emphysema of lung Denies family history of Ovarian cancer Prostate cancer Myocardial infarction Breast cancer Social History Smoking Status: Never smoker Second Hand Exposure: Yes (SPOUSE USED TO SMOKE); Do You Dip or Chew Tobacco: No; Hx Alcohol Use: No Hx Substance Use: No Preferred Language: Martiniquais Communication Ability: Effective Patient Navigator Required: No Beliefs That Will Affect Care: None marital status: / Current Living Situation: Family Current Living Situation Comment: lives with daughter and current occupational status: retired 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, 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 Feels Safe at Home: Yes Safety Concerns Comment: Concerns about falling, concerns about mobility Childhood Exposure to Second-Hand Smoke: Yes Diet: regular Dental Care, Regularly: No Physical Activity Frequency: Does not Exercise Seatbelt Use: always Sunscreen Use: No Assistive Devices: Walker Review of Systems A total of 10 systems reviewed and were otherwise negative Physical Exam Vital Signs Vital Signs - 24 hr 04/14/24 06:34 04/14/24 06:35 04/14/24 06:35 Temperature 37 C 37 C Temperature Source Oral Oral Pulse Rate 108 H 107 H Pulse Rate [Apical] 111 H Pulse Rhythm Regular Pulse Rhythm [Apical] Regular Pulse Strength Normal Pulse Strength [Apical] Normal Respiratory Rate 17 18 Respiratory Effort / Characteristics Non-Labored Spontaneous Non-Labored Spontaneous Respiratory Depth Normal Normal Respiratory Pattern Regular Regular Blood Pressure 152/85 H Blood Pressure [Left Arm] 152/85 H Blood Pressure Mean 107 Blood Pressure Mean [Left Arm] 107 Blood Pressure Position [Left Arm] Pulse Oximetry 98 98 Oxygen Delivery Method Room Air Room Air Oxygen Flow Rate Sepsis Recent Fever Within 48 Hours No Sepsis New/Unexplained Change in Mental Status No Sepsis Action Taken by Nursing No Action Required Oxygen Flow Rate - Titration Fraction of Inspired Oxygen - Titration 04/14/24 07:00 04/14/24 07:00 04/14/24 07:00 Temperature Temperature Source Pulse Rate Pulse Rate [Apical] 96 H Pulse Rhythm Pulse Rhythm [Apical] Regular Pulse Strength Pulse Strength [Apical] Normal Respiratory Rate 12 Respiratory Effort / Characteristics Non-Labored Respiratory Depth Normal Respiratory Pattern Regular Blood Pressure Blood Pressure [Left Arm] 183/115 H Blood Pressure Mean Blood Pressure Mean [Left Arm] 137 Blood Pressure Position [Left Arm] Lying Pulse Oximetry 89 L 89 L 89 L Oxygen Delivery Method Room Air Nasal Cannula Room Air Oxygen Flow Rate 0 Sepsis Recent Fever Within 48 Hours Sepsis New/Unexplained Change in Mental Status Sepsis Action Taken by Nursing Oxygen Flow Rate - Titration 2 Fraction of Inspired Oxygen - Titration 96 04/14/24 08:00 04/14/24 09:00 04/14/24 10:20 Temperature Temperature Source Pulse Rate Pulse Rate [Apical] 103 H 93 H 110 H Pulse Rhythm Pulse Rhythm [Apical] Regular Regular Pulse Strength Pulse Strength [Apical] Normal Normal Respiratory Rate 16 16 22 Respiratory Effort / Characteristics Non-Labored Non-Labored Non-Labored Spontaneous Respiratory Depth Normal Normal Normal Respiratory Pattern Regular Regular Regular Blood Pressure Blood Pressure [Left Arm] 177/93 H 189/99 H Blood Pressure Mean Blood Pressure Mean [Left Arm] 121 129 Blood Pressure Position [Left Arm] Lying Sitting Pulse Oximetry 93 95 Oxygen Delivery Method Room Air Nasal Cannula Oxygen Flow Rate 2 Sepsis Recent Fever Within 48 Hours Sepsis New/Unexplained Change in Mental Status Sepsis Action Taken by Nursing Oxygen Flow Rate - Titration Fraction of Inspired Oxygen - Titration 04/14/24 10:26 Temperature Temperature Source Pulse Rate 105 H Pulse Rate [Apical] Pulse Rhythm Pulse Rhythm [Apical] Pulse Strength Pulse Strength [Apical] Respiratory Rate Respiratory Effort / Characteristics Respiratory Depth Respiratory Pattern Blood Pressure Blood Pressure [Left Arm] Blood Pressure Mean Blood Pressure Mean [Left Arm] Blood Pressure Position [Left Arm] Pulse Oximetry Oxygen Delivery Method Oxygen Flow Rate Sepsis Recent Fever Within 48 Hours Sepsis New/Unexplained Change in Mental Status Sepsis Action Taken by Nursing Oxygen Flow Rate - Titration Fraction of Inspired Oxygen - Titration General: Well developed well nourished older female who appears in no acute distress, breathing comfortably on room air. Normal speech HEENT: Normal cephalic atraumatic. Pupils are equal round and reactive to light. Extraocular movements are intact. Oropharynx is pink with moist mucous membranes. No swelling of the mouth lips or tongue. Neck: Supple with a midline trachea. No meningeal signs or stiffness, no JVD or bruits. No Stridor. Chest: Clear to auscultation bilaterally. No wheezes or rhonchi. No increased work of breathing. Heart: Regular rate and rhythm without murmurs or gallops. Abdomen: Soft nontender, nondistended without rebound guarding or rigidity. She does have some superficial bruise in the lower abdomen more centrally and to the left Extremities: No cyanosis clubbing or edema. No calf tenderness or assymetry Spine/Back. Non tender to palpation. No CVA tenderness Skin: Good turgor without rashes. Neurologic exam: Cranial nerves two through 12 are intact. Motor and sensation are intact and symmetrical throughout. Course Administered Medications Discontinued Medications Ioversol (Optiray 320 100ml) 94 ml IV ONCE ONE Stop: 04/14/24 08:01 Last Admin: 04/14/24 08:01 Dose: 94 ml Documented By: ASHLEY Ketorolac Tromethamine (Ketorolac Tromethamine 15 Mg/Ml Vial) 10 mg IV NOW ONE Stop: 04/14/24 10:00 Last Admin: 04/14/24 10:19 Dose: 10 mg Documented By: GEOFFREY Lidocaine (Lidocaine 5% 1 Patch) 1 patch TD NOW STA Stop: 04/14/24 10:38 Last Admin: 04/14/24 11:49 Dose: Not Given Documented By: GEOFFREY Lidocaine (Lidocaine 5% 1 Patch) 1 patch TD NOW STA Stop: 04/14/24 10:47 Last Admin: 04/14/24 11:50 Dose: Not Given Documented By: GEOFFREY Lidocaine (Lidocaine 5% 1 Patch) 1 patch TD NOW STA Stop: 04/14/24 10:47 Last Admin: 04/14/24 11:52 Dose: 1 patch Documented By: Lidocaine (Lidocaine 5% 1 Patch) Confirm Administered Dose 1 patch TD .STK-MED ONE Stop: 04/14/24 10:50 Last Admin: 04/14/24 10:53 Dose: 1 patch Documented By: Propranolol HCl (Propranolol Hcl 20 Mg Tab) 60 mg PO NOW STA Stop: 04/14/24 10:58 Last Admin: 04/14/24 11:53 Dose: 60 mg Documented By: Medical Decision Making Differential Diagnosis Traumatic injuries, hip fracture or dislocation, contusion, ambulatory dysfunction, electrolyte or metabolic abnormality, cardiac disease Medical Records Attestation: I reviewed the patient's medical records. Home Medications Current Medication List: was personally reviewed by me Laboratory Data Attestation: I reviewed the patient's lab results. 04/14/24 06:40 04/14/24 06:40 Lab Results 04/14/24 04/14/24 Range/Units 06:40 07:20 WBC 5.09 (4.8-10.8) K/ul RBC 4.06 L (4.20-5.40) M/uL Hgb 11.8 L (12.0-16.0) g/dl Hct 36.7 L (37.0-47.0) % MCV 90.4 (80.0-100.0) fL MCH 29.1 (25.0-34.0) pg MCHC 32.2 (32.0-36.0) g/dL RDW Std Deviation 45.8 (36.4-46.3) fL RDW Coeff of Jh 13.8 (11.5-14.5) % Plt Count 194 (130-400) K/uL MPV 9.4 (9.4-12.4) fL Immature Gran % (Auto) 0.4 % Neut % (Auto) 65.2 % Lymph % (Auto) 22.8 % Frio % (Auto) 9.2 % Eos % (Auto) 2.2 % Baso % (Auto) 0.2 % Neut # (Auto) 3.32 (1.40-6.50) K/uL Lymph # (Auto) 1.16 L (1.20-3.40) K/uL Frio # (Auto) 0.47 (0.11-0.59) K/uL Eos # (Auto) 0.11 (0.00-0.50) K/uL Baso # (Auto) 0.01 (0.00-0.20) K/uL Immature Gran # (Auto) 0.02 (0.01-0.20) K/uL Sodium 138 (136-145) mmol/L Potassium 3.8 (3.5-5.1) mmol/L Chloride 101 (98-107) mmol/L Carbon Dioxide 31 (21-32) mmol/L Anion Gap 6 (3-11) BUN 25 H (6-23) mg/dl Creatinine 0.79 (0.6-1.2) mg/dl Est Cr Clr Drug Dosing 62.0 ml/min Est GFR ( Amer) 82.5 ml/min Est GFR (Non-Af Amer) 71.2 ml/min BUN/Creatinine Ratio 31.6 H (10-20) Glucose 122 H (70-99(Fasting)) mg/dl Calcium 9.4 (8.6-10.3) mg/dl Total Bilirubin 0.7 (0.2-1.0) mg/dl AST 15 (13-39) U/L ALT 14 (7-52) U/L Alkaline Phosphatase 73 (34-104) U/L Troponin I High Sens 3.6 (0-14) pg/ml Total Protein 7.3 (6.0-8.3) gm/dl Albumin 4.0 (3.4-5.0) gm/dl Globulin 3.3 (2.5-4.0) gm/dl Albumin/Globulin Ratio 1.2 (0.9-2) Lipase 12 (11-82) U/L Urine Color Yellow Urine Appearance Clear (Clear) Urine pH 7.5 (4.5-7.5) Ur Specific [place] 1.008 (1.000-1.030) Urine Protein Negative (Negative) Urine Glucose (UA) Negative (Negative) Urine Ketones Negative (Negative) Urine Blood Negative (Negative) Urine Nitrite Negative (Negative) Urine Bilirubin Negative (Negative) Urine Urobilinogen Negative (Negative) Ur Leukocyte Esterase Negative (Negative) Imaging Data Attestation: I personally reviewed and interpreted this imaging study as follows: My Impression: Chest x-rayno acute infiltrate, failure, pneumothorax. Previous postsurgical change Radiologist's Impression: Abdomen/Pelvis CT 04/14/24 06:56 CT abd pelvis IV con only CLINICAL HISTORY: left abd/hip/back pain-fell 2 days ago TECHNIQUE: Helical axial images of the abdomen and pelvis were obtained and displayed. Automated dose lowering techniques and/or adjustment according to patient size were utilized for this exam. This exam was performed with intravenous contrast. CT DOSE: 1232.28 mGy.cm COMPARISON: Comparison is made to CT abdomen pelvis 03/16/2024 FINDINGS: Lower chest: No acute abnormality. Liver: Unremarkable. No focal lesions are seen. Gallbladder and biliary tree: No calcified gallstones. Normal caliber wall. No intra- or extrahepatic biliary ductal dilation. Pancreas: Unremarkable, no focal lesions. Spleen: Unremarkable. Adrenals: Unremarkable. Kidneys and ureters: Left renal cyst is seen. Bladder: Evaluation is highly limited by streak artifact but no acute abnormality is seen. Reproductive organs: Patient is status post hysterectomy. Bowel: Diverticulosis is seen without diverticulitis. The appendix is normal. Lymph nodes Retroperitoneal: Unremarkable. Pelvic: Unremarkable. Mesenteric: Unremarkable. Peritoneum: Normal. Vessels: Atherosclerotic calcifications are seen. Abdominal wall: Unremarkable. Bones: Degenerative changes in the visualized spine. Right hip arthroplasty is seen. Posterior spinal fixation hardware is seen in sacroiliac screws are again seen. Degenerative changes are seen in the left hip joint. IMPRESSION: No acute abnormalities and in particular no evidence of fracture. ACT 112: Negative or not required by law. Electronically signed by: Jair Kwon M.D. 04/14/2024 8:41 AM Chest X-Ray 04/14/24 07:52 XR chest 1V portable CLINICAL HISTORY: Fall. COMPARISON STUDY: Chest radiograph January 04, 2023. FINDINGS: Right shoulder arthroplasty and spinal fusion hardware are partially imaged. There is no pneumothorax or pleural effusion. No airspace opacities are present. Cardiomediastinal silhouette is unremarkable. IMPRESSION: No acute cardiopulmonary findings. ACT 112: Negative or not required by law. Electronically signed by: Mikael Lord M.D. 04/14/2024 8:27 AM ECG Data Attestation: I personally reviewed and interpreted this ECG as follows: Indication: + weakness Rate (beats per minute): 102 Rhythm: + sinus tachycardia ECG Intervals/blocks: + Normal QRS, + Normal QT and + Normal OR ECG Spencer: + Normal ECG ST segments: + Normal ST segments ECG Findings: no PACs or no PVCs Comparison ECG Date: from (04/03/24) Change: no significant change MDM Narrative This patient comes in as described above. She was placed on a players assistant in room C3. She fell. She does have issues with ambulatory dysfunction sling her left side this was 2 days ago she started feeling worse yesterday. The left hip is not shortened or deformed and has full range of motion I do not suspect a fracture or dislocation. The pain does go into her abdomen I did a CAT scan of the abdomen pelvis IV access was established. EKG and multiple blood testing was obtained she was reassessed frequently. EKG shows no acute ischemic changes or ectopy. She has no white count or fever discussed infection. No significant electrolyte or metabolic abnormalities. Chest x-ray was unremarkable. CAT scan of the abdomen shows no acute abnormalities or fractures. The patient's had multiple falls and 3 visits here. She has ambulatory dysfunction and does not feel she can go home. She may ultimately need placement and/or rehab. I have consulted Dr. Zuniga from the [facility] hospitalist to see her for these measures. Continuous cardiac monitoring: Orders placed in EMR for continuous players assistant: Upon my evaluation patient, she was noted to be in sinus tachycardia with a rate of 100. Impression & Plan Ambulatory dysfunction, Fall, Acute pain of left hip Discharge Plan Visit Data Chief Complaint: Hip Pain Stated Complaint: Fall, L Hip Pain, Abdominal Pain ED Provider: Cj Hugo Discharge Problem: Ambulatory dysfunction, Fall, Acute pain of left hip Forms Stand Alone Forms: My [facility] Prescriptions Prescriptions: No Action nystatin-triamcinolone 100,000-0.1 unit/g-% cream 1 applic topical BID Qty: 30 0RF oxycodone 5 mg tablet 5 - 10 mg PO Q6H PRN (Reason: moderate pain (scale score 5-6)) Qty: 20 0RF Rx Instructions: Po q6 hprn. 1 tablet for moderate pain; 2 tablets for severe pain (DME) Manual Wheelchair See Rx Instructions .Route .MEDSUPPLY Qty: 1 0RF Rx Instructions: As directed to aid in mobility and transportation (DME) Hospital Bed See Rx Instructions .Route .MEDSUPPLY Qty: 1 0RF Rx Instructions: As directed to improve comfort, prevent pressure injury, and aid in positioning. Semi-electric. (DME) Shower Chair Misc See Rx Instructions .Route Qty: 1 0RF Rx Instructions: As directed ketoconazole 2 % cream 1 applic topical BID 14 Days Qty: 30 0RF Rx Instructions: PER PT SHE ONLY USES PRN-7/2 acetaminophen 325 mg tablet 325 mg PO Q6H PRN (Reason: pain) Qty: 120 0RF tramadol 50 mg Tablet 100 mg PO BID Qty: 30 0RF polyethylene glycol 3350 [Miralax] 17 gram Powder In Packet 17 g PO DAILY Qty: 100 0RF Rx Instructions: stop for diarrhea famotidine 20 mg Tablet 20 mg PO QAM Qty: 30 0RF lidocaine 5 % Adhesive Patch,Medicated 1 patch transdermal QAM Qty: 10 0RF cyclobenzaprine 5 mg Tablet 5 mg PO TID PRN (Reason: muscle spasm) Qty: 20 0RF atorvastatin 20 mg tablet 20 mg PO QPM Qty: 15 3RF tolterodine 4 mg capsule,extended release 24hr 4 mg PO PM Qty: 15 3RF propranolol 60 mg tablet 60 mg PO BID 90 Days Qty: 30 2RF aspirin [Adult Aspirin Regimen] 81 mg tablet,delayed release (DR/EC) 81 mg PO DAILY Qty: 15 0RF calcium carbonate [Calcium 600] 600 mg calcium (1,500 mg) tablet 600 mg PO DAILY 90 Days Qty: 15 3RF docusate sodium 100 mg capsule 100 mg PO BID 30 Days Qty: 30 3RF gabapentin 300 mg capsule 300 mg PO TID Qty: 45 5RF lisinopril 5 mg tablet 5 mg PO .Q AM Qty: 15 0RF furosemide 20 mg tablet 20 mg PO DAILY Qty: 15 3RF albuterol sulfate 90 mcg/actuation HFA aerosol inhaler 2 puff INH Q6H PRN (Reason: Shortness Of Breath Or Wheezing) Qty: 8.5 5RF duloxetine 60 mg capsule,delayed release(DR/EC) 60 mg PO DAILY Qty: 15 3RF cholecalciferol (vitamin D3) 50 mcg (2,000 unit) tablet 2,000 unit PO QAM 90 Days Qty: 15 4RF cf-cm-rgvu-FA-Ca carb-vit K 18 mg iron-400 mcg-500 mg Tablet 1 tab PO QAM Qty: 15 0RF ascorbic acid (vitamin C) 500 mg capsule 500 mg PO BID Qty: 30 0RF Glucosamine Chondroitin 550-30-1 mg Capsule 1 cap PO QAM Qty: 14 0RF Referrals Referrals: Cate Ford MD [Primary Care Provider] - Discharge Problem: Fall Qualifiers: Encounter type: initial encounter Qualified Code(s): W19.XXXA - Unspecified fall, initial encounter
[2024-04-14 07:21] LABS: Basophils # (auto) 0.01 K/uL (0.00-0.20); Basophils % (auto) 0.2 %; Eosinophils # (auto) 0.11 K/uL (0.00-0.50); Eosinophils % (auto) 2.2 %; Hematocrit (blood only) 36.7 % (37.0-47.0); Hemoglobin 11.8 g/dl (12.0-16.0); Immature Granulocytes # (auto) 0.02 K/uL (0.01-0.20); Immature Granulocytes % (auto) 0.4 %; Lymphocytes # (auto) 1.16 K/uL (1.20-3.40); Lymphocytes % (auto) 22.8 %; Mean Corpuscular Hemoglobin 29.1 pg (25.0-34.0); Mean Corpuscular Hgb Conc 32.2 g/dL (32.0-36.0); Mean Corpuscular Volume 90.4 fL (80.0-100.0); Mean Platelet Volume 9.4 fL (9.4-12.4); Monocytes # (auto) 0.47 K/uL (0.11-0.59); Monocytes % (auto) 9.2 %; Neutrophils # (auto) 3.32 K/uL (1.40-6.50); Neutrophils % (auto) 65.2 %; Platelet Count 194 K/uL (130-400); RDW Coefficient of Variation 13.8 % (11.5-14.5); RDW Standard Deviation 45.8 fL (36.4-46.3); Red Blood Count 4.06 M/uL (4.20-5.40); White Blood Count 5.09 K/ul (4.8-10.8)
[2024-04-14 07:32] LABS: Albumin Globulin Ratio 1.2 (0.9-2); BUN Creatinine Ratio 31.6 (10-20); Bilirubin,Total 0.7 mg/dl (0.2-1.0); Calcium 9.4 mg/dl (8.6-10.3); Est GFR (African American) 82.5 ml/min; Est GFR (Non-African American) 71.2 ml/min; Globulin 3.3 gm/dl (2.5-4.0); Potassium 3.8 mmol/L (3.5-5.1); Total Protein 7.3 gm/dl (6.0-8.3)
[2024-04-14 07:38] LABS: Troponin I High Sensitivity 3.6 pg/ml (0-14)
[2024-04-14 07:47] LABS: Appearance Urine Clear (Clear); Bilirubin Urine Negative (Negative); Blood Urine Negative (Negative); Color Urine Yellow; Glucose Urine UA Negative (Negative); Ketones Urine Negative (Negative); Leukocyte Esterase Urine Negative (Negative); Nitrite Urine Negative (Negative); Protein Urine Negative (Negative); Specific Gravity Urine 1.008 (1.000-1.030); Urobilinogen Urine Negative (Negative); pH Urine 7.5 (4.5-7.5)
[2024-04-14] MEDS: OPTIRAY 320 100ml IV ONE (08:01)
--- NOTE | 2024-04-14 08:30 | XRay Report ---
XR chest 1V portable CLINICAL HISTORY: Fall. COMPARISON STUDY: Chest radiograph January 04, 2023. FINDINGS: Right shoulder arthroplasty and spinal fusion hardware are partially imaged. There is no pn eumothorax or pleural effusion. No airspace opacities are present. Cardiomediastinal silhouette is un remarkable. IMPRESSION: No acute cardiopulmonary findings. ACT 112: Negative or not required by law. Electronically signed by: Mikael Lord M.D. 04/14/2024 8:27 AM
--- NOTE | 2024-04-14 08:42 | CT Scan Report ---
CT abd pelvis IV con only CLINICAL HISTORY: left abd/hip/back pain-fell 2 days ago TECHNIQUE: Helical axial images of the abdomen and pelvis were obtained and displayed. Automated dose lowering techniques and/or adjustment according to patient size were utilized for this exam. This e xam was performed with intravenous contrast. CT DOSE: 1232.28 mGy.cm COMPARISON: Comparison is made to CT abdomen pelvis 03/16/2024 FINDINGS: Lower chest: No acute abnormality. Liver: Unremarkable. No focal lesions are seen. Gallbladder and biliary tree: No calcified gallstones. Normal caliber wall. No intra- or extrahepatic biliary ductal dilation. Pancreas: Unremarkable, no focal lesions. Spleen: Unremarkable. Adrenals: Unremarkable. Kidneys and ureters: Left renal cyst is seen. Bladder: Evaluation is highly limited by streak artifact but no acute abnormality is seen. Reproductive organs: Patient is status post hysterectomy. Bowel: Diverticulosis is seen without diverticulitis. The appendix is normal. Lymph nodes Retroperitoneal: Unremarkable. Pelvic: Unremarkable. Mesenteric: Unremarkable. Peritoneum: Normal. Vessels: Atherosclerotic calcifications are seen. Abdominal wall: Unremarkable. Bones: Degenerative changes in the visualized spine. Right hip arthroplasty is seen. Posterior spinal fixation hardware is seen in sacroiliac screws are again seen. Degenerative changes are seen in the left hip joint. IMPRESSION: No acute abnormalities and in particular no evidence of fracture. ACT 112: Negative or not required by law. Electronically signed by: Jair Kwon M.D. 04/14/2024 8:41 AM
--- NOTE | 2024-04-14 10:13 | History & Physical Report ---
Date of Service April 14, 2024 Assessment & Plan (1) Ambulatory dysfunction: Plan: Fall on 04/12, in the setting of ongoing lower back pain and ambulatory dysfunction A/P CT without acute fractures or abnormalities Multimodal pain regimen as follows: Lidocaine patch application daily to the lower back and right knee (patient reports this helps the most) Scheduled Tylenol 500mg p.o. q6h Dilaudid 0.51.0 IV q4h as needed for breakthrough pain; can convert back to oxycodone upon discharge Continue gabapentin 300 mg TID Cyclobenzaprine as needed for muscle spasms PT/OT evaluations appreciated Fall precautions Case management consulted for potential rehab/SNF placement Doubt any Ortho Spine intervention needed (2) Intractable back pain: Plan: as above (3) Dehydration: Plan: BUN/Cr >30 Suspect poor oral intake in the setting of ambulatory dysfunction IVF resuscitation with LR at 100mL/hr x 1; last EF 60-65% in 2022 A.m. BMP (4) Anemia: Plan: Chronic; Hgb 11.8 on arrival No signs of active bleeding on clinical exam A.m. CBC (5) HTN (hypertension): Plan: Continue propranolol, lisinopril (6) Depression: Plan: Continue duloxetine (7) Fall: Plan: as above PT/OT consults Plan Disposition: Admit to [facility] DNR/DNI Heart healthy diet VTE PPx: Lovenox SQ BID History of Present Illness Chief Complaint: Low back pain, ambulatory dysfunction Primary Care Provider: Cate Ford MD miah is a 78-year-old female with PMH of HTN, aortic valve sclerosis, anxiety, urinary incontinence, essential tremor, cellulitis, falls, and ambulatory dysfunction. Patient reports that she fell 2 days ago while ambulating with her walker through the doorway and landed on her left hip. She has an extensive history of orthopedics with replacements. Recent [facility] admissions from 03/16 - 03/22 and 04/03 - 04/07 for mechanical falls, ambulatory dysfunction, and acute on chronic exacerbations of her lower back pain. On arrival, the patient is tearful and reports that she is in intractable 10/10 right lower back pain. She reports this is the third time she has fallen in the past month or so. She reports regular muscle spasms, and reports that the pain in her right lower back and right knee will go away despite pain medicine at home. She has been taking tramadol, muscle relaxers, oxycodone as needed, Tylenol, and gabapentin for the pain, but it does not alleviate it. She does note that lidocaine patches are one of the only things that really helped with the pain. Her lower back pain is located transversely across the back, but is worse on the right side; she describes it as a 10/10 constant "pressure" like pain. No radiation down the legs. Her right knee is also in 10/10 pain, and she is unable to bend/move it without eliciting pain. Patient lives with her daughter at home, and reports that she tries to stay active such as doing dishes and laundry. Ambulates with a walker at baseline. She does not use supplemental oxygen at baseline. She denies smoking, tobacco use, or recent alcohol use. Patient did not take her regular morning medicine today, which includes her BP medications. She manages her own medicine at home. Last BM was yesterday on 04/13. Patient is hypertensive at 177/93 and tachycardic around 105 bpm at time of admission; SpO2 93% on RA. ED course: Ketorolac 10 mg IV ROS: Patient endorses severe transverse lower back pain, right knee pain, and constipation (which patient attributes to pain medicine). Patient denies fever, sweating, dizziness, lightheadedness, WALSH, chest pain, SOB, cough, abdominal pain, N/V/D, change in urinary habits, burning with urination, dysuria, saddle anesthesia, urinary/stool incontinence, or numbness/tingling in the legs. Allergies Allergy/AdvReac Type Severity Reaction Status Date / Time homatropine AdvReac Intermediate HYDROCODONE/HOMATROPINE Verified 01/24/24 14:13 COUGH SYRP-INSOMNIA/NAUSEA hydrocodone AdvReac Intermediate NAUSEA/INSOMINIA-COUGH Verified 01/24/24 14:13 SYRUP Home Medications Medication Instructions Recorded Confirmed Type Shower Chair #1 ea 03/04/23 04/11/24 Rx nystatin-triamcinolone 100,000 1 applic topical BID #30 grams 02/01/24 04/14/24 Rx unit/g-0.1 % topical cream acetaminophen 325 mg tablet 325 mg PO Q6H PRN pain #120 tabs 03/21/24 04/14/24 Rx albuterol sulfate 90 mcg/actuation 2 puff inhalation Q6H PRN 03/21/24 04/14/24 Rx aerosol inhaler Shortness Of Breath Or Wheezing #8.5 grams ascorbic acid (vitamin C) 500 mg 500 mg PO BID #30 caps 03/21/24 04/14/24 Rx capsule aspirin 81 mg tablet,delayed 81 mg PO DAILY #15 tabs 03/21/24 04/14/24 Rx release (Adult Aspirin Regimen) atorvastatin 20 mg tablet 20 mg PO QPM #15 tabs 03/21/24 04/14/24 Rx calcium carbonate (Calcium 600) 600 mg PO DAILY 90 days #15 tabs 03/21/24 04/14/24 Rx cholecalciferol (vitamin D3) 50 2,000 unit PO QAM 90 days #15 tabs 03/21/24 04/14/24 Rx mcg (2,000 unit) tablet cyclobenzaprine 5 mg tablet 5 mg PO TID PRN muscle spasm #20 03/21/24 04/14/24 Rx tabs docusate sodium 100 mg capsule 100 mg PO BID 30 days #30 caps 03/21/24 04/14/24 Rx duloxetine 60 mg capsule,delayed 60 mg PO DAILY #15 caps 03/21/24 04/14/24 Rx release famotidine 20 mg tablet 20 mg PO QAM #30 tabs 03/21/24 04/14/24 Rx furosemide 20 mg tablet 20 mg PO DAILY #15 tabs 03/21/24 04/14/24 Rx gabapentin 300 mg capsule 300 mg PO TID #45 caps 03/21/24 04/14/24 Rx glucosamine sulf dipot 1 cap PO QAM #14 caps 03/21/24 04/14/24 Rx chlr,msm,chond 550 mg-C 30 mg-claritza 1 mg capsule (Glucosamine Chondroitin) lidocaine 5 % topical patch 1 patch transdermal QAM #10 ea 03/21/24 04/14/24 Rx lisinopril 5 mg tablet 5 mg PO .Q AM #15 tabs 03/21/24 04/14/24 Rx jyevqasm-qgb-iqsa-FA-Ca carb-vit K 1 tab PO QAM #15 tabs 03/21/24 04/14/24 Rx 18 mg iron-400 mcg-500 mg tablet polyethylene glycol 3350 17 gram 17 g PO DAILY #100 ea 03/21/24 04/14/24 Rx oral powder packet (Miralax) propranolol 60 mg tablet 60 mg PO BID 90 days #30 tabs 03/21/24 04/14/24 Rx tolterodine 4 mg capsule,extended 4 mg PO PM #15 caps 03/21/24 04/14/24 Rx release 24 hr tramadol 50 mg tablet 100 mg (2 x 50 mg) PO BID #30 tabs 03/21/24 04/14/24 Rx oxycodone 5 mg tablet 5 - 10 mg (1 - 2 x 5 mg) PO Q6H 04/10/24 04/14/24 Rx PRN moderate pain (scale score 5-6) #20 tabs Hospital Bed #1 ea 04/11/24 04/11/24 Rx Manual Wheelchair #1 ea 04/11/24 04/11/24 Rx ketoconazole 2 % topical cream 1 applic topical BID 14 days #30 04/11/24 04/14/24 Rx grams Past Med/Surg History Problem List (Updated 04/14/24 @ 13:24 by Yair Simmons PA-C) Dehydration Depression Acute pain of left hip (Acute) Ambulatory dysfunction (Acute) Fall (Acute) Osteoarthritis of right knee Bipartite patella Right leg weakness Chronic back pain (Acute) Cellulitis (Acute) Ambulatory dysfunction (Acute) Right leg pain (Acute) Right leg pain Ambulatory dysfunction Intractable back pain (Acute) Urinary tract infection (Acute) Abnormal urinalysis Acute exacerbation of chronic low back pain (Acute) Acute pain of right knee (Acute) Acute pain of right lower extremity (Acute) Essential tremor Left shoulder pain Cervical stenosis of spinal canal Low back pain Right rotator cuff tear arthropathy Impaired fasting glucose Anxiety (Acute) Urinary incontinence (Acute) Vitamin D deficiency (Acute) Lumbar canal stenosis Gait disturbance Arthralgia of multiple sites Anemia Aortic valve sclerosis Without stenosis per 2018 echo. HTN (hypertension) Medical History History of COVID-19 12/2021- states was hospitalized at [facility]; resolved Hx of small bowel obstruction Obesity Arthritis History of abnormal electrocardiogram Mitral valve prolapse Not noted on 2018 echo Stress incontinence Hyperlipidemia Excessive sweating Depression Asthma states recent increased SOB due to anemia Hyperparathyroidism s/p parathyroidectomy Surgical History Hx of bilateral cataract extraction Hx of cervical spine surgery 01/2023- PSH, C - limited rom and unable to lift arms over head H/O parathyroidectomy S/P thyroid surgery parathyroid resection H/O carpal tunnel repair R/L S/P lumbar fusion 2005- Dr. Guerrero and repeat lumbar surgery 05/2009 History of gynecologic surgery anterior colporrhaphy, repair of cystocele and posterior colporrhaphy for pelvic relaxation History of total knee arthroplasty LEFT H/O neck surgery neck exploration with excision of parathyroidadenoma and biopsy of upper parathyroid gland History of total hip replacement RIGHT H/O colonoscopy S/P rotator cuff repair RIGHT S/P vaginal hysterectomy Cervical vertebral fusion 10/2008- Dr. Guerrero H/O arthroscopy of knee LEFT Family History Mother Goiter Father Colon cancer Emphysema of lung Denies family history of Ovarian cancer Prostate cancer Myocardial infarction Breast cancer Social History Smoking Status: Never smoker Second Hand Exposure: No; Do You Dip or Chew Tobacco: No; Tobacco Cessation Education Requested by Patient: No Hx Alcohol Use: No Hx Substance Use: No Preferred Language: Thai Communication Ability: Effective Senior Corporate Accountant Required: No Beliefs That Will Affect Care: None marital status: / Current Living Situation: Family Current Living Situation Comment: lives with daughter and current occupational status: retired 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, 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 Other Information That Helps Us Care for You: No Feels Safe at Home: No Is there a partner from a previous relationship who is making you feel unsafe now?: No Any Concerns about Your Family Situation: No Would You Like to Speak to Someone About Your Situation: No Safety Concerns: Feels Safe At This Time Safety Concerns Comment: Concerns about falling, concerns about mobility Childhood Exposure to Second-Hand Smoke: Yes Diet: regular Dental Care, Regularly: No Physical Activity Frequency: Does not Exercise Seatbelt Use: always Sunscreen Use: No Assistive Devices: Denture - Upper, Denture - Lower, Glasses and Walker Review of Systems Review of Systems: See HPI above Physical Exam Physical Exam: General: Patient is tearful and anxious; non-toxic appearing; well-nourished; cooperative; SpO2 95% on 2 LNC HEENT: normocephalic, atraumatic; no scleral icterus; PERRLA; moist mucus membrane; vision and hearing grossly intact Neck: supple; no lymphadenopathy; trachea midline; patient demonstrates ability to shrug shoulders and rotate neck bilaterally against resistance without pain Skin: warm, dry without signs of tenting; no cyanosis; no rashes, bruising, lesions, or erythema noted CV: chest wall NTP; RRR; S1/S2 normal; no murmurs/rubs/gallops; pulses intact and symmetric at radial, DP, and PT Lungs: no acute respiratory distress; symmetrical chest wall expansion; clear breath sounds across all lung bergeron w/o adventitious sounds; no wheezing ABD: Soft, NTP; purple bruising on the LLQ; BS present; no rebound/guarding; no distention MSK: no tics or fasciculations; no edema noted in the LEs b/l, nonerythematous; patient demonstrates ability to wiggle toes and plantarflex/dorsiflex both ankles against resistance with 5/5 strength; bending the left knee elicits pain, and patient is unwilling to bend the right knee Back: Upper spine NTP; scar noted; left hip and lower back are NTP and without signs of bruising; right lower back is TTP; positive right CVA tenderness Neuro: A&Ox3; lip smacking; fluent speech; no focal deficits; she reports that sensation is intact and symmetric in the LEs bilaterally assessed via light touch Results & Data Results & Data Vital Signs (Past 12 Hours) Vital Signs Temp Pulse Pulse Resp BP BP Pulse Ox 04/14/24 09:00 93 H 16 177/93 H 04/14/24 08:00 103 H 16 93 04/14/24 07:00 96 H 12 183/115 H 89 L 04/14/24 07:00 89 L 04/14/24 07:00 89 L 04/14/24 06:35 37 C 111 H 18 152/85 H 98 04/14/24 06:35 37 C 107 H 17 152/85 H 98 04/14/24 06:34 108 H O2 Del Method O2 Flow Rate 04/14/24 09:00 04/14/24 08:00 Room Air 04/14/24 07:00 Room Air 04/14/24 07:00 Nasal Cannula 0 04/14/24 07:00 Room Air 04/14/24 06:35 Room Air 04/14/24 06:35 Room Air 04/14/24 06:34 Laboratory Results Abnormal lab results 04/14/24 Range/Units 06:40 RBC 4.06 L (4.20-5.40) M/uL Hgb 11.8 L (12.0-16.0) g/dl Hct 36.7 L (37.0-47.0) % Lymph # (Auto) 1.16 L (1.20-3.40) K/uL BUN 25 H (6-23) mg/dl BUN/Creatinine Ratio 31.6 H (10-20) Glucose 122 H (70-99(Fasting)) mg/dl Diagnostic Findings Abdomen/Pelvis CT 04/14/24 06:56 CT abd pelvis IV con only CLINICAL HISTORY: left abd/hip/back pain-fell 2 days ago TECHNIQUE: Helical axial images of the abdomen and pelvis were obtained and displayed. Automated dose lowering techniques and/or adjustment according to patient size were utilized for this exam. This exam was performed with intravenous contrast. CT DOSE: 1232.28 mGy.cm COMPARISON: Comparison is made to CT abdomen pelvis 03/16/2024 FINDINGS: Lower chest: No acute abnormality. Liver: Unremarkable. No focal lesions are seen. Gallbladder and biliary tree: No calcified gallstones. Normal caliber wall. No intra- or extrahepatic biliary ductal dilation. Pancreas: Unremarkable, no focal lesions. Spleen: Unremarkable. Adrenals: Unremarkable. Kidneys and ureters: Left renal cyst is seen. Bladder: Evaluation is highly limited by streak artifact but no acute abnormality is seen. Reproductive organs: Patient is status post hysterectomy. Bowel: Diverticulosis is seen without diverticulitis. The appendix is normal. Lymph nodes Retroperitoneal: Unremarkable. Pelvic: Unremarkable. Mesenteric: Unremarkable. Peritoneum: Normal. Vessels: Atherosclerotic calcifications are seen. Abdominal wall: Unremarkable. Bones: Degenerative changes in the visualized spine. Right hip arthroplasty is seen. Posterior spinal fixation hardware is seen in sacroiliac screws are again seen. Degenerative changes are seen in the left hip joint. IMPRESSION: No acute abnormalities and in particular no evidence of fracture. ACT 112: Negative or not required by law. Electronically signed by: Jair Kwon M.D. 04/14/2024 8:41 AM Chest X-Ray 04/14/24 07:52 XR chest 1V portable CLINICAL HISTORY: Fall. COMPARISON STUDY: Chest radiograph January 04, 2023. FINDINGS: Right shoulder arthroplasty and spinal fusion hardware are partially imaged. There is no pneumothorax or pleural effusion. No airspace opacities are present. Cardiomediastinal silhouette is unremarkable. IMPRESSION: No acute cardiopulmonary findings. ACT 112: Negative or not required by law. Electronically signed by: Mikael Lord M.D. 04/14/2024 8:27 AM ECG Additional Comments: ECG revealed sinus tachycardia around 102 bpm; QTc 453 Code Status & VTE Plan Code Status DNR/DNI VTE Prophylaxis Plan VTE Prophylaxis will be ordered: Yes Supervising Physician Co-Signing Physician Notes PA Supervision Note: I personally saw and examined the patient. I verified all rodriguez points and agree with JUAN Simmons with the following exceptions and/or additions: S-Pt here with severe right lower back pain 2 days after a mechanical fall at home. Pain gradually developed over 2 days and cannot walk due to pain. No bowel or bladder issues that are acute. No numbness or tingling. She is really wanting to go to rehab. Still having right knee pain from a previous fall. Had knee injected here last week O- Vitals reviewed Gen: [AAOx3, NAD, obese] HEENT: [anicteric sclerae, EOMI] CV: [RRR no mgr nl S1S2] Pulm: [CTAB no wcr] Abd: [+BS soft NT ND no masses or hernias] Ext: [trace edema, +TTP over right lower back, no masses or ecchymosis, neg straight leg raise bilat] Skin: [no rashes, warm/dry] Neuro: [unable to lift RLE due to pain, 5/5 strength in LLE] CBC, BMP, CT abd/pel, CXR reviewed A/P-78 yo female here with fall and right lower back pain causing ambulatory dysfunction, no fractures Pain control as above, PT/OT evals PG Care Time/CCT Total # of Minutes Spent Total Time Spent with Patient: Total time spent is greater than 50% in coordination of care (as documented) at patient's floor/unit and/or counseling patient: Coding [place] [address] INT INP/OBS CARE 2/55MIN Patient Type Established Medical Decision Making Moderate Complexity Diagnoses Ambulatory dysfunction R26.2 Intractable back pain M54.9 Dehydration E86.0 Anemia D64.9 HTN (hypertension) I10 Depression F32.9 Fall W19.XXXA
[2024-04-14] MEDS: KETOROLAC TROMETHAMINE 15 MG/ML VIAL IV ONE (10:19)
[2024-04-14] MEDS: LIDOCAINE 5% 1 PATCH TD ONE (10:53)
[2024-04-14] MEDS: LIDOCAINE 5% 1 PATCH TD STA ×3 (11:49→11:52)
[2024-04-14] MEDS: PROPRANOLOL HCL 20 MG TAB PO STA (11:53)
[2024-04-14] MEDS ORDERED: ALBUTEROL HFA 8 GM INHALER INH PRN (12:38)
[2024-04-14] MEDS: lisinopril 5 MG TAB PO SCH (13:07)
[2024-04-14] MEDS: ACETAMINOPHEN 500 MG TAB PO SCH (13:07)
[2024-04-14] MEDS: GABAPENTIN 300 MG CAP PO SCH (13:07)
[2024-04-14] MEDS: LACTATED RINGER'S 1,000 ML IV SCH (13:44)
[2024-04-14] MEDS: HYDROmorphone INJ 1 MG/ML SYRINGE IV PRN (14:40)
[2024-04-14] MEDS: HYDROmorphone INJ 0.5 MG/0.5 ML SYR IV PRN (18:17)
[2024-04-14] MEDS: traMADol HCL 50 MG TABLET PO SCH (20:30)
[2024-04-14] MEDS: DOCUSATE SODIUM 100 MG CAP PO SCH (20:31)
[2024-04-14] MEDS: PROPRANOLOL HCL 20 MG TAB PO SCH (20:31)
[2024-04-14] MEDS: ATORVASTATIN 20 MG TAB PO SCH (20:31)
[2024-04-14] MEDS: OXYBUTYNIN CHLORIDE XL 5 MG TABCR PO SCH (20:32)
[2024-04-14] MEDS: ENOXAPARIN INJ 40 MG/0.4 ML SYR SQ SCH (20:32)
--- NOTE | 2024-04-14 23:04 | Electrocardiogram Report ---
Test Reason : Blood Pressure : / mmHG Vent. Rate : 102 BPM Atrial Rate : 102 BPM P-R Int : 194 ms QRS Dur : 082 ms QT Int : 348 ms P-R-T Axes : 063 054 056 degrees QTc Int : 453 ms Sinus tachycardia Otherwise normal ECG When compared with ECG of 03-APR-2024 10:19, WI interval has decreased Confirmed by Pop Worthington ([id number]) on 04/14/2024 11:04:35 PM Referred By: REFERRED SELF Confirmed By:Pop Worthington
[2024-04-15] MEDS: HYDROmorphone INJ 0.5 MG/0.5 ML SYR IV STA (01:50)
[2024-04-15] MEDS: SODIUM CHLORIDE 0.65% NA SOLN 45 ML (OCEAN) ONE (04:02)
[2024-04-15 06:47] LABS: Hemoglobin 11.2 g/dl (12.0-16.0); Mean Corpuscular Hemoglobin 29.2 pg (25.0-34.0); Mean Corpuscular Hgb Conc 31.1 g/dL (32.0-36.0); Mean Corpuscular Volume 93.8 fL (80.0-100.0); Mean Platelet Volume 9.3 fL (9.4-12.4); Platelet Count 159 K/uL (130-400); RDW Coefficient of Variation 13.8 % (11.5-14.5); RDW Standard Deviation 46.5 fL (36.4-46.3); Red Blood Count 3.84 M/uL (4.20-5.40); White Blood Count 5.33 K/ul (4.8-10.8)
[2024-04-15 07:01] LABS: BUN Creatinine Ratio 28.1 (10-20); Calcium 9.1 mg/dl (8.6-10.3); Est GFR (African American) 65.2 ml/min; Est GFR (Non-African American) 56.2 ml/min; Potassium 4.1 mmol/L (3.5-5.1)
[2024-04-15] MEDS: CYCLOBENZAPRINE HCL 5 MG TAB PO PRN (08:08)
[2024-04-15] MEDS: ASPIRIN 81 MG ECTAB PO SCH (08:09)
[2024-04-15] MEDS: FAMOTIDINE 20 MG TAB PO SCH (08:09)
[2024-04-15] MEDS: DULoxetine HCL 60 MG CAP PO SCH (08:09)
[2024-04-15] MEDS: FUROSEMIDE 20 MG TAB PO SCH (08:09)
[2024-04-15] MEDS: POLYETHYLENE (MIRALAX) 17 GM PACK PO SCH (08:10)
--- NOTE | 2024-04-15 16:33 | Hospitalist Progress Note ---
Date of Service April 15, 2024 Assessment & Plan (1) Ambulatory dysfunction: Plan: Fall on 04/12, in the setting of ongoing lower back pain and ambulatory dysfunction A/P CT without acute fractures or abnormalities COntinue Lidocaine patch application daily to the lower back and right knee (patient reports this helps the most) Continue Scheduled Tylenol 500mg p.o. q6h Discontinue higher dose of Dilaudid 1.0 IV q4h and only give Dilaudid 0.5mg IV for severe pain Add oxycodone 5mg po q4h prn moderate-severe pain Dc scheduled tramadol to avoid polypharmacy Continue gabapentin 300 mg TID Cyclobenzaprine as needed for muscle spasms PT/OT evaluations appreciated-recommend rehab Fall precautions No Ortho Spine intervention needed (2) Intractable back pain: Plan: as above (3) Anemia: Plan: Chronic; Hgb 11.8 on arrival and 11.2 after IVF hydration No signs of active bleeding on clinical exam (4) HTN (hypertension): Plan: BPs controlled Continue propranolol, lisinopril, lasix (5) Depression: Plan: Stable continue duloxetine (6) Fall: Plan: as above PT/OT consults Plan Disposition:medically stable for discharge, awaiting SNF placement DNR/DNI VTE PPx: Lovenox SQ BID Admission and Anticipated Discharge Date Admission Date: April 14, 2024 Subjective Still having lower back pain and right knee pain but better than yesterday. Walked PT, is sitting on side of bed to eat and if sits for too long, has aching sensation down her legs. Physical Exam Constitutional: WD/WN, vitals as above + obese Respiratory: normal respiratory effort, lungs clear to auscultation Cardiovascular: RRR, no murmur, no edema Musculoskeletal: no ttp over lower back, no masses Skin: Trauma: + contusion (ecchymosis right lower back) Results & Data Results & Data Vital Signs (Past 12 Hours) Vital Signs Temp Pulse Resp BP Pulse Ox O2 Del Method 04/15/24 14:46 37.0 C 95 H 16 121/72 91 Room Air 04/15/24 07:49 36.7 C 90 16 137/88 94 Room Air Laboratory Results CBC, BMP, UA reviewed PG Care Time/CCT Total # of Minutes Spent Total Time Spent with Patient: Total time spent is greater than 50% in coordination of care (as documented) at patient's floor/unit and/or counseling patient: Coding Level of Care Code 88822 SUB INP/OBS CARE 2/35MIN Diagnoses Ambulatory dysfunction R26.2 Intractable back pain M54.9 Anemia D64.9 HTN (hypertension) I10 Depression F32.9 Fall W19.XXXA Encounter type: initial encounter (6) Fall Encounter type: initial encounter Qualified Code(s): W19.XXXA - Unspecified fall, initial encounter
[2024-04-15] MEDS: COUGH DROP (SUGAR FREE) LOZ 24 LOZ/1 BOX BUCCAL ONE (20:51)
[2024-04-15] MEDS: oxyCODONE HCL IR 5 MG TAB (IMMEDIATE RELEASE) PO PRN (20:55)
[2024-04-16] MEDS: HYDROmorphone INJ 0.5 MG/0.5 ML SYR IV PRN (00:42)
[2024-04-16] MEDS ORDERED: COUGH DROP (SUGAR FREE) LOZ 24 LOZ/1 BOX BUCCAL PRN (08:24)
--- NOTE | 2024-04-16 19:25 | Hospitalist Progress Note ---
Date of Service April 16, 2024 Assessment & Plan (1) Ambulatory dysfunction: Plan: Fall on 04/12, in the setting of ongoing lower back pain/lumbar radiculopathy and ambulatory dysfunction, 2 recent hospitalizations for such as well as a recent residential facility stay at [facility] A/P NH without acute fractures or abnormalities Patient has been having ongoing lower back pain with radiation down the legs for the last 1 to 2 months. MRI of the lumbar spine on 03/16/2024 showed postoperative changes and a vertebral spacer at L4-L5 which is encroaching on the left lateral space with impingement on the nerve root She continues to complain of lower back pain with pain radiating down both legs when she sits for too long. No evidence of cauda equina syndrome-she is able to ambulate and not having any bowel or bladder symptoms. Increase gabapentin to 400 mg p.o. 3 times daily Continue oxycodone 5 mg p.o. every 4 hours as needed moderate to severe pain Decrease frequency of IV Dilaudid and attempt to wean off-wean down to every 6 hours Continue Lidocaine patch and scheduled Tylenol 500mg p.o. q6h Dcd home scheduled tramadol to avoid polypharmacy Continue cyclobenzaprine as needed for muscle spasms PT/OT evaluations appreciated-recommend rehab, awaiting bed at rehab and then insurance authorization Fall precautions No Ortho Spine intervention needed at this point It seems that patient is frequently asking for pain medicine before it is due and I have concerns that she was potentially overusing prescribed opioids at home after conversation with her daughter-there is evidence of this based on the number of pills in her bottles. I recommend that the patient's daughter help her to manage the pain medications so that she is not overdosing as she does seem to be wanting to take it more often than what is ordered. (2) Intractable back pain: Plan: as above (3) Anemia: Plan: Chronic; Hgb 11.8 on arrival and 11.2 after IVF hydration No signs of active bleeding on clinical exam Follow-up with PCP (4) HTN (hypertension): Plan: BPs controlled Continue propranolol, lisinopril, lasix (5) Depression: Plan: Stable continue duloxetine (6) Fall: Plan: as above PT/OT consults recommend rehab Plan Disposition:medically stable for discharge, awaiting SNF placement -Referrals placed to [facility], awaiting bed and then will need insurance authorization as per case management DNR/DNI VTE PPx: Lovenox SQ BID I discussed her care with her daughter on the phone on 04/16 Admission and Anticipated Discharge Date Admission Date: April 14, 2024 Subjective Pt c/o ongoing pain in her lower back that radiates down both legs and feels like a deep ache. She states that the oxycodone wears off after 3 hours and wants to know if it can be increased in frequency. Otherwise no new issues. I discussed her care with her daughter on the phone. Physical Exam Constitutional: WD/WN, vitals as above + obese Respiratory: normal respiratory effort, lungs clear to auscultation Cardiovascular: RRR, no murmur, no edema Musculoskeletal: No masses palpable or visible in lower back. She is able to easily stand up and turn around and sit back down without any assistance Incisional scars in neck and back Skin: Trauma: + contusion (ecchymosis right lower back) Psychiatric: Orientation: alert and oriented x 3 Results & Data Results & Data Vital Signs (Past 12 Hours) Vital Signs Temp Pulse Resp BP Pulse Ox O2 Del Method 04/16/24 15:35 36.7 C 69 16 109/69 94 Room Air 04/16/24 07:52 36.6 C 87 20 113/74 94 Room Air PG Care Time/CCT Total # of Minutes Spent Total Time Spent with Patient: Total time spent is greater than 50% in coordination of care (as documented) at patient's floor/unit and/or counseling patient: Coding Level of Care Code 86271 SUB INP/OBS CARE 2/35MIN Diagnoses Ambulatory dysfunction R26.2 Intractable back pain M54.9 Anemia D64.9 HTN (hypertension) I10 Depression F32.9 Fall W19.XXXA Encounter type: initial encounter (6) Fall Encounter type: initial encounter Qualified Code(s): W19.XXXA - Unspecified fall, initial encounter
[2024-04-16] MEDS: GABAPENTIN 400 MG CAP PO SCH (20:52)
[2024-04-17 01:34] LABS: Appearance Urine Clear (Clear); Bacteria Urine Automated None Seen (None Seen); Bilirubin Urine Negative (Negative); Blood Urine Negative (Negative); Cast Urine Automated 0-2 /lpf (0-2); Color Urine Yellow; Epithelial Cell Urine Auto 0-2 /hpf (0-2); Glucose Urine UA Negative (Negative); Ketones Urine Negative (Negative); Leukocyte Esterase Urine 3+ (Negative); Nitrite Urine Negative (Negative); Protein Urine Negative (Negative); RBC Urine Automated 0-2 /hpf (0-2); Urobilinogen Urine Negative (Negative); WBC Urine Automated >50 /hpf (0-5); pH Urine 7.5 (4.5-7.5)
[2024-04-17] MEDS: HYDROmorphone INJ 0.5 MG/0.5 ML SYR IV PRN (10:24)
--- NOTE | 2024-04-17 21:36 | Hospitalist Progress Note ---
Date of Service April 17, 2024 Assessment & Plan (1) Ambulatory dysfunction: Plan: Fall on 04/12, in the setting of ongoing lower back pain/lumbar radiculopathy and ambulatory dysfunction, 2 recent hospitalizations for such as well as a recent [facility] facility stay at [place] [facility] [place] without acute fractures or abnormalities Patient has been having ongoing lower back pain with radiation down the legs for the last 1 to 2 months. MRI of the lumbar spine on 03/16/2024 showed postoperative changes and a vertebral spacer at L4-L5 which is encroaching on the left lateral space with impingement on the nerve root She continues to complain of lower back pain with pain radiating down both legs when she sits for too long. No evidence of cauda equina syndrome-she is able to ambulate and not having any bowel or bladder symptoms. Increase gabapentin to 400 mg p.o. 3 times daily Continue oxycodone 5 mg p.o. every 4 hours as needed moderate to severe pain Decrease frequency of IV Dilaudid and attempt to wean off-wean down to every 6 hours Continue Lidocaine patch and scheduled Tylenol 500mg p.o. q6h Dcd home scheduled tramadol to avoid polypharmacy Continue cyclobenzaprine as needed for muscle spasms PT/OT evaluations appreciated-recommend rehab, awaiting bed at rehab and then insurance authorization Fall precautions No Ortho Spine intervention needed at this point It seems that patient is frequently asking for pain medicine before it is due and I have concerns that she was potentially overusing prescribed opioids at home after conversation with her daughter-there is evidence of this based on the number of pills in her bottles. I recommend that the patient's daughter help her to manage the pain medications so that she is not overdosing as she does seem to be wanting to take it more often than what is ordered. Patient is pending placeme t. (2) Intractable back pain: Plan: as above (3) Anemia: Plan: Chronic; Hgb 11.8 on arrival and 11.2 after IVF hydration No signs of active bleeding on clinical exam Follow-up with PCP (4) HTN (hypertension): Plan: BPs controlled Continue propranolol, lisinopril, lasix (5) Depression: Plan: Stable continue duloxetine (6) Fall: Plan: as above PT/OT consults recommend rehab Plan Disposition:medically stable for discharge, awaiting SNF placement -Referrals placed to [facility] and [facility], awaiting bed and then will need insurance authorization as per case management DNR/DNI VTE PPx: Lovenox SQ BID I discussed her care with her daughter on the phone on 04/16 Admission and Anticipated Discharge Date Admission Date: April 14, 2024 Subjective Patient reports no new symptoms. Review of Systems Review of Systems: All systems reviewed & are unremarkable except as noted in HPI & below Physical Exam Constitutional: WD/WN, vitals as above + obese Respiratory: normal respiratory effort, lungs clear to auscultation Cardiovascular: RRR, no murmur, no edema Musculoskeletal: No masses palpable or visible in lower back. She is able to easily stand up and turn around and sit back down without any assistance Incisional scars in neck and back Skin: Trauma: + contusion (ecchymosis right lower back) Psychiatric: Orientation: alert and oriented x 3 Results & Data Results & Data Vital Signs (Past 12 Hours) Vital Signs Temp Pulse Pulse Resp BP Pulse Ox O2 Del Method 04/17/24 19:52 36.9 C 70 18 115/74 97 Room Air 04/17/24 14:54 36.5 C 90 16 139/82 94 Room Air 04/17/24 12:16 36.6 C 80 20 146/86 H 96 Room Air PG Care Time/CCT Total # of Minutes Spent Total Time Spent with Patient: Total time spent is greater than 50% in coordination of care (as documented) at patient's floor/unit and/or counseling patient: Coding Level of Care Code 44569 SUB INP/OBS CARE 2/35MIN Diagnoses Ambulatory dysfunction R26.2 Intractable back pain M54.9 Anemia D64.9 HTN (hypertension) I10 Depression F32.9 Fall W19.XXXA Encounter type: initial encounter Time Spent (min) 35 Comment chart review (6) Fall Encounter type: initial encounter Qualified Code(s): W19.XXXA - Unspecified fall, initial encounter
[2024-04-18 08:18] LABS: Hematocrit (blood only) 37.1 % (37.0-47.0); Hemoglobin 12.1 g/dl (12.0-16.0); Mean Corpuscular Hemoglobin 29.2 pg (25.0-34.0); Mean Corpuscular Hgb Conc 32.6 g/dL (32.0-36.0); Mean Corpuscular Volume 89.6 fL (80.0-100.0); Mean Platelet Volume 9.3 fL (9.4-12.4); Platelet Count 195 K/uL (130-400); RDW Coefficient of Variation 13.6 % (11.5-14.5); RDW Standard Deviation 44.6 fL (36.4-46.3); Red Blood Count 4.14 M/uL (4.20-5.40); White Blood Count 4.72 K/ul (4.8-10.8)
[2024-04-18 08:48] LABS: BUN Creatinine Ratio 28.8 (10-20); Calcium 9.6 mg/dl (8.6-10.3); Creatinine Clr Calc Pharmacy 61.2 ml/min; Est GFR (African American) 81.3 ml/min; Est GFR (Non-African American) 70.1 ml/min; Potassium 3.8 mmol/L (3.5-5.1)
--- NOTE | 2024-04-18 13:42 | Discharge Summary ---
Date of Service April 18, 2024 Admission HPI Per Admitting Provider Armand is a 78-year-old female with PMH of HTN, aortic valve sclerosis, anxiety, urinary incontinence, essential tremor, cellulitis, falls, and ambulatory dysfunction. Patient reports that she fell 2 days ago while ambulating with her walker through the doorway and landed on her left hip. She has an extensive history of orthopedics with replacements. Recent [facility] admissions from 03/16 - 03/22 and 04/03 - 04/07 for mechanical falls, ambulatory dysfunction, and acute on chronic exacerbations of her lower back pain. On arrival, the patient is tearful and reports that she is in intractable 10/10 right lower back pain. She reports this is the third time she has fallen in the past month or so. She reports regular muscle spasms, and reports that the pain in her right lower back and right knee will go away despite pain medicine at home. She has been taking tramadol, muscle relaxers, oxycodone as needed, Tylenol, and gabapentin for the pain, but it does not alleviate it. She does note that lidocaine patches are on e of the only things that really helped with the pain. Her lower back pain is located transversely across the back, but is worse on the right side; she describes it as a 10/10 constant "pressure" like pain. No radiation down the legs. Her right knee is also in 10/10 pain, and she is unable to bend/move it without eliciting pain. Patient lives with her daughter at home, and reports that she tries to stay active such as doing dishes and laundry. Ambulates with a walker at baseline. She does not use supplemental oxygen at baseline. She denies smoking, tobacco use, or recent alcohol use. Patient did not take her regular morning medicine today, which includes her BP medications. She manages her own medicine at home. Last BM was yesterday on 04/13. Patient is hypertensive at 177/93 and tachycardic around 105 bpm at time of admission; SpO2 93% on RA. ED course: Ketorolac 10 mg IV ROS: Patient endorses severe transverse lower back pain, right knee pain, and constipation (which patient attributes to pain medicine). Patient denies fever, sweating, dizziness, lightheadedness, WALSH, chest pain, SOB, cough, abdominal pain, N/V/D, change in urinary habits, burning with urination, dysuria, saddle anesthesia, urinary/stool incontinence, or numbness/tingling in the legs. Principal Diagnosis ambulatory dysfunction Discharge Exam Constitutional WD/WN, vitals as above + obese Respiratory normal respiratory effort, lungs clear to auscultation Cardiovascular RRR, no murmur, no edema Skin Trauma: + contusion (ecchymosis right lower back) Psychiatric Orientation: alert and oriented x 3 Discharge Data Allergies Allergy/AdvReac Type Severity Reaction Status Date / Time homatropine AdvReac Intermediate HYDROCODONE/HOMATROPINE Verified 01/24/24 14:13 COUGH SYRP-INSOMNIA/NAUSEA hydrocodone AdvReac Intermediate NAUSEA/INSOMINIA-COUGH Verified 01/24/24 14:13 SYRUP Consultations 04/14/24 08:58 ED Decision to Admit Stat Ordered Studies 04/14/24 06:56 CT abd pelvis IV con only Stat Hospital Course (1) Ambulatory dysfunction: Fall on 04/12, in the setting of ongoing lower back pain/lumbar radiculopathy and ambulatory dysfunction, 2 recent hospitalizations for such as well as a recent alf facility stay at [place] [facility] [place] without acute fractures or abnormalities Patient has been having ongoing lower back pain with radiation down the legs for the last 1 to 2 months. MRI of the lumbar spine on 03/16/2024 showed postoperative changes and a vertebral spacer at L4-L5 which is encroaching on the left lateral space with impingement on the nerve root She continues to complain of lower back pain with pain radiating down both legs when she sits for too long. No evidence of cauda equina syndrome-she is able to ambulate and not having any bowel or bladder symptoms. Increase gabapentin to 400 mg p.o. 3 times daily Continue oxycodone 5 mg p.o. every 4 hours as needed moderate to severe pain Decrease frequency of IV Dilaudid and attempt to wean off-wean down to every 6 hours Continue Lidocaine patch and scheduled Tylenol 500mg p.o. q6h Dcd home scheduled tramadol to avoid polypharmacy Continue cyclobenzaprine as needed for muscle spasms PT/OT evaluations appreciated-recommend rehab Fall precautions No Ortho Spine intervention needed at this point It seems that patient is frequently asking for pain medicine before it is due and I have concerns that she was potentially overusing prescribed opioids at home after conversation with her daughter-there is evidence of this based on the number of pills in her bottles. I recommend that the patient's daughter help her to manage the pain medications so that she is not overdosing as she does seem to be wanting to take it more often than what is ordered. Patient is discharged to rehab (2) Intractable back pain: as above (3) Anemia: Chronic; Hgb 11.8 on arrival and 11.2 after IVF hydration No signs of active bleeding on clinical exam Follow-up with PCP (4) HTN (hypertension): BPs controlled Continue propranolol, lisinopril, lasix (5) Depression: Stable continue duloxetine (6) Fall: as above PT/OT consults recommend rehab Total Time Total Time Spent Total Time Spent (In Minutes): 32 Discharge Plan Discharge Items Patient Disposition: Transfer [facility] Living Fac Reason For Visit: Fall, L Hip Pain, Abdominal Pain Discharge Diagnosis: L hip pain. Activity: Resume your previous activity Non-emergency contact: Primary Care Provider Call non-emergency contact if: you have any medication questions Follow-up/Referrals: Cate Ford MD [Primary Care Provider] - Diet: Heart Healthy Addtl Attending Provider Instructions: Recommend followup with PCP in 1-2 weeks. Please continue your pain regimen noted below. Pending Studies at Discharge: Yes Stand-Alone Forms: My [employer] Skilled Items Patient informed of condition?: No DNR: Yes Discharge Level of Care: Skilled Communicable Disease: No Discharge Prognosis: Stable Lines: None Urinary Catheter: No Medications and DC Order Prescriptions: Continued nystatin-triamcinolone 100,000-0.1 unit/g-% cream 1 applic topical BID Qty: 30 0RF (DME) Manual Wheelchair See Rx Instructions .Route .MEDSUPPLY Qty: 1 0RF Rx Instructions: As directed to aid in mobility and transportation (DME) Hospital Bed See Rx Instructions .Route .MEDSUPPLY Qty: 1 0RF Rx Instructions: As directed to improve comfort, prevent pressure injury, and aid in positioning. Semi-electric. (DME) Shower Chair Misc See Rx Instructions .Route Qty: 1 0RF Rx Instructions: As directed ketoconazole 2 % cream 1 applic topical BID 14 Days Qty: 30 0RF Rx Instructions: PER PT SHE ONLY USES PRN-7/2 polyethylene glycol 3350 [Miralax] 17 gram Powder In Packet 17 g PO DAILY Qty: 100 0RF Rx Instructions: stop for diarrhea famotidine 20 mg Tablet 20 mg PO QAM Qty: 30 0RF lidocaine 5 % Adhesive Patch,Medicated 1 patch transdermal QAM Qty: 10 0RF cyclobenzaprine 5 mg Tablet 5 mg PO TID PRN (Reason: muscle spasm) Qty: 20 0RF atorvastatin 20 mg tablet 20 mg PO QPM Qty: 15 3RF tolterodine 4 mg capsule,extended release 24hr 4 mg PO PM Qty: 15 3RF propranolol 60 mg tablet 60 mg PO BID 90 Days Qty: 30 2RF aspirin [Adult Aspirin Regimen] 81 mg tablet,delayed release (DR/EC) 81 mg PO DAILY Qty: 15 0RF calcium carbonate [Calcium 600] 600 mg calcium (1,500 mg) tablet 600 mg PO DAILY 90 Days Qty: 15 3RF docusate sodium 100 mg capsule 100 mg PO BID 30 Days Qty: 30 3RF lisinopril 5 mg tablet 5 mg PO .Q AM Qty: 15 0RF furosemide 20 mg tablet 20 mg PO DAILY Qty: 15 3RF albuterol sulfate 90 mcg/actuation HFA aerosol inhaler 2 puff INH Q6H PRN (Reason: Shortness Of Breath Or Wheezing) Qty: 8.5 5RF duloxetine 60 mg capsule,delayed release(DR/EC) 60 mg PO DAILY Qty: 15 3RF cholecalciferol (vitamin D3) 50 mcg (2,000 unit) tablet 2,000 unit PO QAM 90 Days Qty: 15 4RF [id number] carb-vit K 18 mg iron-400 mcg-500 mg Tablet 1 tab PO QAM Qty: 15 0RF ascorbic acid (vitamin C) 500 mg capsule 500 mg PO BID Qty: 30 0RF Glucosamine Chondroitin 550-30-1 mg Capsule 1 cap PO QAM Qty: 14 0RF tramadol 50 mg Tablet 100 mg PO BID Qty: 30 0RF gabapentin 300 mg capsule 300 mg PO TID Qty: 45 5RF oxycodone 5 mg tablet 5 - 10 mg PO Q6H PRN (Reason: moderate pain (scale score 5-6)) Qty: 20 0RF Rx Instructions: Po q6 hprn. 1 tablet for moderate pain; 2 tablets for severe pain Changed acetaminophen 325 mg tablet 650 mg PO QID Qty: 120 0RF Discharge Orders: Discharge Order (Routine); Ordered 04/18/24 Ordered By: Jone Waters Admission Data Admit Date/Time: 04/14/24 10:56 Attending Provider: Jone Waters Admit Provider: Terrie Zuniga Primary Care Provider: Cate Ford Other Providers: Terrie Zuniga; Mohamud [place] at [place]; [facility]; [facility] Other Interventions: Discharge Summary Assessment (RN) Last Done: 04/18/24 13:45 Coding Level of Care Code 68385 INP/OBS DISCH >30 MIN Diagnoses Ambulatory dysfunction R26.2 Intractable back pain M54.9 Anemia D64.9 HTN (hypertension) I10 Depression F32.9 Fall W19.XXXA Encounter type: initial encounter
== END 2024-04-18 14:16 | DRG 552 ==
LOC: SUATTDRO → ED 06:29 → SUATTDRO 10:56 → 3W 10:56
DX: R26.2 Difficulty in walking, not elsewhere classified; I35.8 Other nonrheumatic aortic valve disorders; J45.909 Unspecified asthma, uncomplicated; W01.0XXA Fall on same level from slipping, tripping and stumbling without subsequent striking against object, initial encounter; Y92.019 Unspecified place in single-family (private) house as the place of occurrence of the external cause; E86.0 Dehydration; E21.3 Hyperparathyroidism, unspecified; I10 Essential (primary) hypertension; Z66 Do not resuscitate; F32.A Depression, unspecified; Z79.82 Long term (current) use of aspirin; M25.552 Pain in left hip; E78.5 Hyperlipidemia, unspecified; D64.9 Anemia, unspecified; M54.16 Radiculopathy, lumbar region; R26.9 Unspecified abnormalities of gait and mobility

== ENCOUNTER 2024-08-24 16:13 | Inpatient (IN) ==
--- NOTE | 2024-08-24 16:47 | Emergency Department Note ---
Impression & Plan Shortness of breath on exertion, Acute heart failure with preserved ejection fraction (HFpEF), Chest pain ED Provider Note NAME: CHARLI DUMONT AGE: 79 SEX: F : 1945 ARRIVES VIA: Ambulance INFORMANT: Patient, ED PROVIDER(S): Colin Bryant MD CHIEF COMPLAINT: Chest pain, shortness of breath, outpatient referral MEDICAL DECISION MAKING: Patient presents due to concern for shortness of breath along with a episode of chest pain that occurred in the office today. IV was established and blood work was obtained. Patient was initially hypoxic to 88-89% but eventually was in the 90s. Patient has faint bibasilar crackles. Patient does have weight gain from prior visit. Patient with a normal white count hemoglobin 11.1 with a normal platelet count. The patient's kidney function is unremarkable. Troponin negative. As the patient's shortness of breath is worsened and has associated weight gain we will treat as possible volume overload. The patient does have a history of of aortic stenosis and this also may be contributory. Do believe that she would benefit from a formal echo. It is due to the on-call hospitalist service Dr. Fernandes and the patient was admitted to the medicine service. Discussion w/ other healthcare providers: Dr. Fernandes inpatient medicines are Prior /Outside records reviewed: None Differential diagnosis: Reactive airway disease, pneumonia, pneumothorax, COPD, CHF, ACS, pulmonary embolism, musculoskeletal, GERD as well as other pathologies were considered. Diagnostics, as interpreted by me: ECG: Normal sinus rhythm, rate of 86, borderline ND, normal axis no ST elevations. Cardiac monitoring: An order was placed for continuous cardiac monitoring. The monitor shows a rate of 86 with sinus rhythm. Patient was placed on pulse oximetry Medical decision rules: None Imaging studies: I informally interpreted the patient's chest x-ray without obvious pneumonia or pneumothorax, spinal hardware noted, with formal report to follow. HPI: Patient presents due to concern for shortness of breath and chest pain. The patient denies any falls or trauma. The patient states that her symptoms began about a month ago with progressively worsening shortness of breath with exertion. She cannot lay flat and reports that this is because of a back issue and does not lay flat at baseline anyway. The patient has noted some increase swelling in her lower extremities. She does take a water pill she states that she is compliant with her medications. Patient reportedly was at an appointment to be evaluated for her shortness of breath when she got sudden centralized chest pain that was nonradiating lasting about 5 minutes and resolved with rest. Patient reportedly was in the 80s on room air. The patient denies any prior history of heart or lung disease. Patient denies any cough or fever. PAST MEDICAL HISTORY: See Below PAST SURGICAL HISTORY: See Below SOCIAL HISTORY: See Below HOME MEDICATIONS: See Below ALLERGIES: See Below VITALS: See Below PHYSICAL EXAMINATION: GENERAL: NAD, non-toxic. EYE EXAM: Normal conjunctiva. PERRL, no anisocoria and EOM's grossly intact w/o pain. OROPHARYNX: Moist mucus membranes, grossly normal dentition. NECK: Trachea midline, no stridor. Supple, no nuchal rigidity, no adenopathy, non-tender. No signs of meningismus. FROM of the neck with good chin to chest and neck extension. LUNGS: Slight basilar crackles. Normal chest wall mechanics. HEART: NSR, no MRG. ABDOMEN: Abdomen soft, non-tender, no masses, no rebound or guarding. BACK: No CVA TTP. SKIN: No rashes and no bruising. UPPER EXTREMITIES: Upper extremities are grossly normal. LOWER EXTREMITIES: Grossly normal, 1+ metric edema without calf pain or erythema. NEURO EXAM: A&O x3, cranial nerves II-XII grossly intact, normal speech, moves all 4 extremities. Past Med/Surg History Problem List (Updated 08/24/24 @ 21:32 by Colin Bryant MD) Chest pain (Acute) Shortness of breath on exertion (Acute) Acute heart failure with preserved ejection fraction (HFpEF) (Acute) Type II diabetes mellitus Depression Acute pain of left hip (Acute) Fall (Acute) Osteoarthritis of right knee Bipartite patella Right leg weakness Chronic back pain (Chronic) Cellulitis (Acute) Ambulatory dysfunction (Chronic) Right leg pain (Acute) Right leg pain Ambulatory dysfunction Intractable back pain (Acute) Urinary tract infection (Acute) Abnormal urinalysis Acute pain of right knee (Chronic) Acute pain of right lower extremity (Acute) Essential tremor Left shoulder pain Cervical stenosis of spinal canal Low back pain Right rotator cuff tear arthropathy Impaired fasting glucose Anxiety (Acute) Urinary incontinence (Acute) Vitamin D deficiency (Acute) Lumbar canal stenosis Gait disturbance Arthralgia of multiple sites Anemia Aortic valve sclerosis Without stenosis per 2018 echo. HTN (hypertension) Medical History Dehydration History of COVID-19 12/2021- states was hospitalized [facility]; resolved Hx of small bowel obstruction Obesity Arthritis History of abnormal electrocardiogram Mitral valve prolapse Not noted on 2018 echo Stress incontinence Hyperlipidemia Excessive sweating Asthma states recent increased SOB due to anemia Hyperparathyroidism s/p parathyroidectomy Surgical History Hx of bilateral cataract extraction Hx of cervical spine surgery 01/2023- PSH, [facility] - limited rom and unable to lift arms over head H/O parathyroidectomy S/P thyroid surgery parathyroid resection H/O carpal tunnel repair R/L S/P lumbar fusion 2005- Dr. Guerrero and repeat lumbar surgery 05/2009 History of gynecologic surgery anterior colporrhaphy, repair of cystocele and posterior colporrhaphy for pelvic relaxation History of total knee arthroplasty LEFT H/O neck surgery neck exploration with excision of parathyroidadenoma and biopsy of upper parathyroid gland History of total hip replacement RIGHT H/O colonoscopy S/P rotator cuff repair RIGHT S/P vaginal hysterectomy Cervical vertebral fusion 10/2008- Dr. Guerrero H/O arthroscopy of knee LEFT Family History Mother Goiter Father Colon cancer Emphysema of lung Denies family history of Ovarian cancer Prostate cancer Myocardial infarction Breast cancer Social History Smoking Status: Never smoker Second Hand Exposure: No; Do You Dip or Chew Tobacco: No; Hx Alcohol Use: No Hx Substance Use: No Preferred Language: Slovak Communication Ability: Effective Photo Specialist Required: No Beliefs That Will Affect Care: None marital status: / Current Living Situation: Family Current Living Situation Comment: lives with daughter and current occupational status: retired 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, 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 Feels Safe at Home: Yes Safety Concerns Comment: Concerns about falling, concerns about mobility Childhood Exposure to Second-Hand Smoke: Yes Diet: regular Dental Care, Regularly: No Physical Activity Frequency: Does not Exercise Seatbelt Use: always Sunscreen Use: No Assistive Devices: Walker Allergies Allergies Allergy/AdvReac Type Severity Reaction Status Date / Time homatropine AdvReac Intermediate HYDROCODONE/HOMATROPINE Verified 08/16/24 11:40 COUGH SYRP-INSOMNIA/NAUSEA hydrocodone AdvReac Intermediate NAUSEA/INSOMINIA-COUGH Verified 08/16/24 11:40 SYRUP Home Meds Home Medications Medication Instructions Recorded Confirmed lisinopril 5 mg tablet 5 mg PO QAM 08/24/24 08/24/24 Previous Rx's Medication Instructions Recorded Shower Chair #1 ea 03/04/23 nystatin-triamcinolone 100,000 1 applic topical BID #30 grams 02/01/24 unit/g-0.1 % topical cream albuterol sulfate 90 mcg/actuation 2 puff inhalation Q6H PRN 03/21/24 aerosol inhaler Shortness Of Breath Or Wheezing #8.5 grams ascorbic acid (vitamin C) 500 mg 500 mg PO BID #30 caps 03/21/24 capsule aspirin 81 mg tablet,delayed 81 mg PO DAILY #15 tabs 03/21/24 release (Adult Aspirin Regimen) atorvastatin 20 mg tablet 20 mg PO QPM #15 tabs 03/21/24 calcium carbonate (Calcium 600) 600 mg PO DAILY 90 days #15 tabs 03/21/24 cholecalciferol (vitamin D3) 50 2,000 unit PO QAM 90 days #15 tabs 03/21/24 mcg (2,000 unit) tablet cyclobenzaprine 5 mg tablet 5 mg PO TID PRN muscle spasm #20 03/21/24 tabs docusate sodium 100 mg capsule 100 mg PO BID 30 days #30 caps 03/21/24 duloxetine 60 mg capsule,delayed 60 mg PO DAILY #15 caps 03/21/24 release furosemide 20 mg tablet 20 mg PO DAILY #15 tabs 03/21/24 glucosamine sulf dipot 1 cap PO QAM #14 caps 03/21/24 chlr,msm,chond 550 mg-C 30 mg-claritza 1 mg capsule (Glucosamine Chondroitin) ssrmznii-men-awca-FA-Ca carb-vit K 1 tab PO QAM #15 tabs 03/21/24 18 mg iron-400 mcg-500 mg tablet polyethylene glycol 3350 17 gram 17 g PO DAILY #100 ea 03/21/24 oral powder packet (Miralax) propranolol 60 mg tablet 60 mg PO BID 90 days #30 tabs 03/21/24 Hospital Bed #1 ea 04/11/24 Manual Wheelchair #1 ea 04/11/24 acetaminophen 325 mg tablet 650 mg (2 x 325 mg) PO QID pain 04/18/24 #120 tabs gabapentin 300 mg capsule 300 mg PO TID #45 caps 04/18/24 tolterodine 4 mg capsule,extended 4 mg PO PM #90 caps 05/28/24 release 24 hr famotidine 20 mg tablet 20 mg PO QAM #90 tabs 06/07/24 sulfamethoxazole 800 1 tab PO BID 7 days #14 tabs 08/16/24 mg-trimethoprim 160 mg tablet (Bactrim DS) Results & Data (ED) Vital Signs Vital Signs - 24 hr 08/24/24 16:17 08/24/24 16:17 08/24/24 16:17 Temperature 36.8 C Temperature Source Oral Pulse Rate 97 H Pulse Rate [Apical] Respiratory Rate 13 Respiratory Effort / Characteristics Spontaneous Labored Spontaneous Respiratory Depth Normal Normal Respiratory Pattern Regular Blood Pressure 159/107 H Blood Pressure [Right Arm] Blood Pressure Mean 124 Blood Pressure Mean [Right Arm] Pulse Oximetry 97 98 Oxygen Delivery Method Room Air Room Air Sepsis Recent Fever Within 48 Hours Yes Sepsis New/Unexplained Change in Mental Status No Sepsis Action Taken by Nursing No Action Required 08/24/24 16:17 08/24/24 16:32 08/24/24 16:38 Temperature Temperature Source Pulse Rate 93 H Pulse Rate [Apical] 90 Respiratory Rate 26 H Respiratory Effort / Characteristics Non-Labored Spontaneous Respiratory Depth Normal Respiratory Pattern Blood Pressure Blood Pressure [Right Arm] 159/107 H Blood Pressure Mean Blood Pressure Mean [Right Arm] 124 Pulse Oximetry 97 98 Oxygen Delivery Method Room Air Room Air Sepsis Recent Fever Within 48 Hours Sepsis New/Unexplained Change in Mental Status Sepsis Action Taken by Nursing 08/24/24 18:02 Temperature Temperature Source Pulse Rate Pulse Rate [Apical] 89 Respiratory Rate 27 H Respiratory Effort / Characteristics Spontaneous Respiratory Depth Normal Respiratory Pattern Regular Blood Pressure Blood Pressure [Right Arm] 154/103 H Blood Pressure Mean Blood Pressure Mean [Right Arm] 120 Pulse Oximetry 97 Oxygen Delivery Method Room Air Sepsis Recent Fever Within 48 Hours Sepsis New/Unexplained Change in Mental Status Sepsis Action Taken by [facility] Medications Current Medication List: was personally reviewed by me Laboratory Data Attestation: I reviewed the patient's lab results. 08/24/24 16:45 11/14/24 16:45 Lab Results 08/24/24 08/24/24 Range/Units 16:45 18:04 WBC 4.91 (4.8-10.8) K/ul RBC 3.73 L (4.20-5.40) M/uL Hgb 11.1 L (12.0-16.0) g/dl Hct 33.9 L (37.0-47.0) % MCV 90.9 (80.0-100.0) fL MCH 29.8 (25.0-34.0) pg MCHC 32.7 (32.0-36.0) g/dL RDW Std Deviation 45.2 (36.4-46.3) fL RDW Coeff of Jh 13.7 (11.5-14.5) % Plt Count 181 (130-400) K/uL MPV 9.6 (9.4-12.4) fL Immature Gran % (Auto) 0.2 % Neut % (Auto) 70.1 % Lymph % (Auto) 17.5 % [place] % (Auto) 7.3 % Eos % (Auto) 4.5 % Baso % (Auto) 0.4 % Neut # (Auto) 3.44 (1.40-6.50) K/uL Lymph # (Auto) 0.86 L (1.20-3.40) K/uL [place] # (Auto) 0.36 (0.11-0.59) K/uL Eos # (Auto) 0.22 (0.00-0.50) K/uL Baso # (Auto) 0.02 (0.00-0.20) K/uL Immature Gran # (Auto) 0.01 (0.01-0.20) K/uL PT 10.9 (9.0-12.0) Seconds INR 1.0 (0.9-1.1) APTT 26 (21-31) Seconds PTT Ratio 1.0 Sodium 139 (136-145) mmol/L Potassium 4.1 (3.5-5.1) mmol/L Chloride 102 (98-107) mmol/L Carbon Dioxide 31 (21-32) mmol/L Anion Gap 6 (3-11) BUN 21 (6-23) mg/dl Creatinine 1.04 (0.6-1.2) mg/dl Est Cr Clr Drug Dosing 46.2 ml/min eGFR 54.33 BUN/Creatinine Ratio 20.2 H (10-20) Glucose 115 H (70-99(Fasting)) mg/dl Calcium 9.2 (8.6-10.3) mg/dl Phosphorus 3.7 (2.5-4.9) mg/dl Magnesium 2.0 (1.7-2.4) mg/dl Total Bilirubin 0.4 (0.2-1.0) mg/dl AST 31 (13-39) U/L ALT 44 (7-52) U/L Alkaline Phosphatase 95 (34-104) U/L Troponin I High Sens 4.5 (0-14) pg/ml B-Natriuretic Peptide 42 (0-100) pg/ml Total Protein 6.2 (6.0-8.3) gm/dl Albumin 3.6 (3.4-5.0) gm/dl Globulin 2.6 (2.5-4.0) gm/dl Albumin/Globulin Ratio 1.4 (0.9-2) Lipase 10 L (11-82) U/L Administered Medications Discontinued Medications Furosemide (Furosemide 40 Mg/4 Ml Vial) 40 mg IV ONE ONE Stop: 08/24/24 18:05 Last Admin: 08/24/24 18:25 Dose: 40 mg Documented By: TROY Imaging Data Radiologist's Impression: Chest X-Ray 08/24/24 16:33 INDICATION: Chest pain. TECHNIQUE: Frontal radiograph of the chest. COMPARISON: Radiograph from 04/14/2024. FINDINGS: Mild cardiomegaly. Pulmonary vasculature appear within normal limits. No infiltrate, pleural effusion or pneumothorax. No acute osseous abnormality evident. Spinal fusion hardware again noted. IMPRESSION: No acute cardiopulmonary process. Electronically signed by Kaiden Rene 08-24-2024 4:51 PM Discharge Plan Visit Data Chief Complaint: Chest Pain ED Provider: Colin Bryant Discharge Problem: Shortness of breath on exertion, Acute heart failure with preserved ejection fraction (HFpEF), Chest pain Discharge Instructions Interventions: ED Discharge Assessment Last Done: 08/24/24 20:55 Discharge Problem: Chest pain Qualifiers: Chest pain type: unspecified Qualified Code(s): R07.9 - Chest pain, unspecified
--- NOTE | 2024-08-24 16:52 | XRay Report ---
INDICATION: Chest pain. TECHNIQUE: Frontal radiograph of the chest. COMPARISON: Radiograph from 04/14/2024. FINDINGS: Mild cardiomegaly. Pulmonary vasculature appear within normal limits. No infiltrate, pleural effusion or pneumothorax. No acute osseous abnormality evident. Spinal fusion hardware again noted. IMPRESSION: No acute cardiopulmonary process. Electronically signed by Kaiden Rene 08-24-2024 4:51 PM
[2024-08-24 17:03] LABS: Basophils # (auto) 0.02 K/uL (0.00-0.20); Basophils % (auto) 0.4 %; Eosinophils # (auto) 0.22 K/uL (0.00-0.50); Eosinophils % (auto) 4.5 %; Hematocrit (blood only) 33.9 % (37.0-47.0); Hemoglobin 11.1 g/dl (12.0-16.0); Immature Granulocytes # (auto) 0.01 K/uL (0.01-0.20); Immature Granulocytes % (auto) 0.2 %; Lymphocytes # (auto) 0.86 K/uL (1.20-3.40); Lymphocytes % (auto) 17.5 %; Mean Corpuscular Hemoglobin 29.8 pg (25.0-34.0); Mean Corpuscular Hgb Conc 32.7 g/dL (32.0-36.0); Mean Corpuscular Volume 90.9 fL (80.0-100.0); Mean Platelet Volume 9.6 fL (9.4-12.4); Monocytes # (auto) 0.36 K/uL (0.11-0.59); Monocytes % (auto) 7.3 %; Neutrophils # (auto) 3.44 K/uL (1.40-6.50); Neutrophils % (auto) 70.1 %; Platelet Count 181 K/uL (130-400); RDW Coefficient of Variation 13.7 % (11.5-14.5); RDW Standard Deviation 45.2 fL (36.4-46.3); Red Blood Count 3.73 M/uL (4.20-5.40); White Blood Count 4.91 K/ul (4.8-10.8)
[2024-08-24 17:18] LABS: Albumin Globulin Ratio 1.4 (0.9-2); Albumin Level 3.6 gm/dl (3.4-5.0); BUN Creatinine Ratio 20.2 (10-20); Bilirubin,Total 0.4 mg/dl (0.2-1.0); Calcium 9.2 mg/dl (8.6-10.3); Creatinine Clr Calc Pharmacy 46.2 ml/min; Globulin 2.6 gm/dl (2.5-4.0); Phosphorus 3.7 mg/dl (2.5-4.9); Potassium 4.1 mmol/L (3.5-5.1); Total Protein 6.2 gm/dl (6.0-8.3)
[2024-08-24 17:22] LABS: Troponin I High Sensitivity 4.5 pg/ml (0-14)
[2024-08-24 17:24] LABS: Partial Thromboplastin Time 26 Seconds (21-31); Prothrombin Time 10.9 Seconds (9.0-12.0)
[2024-08-24] MEDS: FUROSEMIDE 40 MG/4 ML VIAL IV ONE (18:25)
--- NOTE | 2024-08-24 18:46 | History & Physical Report ---
Date of Service August 24, 2024 Assessment & Plan (1) Shortness of breath on exertion: Plan: With chest pain on exertion today concerning for cardiac ischemia. Dobutamine stress echo tomorrow, NPO after midnight, cardiology consult deferred pending results of this Noted history of asthma although she notes no improvement with albuterol use and no current wheezing on exam (although she has noticed wheezing on exertion). If dobutamine stress echo negative could consider evaluation for pulmonary embolism however no current tachycardia, shortness of breath at rest or hypoxia to suggest this (2) Acute heart failure with preserved ejection fraction (HFpEF): Plan: I'm not overly convinced by this diagnosis other than her apparent weight gain of 7kg and recent increased salt intake. Her leg edema is not consistently worse, CXR without significant pulmonary edema, no B lines on POCUS to suggest pulmonary edema and BNP normal. Will hold off further diuretics at this time pending ischemia workup. Plan VTE Prophyalxis - Lovenox 40mg SQ daily Diet - Low Na, heart healthy, NPO after midnight Disposition - admit to med/tele Admission and Anticipated Discharge Date Admission Date: August 24, 2024 History of Present Illness Chief Complaint: Shortness of breath on exertion Primary Care Provider: Cate Ford MD Armand Kaminski is an 79 year old female who presents to the ER with shortness of breath on exertion. She notes slowly worsening shortness of breath over the last month but much worse over the last week. Associated 7lb weight gain and excessive salt intake. Although she is not convinced her leg swelling is worse than normal she notices it going up and down with certain salty foods. She denies any shortness of breath at rest. No improvement with her albuterol although she has noticed some wheezing. Today while walking to her PCP appointment she had a 5 minute episode of chest pain, substernal which resolved with rest. Reportedly she was hypoxic in the 80s on room air at the appointment but currently on room air in the 90s in the ER. No cough, fever or chills. No one sided leg swelling. No current chest pain or shortness of breath at rest. She was recently treated for a UTI but has now finished her course of Bactrim. No missed doses of Lasix. Allergies Allergy/AdvReac Type Severity Reaction Status Date / Time homatropine AdvReac Intermediate HYDROCODONE/HOMATROPINE Verified 08/16/24 11:40 COUGH SYRP-INSOMNIA/NAUSEA hydrocodone AdvReac Intermediate NAUSEA/INSOMINIA-COUGH Verified 08/16/24 11:40 SYRUP Home Medications Medication Instructions Recorded Confirmed Type Shower Chair #1 ea 03/04/23 08/24/24 Rx nystatin-triamcinolone 100,000 1 applic topical BID #30 grams 02/01/24 08/24/24 Rx unit/g-0.1 % topical cream albuterol sulfate 90 mcg/actuation 2 puff inhalation Q6H PRN 03/21/24 08/24/24 Rx aerosol inhaler Shortness Of Breath Or Wheezing #8.5 grams ascorbic acid (vitamin C) 500 mg 500 mg PO BID #30 caps 03/21/24 08/24/24 Rx capsule aspirin 81 mg tablet,delayed 81 mg PO DAILY #15 tabs 03/21/24 08/24/24 Rx release (Adult Aspirin Regimen) atorvastatin 20 mg tablet 20 mg PO QPM #15 tabs 03/21/24 08/24/24 Rx calcium carbonate (Calcium 600) 600 mg PO DAILY 90 days #15 tabs 03/21/24 08/24/24 Rx cholecalciferol (vitamin D3) 50 2,000 unit PO QAM 90 days #15 tabs 03/21/24 08/24/24 Rx mcg (2,000 unit) tablet cyclobenzaprine 5 mg tablet 5 mg PO TID PRN muscle spasm #20 03/21/24 08/24/24 Rx tabs docusate sodium 100 mg capsule 100 mg PO BID 30 days #30 caps 03/21/24 08/24/24 Rx duloxetine 60 mg capsule,delayed 60 mg PO DAILY #15 caps 03/21/24 08/24/24 Rx release furosemide 20 mg tablet 20 mg PO DAILY #15 tabs 03/21/24 08/24/24 Rx glucosamine sulf dipot 1 cap PO QAM #14 caps 03/21/24 08/24/24 Rx chlr,msm,chond 550 mg-C 30 mg-claritza 1 mg capsule (Glucosamine Chondroitin) sugcafhq-nub-rjad-FA-Ca carb-vit K 1 tab PO QAM #15 tabs 03/21/24 08/24/24 Rx 18 mg iron-400 mcg-500 mg tablet polyethylene glycol 3350 17 gram 17 g PO DAILY #100 ea 03/21/24 08/24/24 Rx oral powder packet (Miralax) propranolol 60 mg tablet 60 mg PO BID 90 days #30 tabs 03/21/24 08/24/24 Rx Hospital Bed #1 ea 04/11/24 08/24/24 Rx Manual Wheelchair #1 ea 04/11/24 08/24/24 Rx acetaminophen 325 mg tablet 650 mg (2 x 325 mg) PO QID pain 04/18/24 08/24/24 Rx #120 tabs gabapentin 300 mg capsule 300 mg PO TID #45 caps 04/18/24 08/24/24 Rx tolterodine 4 mg capsule,extended 4 mg PO PM #90 caps 05/28/24 08/24/24 Rx release 24 hr famotidine 20 mg tablet 20 mg PO QAM #90 tabs 06/07/24 08/24/24 Rx sulfamethoxazole 800 1 tab PO BID 7 days #14 tabs 08/16/24 08/24/24 Rx mg-trimethoprim 160 mg tablet (Bactrim DS) lisinopril 5 mg tablet 5 mg PO QAM 08/24/24 08/24/24 History Past Med/Surg History Problem List (Updated 08/24/24 @ 21:32 by Colin Bryant MD) Chest pain (Acute) Shortness of breath on exertion (Acute) Acute heart failure with preserved ejection fraction (HFpEF) (Acute) Type II diabetes mellitus Depression Acute pain of left hip (Acute) Fall (Acute) Osteoarthritis of right knee Bipartite patella Right leg weakness Chronic back pain (Chronic) Cellulitis (Acute) Ambulatory dysfunction (Chronic) Right leg pain (Acute) Right leg pain Ambulatory dysfunction Intractable back pain (Acute) Urinary tract infection (Acute) Abnormal urinalysis Acute pain of right knee (Chronic) Acute pain of right lower extremity (Acute) Essential tremor Left shoulder pain Cervical stenosis of spinal canal Low back pain Right rotator cuff tear arthropathy Impaired fasting glucose Anxiety (Acute) Urinary incontinence (Acute) Vitamin D deficiency (Acute) Lumbar canal stenosis Gait disturbance Arthralgia of multiple sites Anemia Aortic valve sclerosis Without stenosis per 2018 echo. HTN (hypertension) Medical History Dehydration History of COVID-19 12/2021- states was hospitalized at [place]; resolved Hx of small bowel obstruction Obesity Arthritis History of abnormal electrocardiogram Mitral valve prolapse Not noted on 2018 echo Stress incontinence Hyperlipidemia Excessive sweating Asthma states recent increased SOB due to anemia Hyperparathyroidism s/p parathyroidectomy Surgical History Hx of bilateral cataract extraction Hx of cervical spine surgery 01/2023- PSH, [facility] - limited rom and unable to lift arms over head H/O parathyroidectomy S/P thyroid surgery parathyroid resection H/O carpal tunnel repair R/L S/P lumbar fusion 2005- Dr. Guerrero and repeat lumbar surgery 05/2009 History of gynecologic surgery anterior colporrhaphy, repair of cystocele and posterior colporrhaphy for pelvic relaxation History of total knee arthroplasty LEFT H/O neck surgery neck exploration with excision of parathyroidadenoma and biopsy of upper parathyroid gland History of total hip replacement RIGHT H/O colonoscopy S/P rotator cuff repair RIGHT S/P vaginal hysterectomy Cervical vertebral fusion 10/2008- Dr. Guerrero H/O arthroscopy of knee LEFT Family History Mother Goiter Father Colon cancer Emphysema of lung Denies family history of Ovarian cancer Prostate cancer Myocardial infarction Breast cancer Social History Smoking Status: Never smoker Second Hand Exposure: No; Do You Dip or Chew Tobacco: No; Hx Alcohol Use: No Hx Substance Use: No Preferred Language: Angolan Communication Ability: Effective Marine Photographer Required: No Beliefs That Will Affect Care: None marital status: / Current Living Situation: Family Current Living Situation Comment: lives with daughter and current occupational status: retired 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, 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 Feels Safe at Home: Yes Safety Concerns: Feels Safe At This Time Safety Concerns Comment: Concerns about falling, concerns about mobility Childhood Exposure to Second-Hand Smoke: Yes Diet: regular Dental Care, Regularly: No Physical Activity Frequency: Does not Exercise Seatbelt Use: always Sunscreen Use: No Assistive Devices: Glasses and Walker Review of Systems Review of Systems: All systems reviewed & are unremarkable except as noted in HPI & below Physical Exam Constitutional: WD/WN, vitals as above ENMT: external ear and nose normal, oropharynx normal Respiratory: normal respiratory effort, lungs clear to auscultation Cardiovascular: RRR, no murmur, no edema Gastrointestinal (Abdomen): normal bowel sounds, soft, nontender, no hepatosplenomegaly Musculoskeletal: no cyanosis or clubbing, extremities motor strength 5/5 Skin: no rashes, warm and dry Neurologic: moves all extremities and awake; not confused Psychiatric: A+Ox3, euthymic affect Results & Data Results & Data Vital Signs (Past 12 Hours) Vital Signs Temp Pulse Pulse Resp BP BP Pulse Ox 08/24/24 18:02 89 27 H 154/103 H 97 08/24/24 16:38 98 08/24/24 16:32 93 H 08/24/24 16:17 90 26 H 159/107 H 97 08/24/24 16:17 98 08/24/24 16:17 36.8 C 97 H 13 159/107 H 97 O2 Del Method 08/24/24 18:02 Room Air 08/24/24 16:38 Room Air 08/24/24 16:32 08/24/24 16:17 Room Air 08/24/24 16:17 Room Air 08/24/24 16:17 Room Air Laboratory Results Abnormal lab results 08/24/24 Range/Units 16:45 RBC 3.73 L (4.20-5.40) M/uL Hgb 11.1 L (12.0-16.0) g/dl Hct 33.9 L (37.0-47.0) % Lymph # (Auto) 0.86 L (1.20-3.40) K/uL BUN/Creatinine Ratio 20.2 H (10-20) Glucose 115 H (70-99(Fasting)) mg/dl Lipase 10 L (11-82) U/L Diagnostic Findings CXR INDICATION: Chest pain. TECHNIQUE: Frontal radiograph of the chest. COMPARISON: Radiograph from 04/14/2024. FINDINGS: Mild cardiomegaly. Pulmonary vasculature appear within normal limits. No infiltrate, pleural effusion or pneumothorax. No acute osseous abnormality evident. Spinal fusion hardware again noted. IMPRESSION: No acute cardiopulmonary process. Medications Administered ER Medications Given: Lasix 40mg IV ECG Rate (beats per minute): 86 Rhythm: normal sinus Findings: no acute ischemic change Comparison ECG Date: from (April 14, 2024) Change: no significant change Code Status & VTE Plan Code Status Full VTE Prophylaxis Plan VTE Prophylaxis will be ordered: Yes PG Care Time/CCT Total # of Minutes Spent Total Time Spent with Patient: Total time spent is greater than 50% in coordination of care (as documented) at patient's floor/unit and/or counseling patient: Coding Level of Care Code 63989 INT INP/OBS CARE 3/75MIN Diagnoses Shortness of breath on exertion R06.02 Acute heart failure with preserved ejection fraction (HFpEF) I50.31
[2024-08-24] MEDS ORDERED: GLUCAGON FOR INJ 1 MG VIAL SQ PRN (21:49)
[2024-08-24] MEDS ORDERED: DEXTROSE 50% 50 ML SYRINGE IV PRN (21:49)
[2024-08-24] MEDS ORDERED: GLUCOSE 10 TAB/TUBE PO PRN (21:49)
[2024-08-24] MEDS ORDERED: CARBOHYDRATES FOR HYPOGLYCEMIA PO PRN (21:49)
[2024-08-24] MEDS ORDERED: GLUCOSE 40% GEL 15 GM TUBE PO PRN (21:49)
[2024-08-24] MEDS ORDERED: CYCLOBENZAPRINE HCL 10 MG TAB PO PRN (21:51)
[2024-08-24] MEDS ORDERED: ALBUTEROL HFA 8 GM INHALER INH PRN (21:51)
[2024-08-24] MEDS: ACETAMINOPHEN 325 MG TAB PO SCH (23:06)
[2024-08-24] MEDS: ATORVASTATIN 20 MG TAB PO SCH (23:07)
[2024-08-24] MEDS: GABAPENTIN 300 MG CAP PO SCH (23:07)
[2024-08-24] MEDS: PROPRANOLOL HCL 20 MG TAB PO SCH (23:08)
[2024-08-24] MEDS: DOCUSATE SODIUM 100 MG CAP PO SCH (23:10)
[2024-08-24] MEDS: ENOXAPARIN INJ 40 MG/0.4 ML SYR SQ SCH (23:10)
[2024-08-25] MEDS: INSULIN ASPART PER UNIT CHARGE SC SCH ×2 (06:13→13:15)
[2024-08-25 06:30] LABS: Basophils # (auto) 0.02 K/uL (0.00-0.20); Basophils % (auto) 0.5 %; Eosinophils # (auto) 0.26 K/uL (0.00-0.50); Eosinophils % (auto) 5.9 %; Hematocrit (blood only) 33.8 % (37.0-47.0); Hemoglobin 11.2 g/dl (12.0-16.0); Immature Granulocytes # (auto) 0.02 K/uL (0.01-0.20); Immature Granulocytes % (auto) 0.5 %; Lymphocytes # (auto) 1.01 K/uL (1.20-3.40); Lymphocytes % (auto) 22.8 %; Mean Corpuscular Hemoglobin 29.9 pg (25.0-34.0); Mean Corpuscular Hgb Conc 33.1 g/dL (32.0-36.0); Mean Corpuscular Volume 90.1 fL (80.0-100.0); Mean Platelet Volume 9.3 fL (9.4-12.4); Monocytes # (auto) 0.46 K/uL (0.11-0.59); Monocytes % (auto) 10.4 %; Neutrophils # (auto) 2.66 K/uL (1.40-6.50); Neutrophils % (auto) 59.9 %; Platelet Count 173 K/uL (130-400); RDW Coefficient of Variation 13.9 % (11.5-14.5); RDW Standard Deviation 45.1 fL (36.4-46.3); Red Blood Count 3.75 M/uL (4.20-5.40); White Blood Count 4.43 K/ul (4.8-10.8)
[2024-08-25 07:18] LABS: BUN Creatinine Ratio 19.4 (10-20); Calcium 9.1 mg/dl (8.6-10.3); Creatinine Clr Calc Pharmacy 47.7 ml/min; Potassium 3.7 mmol/L (3.5-5.1)
[2024-08-25 07:41] LABS: Estimated Average Glucose 134 mg/dl; Hemoglobin A1C 6.3 % (4.5-5.6)
[2024-08-25 08:18] LABS: Troponin I High Sensitivity 4.5 pg/ml (0-14)
[2024-08-25] MEDS ORDERED: IRON PO SCH (09:00)
[2024-08-25] MEDS ORDERED: MV MN IRON FA CA CARB VIT K PO SCH (09:00)
[2024-08-25] MEDS: DOBUTamine HCL 12.5 MG/ML 20 ML VIAL IV ONE (09:03)
[2024-08-25] MEDS: METOPROLOL TARTRATE 1 MG/ML VIAL IV ONE ×2 (09:03→10:08)
[2024-08-25] MEDS: ATROPINE SULFATE 0.1 MG/ML 10ML SYR IV ONE (09:03)
--- NOTE | 2024-08-25 10:16 | Electrocardiogram Report ---
Test Reason : Blood Pressure : */* mmHG Vent. Rate : 86 BPM Atrial Rate : 86 BPM P-R Int : 204 ms QRS Dur : 74 ms QT Int : 364 ms P-R-T Axes : 61 52 59 degrees QTcB Int : 435 ms Normal sinus rhythm Normal ECG When compared with ECG of 14-Apr-2024 06:35, No significant change was found Confirmed by Francisco Javier Corral ([id number]) on 08/25/2024 10:15:54 AM Referred By: Confirmed By: Francisco Javier Corral
[2024-08-25] MEDS: POLYETHYLENE (MIRALAX) 17 GM PACK PO SCH (10:59)
[2024-08-25] MEDS: DULoxetine HCL 60 MG CAP PO SCH (11:09)
[2024-08-25] MEDS: CALCIUM CARBONATE 1250MG TAB PO SCH (11:09)
[2024-08-25] MEDS: CHOLECALCIFEROL 25 MCG (1000 UNITS) TAB PO SCH (11:09)
[2024-08-25] MEDS: FAMOTIDINE 20 MG TAB PO SCH (11:09)
[2024-08-25] MEDS: ASPIRIN 81 MG ECTAB PO SCH (11:09)
[2024-08-25] MEDS: FUROSEMIDE 20 MG TAB PO SCH (11:10)
[2024-08-25] MEDS: lisinopril 5 MG TAB PO SCH (11:10)
[2024-08-25] MEDS ORDERED: Nursing to Pharmacy Communication SCH (12:45)
--- NOTE | 2024-08-25 15:50 | XCELERA ---
[id number]
[2024-08-25] MEDS: OXYBUTYNIN CHLORIDE XL 5 MG TABCR PO SCH (20:06)
--- NOTE | 2024-08-25 23:41 | Hospitalist Progress Note ---
Date of Service August 25, 2024 Assessment & Plan (1) Shortness of breath on exertion: Plan: With chest pain on exertion today concerning for cardiac ischemia. Dobutamine stress echo tomorrow, NPO after midnight, cardiology consult deferred pending results of this Noted history of asthma although she notes no improvement with albuterol use and no current wheezing on exam (although she has noticed wheezing on exertion). If dobutamine stress echo negative could consider evaluation for pulmonary embolism however no current tachycardia, shortness of breath at rest or hypoxia to suggest this On 08/25 symptoms remain present. Cardiac stress test was negative. will obtain CTA chest. (2) Acute heart failure with preserved ejection fraction (HFpEF): Plan: I'm not overly convinced by this diagnosis other than her apparent weight gain of 7kg and recent increased salt intake. Her leg edema is not consistently worse, CXR without significant pulmonary edema, no B lines on POCUS to suggest pulmonary edema and BNP normal. Will hold off further diuretics at this time pending ischemia workup. Plan VTE Prophyalxis - Lovenox 40mg SQ daily Diet - Low Na, heart healthy, NPO after midnight Disposition - admit to med/tele Admission and Anticipated Discharge Date Admission Date: August 24, 2024 Subjective Patient reports over past week she has been short of breath on exertion. She denies smoking. She states she finished course of bactrim prior to coming to the hospital Review of Systems Review of Systems: All systems reviewed & are unremarkable except as noted in HPI & below Physical Exam Constitutional: WD/WN, vitals as above ENMT: external ear and nose normal, oropharynx normal Respiratory: normal respiratory effort, lungs clear to auscultation Cardiovascular: RRR, no murmur, no edema Gastrointestinal (Abdomen): normal bowel sounds, soft, nontender, no hepatosplenomegaly Musculoskeletal: no cyanosis or clubbing, extremities motor strength 5/5 Skin: no rashes, warm and dry Neurologic: moves all extremities and awake; not confused Psychiatric: A+Ox3, euthymic affect Results & Data Results & Data Vital Signs (Past 12 Hours) Vital Signs Temp Pulse Pulse Pulse Resp BP BP 08/25/24 22:03 36.8 C 67 18 145/82 H 08/25/24 21:52 74 08/25/24 19:50 08/25/24 19:50 37.1 C 89 18 130/78 08/25/24 15:30 36.9 C 79 16 144/77 H 08/25/24 14:03 92 H Pulse Ox O2 Del Method 08/25/24 22:03 95 Room Air 08/25/24 21:52 08/25/24 19:50 Room Air 08/25/24 19:50 94 Room Air 08/25/24 15:30 94 Room Air 08/25/24 14:03 PG Care Time/CCT Total # of Minutes Spent Total Time Spent with Patient: Total time spent is greater than 50% in coordination of care (as documented) at patient's floor/unit and/or counseling patient: Coding Level of Care Code 27752 SUB INP/OBS CARE 2/35MIN Diagnoses Shortness of breath on exertion R06.02 Acute heart failure with preserved ejection fraction (HFpEF) I50.31
[2024-08-26] MEDS: OPTIRAY 320 100ml IV ONE (06:26)
[2024-08-26 07:32] LABS: Hematocrit (blood only) 34.9 % (37.0-47.0); Hemoglobin 11.3 g/dl (12.0-16.0); Mean Corpuscular Hemoglobin 29.7 pg (25.0-34.0); Mean Corpuscular Hgb Conc 32.4 g/dL (32.0-36.0); Mean Corpuscular Volume 91.8 fL (80.0-100.0); Mean Platelet Volume 9.6 fL (9.4-12.4); Platelet Count 198 K/uL (130-400); RDW Standard Deviation 46.5 fL (36.4-46.3); White Blood Count 4.06 K/ul (4.8-10.8)
[2024-08-26 07:55] LABS: BUN Creatinine Ratio 20.8 (10-20); Calcium 9.3 mg/dl (8.6-10.3); Creatinine Clr Calc Pharmacy 46.6 ml/min; Potassium 3.9 mmol/L (3.5-5.1)
[2024-08-26] MEDS: FLUTICASONE/VILANTEROL 100/25MCG 14 PUFFS/INHALER INH SCH (17:13)
[2024-08-26 17:29] LABS: Adenovirus PCR Not Detected (NotDetected); Bordetella parapertussis PCR Not Detected (NotDetected); Bordetella pertussis PCR Not Detected (NotDetected); Chlamydia pneumoniae PCR Not Detected (NotDetected); Coronavirus 229E PCR Not Detected (NotDetected); Coronavirus CoV-2 (COVID19)PCR Not Detected (NotDetected); Coronavirus HKU1 PCR Not Detected (NotDetected); Coronavirus NL63 PCR Not Detected (NotDetected); Coronavirus OC43PCR Not Detected (NotDetected); Human Metapneumovirus PCR Not Detected (NotDetected); Influenza A PCR Not Detected (NotDetected); Influenza B PCR Not Detected (NotDetected); Mycoplasma pneumoniae PCR Not Detected (NotDetected); Parainfluenza Virus 1 PCR Not Detected (NotDetected); Parainfluenza Virus 2 PCR Not Detected (NotDetected); Parainfluenza Virus 3 PCR Not Detected (NotDetected); Parainfluenza Virus 4 PCR Not Detected (NotDetected); Respiratory Syncytial VirusPCR Not Detected (NotDetected); Rhinovirus/Enterovirus PCR Not Detected (NotDetected)
--- NOTE | 2024-08-27 10:20 | Hospitalist Progress Note ---
Date of Service August 26, 2024 Assessment & Plan (1) Shortness of breath on exertion: Plan: With chest pain on exertion today concerning for cardiac ischemia. Dobutamine stress echo tomorrow, NPO after midnight, cardiology consult deferred pending results of this Noted history of asthma although she notes no improvement with albuterol use and no current wheezing on exam (although she has noticed wheezing on exertion). If dobutamine stress echo negative could consider evaluation for pulmonary embolism however no current tachycardia, shortness of breath at rest or hypoxia to suggest this On 08/25 symptoms remain present. Cardiac stress test was negative. will obtain CTA chest. On 08/[address] chest read. No lung pathology on my own interpretation. Ambulated halls with patient and patient became hypoxic but tolerated. Ordered biofire and placed on symbicort. will monitor. (2) Acute heart failure with preserved ejection fraction (HFpEF): Plan: I'm not overly convinced by this diagnosis other than her apparent weight gain of 7kg and recent increased salt intake. Her leg edema is not consistently worse, CXR without significant pulmonary edema, no B lines on POCUS to suggest pulmonary edema and BNP normal. Will hold off further diuretics at this time pending ischemia workup. Plan VTE Prophyalxis - Lovenox 40mg SQ daily Diet - Low Na, heart healthy, NPO after midnight Disposition - admit to med/tele Admission and Anticipated Discharge Date Admission Date: August 24, 2024 Subjective Patient reports no new symptoms. Physical Exam Constitutional: WD/WN, vitals as above ENMT: external ear and nose normal, oropharynx normal Respiratory: normal respiratory effort, lungs clear to auscultation Cardiovascular: RRR, no murmur, no edema Gastrointestinal (Abdomen): normal bowel sounds, soft, nontender, no hepatosplenomegaly Musculoskeletal: no cyanosis or clubbing, extremities motor strength 5/5 Skin: no rashes, warm and dry Neurologic: moves all extremities and awake; not confused Psychiatric: A+Ox3, euthymic affect Results & Data Results & Data Vital Signs (Past 12 Hours) Vital Signs Temp Pulse Pulse Pulse Pulse Resp Resp 08/27/24 09:57 91 H 94 H 22 08/27/24 07:49 36.5 C 72 16 08/27/24 07:07 68 08/27/24 02:56 36.4 C L 70 16 08/26/24 23:02 36.9 C 77 16 Resp BP BP Pulse Ox Pulse Ox Pulse Ox O2 Del Method 08/27/24 09:57 18 92 96 08/27/24 07:49 143/78 H 94 Room Air 08/27/24 07:07 08/27/24 02:56 149/83 H 93 Room Air 08/26/24 23:02 171/91 H 96 Room Air PG Care Time/CCT Total # of Minutes Spent Total Time Spent with Patient: Total time spent is greater than 50% in coordination of care (as documented) at patient's floor/unit and/or counseling patient: Coding Level of Care Code 20071 SUB INP/OBS CARE 2/35MIN Diagnoses Shortness of breath on exertion R06.02 Acute heart failure with preserved ejection fraction (HFpEF) I50.31
--- NOTE | 2024-08-27 14:44 | CT Scan Report ---
EXAM: CT Angiography Chest With Intravenous Contrast INDICATION: Shortness of breath. TECHNIQUE: Axial computed tomographic angiography images of the chest with intravenous contrast. Sagittal and coronal reformatted images were created and reviewed. This CT exam was performed using one or more of the following dose reduction techniques: automated exposure control, adjustment of the mA and/or kV according to patient size, and/or use of iterative reconstruction technique. MIP reconstructed images were created and reviewed. CONTRAST: 95ml of Optiray 320 was administered intravenously. COMPARISON: No relevant prior studies available. FINDINGS: Pulmonary arteries: No abnormality noted. No pulmonary embolism. Aorta: There is mild atherosclerosis scattered throughout the aorta. No aneurysm or dissection. Lungs and pleural spaces: Right upper lobe calcified granuloma noted. Minimal scattered parenchymal scarring present. No bronchiectasis, honeycombing or reticulation. No mass. No consolidation. No significant effusion. No pneumothorax. Heart: No abnormality noted. No cardiomegaly. No significant pericardial effusion. No evidence of RV dysfunction. Bones/joints: Right shoulder prosthesis. Artifact limits assessment of surrounding structures. Diffuse degenerative change in the spine with posterior proximal thoracic and thoracolumbar hardware and anterior lower cervical hardware. Soft tissues: No abnormality noted. Lymph nodes: There are few reactive and some minimally calcified precarinal subcentimeter lymph nodes. Kidneys and ureters: Left renal cyst partially imaged. Imaged portion appears benign. IMPRESSION: No pulmonary embolus noted. ACT 112: Negative or not required by law. Electronically signed by Roxana Wilks 08-27-2024 2:44 PM
--- NOTE | 2024-08-27 22:10 | Hospitalist Progress Note ---
Date of Service August 27, 2024 Assessment & Plan (1) Shortness of breath on exertion: Plan: With chest pain on exertion today concerning for cardiac ischemia. Dobutamine stress echo tomorrow, NPO after midnight, cardiology consult deferred pending results of this Noted history of asthma although she notes no improvement with albuterol use and no current wheezing on exam (although she has noticed wheezing on exertion). If dobutamine stress echo negative could consider evaluation for pulmonary embolism however no current tachycardia, shortness of breath at rest or hypoxia to suggest this On 08/25 symptoms remain present. Cardiac stress test was negative. will obtain CTA chest. On 08/[address] chest read. No lung pathology on my own interpretation. Ambulated halls with patient and patient became hypoxic but tolerated. Ordered biofire and placed on symbicort. will monitor. On 08/27 Obtained 2 step, passed. BIOFIRE Negative. continue symbicort. Patient educated on how to use it. will monitor overnight as patient continues to be symptomatic (2) Acute heart failure with preserved ejection fraction (HFpEF): Plan: I'm not overly convinced by this diagnosis other than her apparent weight gain of 7kg and recent increased salt intake. Her leg edema is not consistently worse, CXR without significant pulmonary edema, no B lines on POCUS to suggest pulmonary edema and BNP normal. Will hold off further diuretics at this time pending ischemia workup. Plan VTE Prophyalxis - Lovenox 40mg SQ daily Diet - Low Na, heart healthy, NPO after midnight Disposition - admit to med/tele Admission and Anticipated Discharge Date Admission Date: August 24, 2024 Subjective 79 yo female reports no new symptoms. Continues to feel SOB on exertion, but improved. Review of Systems Review of Systems: All systems reviewed & are unremarkable except as noted in HPI & below Physical Exam Constitutional: WD/WN, vitals as above ENMT: external ear and nose normal, oropharynx normal Respiratory: normal respiratory effort, lungs clear to auscultation Cardiovascular: RRR, no murmur, no edema Gastrointestinal (Abdomen): normal bowel sounds, soft, nontender, no hepatosplenomegaly Musculoskeletal: no cyanosis or clubbing, extremities motor strength 5/5 Skin: no rashes, warm and dry Neurologic: moves all extremities and awake; not confused Psychiatric: A+Ox3, euthymic affect Results & Data Results & Data Vital Signs (Past 12 Hours) Vital Signs Temp Pulse Pulse Resp BP BP Pulse Ox 08/27/24 19:54 36.8 C 95 H 18 145/90 H 94 08/27/24 16:07 36.7 C 90 20 133/81 98 08/27/24 13:48 87 O2 Del Method 08/27/24 19:54 Room Air 08/27/24 16:07 Room Air 08/27/24 13:48 PG Care Time/CCT Total # of Minutes Spent Total Time Spent with Patient: Total time spent is greater than 50% in coordination of care (as documented) at patient's floor/unit and/or counseling patient: Coding Level of Care Code 95346 SUB INP/OBS CARE 2/35MIN Diagnoses Shortness of breath on exertion R06.02 Acute heart failure with preserved ejection fraction (HFpEF) I50.31
[2024-08-28 06:39] LABS: Hematocrit (blood only) 35.7 % (37.0-47.0); Hemoglobin 11.6 g/dl (12.0-16.0); Mean Corpuscular Hemoglobin 29.3 pg (25.0-34.0); Mean Corpuscular Hgb Conc 32.5 g/dL (32.0-36.0); Mean Corpuscular Volume 90.2 fL (80.0-100.0); Mean Platelet Volume 9.6 fL (9.4-12.4); Platelet Count 217 K/uL (130-400); RDW Coefficient of Variation 13.5 % (11.5-14.5); RDW Standard Deviation 44.6 fL (36.4-46.3); Red Blood Count 3.96 M/uL (4.20-5.40); White Blood Count 5.06 K/ul (4.8-10.8)
[2024-08-28 06:59] LABS: BUN Creatinine Ratio 26.1 (10-20); C Reactive Protein 1.07 mg/dl (0-0.5); Calcium 9.6 mg/dl (8.6-10.3); Potassium 3.7 mmol/L (3.5-5.1)
[2024-08-28 08:42] LABS: Basophils # (auto) 0.03 K/uL (0.00-0.20); Basophils % (auto) 0.6 %; Eosinophils # (auto) 0.21 K/uL (0.00-0.50); Eosinophils % (auto) 4.2 %; Immature Granulocytes # (auto) 0.02 K/uL (0.01-0.20); Immature Granulocytes % (auto) 0.4 %; Lymphocytes # (auto) 1.22 K/uL (1.20-3.40); Lymphocytes % (auto) 24.3 %; Monocytes # (auto) 0.52 K/uL (0.11-0.59); Monocytes % (auto) 10.3 %; Neutrophils # (auto) 3.03 K/uL (1.40-6.50); Neutrophils % (auto) 60.2 %
[2024-08-28 11:48] VITALS: RESP 20; TEMP 97.5; O2SAT 92
--- NOTE | 2024-08-28 14:47 | Discharge Summary ---
Discharge Summary Date of Service August 28, 2024 Principal Dx & Hospital Course #1 = Principal Diagnosis (1) Shortness of breath on exertion: With chest pain on exertion today concerning for cardiac ischemia. Dobutamine stress echo tomorrow, NPO after midnight, cardiology consult deferred pending results of this Noted history of asthma although she notes no improvement with albuterol use and no current wheezing on exam (although she has noticed wheezing on exertion). If dobutamine stress echo negative could consider evaluation for pulmonary embolism however no current tachycardia, shortness of breath at rest or hypoxia to suggest this On 08/25 symptoms remain present. Cardiac stress test was negative. will obtain CTA chest. On 08/[address] chest read. No lung pathology on my own interpretation. Negative for pulmonary embolism. Ambulated halls with patient and patient became hypoxic but tolerated. Ordered biofire and placed on symbicort. will monitor. On 08/27 Obtained 2 step, passed. BIOFIRE Negative. continue symbicort. Patient educated on how to use it. will monitor overnight as patient continues to be symptomatic. 08/28 Patient's symptoms improved. This may be due to symbicort. Perhaps this was due to a viral illness. May consider getting a Pulmonary function test as an outpatient to diagnose if patient indeed has COPD. (2) Acute heart failure with preserved ejection fraction (HFpEF): I'm not overly convinced by this diagnosis other than her apparent weight gain of 7kg and recent increased salt intake. Her leg edema is not consistently worse, CXR without significant pulmonary edema, no B lines on POCUS to suggest pulmonary edema and BNP normal. Ischemic workup was negative. Plan Morbid obesity with BMI 41.6 BMI: A significantly high (>40)BMI will impact the severity of illness and risk of mortality of this patient. recommend life style changes Admission HPI Per Admitting Provider Armand Kaminski is an 79 year old female who presents to the ER with shortness of breath on exertion. She notes slowly worsening shortness of breath over the last month but much worse over the last week. Associated 7lb weight gain and excessive salt intake. Although she is not convinced her leg swelling is worse than normal she notices it going up and down with certain salty foods. She denies any shortness of breath at rest. No improvement with her albuterol although she has noticed some wheezing. Today while walking to her PCP appoint ment she had a 5 minute episode of chest pain, substernal which resolved with rest. Reportedly she was hypoxic in the 80s on room air at the appointment but currently on room air in the 90s in the ER. No cough, fever or chills. No one sided leg swelling. No current chest pain or shortness of breath at rest. She was recently treated for a UTI but has now finished her course of Bactrim. No missed doses of Lasix. Discharge Exam Constitutional WD/WN, vitals as above ENMT external ear and nose normal, oropharynx normal Respiratory normal respiratory effort, lungs clear to auscultation Cardiovascular RRR, no murmur, no edema Gastrointestinal (Abdomen) normal bowel sounds, soft, nontender, no hepatosplenomegaly Musculoskeletal no cyanosis or clubbing, extremities motor strength 5/5 Skin no rashes, warm and dry Neurologic moves all extremities and awake; not confused Psychiatric A+Ox3, euthymic affect Discharge Plan Discharge Items Patient Disposition: Home - Self-Care Reason For Visit: ACUTE HEART FAILURE PRESERVED EJECTION FRACTION Discharge Diagnosis: acute heart failure Activity: Resume your previous activity Non-emergency contact: Primary Care Provider Call non-emergency contact if: you have any medication questions Follow-up/Referrals: Cate Ford MD [Primary Care Provider] - 09/04/24 1:00 pm Diet: Carb Consistent or DM2, Heart Healthy and Low Sodium (2gm) Addtl Attending Provider Instructions: Will recommend a followup with PCP in 1-2 weeks. Continue Inhaler, remember to rinse mouth after use. May recommend a pulmonary function test. Pending Studies at Discharge: No Stand-Alone Forms: [facility] [employer], Smoking Cessation Medications and DC Order Prescriptions: New fluticasone furoate-vilanterol [Breo Ellipta] 100-25 mcg/dose Blister With Device 1 inh inhalation DAILY Qty: 1 0RF Continued nystatin-triamcinolone 100,000-0.1 unit/g-% cream 1 applic topical BID Qty: 30 0RF (DME) Manual Wheelchair See Rx Instructions .Route .MEDSUPPLY Qty: 1 0RF Rx Instructions: As directed to aid in mobility and transportation (DME) Hospital Bed See Rx Instructions .Route .MEDSUPPLY Qty: 1 0RF Rx Instructions: As directed to improve comfort, prevent pressure injury, and aid in positioning. Semi-electric. tolterodine 4 mg capsule,extended release 24hr 4 mg PO PM Qty: 90 3RF famotidine 20 mg tablet 20 mg PO QAM Qty: 90 3RF (DME) Shower Chair Misc See Rx Instructions .Route Qty: 1 0RF Rx Instructions: As directed cyclobenzaprine 5 mg Tablet 5 mg PO TID PRN (Reason: muscle spasm) Qty: 20 0RF atorvastatin 20 mg tablet 20 mg PO QPM Qty: 15 3RF propranolol 60 mg tablet 60 mg PO BID 90 Days Qty: 30 2RF aspirin [Adult Aspirin Regimen] 81 mg tablet,delayed release (DR/EC) 81 mg PO DAILY Qty: 15 0RF calcium carbonate [Calcium 600] 600 mg calcium (1,500 mg) tablet 600 mg PO DAILY 90 Days Qty: 15 3RF docusate sodium 100 mg capsule 100 mg PO BID 30 Days Qty: 30 3RF furosemide 20 mg tablet 20 mg PO DAILY Qty: 15 3RF albuterol sulfate 90 mcg/actuation HFA aerosol inhaler 2 puff INH Q6H PRN (Reason: Shortness Of Breath Or Wheezing) Qty: 8.5 5RF duloxetine 60 mg capsule,delayed release(DR/EC) 60 mg PO DAILY Qty: 15 3RF cholecalciferol (vitamin D3) 50 mcg (2,000 unit) tablet 2,000 unit PO QAM 90 Days Qty: 15 4RF kd-tq-nmpx-FA-Ca carb-vit K 18 mg iron-400 mcg-500 mg Tablet 1 tab PO QAM Qty: 15 0RF ascorbic acid (vitamin C) 500 mg capsule 500 mg PO BID Qty: 30 0RF Glucosamine Chondroitin 550-30-1 mg Capsule 1 cap PO QAM Qty: 14 0RF acetaminophen 325 mg tablet 650 mg PO QID Qty: 120 0RF gabapentin 300 mg capsule 300 mg PO TID Qty: 45 5RF lisinopril 5 mg tablet 5 mg PO QAM Discontinued sulfamethoxazole-trimethoprim [Bactrim DS] 800-160 mg tablet 1 tab PO BID 7 Days Qty: 14 0RF No Action polyethylene glycol 3350 [Miralax] 17 gram powder in packet 17 g PO DAILY PRN (Reason: constipation) Qty: 100 0RF Rx Instructions: stop for diarrhea ferrous sulfate 325 mg (65 mg iron) tablet,delayed release (DR/EC) 325 mg PO DAILY Discharge Orders: Discharge Order (Routine); Ordered 08/28/24 Ordered By: Jone Saul/Other Patient Handouts: Managing Type 2 Diabetes Admission Data Admit Date/Time: 08/24/24 18:53 Attending Provider: Jone Waters Admit Provider: Tavares Fernandes Primary Care Provider: Cate Ford Other Providers: Tavares Fernandes Other Interventions: Discharge Summary Assessment (RN) Last Done: 08/28/24 15:51 Hospital Stay Data Consultations 08/24/24 18:04 ED Decision to Admit Stat Diagnostic Imagining Performed 08/26/24 05:30 CT angio chest PE protocol Routine Discharge Instructions Given to Patient (Per Discharging Provider) Will recommend a followup with PCP in 1-2 weeks. Continue Inhaler, remember to rinse mouth after use. May recommend a pulmonary function test. Total Time Total Time Spent Total Time Spent (In Minutes): 32 Coding Level of Care Code 77783 INP/OBS DISCH >30 MIN Diagnoses Shortness of breath on exertion R06.02 Acute heart failure with preserved ejection fraction (HFpEF) I50.31
[2024-08-28 15:52] VITALS: BP 143/71; PULSE 89
--- NOTE | 2024-08-29 12:33 | Coding Query ---
CODING QUERY To promote full compliance with coding requirements relating to patient care, provider participation is requested in all cases of veneer sheet repairer uncertainty. Please assist us with the question(s) below: Coding Question(s): Pt admitted with chest pain and shortness of breath, Dobutamine Stress Echo ordered and now resulted- Please document, if known or suspected, the etiology of patient's symptoms. Thanks for your help! Killian Sanders [facility] Physician's Response(s): Unsure. This may be due to undiagnosed underlying COPD exacerbation. vs viral pneumonitis. Principal Diagnosis: "that condition established after study, to be chiefly responsible for occasioning the admission of the patient to the hospital for care." Co-Existing Principal Diagnosis: "when two or more diagnoses equally meet the criteria for principal diagnosis as determined by the circumstances of admission, diagnostic work up, and/or therapy provided, and the Alphabetic Index, Tabular List, or another coding guideline does not provide sequencing direction, any one of the diagnoses may be sequenced first." "When the physician has documented what appears to be a current diagnosis in the body of the record, but has not included the diagnosis in the final diagnostic statement, the physician should be asked whether the diagnosis should be added." (Source Coding Clinic 2 QTR90. p3-4) [facility]
[2024-08-30 12:28] LABS: Quantiferon Mitogen-NIL 6.98 IU/mL; Quantiferon NIL 0.02 IU/mL; Quantiferon TB Gold Plus POSITIVE (NEGATIVE); Quantiferon TB1-NIL 0.63 IU/mL; Quantiferon TB2-NIL 1.88 IU/mL
== END 2024-08-28 16:44 | disposition home or self-care (01) | DRG 204 ==
LOC: ED 16:13 → 2N 18:53 → SUATTDRO 18:53 → 2N 20:55

== ENCOUNTER 2024-10-10 11:45 | Inpatient (IN) ==
--- NOTE | 2024-10-10 12:01 | Emergency Department Note ---
History of Present Illness General Chief Complaint: Shortness of Breath/Dyspnea Stated Complaint: SOB, EDEMA, HTN Time Seen by Provider: 10/10/24 11:53 History of Present Illness Provider Complaint: shortness of breath Onset (ago): week(s) (2) Severity: similar to previous episodes Consistency/Duration: + progressively worsening Relieved By: + nothing Exacerbated By: + nothing Known history of: COPD and congestive heart failure Associated symptoms: + orthopnea; no chest pain, no fever, no wheezing, no sputum production or no abdominal pain Home Medications Medication Instructions Recorded Confirmed Type Shower Chair #1 ea 03/04/23 09/04/24 Rx nystatin-triamcinolone 100,000 1 applic topical BID #30 grams 02/01/24 09/04/24 Rx unit/g-0.1 % topical cream albuterol sulfate 90 mcg/actuation 2 puff inhalation Q6H PRN 03/21/24 09/04/24 Rx aerosol inhaler Shortness Of Breath Or Wheezing #8.5 grams ascorbic acid (vitamin C) 500 mg 500 mg PO BID #30 caps 03/21/24 09/04/24 Rx capsule aspirin 81 mg tablet,delayed 81 mg PO DAILY #15 tabs 03/21/24 09/04/24 Rx release (Adult Aspirin Regimen) atorvastatin 20 mg tablet 20 mg PO QPM #15 tabs 03/21/24 09/04/24 Rx calcium carbonate (Calcium 600) 600 mg PO DAILY 90 days #15 tabs 03/21/24 09/04/24 Rx cholecalciferol (vitamin D3) 50 2,000 unit PO QAM 90 days #15 tabs 03/21/24 09/04/24 Rx mcg (2,000 unit) tablet cyclobenzaprine 5 mg tablet 5 mg PO TID PRN muscle spasm #20 03/21/24 09/04/24 Rx tabs docusate sodium 100 mg capsule 100 mg PO BID 30 days #30 caps 03/21/24 09/04/24 Rx duloxetine 60 mg capsule,delayed 60 mg PO DAILY #15 caps 03/21/24 09/04/24 Rx release glucosamine sulf dipot 1 cap PO QAM #14 caps 03/21/24 09/04/24 Rx chlr,msm,chond 550 mg-C 30 mg-claritza 1 mg capsule (Glucosamine Chondroitin) kbcasrhu-jyr-fuvu-FA-Ca carb-vit K 1 tab PO QAM #15 tabs 03/21/24 09/04/24 Rx 18 mg iron-400 mcg-500 mg tablet propranolol 60 mg tablet 60 mg PO BID 90 days #30 tabs 03/21/24 09/04/24 Rx Hospital Bed #1 ea 04/11/24 09/04/24 Rx Manual Wheelchair #1 ea 04/11/24 09/04/24 Rx acetaminophen 325 mg tablet 650 mg (2 x 325 mg) PO QID pain 04/18/24 09/04/24 Rx #120 tabs gabapentin 300 mg capsule 300 mg PO TID #45 caps 04/18/24 09/04/24 Rx tolterodine 4 mg capsule,extended 4 mg PO PM #90 caps 05/28/24 09/04/24 Rx release 24 hr famotidine 20 mg tablet 20 mg PO QAM #90 tabs 06/07/24 09/04/24 Rx lisinopril 5 mg tablet 5 mg PO QAM 08/24/24 09/04/24 History fluticasone furoate 100 1 inh inhalation DAILY #1 ea 08/28/24 09/04/24 Rx mcg-vilanterol 25 mcg/dose inhalation powder (Breo Ellipta) ferrous sulfate 325 mg (65 mg 325 mg PO DAILY 08/29/24 09/04/24 History iron) tablet,delayed release polyethylene glycol 3350 17 gram 17 g PO DAILY PRN constipation 08/29/24 09/04/24 Rx oral powder packet (Miralax) #100 ea primidone 50 mg tablet 50 mg PO HS #30 tabs 09/21/24 Rx nitrofurantoin 100 mg PO BID 5 days #10 caps 09/22/24 09/22/24 Rx monohydrate/macrocrystals 100 mg capsule furosemide 40 mg tablet 40 mg PO DAILY #90 tabs 10/10/24 Rx Allergies Allergy/AdvReac Type Severity Reaction Status Date / Time homatropine AdvReac Intermediate HYDROCODONE/HOMATROPINE Verified 08/16/24 11:40 COUGH SYRP-INSOMNIA/NAUSEA hydrocodone AdvReac Intermediate NAUSEA/INSOMINIA-COUGH Verified 08/16/24 11:40 SYRUP Past Med/Surg History Problem List (Updated 10/10/24 @ 15:53 by Joe Marcus MD) Dyspnea (Acute) Chest pain (Acute) Shortness of breath on exertion (Acute) Acute heart failure with preserved ejection fraction (HFpEF) (Acute) Type II diabetes mellitus Depression Acute pain of left hip (Acute) Fall (Acute) Osteoarthritis of right knee Bipartite patella Right leg weakness Chronic back pain (Chronic) Cellulitis (Acute) Ambulatory dysfunction (Chronic) Right leg pain (Acute) Right leg pain Ambulatory dysfunction Intractable back pain (Acute) Urinary tract infection (Acute) Abnormal urinalysis Acute pain of right knee (Chronic) Acute pain of right lower extremity (Acute) Essential tremor Left shoulder pain Cervical stenosis of spinal canal Low back pain Right rotator cuff tear arthropathy Impaired fasting glucose Anxiety (Acute) Urinary incontinence (Acute) Vitamin D deficiency (Acute) Lumbar canal stenosis Gait disturbance Arthralgia of multiple sites Anemia Aortic valve sclerosis Without stenosis per 2018 echo. HTN (hypertension) (Acute) Medical History Dehydration History of COVID-19 12/2021- states was hospitalized at [place]; resolved Hx of small bowel obstruction Obesity Arthritis History of abnormal electrocardiogram Mitral valve prolapse Not noted on 2018 echo Stress incontinence Hyperlipidemia Excessive sweating Asthma states recent increased SOB due to anemia Hyperparathyroidism s/p parathyroidectomy Surgical History Hx of bilateral cataract extraction Hx of cervical spine surgery 01/2023- [place], [facility] - limited rom and unable to lift arms over head H/O parathyroidectomy S/P thyroid surgery parathyroid resection H/O carpal tunnel repair R/L S/P lumbar fusion 2005- Dr. Guerrero and repeat lumbar surgery 05/2009 History of gynecologic surgery anterior colporrhaphy, repair of cystocele and posterior colporrhaphy for pelvic relaxation History of total knee arthroplasty LEFT H/O neck surgery neck exploration with excision of parathyroidadenoma and biopsy of upper parathyroid gland History of total hip replacement RIGHT H/O colonoscopy S/P rotator cuff repair RIGHT S/P vaginal hysterectomy Cervical vertebral fusion 10/2008- Dr. Guerrero H/O arthroscopy of knee LEFT Family History Mother Goiter Father Colon cancer Emphysema of lung Denies family history of Ovarian cancer Prostate cancer Myocardial infarction Breast cancer Social History Smoking Status: Never smoker Second Hand Exposure: No; Do You Dip or Chew Tobacco: No; Hx Alcohol Use: No Hx Substance Use: No Preferred Language: Romansh Communication Ability: Effective Child Caregiver Required: No Beliefs That Will Affect Care: None marital status: / Current Living Situation: Family Current Living Situation Comment: lives with daughter and current occupational status: retired 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, 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 Feels Safe at Home: Yes Safety Concerns Comment: Concerns about falling, concerns about mobility Childhood Exposure to Second-Hand Smoke: Yes Diet: regular Dental Care, Regularly: No Physical Activity Frequency: Does not Exercise Seatbelt Use: always Sunscreen Use: No Assistive Devices: Walker Physical Exam 2 Vital Signs: Vital Signs - 24 hr 10/10/24 11:33 10/10/24 11:33 10/10/24 11:33 Temperature 37.1 C Temperature Source Oral Pulse Rate 92 H Pulse Rate [Apical ] Respiratory Rate 20 Respiratory Effort / Characteristics Labored Spontaneous Labore d Respiratory Depth Normal Normal Respiratory Patter n Regular Blood Pressure 240/131 H Blood Pressure [Ri ght Arm] Blood Pressure Carina n 167 Blood Pressure Carina n [Right Arm] Pulse Oximetry 96 96 Oxygen Delivery Me thod Room Air Room Air Room Air Oxygen Flow Rate 0 Sepsis Recent Feve r Within 48 Hours No Sepsis New/Unexpla ined Change in Men yanira Status N/A Sepsis Action Take n by Nursing No Action Required 10/10/24 11:33 10/10/24 12:23 10/10/24 12:30 Temperature Temperature Source Pulse Rate 70 Pulse Rate [Apical ] Respiratory Rate Respiratory Effort / Characteristics Respiratory Depth Respiratory Patter n Blood Pressure Blood Pressure [Ri ght Arm] 197/104 H Blood Pressure Carina n Blood Pressure Carina n [Right Arm] 135 Pulse Oximetry 96 Oxygen Delivery Me thod Room Air Oxygen Flow Rate 0 Sepsis Recent Feve r Within 48 Hours Sepsis New/Unexpla ined Change in Men yanira Status Sepsis Action Take n by Nursing 10/10/24 13:29 10/10/24 14:53 Temperature Temperature Source Pulse Rate Pulse Rate [Apical ] 69 Respiratory Rate 21 Respiratory Effort / Characteristics Respiratory Depth Respiratory Patter n Blood Pressure Blood Pressure [Ri ght Arm] 150/80 H Blood Pressure Carina n Blood Pressure Carina n [Right Arm] 103 Pulse Oximetry 94 93 Oxygen Delivery Me thod Room Air Oxygen Flow Rate Sepsis Recent Feve r Within 48 Hours Sepsis New/Unexpla ined Change in Men yanira Status Sepsis Action Take n by Nursing Physical Exam: Physical Exam GENERAL: oriented to person, place, and time. appears well-developed and well- nourished. HENT: Exam performed. - Head: Normocephalic and atraumatic. EYES: Conjunctivae and EOM are normal. Right eye exhibits no discharge. Left eye exhibits no discharge. No scleral icterus. NECK: Normal range of motion. Neck supple. No JVD present. CV: Normal rate, regular rhythm, normal heart sounds and intact distal pulses. 1+ pitting edema of the bilateral lower extremities. Palpable radial pulses bue. PULM/CHEST: Inspiratory rales at the bases rhonchi bilaterally. ABD: The abdomen is soft. There is no tenderness. NEURO: Motor and sensation grossly intact. SKIN: Skin is warm and dry. He is not diaphoretic. PSYCH: normal mood and affect. Behavior is normal. Judgment and thought content normal. Course Course 1153: The patient was evaluated in room B11. A complete history and physical exam was performed Cardiac monitoring: An order was placed for continuous cardiac monitoring. The monitor shows a rate of 80 with sinus rhythm interpreted by me 1602: Vital signs stable. Labs and imaging are unremarkable. Patient was offered inpatient observation however after long discussion with myself, the patient, the family members we all decided would be best that the patient be discharged and follow-up outpatient. Family reports that they have a follow-up appointment with her PCP on Wednesday. Family is asking if the patient should be back on Lasix 40 mg daily instead of the current Lasix dose of 20 mg daily. I stated if they wish to try this for the patient's bilateral lower extremity edema they could just follow-up with her PCP for regular scheduled appointment on Wednesday. They stated they thought this would help with the patient. DISCHARGE - Plan of care discussed with patient and questions answered. The patient was given both verbal and printed discharge instructions. The patient verbalized understanding and ability to comply. The patient is to seek outpatient follow up as noted in the discharge instructions. The patient verbalized understanding and ability to comply. The patient is discharged in stable condition. The patient was instructed to return for worsening symptoms. Administered Medications Nitroglycerin (Nitroglycerin Sl 0.4 Mg/Tab Tab) 0.4 mg SL Q5M PRN PRN Reason: Chest Pain Stop: 11/09/24 11:56 Last Admin: 10/10/24 12:22 Dose: 0.4 mg Documented By: AM Discontinued Medications Aspirin (Aspirin Chew 324 Mg) 324 mg PO NOW STA Stop: 10/10/24 11:58 Last Admin: 10/10/24 12:22 Dose: 324 mg Documented By: AM Ioversol (Optiray 320 125ml) 116 ml IV ONCE ONE Stop: 10/10/24 14:56 Last Admin: 10/10/24 14:55 Dose: 116 ml Documented By: NELIDA Medical Decision Making Laboratory Data Attestation: I reviewed the patient's lab results. 10/10/24 12:04 10/10/24 12:04 Lab Results 10/10/24 Range/Units 12:04 WBC 5.23 (4.8-10.8) K/ul RBC 4.45 (4.20-5.40) M/uL Hgb 13.1 (12.0-16.0) g/dl Hct 39.5 (37.0-47.0) % MCV 88.8 (80.0-100.0) fL MCH 29.4 (25.0-34.0) pg MCHC 33.2 (32.0-36.0) g/dL RDW Std Deviation 44.8 (36.4-46.3) fL RDW Coeff of Jh 14.0 (11.5-14.5) % Plt Count 223 (130-400) K/uL MPV 9.9 (9.4-12.4) fL Immature Gran % (Auto) 0.4 % Neut % (Auto) 66.7 % Lymph % (Auto) 20.7 % Sumner % (Auto) 7.6 % Eos % (Auto) 3.8 % Baso % (Auto) 0.8 % Neut # (Auto) 3.49 (1.40-6.50) K/uL Lymph # (Auto) 1.08 L (1.20-3.40) K/uL Sumner # (Auto) 0.40 (0.11-0.59) K/uL Eos # (Auto) 0.20 (0.00-0.50) K/uL Baso # (Auto) 0.04 (0.00-0.20) K/uL Immature Gran # (Auto) 0.02 (0.01-0.20) K/uL PT 10.9 (9.0-12.0) Seconds INR 1.0 (0.9-1.1) APTT 25 (21-31) Seconds PTT Ratio 0.9 VBG pH 7.46 H (7.36-7.41) VBG pCO2 49 (38-50) mmHg VBG pO2 52 mmHg VBG HCO3 35 mmol/L VBG O2 Saturation 85.6 % VBG Base Excess 9.5 mEq/L Sodium 141 (136-145) mmol/L Potassium 3.9 (3.5-5.1) mmol/L Chloride 100 (98-107) mmol/L Carbon Dioxide 33 H (21-32) mmol/L Anion Gap 8 (3-11) BUN 20 (6-23) mg/dl Creatinine 0.91 (0.6-1.2) mg/dl Est Cr Clr Drug Dosing 63.0 ml/min eGFR 63.78 BUN/Creatinine Ratio 22.0 H (10-20) Glucose 123 H (70-99(Fasting)) mg/dl Calcium 10.7 H (8.6-10.3) mg/dl Troponin I High Sens 6.0 (0-14) pg/ml B-Natriuretic Peptide 103 H (0-100) pg/ml Lipase 14 (11-82) U/L Adenovirus (PCR) Not Detected (NotDetected) B. pertussis DNA (PCR) Not Detected (NotDetected) B.parapertussis DNA PCR Not Detected (NotDetected) C. pneumoniae DNA (PCR) Not Detected (NotDetected) Coronavirus OC43 (PCR) Not Detected (NotDetected) Coronavirus HKU1 (PCR) Not Detected (NotDetected) Coronavirus 229E (PCR) Not Detected (NotDetected) SARS-CoV-2 (PCR) Not Detected (NotDetected) Coronavirus NL63 (PCR) Not Detected (NotDetected) Human Metapneumovir PCR Not Detected (NotDetected) Influenza Type A (PCR) Not Detected (NotDetected) Influenza Type B (PCR) Not Detected (NotDetected) M. pneumoniae (PCR) Not Detected (NotDetected) Parainfluenza 1 (PCR) Not Detected (NotDetected) Parainfluenza 2 (PCR) Not Detected (NotDetected) Parainfluenza 3 (PCR) Not Detected (NotDetected) Parainfluenza 4 (PCR) Not Detected (NotDetected) RSV (PCR) Not Detected (NotDetected) Entero/Rhino (PCR) Not Detected (NotDetected) Imaging Data Attestation: I personally reviewed and interpreted this imaging study as follows: My Impression: Chest x-ray negative. Airway clear. No pneumothorax. No consolidation. No cardiomegaly or cephalization.. No free air under the diaphragm. No fractures of the skeletal structures. Radiologist's Impression: Chest X-Ray 10/10/24 11:58 XR chest 1V portable CLINICAL HISTORY: Chest pain, nonspecific TECHNIQUE: Single frontal radiograph of the chest was obtained. Comparison: Comparison is made to chest radiograph 08/24/2024 FINDINGS: Cervical and lumbosacral fixation hardware and right reverse shoulder arthroplasty. The cardiomediastinal silhouette is normal. The lungs are clear. No evidence of pleural effusion or pneumothorax. IMPRESSION: No acute chest disease. ACT 112: Negative or not required by law. Electronically signed by: Jair Kwon M.D. 10/10/2024 12:25 PM Chest CTA 10/10/24 13:24 CT angio chest PE protocol CLINICAL HISTORY: ro PE TECHNIQUE: Multidetector row helical CT of the chest was performed with angiographic protocol. Coronal and sagittal reformations were obtained. Coronal and sagittal MIPS were obtained from the axial data set and were submitted for review. Automated dose lowering techniques and/or adjustment according to patient size were utilized for this exam. CT DOSE: 2015.2 mGy.cm Comparison: Comparison is made to CT chest 08/26/2024 FINDINGS: Lungs and pleura: Atelectasis versus scarring is seen in the dependent portions of the lungs. Heart and pericardium: Cardiomegaly is seen with biatrial enlargement. Vessels: No evidence of pulmonary embolism. Mediastinum and graham: Subcentimeter lymph nodes are seen. Chest wall and lower neck: Unremarkable. Abdomen: A left renal cyst is seen. Bones: Degenerative changes in the thoracic spine. Spinal fixation hardware is seen in the cervicothoracic spine as well as the thoracolumbar spine. IMPRESSION: No acute abnormality and in particular no evidence of pulmonary embolus. ACT 112: Negative or not required by law. Electronically signed by: Jair Kwon M.D. 10/10/2024 3:14 PM ECG Data Attestation: I personally reviewed and interpreted this ECG as follows: Interpretation: Sinus arrhythmia with a rate of 79. MO 218 QRS [address] elevation or ST depression. [facility] Narrative 1153: The patient was evaluated in room B11. A complete history and physical exam was performed Cardiac monitoring: An order was placed for continuous cardiac monitoring. The monitor shows a rate of 80 with sinus rhythm interpreted by me 1602: Vital signs stable. Labs and imaging are unremarkable. Patient was offered inpatient observation however after long discussion with myself, the patient, the family members we all decided would be best that the patient be discharged and follow-up outpatient. Family reports that they have a follow-up appointment with her PCP on Wednesday. Family is asking if the patient should be back on Lasix 40 mg daily instead of the current Lasix dose of 20 mg daily. I stated if they wish to try this for the patient's bilateral lower extremity edema they could just follow-up with her PCP for regular scheduled appointment on Wednesday. They stated they thought this would help with the patient. DISCHARGE - Plan of care discussed with patient and questions answered. The patient was given both verbal and printed discharge instructions. The patient verbalized understanding and ability to comply. The patient is to seek outpatient follow up as noted in the discharge instructions. The patient verbalized understanding and ability to comply. The patient is discharged in stable condition. The patient was instructed to return for worsening symptoms. Impression & Plan Dyspnea, HTN (hypertension) Discharge Plan Visit Data Chief Complaint: Shortness of Breath/Dyspnea Stated Complaint: SOB, EDEMA, HTN ED Provider: Joe Marcus Discharge Problem: Dyspnea, HTN (hypertension) Patient Disposition: Home - Self-Care Discharge Instructions Dorys/Other Patient Handouts: ED Shortness of Breath (Dyspnea), ED Leg Swelling in Both Legs, ED Hypertension, Established Activity Restrictions/Additional Instructions: Follow-up for your regular scheduled appointment with your PCP on Wednesday. Forms Stand Alone Forms: My [facility], Important Visit Information Prescriptions Prescriptions: No Action nystatin-triamcinolone 100,000-0.1 unit/g-% cream 1 applic topical BID Qty: 30 0RF (DME) Manual Wheelchair See Rx Instructions .Route .MEDSUPPLY Qty: 1 0RF Rx Instructions: As directed to aid in mobility and transportation (DME) Hospital Bed See Rx Instructions .Route .MEDSUPPLY Qty: 1 0RF Rx Instructions: As directed to improve comfort, prevent pressure injury, and aid in positioning. Semi-electric. tolterodine 4 mg capsule,extended release 24hr 4 mg PO PM Qty: 90 3RF famotidine 20 mg tablet 20 mg PO QAM Qty: 90 3RF primidone 50 mg tablet 50 mg PO HS Qty: 30 2RF furosemide 40 mg tablet 40 mg PO DAILY Qty: 90 3RF (DME) Shower Chair Misc See Rx Instructions .Route Qty: 1 0RF Rx Instructions: As directed polyethylene glycol 3350 [Miralax] 17 gram powder in packet 17 g PO DAILY PRN (Reason: constipation) Qty: 100 0RF Rx Instructions: stop for diarrhea ferrous sulfate 325 mg (65 mg iron) tablet,delayed release (DR/EC) 325 mg PO DAILY nitrofurantoin monohyd/m-cryst 100 mg capsule 100 mg PO BID 5 Days Qty: 10 0RF Rx Instructions: must administer with a meal/food cyclobenzaprine 5 mg Tablet 5 mg PO TID PRN (Reason: muscle spasm) Qty: 20 0RF atorvastatin 20 mg tablet 20 mg PO QPM Qty: 15 3RF propranolol 60 mg tablet 60 mg PO BID 90 Days Qty: 30 2RF aspirin [Adult Aspirin Regimen] 81 mg tablet,delayed release (DR/EC) 81 mg PO DAILY Qty: 15 0RF calcium carbonate [Calcium 600] 600 mg calcium (1,500 mg) tablet 600 mg PO DAILY 90 Days Qty: 15 3RF docusate sodium 100 mg capsule 100 mg PO BID 30 Days Qty: 30 3RF albuterol sulfate 90 mcg/actuation HFA aerosol inhaler 2 puff INH Q6H PRN (Reason: Shortness Of Breath Or Wheezing) Qty: 8.5 5RF duloxetine 60 mg capsule,delayed release(DR/EC) 60 mg PO DAILY Qty: 15 3RF cholecalciferol (vitamin D3) 50 mcg (2,000 unit) tablet 2,000 unit PO QAM 90 Days Qty: 15 4RF uh-ib-etjb-FA-Ca carb-vit K 18 mg iron-400 mcg-500 mg Tablet 1 tab PO QAM Qty: 15 0RF ascorbic acid (vitamin C) 500 mg capsule 500 mg PO BID Qty: 30 0RF Glucosamine Chondroitin 550-30-1 mg Capsule 1 cap PO QAM Qty: 14 0RF acetaminophen 325 mg tablet 650 mg PO QID Qty: 120 0RF gabapentin 300 mg capsule 300 mg PO TID Qty: 45 5RF lisinopril 5 mg tablet 5 mg PO QAM fluticasone furoate-vilanterol [Breo Ellipta] 100-25 mcg/dose Blister With Device 1 inh inhalation DAILY Qty: 1 0RF Referrals Referrals: Cate Ford MD [Primary Care Provider] -
[2024-10-10] MEDS: ASPIRIN CHEW 324 MG PO STA (12:22)
[2024-10-10] MEDS: NITROGLYCERIN SL 0.4 MG/TAB TAB SL PRN (12:22)
[2024-10-10 12:23] LABS: Base Excess VBG 9.5 mEq/L; HCO3 VBG 35 mmol/L; Oxygen Saturation VBG 85.6 %; PCO2 VBG 49 mmHg (38-50); PO2 VBG 52 mmHg; pH VBG 7.46 (7.36-7.41)
--- NOTE | 2024-10-10 12:26 | XRay Report ---
XR chest 1V portable CLINICAL HISTORY: Chest pain, nonspecific TECHNIQUE: Single frontal radiograph of the chest was obtained. Comparison: Comparison is made to chest radiograph 08/24/2024 FINDINGS: Cervical and lumbosacral fixation hardware and right reverse shoulder arthroplasty. The cardiomediast inal silhouette is normal. The lungs are clear. No evidence of pleural effusion or pneumothorax. IMPRESSION: No acute chest disease. ACT 112: Negative or not required by law. Electronically signed by: Jair Kwon M.D. 10/10/2024 12:25 PM
[2024-10-10 12:57] LABS: Basophils # (auto) 0.04 K/uL (0.00-0.20); Basophils % (auto) 0.8 %; Eosinophils % (auto) 3.8 %; Hematocrit (blood only) 39.5 % (37.0-47.0); Hemoglobin 13.1 g/dl (12.0-16.0); Immature Granulocytes # (auto) 0.02 K/uL (0.01-0.20); Immature Granulocytes % (auto) 0.4 %; Lymphocytes # (auto) 1.08 K/uL (1.20-3.40); Lymphocytes % (auto) 20.7 %; Mean Corpuscular Hemoglobin 29.4 pg (25.0-34.0); Mean Corpuscular Hgb Conc 33.2 g/dL (32.0-36.0); Mean Corpuscular Volume 88.8 fL (80.0-100.0); Mean Platelet Volume 9.9 fL (9.4-12.4); Monocytes % (auto) 7.6 %; Neutrophils # (auto) 3.49 K/uL (1.40-6.50); Neutrophils % (auto) 66.7 %; Platelet Count 223 K/uL (130-400); RDW Standard Deviation 44.8 fL (36.4-46.3); Red Blood Count 4.45 M/uL (4.20-5.40); White Blood Count 5.23 K/ul (4.8-10.8)
[2024-10-10 13:19] LABS: Partial Thromboplastin Ratio 0.9; Partial Thromboplastin Time 25 Seconds (21-31); Prothrombin Time 10.9 Seconds (9.0-12.0)
[2024-10-10 13:39] LABS: Calcium 10.7 mg/dl (8.6-10.3); Potassium 3.9 mmol/L (3.5-5.1)
[2024-10-10 14:20] LABS: Adenovirus PCR Not Detected (NotDetected); Bordetella parapertussis PCR Not Detected (NotDetected); Bordetella pertussis PCR Not Detected (NotDetected); Chlamydia pneumoniae PCR Not Detected (NotDetected); Coronavirus 229E PCR Not Detected (NotDetected); Coronavirus CoV-2 (COVID19)PCR Not Detected (NotDetected); Coronavirus HKU1 PCR Not Detected (NotDetected); Coronavirus NL63 PCR Not Detected (NotDetected); Coronavirus OC43PCR Not Detected (NotDetected); Human Metapneumovirus PCR Not Detected (NotDetected); Influenza A PCR Not Detected (NotDetected); Influenza B PCR Not Detected (NotDetected); Mycoplasma pneumoniae PCR Not Detected (NotDetected); Parainfluenza Virus 1 PCR Not Detected (NotDetected); Parainfluenza Virus 2 PCR Not Detected (NotDetected); Parainfluenza Virus 3 PCR Not Detected (NotDetected); Parainfluenza Virus 4 PCR Not Detected (NotDetected); Respiratory Syncytial VirusPCR Not Detected (NotDetected); Rhinovirus/Enterovirus PCR Not Detected (NotDetected)
[2024-10-10] MEDS: OPTIRAY 320 125ml IV ONE (14:55)
--- NOTE | 2024-10-10 15:16 | CT Scan Report ---
CT angio chest PE protocol CLINICAL HISTORY: ro PE TECHNIQUE: Multidetector row helical CT of the chest was performed with angiographic protocol. Celaya l and sagittal reformations were obtained. Coronal and sagittal MIPS were obtained from the axial sheldon a set and were submitted for review. Automated dose lowering techniques and/or adjustment according to patient size were utilized for this exam. CT DOSE: 2015.2 mGy.cm Comparison: Comparison is made to CT chest 08/26/2024 FINDINGS: Lungs and pleura: Atelectasis versus scarring is seen in the dependent portions of the lungs. Heart and pericardium: Cardiomegaly is seen with biatrial enlargement. Vessels: No evidence of pulmonary embolism. Mediastinum and graham: Subcentimeter lymph nodes are seen. Chest wall and lower neck: Unremarkable. Abdomen: A left renal cyst is seen. Bones: Degenerative changes in the thoracic spine. Spinal fixation hardware is seen in the cervicotho racic spine as well as the thoracolumbar spine. IMPRESSION: No acute abnormality and in particular no evidence of pulmonary embolus. ACT 112: Negative or not required by law. Electronically signed by: Jair Kwon M.D. 10/10/2024 3:14 PM
[2024-10-10] MEDS: NITROGLYCERIN SL 0.4 MG/TAB TAB SL STA (16:42)
--- NOTE | 2024-10-10 16:56 | History & Physical Report ---
Date of Service October 10, 2024 Assessment & Plan (1) Shortness of breath on exertion: Plan: Patient presented on 10/10 for worsening GARCIA x 1 month, with an acute exacerbation over the past couple days No leukocytosis; afebrile; nonhypoxic Chest CTA on arrival without evidence of PE BioFire negative BNP mildly elevated at 103 Patient does report wheezing with exertion Additionally, she reports Symbicort helped during her last admission; denies h/o COPD or asthma Does not follow with pulmonology, and reports no recent PFTs DuoNeb 3 mL Q6R as needed for wheezing (2) Acute heart failure with preserved ejection fraction (HFpEF): Plan: Patient reports 6 pound weight gain and worsening GARCIA x 1 week prior to arrival Dobutamine stress echo on 08/25/2024 negative for myocardial ischemia Resting echo with moderate LVH and grade 1 diastolic dysfunction; LVEF 65-70% Unclear on admission how much acute heart failure is contributing LEs are mildly edematous with +1 pitting edema Lasix from 20 mg p.o. daily --> 20 mg IV daily Daily weights Strict I&O monitoring 1800 mL fluid restriction (3) HTN (hypertension): Plan: BP 240/131 on arrival Improved to 150/80 after receiving nitro in the ED Continue home antihypertensives (4) Ambulatory dysfunction: Plan: PT/OT evaluations appreciated Fall precautions Plan Disposition: Observationadmit to [facility] telemetry DNR/DNI Heart healthy, low-sodium diet (1800 mL fluid restriction) VTE PPx: Teds; lovenox 40mg SQ q24h History of Present Illness Chief Complaint: SOB/Dyspnea Primary Care Provider: Cate Ford MD Armand is an 79yo female with PMH of HTN, ambulatory dysfunction, T2DM, HFpEF, aortic valve sclerosis, and urinary incontinence. She presented via EMS on 10/10 for worsening SOB with exertion. This has been an ongoing issue since her last hospitalization in August 2024, however patient's son (Ari) at bedside reports that there has been an acute exacerbation over the last 3 to 4 days. Over these past few days, she has noticed increased fluid buildup in her legs, L as well as worsening GARCIA. She reports she can barely get up and walk a few steps to the bathroom without feeling exhausted. While she does not endorse orthopnea, she rarely lies flat on her back. Additionally, she reports that she has been wheezing when she walks. No supplemental oxygen at baseline or CPAP at night. No sick contacts. She denies cough or fever. Patient took her regular morning medicine today; no recent change in medicine. She reports good compliance with taking her Lasix 20 mg daily. She reports her Lasix was decreased earlier in the year (January) down from 40 mg. Patient manages her own medicine at home. She denies any recent change in diet, and reports that she does watch her salt intake. However, she has been eating fewer meals per day, and does note that there is been increased weight gain despite this (she reports increased from 207lb --> 213lb over the past several days). Patient is still producing urine. She denies smoking, tobacco use, recent alcohol use. She denies history of COPD or asthma, and reports that she does not follow with a tin cutter. She does report that the Symbicort given during her last admission helped. 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 Patient was hypertensive at 240/131 on arrival; her BP is down to 150/80 at time of admission. Vitals otherwise stable. ED course: Nitroglycerin 0.4 mg SL x 2 Aspirin 324 mg p.o. ROS: Patient endorses worsening GARCIA, wheezing, facial flushing, and lower extremity swelling. Patient denies fever, chills, night-sweats, dizziness, lightheadedness, WALSH, chest pain, chest pressure, chest palpitations, SOB at rest, cough, pleuritic CP, abdominal pain, N/V/D, change in urinary habits, burning with urination, or blood in the urine/stool. Allergies Allergy/AdvReac Type Severity Reaction Status Date / Time homatropine AdvReac Intermediate HYDROCODONE/HOMATROPINE Verified 10/10/24 18:13 COUGH SYRP-INSOMNIA/NAUSEA hydrocodone AdvReac Intermediate NAUSEA/INSOMINIA-COUGH Verified 10/10/24 18:13 SYRUP Home Medications Medication Instructions Recorded Confirmed Type Shower Chair #1 ea 03/04/23 09/04/24 Rx albuterol sulfate 90 mcg/actuation 2 puff inhalation Q6H PRN 03/21/24 10/10/24 Rx aerosol inhaler Shortness Of Breath Or Wheezing #8.5 grams ascorbic acid (vitamin C) 500 mg 500 mg PO BID #30 caps 03/21/24 10/10/24 Rx capsule aspirin 81 mg tablet,delayed 81 mg PO DAILY #15 tabs 03/21/24 10/10/24 Rx release (Adult Aspirin Regimen) atorvastatin 20 mg tablet 20 mg PO QPM #15 tabs 03/21/24 10/10/24 Rx calcium carbonate (Calcium 600) 600 mg PO DAILY 90 days #15 tabs 03/21/24 10/10/24 Rx cholecalciferol (vitamin D3) 50 2,000 unit PO QAM 90 days #15 tabs 03/21/24 10/10/24 Rx mcg (2,000 unit) tablet docusate sodium 100 mg capsule 100 mg PO BID 30 days #30 caps 03/21/24 10/10/24 Rx duloxetine 60 mg capsule,delayed 60 mg PO DAILY #15 caps 03/21/24 10/10/24 Rx release bznqdcjo-ptm-wqop-FA-Ca carb-vit K 1 tab PO QAM #15 tabs 03/21/24 10/10/24 Rx 18 mg iron-400 mcg-500 mg tablet propranolol 60 mg tablet 60 mg PO BID 90 days #30 tabs 03/21/24 10/10/24 Rx Hospital Bed #1 ea 04/11/24 09/04/24 Rx Manual Wheelchair #1 ea 04/11/24 09/04/24 Rx acetaminophen 325 mg tablet 650 mg (2 x 325 mg) PO QID pain 04/18/24 10/10/24 Rx #120 tabs gabapentin 300 mg capsule 300 mg PO TID #45 caps 04/18/24 10/10/24 Rx tolterodine 4 mg capsule,extended 4 mg PO PM #90 caps 05/28/24 10/10/24 Rx release 24 hr lisinopril 5 mg tablet 5 mg PO QAM 08/24/24 10/10/24 History ferrous sulfate 325 mg (65 mg 325 mg PO DAILY 08/29/24 10/10/24 History iron) tablet,delayed release polyethylene glycol 3350 17 gram 17 g PO DAILY PRN constipation 08/29/24 10/10/24 Rx oral powder packet (Miralax) #100 ea famotidine 20 mg tablet 20 mg PO BID 10/10/24 10/10/24 History glucosamine sulf dipot 2 cap PO QAM 10/10/24 10/10/24 History chlr,msm,chond 550 mg-C 30 mg-claritza 1 mg capsule (Glucosamine Chondroitin) Past Med/Surg History Problem List (Updated 10/10/24 @ 15:53 by Joe Marcus MD) Dyspnea (Acute) Chest pain (Acute) Shortness of breath on exertion (Acute) Acute heart failure with preserved ejection fraction (HFpEF) (Acute) Type II diabetes mellitus Depression Acute pain of left hip (Acute) Fall (Acute) Osteoarthritis of right knee Bipartite patella Right leg weakness Chronic back pain (Chronic) Cellulitis (Acute) Ambulatory dysfunction (Chronic) Right leg pain (Acute) Right leg pain Ambulatory dysfunction Intractable back pain (Acute) Urinary tract infection (Acute) Abnormal urinalysis Acute pain of right knee (Chronic) Acute pain of right lower extremity (Acute) Essential tremor Left shoulder pain Cervical stenosis of spinal canal Low back pain Right rotator cuff tear arthropathy Impaired fasting glucose Anxiety (Acute) Urinary incontinence (Acute) Vitamin D deficiency (Acute) Lumbar canal stenosis Gait disturbance Arthralgia of multiple sites Anemia Aortic valve sclerosis Without stenosis per 2018 echo. HTN (hypertension) (Acute) Medical History Dehydration History of COVID-19 12/2021- states was hospitalized at [facility]; resolved Hx of small bowel obstruction Obesity Arthritis History of abnormal electrocardiogram Mitral valve prolapse Not noted on 2018 echo Stress incontinence Hyperlipidemia Excessive sweating Asthma states recent increased SOB due to anemia Hyperparathyroidism s/p parathyroidectomy Surgical History Hx of bilateral cataract extraction Hx of cervical spine surgery 01/2023- PSH, [facility] - limited rom and unable to lift arms over head H/O parathyroidectomy S/P thyroid surgery parathyroid resection H/O carpal tunnel repair R/L S/P lumbar fusion 2005- Dr. Guerrero and repeat lumbar surgery 05/2009 History of gynecologic surgery anterior colporrhaphy, repair of cystocele and posterior colporrhaphy for pelvic relaxation History of total knee arthroplasty LEFT H/O neck surgery neck exploration with excision of parathyroidadenoma and biopsy of upper parathyroid gland History of total hip replacement RIGHT H/O colonoscopy S/P rotator cuff repair RIGHT S/P vaginal hysterectomy Cervical vertebral fusion 10/2008- Dr. 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 Required: No Beliefs That Will Affect Care: None marital status: / Current Living Situation: Family Current Living Situation Comment: daughter Erendira current occupational status: retired 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, 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 Feels Safe at Home: Yes Safety Concerns Comment: Concerns about falling, concerns about mobility Childhood Exposure to Second-Hand Smoke: Yes Diet: regular Dental Care, Regularly: No Physical Activity Frequency: Does not Exercise Seatbelt Use: always Sunscreen Use: No Assistive Devices: Denture - Upper, Denture - Lower and Glasses Review of Systems Review of Systems: See HPI above Physical Exam Physical Exam: General: no acute distress; non-toxic appearing; well-nourished; cooperative; SpO2 98% on RA HEENT: normocephalic, atraumatic; no scleral icterus; PERRLA; vision and hearing grossly intact Neck: supple; negative JVP; no lymphadenopathy; trachea midline Skin: warm, dry without signs of tenting; no cyanosis; no rashes, bruising, le sions, or erythema noted RUE: Swelling noted in the right forearm; weeping at site of contrast injection; no pus worsening or sanguinous drainage appreciated CV: chest wall NTP; RRR; S1/S2 normal; no murmurs/rubs/gallops; pulses intact and symmetric at radial, DP, and PT Lungs: no acute respiratory distress; symmetrical chest wall expansion; clear breath sounds across all lung bergeron w/o adventitious sounds; no wheezing ABD: Soft, NTP; BS present; no rebound/guarding; no distention MSK: no tics or fasciculations; +1 pitting edema noted in the LEs b/l, nonerythematous Neuro: A&Ox3; normal mood and affect; fluent speech; no focal deficits; patient reports sensation is intact and symmetric in lower extremities bilaterally Results & Data Results & Data Vital Signs (Past 12 Hours) Vital Signs Temp Pulse Pulse Resp BP BP Pulse Ox 10/10/24 14:53 69 21 150/80 H 93 10/10/24 13:29 94 10/10/24 12:30 70 10/10/24 12:23 197/104 H 10/10/24 11:33 96 10/10/24 11:33 10/10/24 11:33 96 10/10/24 11:33 37.1 C 92 H 20 240/131 H 96 O2 Del Method O2 Flow Rate 10/10/24 14:53 Room Air 10/10/24 13:29 10/10/24 12:30 10/10/24 12:23 10/10/24 11:33 Room Air 0 10/10/24 11:33 Room Air 10/10/24 11:33 Room Air 0 10/10/24 11:33 Room Air Laboratory Results Abnormal lab results 10/10/24 Range/Units 12:04 Lymph # (Auto) 1.08 L (1.20-3.40) K/uL VBG pH 7.46 H (7.36-7.41) Carbon Dioxide 33 H (21-32) mmol/L BUN/Creatinine Ratio 22.0 H (10-20) Glucose 123 H (70-99(Fasting)) mg/dl Calcium 10.7 H (8.6-10.3) mg/dl B-Natriuretic Peptide 103 H (0-100) pg/ml Diagnostic Findings Chest X-Ray 10/10/24 11:58 XR chest 1V portable CLINICAL HISTORY: Chest pain, nonspecific TECHNIQUE: Single frontal radiograph of the chest was obtained. Comparison: Comparison is made to chest radiograph 08/24/2024 FINDINGS: Cervical and lumbosacral fixation hardware and right reverse shoulder arthroplasty. The cardiomediastinal silhouette is normal. The lungs are clear. No evidence of pleural effusion or pneumothorax. IMPRESSION: No acute chest disease. ACT 112: Negative or not required by law. Electronically signed by: Jair Kwon M.D. 10/10/2024 12:25 PM Chest CTA 10/10/24 13:24 CT angio chest PE protocol CLINICAL HISTORY: ro PE TECHNIQUE: Multidetector row helical CT of the chest was performed with angiogr aphic protocol. Coronal and sagittal reformations were obtained. Coronal and sagittal MIPS were obtained from the axial data set and were submitted for review. Automated dose lowering techniques and/or adjustment according to patient size were utilized for this exam. CT DOSE: 2015.2 mGy.cm Comparison: Comparison is made to CT chest 08/26/2024 FINDINGS: Lungs and pleura: Atelectasis versus scarring is seen in the dependent portions of the lungs. Heart and pericardium: Cardiomegaly is seen with biatrial enlargement. Vessels: No evidence of pulmonary embolism. Mediastinum and graham: Subcentimeter lymph nodes are seen. Chest wall and lower neck: Unremarkable. Abdomen: A left renal cyst is seen. Bones: Degenerative changes in the thoracic spine. Spinal fixation hardware is seen in the cervicothoracic spine as well as the thoracolumbar spine. IMPRESSION: No acute abnormality and in particular no evidence of pulmonary embolus. ACT 112: Negative or not required by law. Electronically signed by: Jair Kwon M.D. 10/10/2024 3:14 PM ECG Additional Comments: ECG revealed sinus rhythm with first-degree AV block at 79 bpm; QTc 433 Code Status & VTE Plan Code Status DNR/DNI VTE Prophylaxis Plan VTE Prophylaxis will be ordered: Yes Supervising Physician Co-Signing Physician Notes Attending addendum: I have physically seen this patient, have supervised the ALEJANDRA's medical activities, and agree with the H&P unless as otherwise noted. Assessment and Plan: Dyspnea on exertion- Ongoing symptoms for the past month, worsening over the past couple days CT angiography PE protocol negative for PE Respiratory BioFire test negative DuoNebs every 6 hours as needed Acute on chronic HFpEF/hypertension- The patient will be admitted to telemetry for serial cardiac enzymes, serial EKG's, cardiac rhythm monitoring 6 pound weight gain over the past week Dobutamine stress echo on 08/25/2024 negative for ischemia, does note baseline ejection fraction 65-70% Typically on Lasix 20 mg p.o. daily Give Lasix 20 mg IV daily with first dose tonight Fluid restrict to 1800 cc Continue aspirin, lisinopril, propranolol Continue Nitropaste 1 inch to chest wall every 6 hours Follow serial CBC with differential, renal function panel, magnesium and troponin levels Ambulatory dysfunction- Consult PT/OT Remaining orders and notations as noted PG Care Time/CCT Total # of Minutes Spent Total Time Spent with Patient: Total time spent is greater than 50% in coordination of care (as documented) at patient's floor/unit and/or counseling patient: Coding [place] [address] INT INP/OBS CARE 3/75MIN Patient Type Established Medical Decision Making High Complexity Diagnoses Shortness of breath on exertion R06.02 Acute heart failure with preserved ejection fraction (HFpEF) I50.31 HTN (hypertension) I10 Ambulatory dysfunction R26.2
[2024-10-10] MEDS ORDERED: ALBUTEROL HFA 8 GM INHALER INH PRN (19:21)
[2024-10-10] MEDS ORDERED: POLYETHYLENE (MIRALAX) 17 GM PACK PO PRN (19:21)
[2024-10-10] MEDS ORDERED: ALBUT/IPRATROP 3MG/0.5MG NEB 3 ML VIAL NEB PRN (19:21)
[2024-10-10] MEDS: FAMOTIDINE 20 MG TAB PO SCH (22:53)
[2024-10-10] MEDS: GABAPENTIN 300 MG CAP PO SCH (22:53)
[2024-10-10] MEDS: ATORVASTATIN 20 MG TAB PO SCH (22:53)
[2024-10-10] MEDS: PROPRANOLOL HCL 20 MG TAB PO SCH (22:54)
[2024-10-10] MEDS: OXYBUTYNIN CHLORIDE XL 5 MG TABCR PO SCH (22:54)
[2024-10-10] MEDS: ENOXAPARIN INJ 40 MG/0.4 ML SYR SQ SCH (22:55)
[2024-10-10] MEDS: ACETAMINOPHEN 325 MG TAB PO SCH (22:58)
[2024-10-10] MEDS: DOCUSATE SODIUM 100 MG CAP PO SCH (22:58)
[2024-10-11 07:23] LABS: Hematocrit (blood only) 37.1 % (37.0-47.0); Mean Corpuscular Hgb Conc 32.3 g/dL (32.0-36.0); Mean Corpuscular Volume 89.6 fL (80.0-100.0); Mean Platelet Volume 9.7 fL (9.4-12.4); Platelet Count 190 K/uL (130-400); RDW Standard Deviation 45.5 fL (36.4-46.3); Red Blood Count 4.14 M/uL (4.20-5.40); White Blood Count 5.01 K/ul (4.8-10.8)
[2024-10-11 07:26] LABS: BUN Creatinine Ratio 24.4 (10-20); Calcium 9.3 mg/dl (8.6-10.3); Creatinine Clr Calc Pharmacy 63.7 ml/min; Potassium 3.6 mmol/L (3.5-5.1)
[2024-10-11] MEDS: FUROSEMIDE INJ 20 MG/2 ML VIAL IV SCH ×2 (09:46→16:19)
[2024-10-11] MEDS: FERROUS SULFATE 325 MG TAB PO SCH (09:46)
[2024-10-11] MEDS: lisinopril 5 MG TAB PO SCH (09:47)
[2024-10-11] MEDS: DULoxetine HCL 60 MG CAP PO SCH (09:47)
[2024-10-11] MEDS: ASPIRIN 81 MG ECTAB PO SCH (09:47)
--- NOTE | 2024-10-11 13:23 | Hospitalist Progress Note ---
Date of Service October 11, 2024 Assessment & Plan (1) Acute heart failure with preserved ejection fraction (HFpEF): (2) Dyspnea: (3) HTN (hypertension): (4) Ambulatory dysfunction: Plan Armand is an 79yo female with PMH of HTN, ambulatory dysfunction, T2DM, HFpEF, aortic valve sclerosis, and urinary incontinence. Patient presented on 10/10 for worsening GARCIA x 1 month, with an acute exacerbation over the past couple days. 6 pound weight gain in the last week. #Acute exacerbation of HFpEF Chest CTA on arrival without evidence of PE BioFire negative. BNP mildly elevated at 103 Dobutamine stress echo 08/25/2024: negative for myocardial ischemia. Resting echo with moderate LVH and grade 1 diastolic dysfunction; LVEF 65-70% Lasix 20 mg IV BID - Daily weights, Strict I&O monitoring, 1800 mL fluid restriction Patient has had multiple adjustments to Lasix dosing outpatient, and struggling with swelling. Referred to CHF clinic for outpatient follow-up #Dyspnea on exercertion Had admission for similar 08/2024, had negative dobutamine stress echo, started on Breo and was recommended to have outpatient PFTs Does not appear that patient is still taking inhalers Treating CHF exacerbation and will see if GARICA improves #HTN Significant elevation in the ED and received nitro BPs acceptable while inpatient Continue lisinopril and propranolol #Ambulatory dysfunction PT/OT consults pending Chronic conditions OAB - continue tolterodine equivalent HLD - continue statin, ASA chronic pain - continue gabapentin and cymbalta Dispo: continued inpatient stay with continued diuresis DVT proh: lovenox Daughter updated by phone 10/11 Admission and Anticipated Discharge Date Admission Date: October 10, 2024 Supervising Physician Co-Signing Physician Notes Attending Attestation - Chart reviewed, care plan d/w JUAN Ferreira. I agree w/ the rodriguez components of her documentation. Tavares Aviles MD Subjective patient seen lying in bed. States that she does not feel short of breath while lying down but that was not an issue at home states it was more when she was just ambulating. States that her ankles are looking much better, but states there are the lowest event since last time she was hospitalized. Does state that she has switched PCPs this year and has issues with the Lasix at 1 point it was discontinued and then recently restarted at a lower dose. No chest pain. No abdominal pain. asked the RN to take patient for a walk to be able to evaluate her dyspnea on exertion. Patient states that this is worse than when she came in, will keep patient for continued diuresis and will update family Telemetry sinus rhythm 70s to 90s Review of Systems Review of Systems: All systems reviewed & are unremarkable except as noted in Subjective Physical Exam Physical Exam: General: NAD, VS as above Resp: normal respiratory effort, lungs clear to auscultation, on room air CV: RRR, no murmur, Abd: normal bowel sounds, non tender, no hepatosplenomegaly Extremities: Moves all extremities, trace edema lower extremities, however this is nonpitting :Pure wick in place draining concentrated urine Neuro: A&O x3, Skin: intact, no lesions noted Results & Data Results & Data Vital Signs (Past 12 Hours) Vital Signs Temp Pulse Pulse Resp BP Pulse Ox O2 Del Method 10/11/24 12:33 153/88 H 10/11/24 11:45 97.7 F 91 H 18 179/91 H 95 Room Air 10/11/24 08:50 Room Air 10/11/24 07:44 97.5 F L 68 20 113/66 93 Room Air 10/11/24 07:21 64 10/11/24 02:35 98.2 F 73 18 137/81 93 Room Air Laboratory Results CBC and chemistry reviewed BMP reviewed PG Care Time/CCT Total # of Minutes Spent Total Time Spent with Patient: Total time spent is greater than 50% in coordination of care (as documented) at patient's floor/unit and/or counseling patient: Coding Level of Care Code 60214 SUB INP/OBS CARE 3/50MIN Diagnoses Acute heart failure with preserved ejection fraction (HFpEF) I50.31 Dyspnea R06.00 HTN (hypertension) I10 Ambulatory dysfunction R26.2
[2024-10-12 10:52] LABS: Hematocrit (blood only) 40.7 % (37.0-47.0); Hemoglobin 13.4 g/dl (12.0-16.0); Mean Corpuscular Hemoglobin 29.5 pg (25.0-34.0); Mean Corpuscular Hgb Conc 32.9 g/dL (32.0-36.0); Mean Corpuscular Volume 89.5 fL (80.0-100.0); Mean Platelet Volume 9.8 fL (9.4-12.4); Platelet Count 216 K/uL (130-400); RDW Coefficient of Variation 13.8 % (11.5-14.5); RDW Standard Deviation 45.3 fL (36.4-46.3); Red Blood Count 4.55 M/uL (4.20-5.40); White Blood Count 5.25 K/ul (4.8-10.8)
[2024-10-12 11:16] LABS: BUN Creatinine Ratio 22.8 (10-20); Calcium 9.2 mg/dl (8.6-10.3); Creatinine Clr Calc Pharmacy 61.1 ml/min; Magnesium 1.9 mg/dl (1.7-2.4); Potassium 3.4 mmol/L (3.5-5.1)
[2024-10-12 11:29] LABS: Thyroid Stimulating Hormone 2.74 uIu/ml (0.300-4.500)
[2024-10-12] MEDS: POTASSIUM CHLORIDE CRTAB 20 MEQ TABCR PO STA (11:47)
--- NOTE | 2024-10-12 18:09 | Hospitalist Progress Note ---
Date of Service October 12, 2024 Assessment & Plan (1) Acute heart failure with preserved ejection fraction (HFpEF): (2) Dyspnea: (3) HTN (hypertension): (4) Ambulatory dysfunction: Plan Armand is an 79yo female with PMH of HTN, ambulatory dysfunction, T2DM, HFpEF, aortic valve sclerosis, and urinary incontinence. Patient presented on 10/10 for worsening GARCIA x 1 month, with an acute exacerbation over the past couple days. 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 #Acute exacerbation of HFpEF TSH WNL Dobutamine stress echo 08/25/2024: negative for myocardial ischemia. Resting echo with moderate LVH and grade 1 diastolic dysfunction; LVEF 65-70% Lasix 20 mg IV BID - Daily weights, Strict I&O monitoring, 1800 mL fluid restriction Patient has had multiple adjustments to Lasix dosing outpatient, and struggling with swelling. Referred to CHF clinic for outpatient follow-up #Dyspnea on exercertion Chest CTA on arrival without evidence of PE BioFire negative. BNP mildly elevated at 103 Had admission for similar 08/2024, had negative dobutamine stress echo, started on Breo and was recommended to have outpatient PFTs Does not appear that patient is still taking inhalers - if shortness of breath does not improve after completed diuresis then we will explore this avenue further. #HTN Significant elevation in the ED and received nitro BPs acceptable while inpatient Continue lisinopril and propranolol #Ambulatory dysfunction PT/OT - Recommending rehab, case management following. Chronic conditions OAB - continue tolterodine equivalent HLD - continue statin, ASA chronic pain - continue gabapentin and cymbalta Dispo: continued inpatient stay with continued diuresis, Looking for rehab placement, stable for to grade to medical. DVT proh: lovenox Daughter updated by phone 10/11 and 10/12 Admission and Anticipated Discharge Date Admission Date: October 10, 2024 Supervising Physician Co-Signing Physician Notes Attending Attestation - Chart reviewed, care plan d/w JUAN Ferreira. I agree w/ the rodriguez components of her documentation. Tavares Aviles MD Subjective Armand seen this morning - had already walked and felt better than yesterday but similar to what prompted her to come to the [facility] No shortness of breath with activity PT/OT recommending rehab and patient agreeable tele - SR 70-80s Review of Systems Review of Systems: All systems reviewed & are unremarkable except as noted in Subjective Physical Exam Physical Exam: General: NAD, VS as above Resp: normal respiratory effort, lungs clear to auscultation, on room air CV: RRR, no murmur, Abd: normal bowel sounds, non tender, no hepatosplenomegaly Extremities: Moves all extremities, trace edema lower extremities, however this is nonpitting :Pure wick in place draining concentrated urine Neuro: A&O x3, Skin: intact, no lesions noted Results & Data Results & Data Vital Signs (Past 12 Hours) Vital Signs Temp Pulse Pulse Resp BP Pulse Ox O2 Del Method 10/12/24 15:48 98.6 F 61 18 144/72 H 94 Room Air 10/12/24 11:45 98.6 F 72 18 130/68 92 Room Air 10/12/24 08:07 Room Air 10/12/24 07:52 97.5 F L 70 18 157/87 H 93 Room Air 10/12/24 07:17 61 Laboratory Results CBC, chemistry and mag reviewed TSH reviewed PG Care Time/CCT Total # of Minutes Spent Total Time Spent with Patient: Total time spent is greater than 50% in coordination of care (as documented) at patient's floor/unit and/or counseling patient: Coding Level of Care Code 76950 SUB INP/OBS CARE 3/50MIN Diagnoses Acute heart failure with preserved ejection fraction (HFpEF) I50.31 Dyspnea R06.00 HTN (hypertension) I10 Ambulatory dysfunction R26.2
[2024-10-13 08:59] LABS: Calcium 9.2 mg/dl (8.6-10.3); Creatinine Clr Calc Pharmacy 58.4 ml/min
[2024-10-13] MEDS: FUROSEMIDE INJ 20 MG/2 ML VIAL IV SCH (09:58)
--- NOTE | 2024-10-13 19:15 | Hospitalist Progress Note ---
Date of Service October 13, 2024 Assessment & Plan (1) Acute heart failure with preserved ejection fraction (HFpEF): (2) Dyspnea: (3) HTN (hypertension): (4) Ambulatory dysfunction: Plan Armand is an 79yo female with PMH of HTN, ambulatory dysfunction, T2DM, HFpEF, aortic valve sclerosis, and urinary incontinence. Patient presented on 10/10 for worsening GARCIA x 1 month, with an acute exacerbation over the past couple days. 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 #Acute exacerbation of HFpEF TSH WNL Dobutamine stress echo 08/25/2024: negative for myocardial ischemia. Resting echo with moderate LVH and grade 1 diastolic dysfunction; LVEF 65-70% Lasix increased to 40 mg IV BID - Daily weights, Strict I&O monitoring, 1800 mL fluid restriction Patient has had multiple adjustments to Lasix dosing outpatient, and struggling with swelling. Referred to CHF clinic for outpatient follow-up AM BMP #Dyspnea on exercertion Chest CTA on arrival without evidence of PE BioFire negative. BNP mildly elevated at 103 Had admission for similar 08/2024, had negative dobutamine stress echo, started on Breo and was recommended to have outpatient PFTs. patient had QuantiFERON gold testing ordered during this admission that has resulted as positive when discussing with patient she has been exposed to TB in the past (her father) - reports positive PPD and blood tests in the past, no lesions on CT to suggest TB, no cough, unitentional weight loss, night sweats. This is like multifactoral from CHF/Deconditioning/?underlying pulm issues - recommend pulm referral at discharge #HTN Significant elevation in the ED and received nitro BPs continue to be acceptable Continue lisinopril and propranolol #Ambulatory dysfunction PT/OT - [facility] Chronic conditions OAB - continue tolterodine equivalent HLD - continue statin, ASA chronic pain - continue gabapentin and cymbalta Dispo: continued inpatient stay with continued diuresis, awaiting insurance authorization for rehab DVT proh: lovenox Daughter updated by phone 10/11 and 10/12 and 10/13 Admission and Anticipated Discharge Date Admission Date: October 12, 2024 Supervising Physician Co-Signing Physician Notes Attending Attestation - Chart reviewed, care plan d/w JUAN Ferreira. I agree w/ the rodriguez components of her documentation. Tavares Aviles MD Subjective patient seen lying in bed after working with PT and says she is feeling a little bit better than yesterday but still short of breath. She is anticipating going to rehab, her daughter brought her in clothes and she is disappointed that she does not have her Bible. I offered a laborer pipeline consult and she was very excited about this. Discussed positive QuantiFERON gold testing patient states her father had TB and has had multiple positive PPDs in other testings in the past. No cough, chills, night sweats, unintentional weight loss. Review of Systems Review of Systems: All systems reviewed & are unremarkable except as noted in Subjective Physical Exam Physical Exam: General: NAD, VS as above Resp: normal respiratory effort, lungs clear to auscultation, on room air CV: RRR, no murmur, Abd: normal bowel sounds, non tender, no hepatosplenomegaly Extremities: Moves all extremities, 1+ LE edema today Neuro: A&O x3, Skin: intact, no lesions noted Results & Data Results & Data Vital Signs (Past 12 Hours) Vital Signs Temp Pulse Resp BP Pulse Ox O2 Del Method 10/13/24 13:29 98.1 F 63 16 119/71 94 Room Air 10/13/24 09:45 72 16 122/77 93 Room Air 10/13/24 08:06 97.7 F 62 16 134/71 93 Room Air Laboratory Results BMP reviewed QuantiFERON gold reviewed PG Care Time/CCT Total # of Minutes Spent Total Time Spent with Patient: Total time spent is greater than 50% in coordination of care (as documented) at patient's floor/unit and/or counseling patient: Coding Level of Care Code 42590 SUB INP/OBS CARE 2/35MIN Diagnoses Acute heart failure with preserved ejection fraction (HFpEF) I50.31 Dyspnea R06.00 HTN (hypertension) I10 Ambulatory dysfunction R26.2
[2024-10-14 07:55] LABS: BUN Creatinine Ratio 31.3 (10-20); Calcium 9.1 mg/dl (8.6-10.3); Creatinine Clr Calc Pharmacy 48.6 ml/min; Potassium 3.3 mmol/L (3.5-5.1)
[2024-10-14] MEDS: POTASSIUM CHLORIDE CRTAB 20 MEQ TABCR PO STA (09:53)
--- NOTE | 2024-10-14 13:41 | Hospitalist Progress Note ---
Date of Service October 14, 2024 Assessment & Plan (1) Acute heart failure with preserved ejection fraction (HFpEF): (2) Dyspnea: (3) HTN (hypertension): (4) Ambulatory dysfunction: Plan Armand is an 79yo female with PMH of HTN, ambulatory dysfunction, T2DM, HFpEF, aortic valve sclerosis, and urinary incontinence. Patient presented on 10/10 for worsening GARCIA x 1 month, with an acute exacerbation over the past couple days. 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 #Acute exacerbation of HFpEF TSH WNL Dobutamine stress echo 08/25/2024: negative for myocardial ischemia. Resting echo with moderate LVH and grade 1 diastolic dysfunction; LVEF 65-70% Lasix increased to 40 mg IV BID - slight increase in BUN but not creatinine will continue to monitor suspect decreasing Lasix tomorrow 1/5 Daily weights, Strict I&O monitoring, 1800 mL fluid restriction Patient has had multiple adjustments to Lasix dosing outpatient, and struggling with swelling. Referred to CHF clinic for outpatient follow-up AM BMP #Dyspnea on exercertion Chest CTA on arrival without evidence of PE BioFire negative. BNP mildly elevated at 103 Had admission for similar 08/2024, had negative dobutamine stress echo, started on Breo and was recommended to have outpatient PFTs. patient had QuantiFERON gold testing ordered during this admission that has resulted as positive when discussing with patient she has been exposed to TB in the past (her father) - reports positive PPD and blood tests in the past, no lesions on CT to suggest TB, no cough, unitentional weight loss, night sweats. This is like multifactoral from CHF/Deconditioning/?underlying pulm issues - consider pulm referral at discharge however patient is feeling MUCH better today with continued diuresis so this may not be necessary #HTN Significant elevation in the ED and received nitro BPs continue to be acceptable Continue lisinopril and propranolol #Ambulatory dysfunction PT/OT - Recommending rehab, [facility] Chronic conditions OAB - continue tolterodine equivalent HLD - continue statin, ASA chronic pain - continue gabapentin and cymbalta Dispo: continued inpatient stay with continued diuresis, awaiting insurance authorization for rehab DVT proh: lovenox Daughter updated by phone 10/11 and 10/12 and 10/13 Admission and Anticipated Discharge Date Admission Date: October 12, 2024 Supervising Physician Co-Signing Physician Notes Attending Attestation - Chart reviewed, care plan d/w JUAN Ferreira. I agree w/ the rodriguez components of her documentation. Decompensated CHF improving - cont diuresis. Dispo planning. Tavares Aviles MD Subjective patient seen ambulating back from the bathroom. She is in good spirits and feels much better today. She was able to walk in the halls without feeling short of breath. She has been ambulating to the bathroom independently. She is eager to go to rehab. We continue diuresis. Review of Systems Review of Systems: All systems reviewed & are unremarkable except as noted in Subjective Physical Exam Physical Exam: General: NAD, VS as above, pleasant sitting at the edge of bed Resp: normal respiratory effort, lungs clear to auscultation, on room air CV: RRR, no murmur, Abd: normal bowel sounds, non tender, no hepatosplenomegaly Extremities: Moves all extremities, Trace, nonpitting LE edema today Neuro: A&O x3, Skin: intact, no lesions noted Results & Data Results & Data Vital Signs (Past 12 Hours) Vital Signs Temp Pulse Resp BP BP Pulse Ox O2 Del Method 10/14/24 09:50 78 14 141/77 H 92 Room Air 10/14/24 07:16 98.2 F 70 12 125/81 94 Room Air Laboratory Results BMP reviewed PG Care Time/CCT Total # of Minutes Spent Total Time Spent with Patient: Total time spent is greater than 50% in coordination of care (as documented) at patient's floor/unit and/or counseling patient: Coding Level of Care Code 45725 SUB INP/OBS CARE 2/35MIN Diagnoses Acute heart failure with preserved ejection fraction (HFpEF) I50.31 Dyspnea R06.00 HTN (hypertension) I10 Ambulatory dysfunction R26.2
[2024-10-15 07:07] LABS: BUN Creatinine Ratio 40.4 (10-20); Calcium 9.3 mg/dl (8.6-10.3); Creatinine Clr Calc Pharmacy 59.5 ml/min; Potassium 3.5 mmol/L (3.5-5.1)
--- NOTE | 2024-10-15 12:18 | Hospitalist Progress Note ---
Date of Service October 15, 2024 Assessment & Plan (1) Acute heart failure with preserved ejection fraction (HFpEF): (2) Dyspnea: (3) HTN (hypertension): (4) Ambulatory dysfunction: Plan Armand is an 79yo female with PMH of HTN, ambulatory dysfunction, T2DM, HFpEF, aortic valve sclerosis, and urinary incontinence. Patient presented on 10/10 for worsening GARCIA x 1 month, with an acute exacerbation over the past couple days. 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 #Acute exacerbation of HFpEF TSH WNL Dobutamine stress echo 08/25/2024: negative for myocardial ischemia. Resting echo with moderate LVH and grade 1 diastolic dysfunction; LVEF 65-70% Lasix increased to 40 mg IV BID - slight increase in BUN again but creatinine has decreased will continue at current dose of Lasix, reevaluate in a.m. Daily weights, Strict I&O monitoring, 1800 mL fluid restriction Patient has had multiple adjustments to Lasix dosing outpatient, and struggling with swelling. Referred to CHF clinic for outpatient follow-up AM BMP #Dyspnea on exercertion Chest CTA on arrival without evidence of PE BioFire negative. BNP mildly elevated at 103 Had admission for similar 08/2024, had negative dobutamine stress echo, started on Breo and was recommended to have outpatient PFTs. 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 This is like multifactoral from CHF/Deconditioning/?underlying pulm issues - consider pulm referral at discharge however patient is feeling MUCH better with continued diuresis so this may not be necessary #HTN Significant elevation in the ED and received nitro BPs continue to be acceptable Continue lisinopril and propranolol #Ambulatory dysfunction PT/OT - Recommending rehab, [facility] Chronic conditions OAB - continue tolterodine equivalent HLD - continue statin, ASA chronic pain - continue gabapentin and cymbalta Dispo: continued inpatient stay with continued diuresis, awaiting insurance authorization for rehab DVT proh: lovenox Daughter updated by phone 10/11 and 10/12 and 10/13 Admission and Anticipated Discharge Date Admission Date: October 12, 2024 Supervising Physician Co-Signing Physician Notes Attending Attestation - Chart reviewed, care plan d/w JUAN Ferreira. I agree w/ the rodriguez components of her documentation. Decompensated CHF improving - cont diuresis. Check labs in am. Tavares Aviles MD Subjective patient seen sitting on side of the bed. States that she is still ambulating the bathroom without any issues but feeling a little bit tired today. I suspect that this is because she did so much more activity yesterday than she is used to. She denies any shortness of breath with activity Did also mention that she has had some tingling in her arms when she is raising them above her head or moves her wrist a certain way. This is not a new problem for her as she is scheduled to see neurology in November but will check a vitamin B12 level with a.m. labs tomorrow Review of Systems Review of Systems: All systems reviewed & are unremarkable except as noted in Subjective Physical Exam Physical Exam: General: NAD, VS as above, pleasant sitting at the edge of bed Resp: normal respiratory effort, lungs clear to auscultation, on room air CV: RRR, no murmur, Abd: normal bowel sounds, non tender, no hepatosplenomegaly Extremities: Moves all extremities, no lower extremity edema Neuro: A&O x3, Skin: intact, no lesions noted Results & Data Results & Data Vital Signs (Past 12 Hours) Vital Signs Temp Pulse Resp BP Pulse Ox O2 Del Method 10/15/24 07:58 97.3 F L 70 17 165/92 H 94 Room Air Laboratory Results BMP reviewed PG Care Time/CCT Total # of Minutes Spent Total Time Spent with Patient: Total time spent is greater than 50% in coordination of care (as documented) at patient's floor/unit and/or counseling patient: Coding Level of Care Code 37437 SUB INP/OBS CARE 2/35MIN Diagnoses Acute heart failure with preserved ejection fraction (HFpEF) I50.31 Dyspnea R06.00 HTN (hypertension) I10 Ambulatory dysfunction R26.2
[2024-10-16 07:45] VITALS: RESP 16
[2024-10-16 08:01] LABS: BUN Creatinine Ratio 34.9 (10-20); Calcium 9.3 mg/dl (8.6-10.3); Creatinine Clr Calc Pharmacy 51.3 ml/min; Potassium 3.7 mmol/L (3.5-5.1)
--- NOTE | 2024-10-16 16:20 | Hospitalist Progress Note ---
Date of Service October 16, 2024 Assessment & Plan (1) Acute heart failure with preserved ejection fraction (HFpEF): (2) Dyspnea: (3) HTN (hypertension): (4) Ambulatory dysfunction: Plan Armand is an 79yo female with PMH of HTN, ambulatory dysfunction, T2DM, HFpEF, aortic valve sclerosis, and urinary incontinence. Patient presented on 10/10 for worsening GARCIA x 1 month, with an acute exacerbation over the past couple days. 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 #Acute exacerbation of HFpEF TSH WNL Dobutamine stress echo 08/25/2024: negative for myocardial ischemia. Resting echo with moderate LVH and grade 1 diastolic dysfunction; LVEF 65-70% Lasix increased to 40 mg IV BID BMP with BUN of 38 and creatinine 1.09 BNP WNL at 16. Daily weights, Strict I&O monitoring, 1800 mL fluid restriction Patient has had multiple adjustments to Lasix dosing outpatient, and struggling with swelling. Referred to CHF clinic for outpatient follow-up AM BMP #Dyspnea on exercertion Chest CTA on arrival without evidence of PE BioFire negative. BNP mildly elevated at 103 but now WNL at 16. Had admission for similar 08/2024, had negative dobutamine stress echo, started on Breo and was recommended to have outpatient PFTs. 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 This is like multifactorial from CHF/Deconditioning/?underlying pulm issues - consider pulm referral at discharge however patient is feeling MUCH better with continued diuresis so this may not be necessary #HTN Significant elevation in the ED and received nitro BPs continue to be acceptable Continue lisinopril and propranolol #Ambulatory dysfunction PT/OT - Recommending rehab, [facility] Chronic conditions OAB - continue tolterodine equivalent HLD - continue statin, ASA chronic pain - continue gabapentin and cymbalta Dispo: patient pending discharge based on insurance auth. DVT proh: lovenox Admission and Anticipated Discharge Date Admission Date: October 12, 2024 Subjective Patient seen and examined this morning. patient denies CP or SOB of breath today. She states she is feeling well. Physical Exam Constitutional: WD/WN, vitals as above Eyes: PERRL, conjunctivae normal, anicteric sclerae Respiratory: normal respiratory effort, lungs clear to auscultation Cardiovascular: RRR, no murmur, no edema Psychiatric: A+Ox3, euthymic affect Results & Data Results & Data Vital Signs (Past 12 Hours) Vital Signs Temp Pulse Resp BP Pulse Ox O2 Del Method 10/16/24 16:01 36.6 C 85 16 129/85 96 Room Air 10/16/24 07:44 36.6 C 85 16 137/83 96 Room Air PG Care Time/CCT Total # of Minutes Spent Total Time Spent with Patient: Total time spent is greater than 50% in coordination of care (as documented) at patient's floor/unit and/or counseling patient: Coding Level of Care Code 84531 SUB INP/OBS CARE 2/35MIN Diagnoses Acute heart failure with preserved ejection fraction (HFpEF) I50.31 Dyspnea R06.00 HTN (hypertension) I10 Ambulatory dysfunction R26.2
[2024-10-17] MEDS: ACETAMINOPHEN 325 MG TAB PO STA (04:01)
[2024-10-17 07:52] VITALS: BP 134/62; PULSE 80; TEMP 97.7; O2SAT 93
[2024-10-17 08:39] LABS: Calcium 9.6 mg/dl (8.6-10.3); Potassium 3.8 mmol/L (3.5-5.1)
--- NOTE | 2024-10-17 09:59 | Discharge Summary ---
Discharge Summary Date of Service October 17, 2024 Principal Dx & Hospital Course #1 = Principal Diagnosis (1) Acute heart failure with preserved ejection fraction (HFpEF): (2) Dyspnea: (3) HTN (hypertension): (4) Ambulatory dysfunction: Carmen Acuna is an 79yo female with PMH of HTN, ambulatory dysfunction, T2DM, HFpEF, aortic valve sclerosis, and urinary incontinence. Patient presented on 10/10 for worsening GARCIA x 1 month, with an acute exacerbation over the past couple days. 6 pound weight gain in the last week [employer]. #Acute exacerbation of HFpEF TSH WNL Dobutamine stress echo 08/25/2024: negative for myocardial ischemia. Resting echo with moderate LVH and grade 1 diastolic dysfunction; LVEF 65-70% Lasix increased to 40 mg IV BID BMP with BUN of 34 and creatinine 0.92 BNP WNL at 16. Daily weights, Strict I&O monitoring, 1800 mL fluid restriction Patient back to baseline weight. Patient has had multiple adjustments to Lasix dosing outpatient, and struggling with swelling. Referred to CHF clinic for outpatient follow-up Discharged on Lasix 40mg PO daily - per patient she had been on this dosage for years until her PCP decreased it to 20mg PO daily. Defer further adjustments of her diuretic therapy to PCP vs CHF clinic outpatient. #Dyspnea on exercertion Chest CTA on arrival without evidence of PE BioFire negative. BNP mildly elevated at 103 but now WNL at 16. Had admission for similar 08/2024, had negative dobutamine stress echo, started on Breo and was recommended to have outpatient PFTs. 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 This is like multifactorial from CHF/Deconditioning. Less likely pulm related as patient's symptoms have improved greatly w/ diuresis. #HTN BPs continue to be acceptable Continue lisinopril and propranolol #Ambulatory dysfunction PT/OT - Recommending rehab, accepted to [facility] P2P completed and approved 10/17. Chronic conditions OAB - continue tolterodine equivalent HLD - continue statin, ASA chronic pain - continue gabapentin and cymbalta patient discharged to [facility] 10/17. Admission HPI Per Admitting Provider Armand is an 79yo female with PMH of HTN, ambulatory dysfunction, T2DM, HFpEF, aortic valve sclerosis, and urinary incontinence. She presented via EMS on 10/10 for worsening SOB with exertion. This has been an ongoing issue since her last hospitalization in August 2024, however patient's son (Ari) at bedside reports that there has been an acute exacerbation over the last 3 to 4 days. Over these past few days, she has noticed increased fluid buildup in her legs, L as well as worsening GARCIA. She reports she can barely get up and walk a few steps to the bathroom without feeling exhausted. While she does not endorse orthopnea, she rarely lies flat on her back. Additionally, she reports that she has been wheezing when she walks. No supplemental oxygen at baseline or CPAP at night. No sick contacts. She denies cough or fever. Patient took her regular morning medicine today; no recent change in medicine. She reports good compliance with taking her Lasix 20 mg daily. She reports her Lasix was decreased earlier in the year (January) down from 40 mg. Patient manages her own medicine at home. She denies any recent change in diet, and reports that she does watch her salt intake. However, she has been eating fewer meals per day, and does note that there is been increased weight gain despite this (she reports increased from 207lb --> 213lb over the past several days). Patient is still producing urine. She denies smoking, tobacco use, recent alcohol use. She denies history of COPD or asthma, and reports that she does not follow with a towel stretcher. She does report that the Symbicort given during her last admission helped. 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 Patient was hypertensive at 240/131 on arrival; her BP is down to 150/80 at time of admission. Vitals otherwise stable. ED course: Nitroglycerin 0.4 mg SL x 2 Aspirin 324 mg p.o. ROS: Patient endorses worsening GARCIA, wheezing, facial flushing, and lower extremity swelling. Patient denies fever, chills, night-sweats, dizziness, lightheadedness, WALSH, chest pain, chest pressure, chest palpitations, SOB at rest, cough, pleuritic CP, abdominal pain, N/V/D, change in urinary habits, burning with urination, or blood in the urine/stool. Discharge Exam Constitutional WD/WN, vitals as above Eyes PERRL, conjunctivae normal, anicteric sclerae Respiratory normal respiratory effort, lungs clear to auscultation Cardiovascular RRR, no murmur, no edema Psychiatric A+Ox3, euthymic affect Discharge Plan Discharge Items Patient Disposition: Transfer Inpatient Rehab Fac Reason For Visit: WORSENING GARCIA Discharge Diagnosis: acute excaerbation of CHF Activity: Resume your previous activity Non-emergency contact: Primary Care Provider Call non-emergency contact if: you have any medication questions and your symptoms worsen Follow-up/Referrals: Leonora Gresham PA-C [Physician Warehouse Team Member] - Cate Ford MD [Primary Care Provider] - Diet: Heart Healthy Addtl Attending Provider Instructions: Ms. Kaminski, You were recently hospitalized for worsening shortness of breath. You were found to be in an acute exacerbation of your congestive heart failure. Please see recommendations below regarding your discharge. 1. Please take Lasix 40mg once daily. 2. Please follow up with the heart failure clinic at an appointment to be josue giles. 3. You may resume the remainder of your outpatient medications. If you develop any worsening shortness of breath, chest pain, or excessive lower extremity swelling please report back to the ER for further care. Sincerely, Sommer Kim PA-C Pending Studies at Discharge: No Stand-Alone Forms: My [facility] Skilled Items Patient informed of condition?: Yes DNR: Yes Discharge Level of Care: Acute rehab Communicable Disease: No Discharge Prognosis: Improving Lines: None Urinary Catheter: No Medications and DC Order Prescriptions: New furosemide [Lasix] 40 mg tablet 40 mg PO DAILY Qty: 30 0RF Continued tolterodine 4 mg capsule,extended release 24hr 4 mg PO PM Qty: 90 3RF polyethylene glycol 3350 [Miralax] 17 gram powder in packet 17 g PO DAILY PRN (Reason: constipation) Qty: 100 0RF Rx Instructions: stop for diarrhea ferrous sulfate 325 mg (65 mg iron) tablet,delayed release (DR/EC) 325 mg PO DAILY atorvastatin 20 mg tablet 20 mg PO QPM Qty: 15 3RF propranolol 60 mg tablet 60 mg PO BID 90 Days Qty: 30 2RF aspirin [Adult Aspirin Regimen] 81 mg tablet,delayed release (DR/EC) 81 mg PO DAILY Qty: 15 0RF calcium carbonate [Calcium 600] 600 mg calcium (1,500 mg) tablet 600 mg PO DAILY 90 Days Qty: 15 3RF docusate sodium 100 mg capsule 100 mg PO BID 30 Days Qty: 30 3RF albuterol sulfate 90 mcg/actuation HFA aerosol inhaler 2 puff INH Q6H PRN (Reason: Shortness Of Breath Or Wheezing) Qty: 8.5 5RF duloxetine 60 mg capsule,delayed release(DR/EC) 60 mg PO DAILY Qty: 15 3RF cholecalciferol (vitamin D3) 50 mcg (2,000 unit) tablet 2,000 unit PO QAM 90 Days Qty: 15 4RF [id number]-Ca carb-vit K 18 mg iron-400 mcg-500 mg Tablet 1 tab PO QAM Qty: 15 0RF ascorbic acid (vitamin C) 500 mg capsule 500 mg PO BID Qty: 30 0RF acetaminophen 325 mg tablet 650 mg PO QID Qty: 120 0RF gabapentin 300 mg capsule 300 mg PO TID Qty: 45 5RF lisinopril 5 mg tablet 5 mg PO QAM famotidine 20 mg tablet 20 mg PO BID Glucosamine Chondroitin 550-30-1 mg capsule 2 cap PO QAM No Action (DME) Manual Wheelchair See Rx Instructions .Route .MEDSUPPLY Qty: 1 0RF Rx Instructions: As directed to aid in mobility and transportation (DME) Hospital Bed See Rx Instructions .Route .MEDSUPPLY Qty: 1 0RF Rx Instructions: As directed to improve comfort, prevent pressure injury, and aid in positioning. Semi-electric. (DME) Shower Chair Misc See Rx Instructions .Route Qty: 1 0RF Rx Instructions: As directed Discharge Orders: Discharge Order- CHF (Routine); Ordered 10/17/24 Ordered By: Sommer Kim Admission Data Admit Date/Time: 10/12/24 12:00 Attending Provider: Jone Waters Admit Provider: Abhishek Avila Primary Care Provider: Cate Ford Other Providers: Abhishek Avila; Leonora Gresham Hospital Stay Data Consultations 10/10/24 16:35 ED Decision to Admit Stat 10/11/24 13:16 [facility] [place], [place] CHF Program Referral Routine Diagnostic Imagining Performed 10/10/24 13:24 CT angio chest PE protocol Stat Pending Results Patient Have Any Pending Studies at Discharge: No Discharge Instructions Given to Patient (Per Discharging Provider) Ms. Kaminski, Alfonso were recently hospitalized for worsening shortness of breath. You were found to be in an acute exacerbation of your congestive heart failure. Please see recommendations below regarding your discharge. 1. Please take Lasix 40mg once daily. 2. Please follow up with the heart failure clinic at an appointment to be scheduled. 3. You may resume the remainder of your outpatient medications. If you develop any worsening shortness of breath, chest pain, or excessive lower extremity swelling please report back to the ER for further care. Sincerely, Sommer Kim PA-C Total Time Total Time Spent Total Time Spent (In Minutes): 45 Total Time Includes: Examination of the Patient, Discharge Planning, Medication Reconciliation and Communication With Other Providers Coding Level of Care Code 92575 INP/OBS DISCH >30 MIN Diagnoses Acute heart failure with preserved ejection fraction (HFpEF) I50.31 Dyspnea R06.00 HTN (hypertension) I10 Ambulatory dysfunction R26.2
== END 2024-10-17 14:28 | DRG 291 ==
LOC: EDINP 11:45 → ED 11:45 → SUATTDRO 17:59 → 2N 19:22 → SUATTDRO 10-12 12:00 → 3W 10-13 05:40